=== PATIENT | male | born 1960 | race Caucasian/White ===

== ENCOUNTER 2021-03-05 00:16 | Inpatient (IN) ==
[2021-03-05] MEDS ORDERED: LABETALOL 5 MG/ML ML IV PRN ×2 (00:33→08:30)
[2021-03-05] MEDS: 0.9 % SODIUM CHLORIDE 10 ML SYRINGE IV SCH ×5 (01:45→21:40)
[2021-03-05] MEDS ORDERED: LABETALOL 5 MG/ML ML IV ONE (03:30)
[2021-03-05 07:52] LABS: Basophils # (Auto) 0.08 K/mcL (0.00-0.20); Basophils % (Auto) 0.8 % (0.0-2.0); Eosinophils # (Auto) 0.22 K/mcL (0.00-0.70); Eosinophils % (Auto) 2.3 % (0.0-7.0); Hematocrit 39.4 % (41.0-55.0); Lymphocytes # (Auto) 1.92 K/mcL (1.50-4.80); Lymphocytes % (Auto) 19.7 % (15.0-49.0); Mean Cell Volume 73.1 fL (80.0-100.0); Mean Corpuscular HGB Conc 27.9 g/dL (31.0-36.0); Mean Platelet Volume 8.7 fL (7.4-10.4); Monocytes # (Auto) 0.97 K/mcL (0.10-0.90); Neutrophils % (Auto) 67.2 % (38.0-78.0); Platelet Count 337 K/mcL (140-440); RBC 5.39 M/mcL (4.50-5.90); Red Cell Distribution Width 23.6 % (11.5-14.5); WBC 9.7 K/mcL (4.5-11.0)
[2021-03-05] MEDS ORDERED: FUROSEMIDE 40 MG/4 ML VIAL IV SCH (08:00)
--- NOTE | 2021-03-05 08:21 | Internal Med History&Physical ---
HPI History of Present Illness Patient information: Note initiated : 03/05/21 at 8:15 am Service Date, if different from initiated Date: [] Patient: Guillaume Broderick a 60 y/o M admitted on 03/05/21 for Anasarca. Chief Complaint: [] History of present illness: Mr. Broderick is a 60 year old M Patient transferred from [facility] because of staffing issues. Patient went in complaining of increased swelling and pain in his lower extremities had a hard time ambulating because of swelling and pain. He has mild shortness of breath but this is not changed. Denies fever chills. Has injuries lower extremities no chest pain or palpitations no cough or shortness or sputum production or fevers or chills. In the ER he was unable to ambulate and lives by himself. He has no pitting edema to the abdomen. Patient had a stress test in January which showed partially reversible perfusion defect in the anterior wall and he had ejection fraction 20% with left ventricle dilatation. He has chronic discoloration of his legs. He feels his legs are hot. Review of Systems: Pertinent positives as above plus chronic cough and chronic shortness of breath at baseline.. Denies headache/fever/chills/nausea/vomiting/chest or abdominal pain/diarrhea. Remaining 10 point review of system reviewed negative PFSH PFSH All Active Problems (Updated 02/17/21 @ 09:31 by Omero Holt MD) Scratch of right lower leg (Acute) Near syncope (Acute) Dyspnea (Acute) Hypertensive urgency (Acute) Blister (Acute) Visit for wound check (Acute) Rash (Acute) Congestive heart failure (Acute) Hypertension (Acute) Type 2 diabetes mellitus (Acute) Hypertensive urgency (Acute) History of syncope (Acute) Elevated troponin (Acute) Lower urinary tract symptoms (LUTS) (Chronic) Arthritis (Chronic) Pain in left knee (Chronic) Sleeps in sitting position due to orthopnea (Chronic) Pain in right knee (Chronic) Adult body mass index 40 and over (Chronic) History of tobacco use (Chronic) Edema of lower extremity (Chronic) Retinal venous tortuosity (Chronic) Allergic rhinitis (Chronic) Benign hypertension (Chronic) Chronic depression (Chronic) Morbid obesity (Chronic) Diabetes mellitus (Chronic) Urinary incontinence (Chronic) Pediculus capitis (head louse) (Chronic) Pediculus corporis (body louse) (Chronic) Rib pain on left side (Chronic) Medical History Adult body mass index 40 and over Allergic rhinitis Arthritis Bilateral Ankle Benign hypertension Chronic depression Diabetes mellitus Edema of lower extremity History of tobacco use Lower urinary tract symptoms (LUTS) Morbid obesity Pain in left knee Pain in right knee Pediculus capitis (head louse) Pediculus corporis (body louse) Rash Retinal venous tortuosity Sleeps in sitting position due to orthopnea Urinary incontinence Surgical History History of colonoscopy with polypectomy History of hernia repair "Double" Family History Mother Tumor of lung Father Malignant neoplasm of bone Malignant melanoma Social History household members: other sexually active: No alcohol intake frequency: does not drink substance use type: does not use seatbelt use: always working smoke detector in home: Yes firearms in home: No MEDS/ALLERGIES Home Medications and Allergies Home Medications Medication Instructions Recorded Confirmed Type amlodipine 5 mg tablet 5 mg PO QDAY 07/17/19 12/16/20 History exenatide microspheres 2 mg/0.85 2 mg SUB-Q QWEEK ml 07/17/19 12/16/20 History mL subcutaneous auto-injector fluoxetine 40 mg capsule 40 mg PO QDAY 07/17/19 12/16/20 History furosemide 40 mg tablet 40 mg PO BID tab 07/17/19 12/16/20 History lisinopril 40 mg tablet 40 mg PO QDAY 07/17/19 12/16/20 History metformin 500 mg tablet,extended 1,000 mg PO BID tab 07/17/19 12/16/20 History release 24 hr potassium chloride 10 mEq 20 meq PO BID 07/17/19 12/16/20 History capsule,extended release rosuvastatin 40 mg tablet 40 mg PO QDAY 07/17/19 12/16/20 History insulin glargine 100 unit/mL (3 29 unit SUB-Q QDAY ml 08/19/19 12/16/20 History mL) subcutaneous pen tamsulosin 0.4 mg capsule 0.8 mg PO QDAY #60 cap 10/09/19 12/16/20 Rx permethrin 5 % topical cream 1 applic TOPICAL Q14D #60 g 12/16/20 12/16/20 Rx meclizine 25 mg PO BID PRN #20 tab MDD 2 01/12/21 Rx finasteride 5 mg tablet See Rx Instructions .ROUTE 01/24/21 Rx .COMPLEX #30 tab permethrin 1 applic TOPICAL ONCE #60 g 02/17/21 Rx Allergies Allergy/AdvReac Type Severity Reaction Status Date / Time No Known Drug Allergies Allergy Verified 01/12/21 18:12 EXAM Constitutional Vitals: Temp Pulse Resp BP Pulse Ox 97.9 F 94 H 18 139/107 100 03/05/21 08:01 03/05/21 04:01 03/05/21 08:07 03/05/21 08:01 03/05/21 08:01 Exam: General: Alert, Awake, No acute Distress, obese Eyes/N/T: EOMI, PERRL, Head/Neck: neck supple, normocephalic atraumatic CV: RRR, 2/6 SM, normal s1/s2 Pulm: Clear b/l, no wheezing/rhonchi/rales Abd: soft, nontender, +BS x4 Ext: no clubbing/cyanosis, 3+ b/l LE edema to waist, bilateral lower extremity is erythematous and tender to the touch and warm. Neuro: Alert, no focal deficits, moves all extremities, CN 2-12 grossly intact, symmetrical strength b/l upper/lower, sensations intact b/l upper/lower Skin: warm/dry DATA Data Completed and Pending Labs: Labs from last 24 hours 03/05/21 03/05/21 05:19 05:18 WBC 9.7 RBC 5.39 Hgb 11.0 L Hct 39.4 L MCV 73.1 L MCH 20.4 L MCHC 27.9 L RDW 23.6 H Plt Count 337 MPV 8.7 Neut % (Auto) 67.2 Lymph % (Auto) 19.7 Nelson % (Auto) 10.0 Eos % (Auto) 2.3 Baso % (Auto) 0.8 Lymph # (Auto) 1.92 Nelson # (Auto) 0.97 H Eos # (Auto) 0.22 Baso # (Auto) 0.08 Absolute Neutrophils 6.54 Sodium Pending Potassium Pending Chloride Pending Carbon Dioxide Pending Anion Gap Pending BUN Pending Creatinine Pending GFR Calculation Pending Glucose Pending Uric Acid Pending Calcium Pending Phosphorus Pending Magnesium Pending Total Bilirubin Pending Direct Bilirubin Pending GGT Pending AST Pending ALT Pending Alkaline Phosphatase Pending Lactate Dehydrogenase Pending Total Protein Pending Albumin Pending Globulin Pending Albumin/Globulin Ratio Pending Triglycerides Pending A/P Narrative A/P Narrative: A: *Anasarca: *Medication noncompliance: *Generalized weakness/debility: *ADOLFO on CKD III(base Cr~?1.6-1.7): suspect cardiorenal -1.8>1.6 *h/o severe systolic CHF (EF 20%): follows with cardiology *UTI, complicated: *UR, h/o bph: has seen urology last year for uti's and incomplete bladder emptying -on finasteride/flomax *Venous stasis dermatitis vs less likely b/l LE cellulitis -afebrile, no leukocytosis *HTN/HLD: on norvasc/lasix/ACEI, statin *Anemia, chronic: *Depression/anxiety *DM: on insulin/metformin *Morbid obesity: * P: -lasix gtt, monitor i&o's -monitor renal fxn -horton placement, f/u with urology if still requiring horton at d/c -hold norvasc for edema, change to BB, hold ACEI for adolfo -basal and SSI, hold metformin -elevate legs and wrap, -Rocephin pending UC -Update home medications in system -pt/ot -cm for placement -ppx: lovenox bid for obesity full code Time Spent With Patient Time: Total time spent is greater than 50% in coordination of care (as documented) at patient's floor/unit and/or counseling patient: QUALITY Stroke Symptom Onset Unknown: No VTE Deep Vein Thrombosis/Pulmonary Embolism Present on Admission: No
[2021-03-05 08:23] LABS: ALT/SGPT 24 U/L (<40); AST/SGOT 28 U/L (<40); Albumin 3.5 gm/dL (3.2-5.2); Albumin/Globulin Ratio 1.1 (1.0-2.3); Alkaline Phosphatase 69 U/L (39-117); Bilirubin,Direct 0.3 mg/dL (<0.3); Bilirubin,Total 0.6 mg/dL (0.1-1.0); Blood Urea Nitrogen 46 mg/dL (8-23); Calcium 9.5 mg/dL (8.6-10.4); Carbon Dioxide 21 mmol/L (22-30); Chloride 100 mmol/L (96-108); Globulin 3.1 gm/dL (2.2-3.7); Glomerular Filtration Rate 46; Glucose 84 mg/dL (70-105); Lactate Dehydrogenase 323 U/L (135-225); Phosphorous 4.9 mg/dL (2.5-4.5); Triglycerides 82 mg/dL (<150); Uric Acid 9.4 mg/dL (2.5-8.0)
[2021-03-05] MEDS ORDERED: FUROSEMIDE 250 MG in 0.9 % SODIUM CHLORIDE 225 ML IV SCH (09:00)
[2021-03-05] MEDS ORDERED: POTASSIUM CHLORIDE 20 MEQ TABLET PO PRN ×2 (10:55)
[2021-03-05] MEDS ORDERED: MAGNESIUM SULFATE 2 GM/50 ML BAG IV PRN (10:55)
[2021-03-05] MEDS ORDERED: POTASSIUM CHLORIDE 40 MEQ in DEXTROSE 5% IN WATER 500 ML IV PRN (10:55)
[2021-03-05] MEDS ORDERED: IPRATROPIUM/ALBUTEROL 3 ML AMPUL.NEB NEB PRN (10:55)
[2021-03-05] MEDS ORDERED: ONDANSETRON 4 MG/2 ML VIAL IV PRN (10:55)
[2021-03-05] MEDS ORDERED: DEXTROSE 31 GM ORAL.SUSP PO PRN (10:55)
[2021-03-05] MEDS ORDERED: SENNOSIDES 1 TABLET PO PRN (10:55)
[2021-03-05] MEDS ORDERED: POLYETHYLENE GLYCOL 3350 17 GM PACKET PO PRN (10:55)
[2021-03-05] MEDS ORDERED: DEXTROSE 50% 50 ML VIAL IV PRN (10:55)
[2021-03-05] MEDS: cefTRIAXone 2 GM in DEXTROSE 5% IN WATER 50 ML IV SCH (12:03)
[2021-03-05] MEDS: METOPROLOL SUCCINATE 25 MG TAB.XL.24H PO SCH (12:03)
[2021-03-05] MEDS: ENOXAPARIN 40 MG/0.4 ML SYRINGE SQ SCH ×2 (12:03→21:39)
[2021-03-05] MEDS ORDERED: TAMSULOSIN 0.4 MG CAPSULE PO ONE (12:06)
[2021-03-05] MEDS ORDERED: FINASTERIDE 5 MG TABLET PO STA (12:06)
[2021-03-05] MEDS: INSULIN LISPRO 1 UNIT/0.01 ML UNIT SQ SCH ×3 (13:25→21:39)
[2021-03-05] MEDS ORDERED: MECLIZINE 25 MG TABLET PO PRN (14:00)
--- NOTE | 2021-03-05 15:14 | XRay Report ---
CLINICAL INFORMATION: anasarca, ?pulm edema COMPARISON: Baseline study 11/08/2013 and 01/12/2021 FINDINGS: The heart is moderately enlarged, but unchanged. Mediastinum is normal. The pulmonary vessels are mildly distended compared to a baseline chest x-ray 11/08/2013. No definite edema or infiltrates. No effusions IMPRESSION: Mild CHF Interpreted and Authenticated by: Bartolo Arias 03/05/21
--- NOTE | 2021-03-05 15:18 | Ultrasound Report ---
CLINICAL INFORMATION: will, r/o hydronephrosi COMPARISON: Abdomen and pelvic CT 10/06/2019 FINDINGS: Right kidney was not visualized. Left kidney is normal in size and echotexture left 11.7 x 6 cm. No left renal lesions. Urinary bladder volume 556 cc with patient unable to void. No focal bladder lesions. IMPRESSION: Left kidney and bladder are unremarkable. Right kidney was not visualized. Right kidney was present on a 10/06/[address] Consider repeat noncontrast abdomen and pelvic CT four right kidney evaluation Interpreted and Authenticated by: Bartolo Arias 03/05/21
[2021-03-05] MEDS: POTASSIUM CHLORIDE 20 MEQ TABLET PO SCH (17:18)
[2021-03-05] MEDS: TAMSULOSIN 0.4 MG CAPSULE PO SCH (21:16)
[2021-03-05] MEDS: ACETAMINOPHEN 325 MG TABLET PO PRN (21:17)
[2021-03-05] MEDS: DOCUSATE SODIUM 100 MG CAPSULE PO SCH (21:17)
[2021-03-06] MEDS: ACETAMINOPHEN 325 MG TABLET PO PRN ×2 (02:20→20:57)
[2021-03-06 04:36] LABS: Basophils # (Auto) 0.07 K/mcL (0.00-0.20); Eosinophils # (Auto) 0.22 K/mcL (0.00-0.70); Eosinophils % (Auto) 3.1 % (0.0-7.0); Hematocrit 34.8 % (41.0-55.0); Hemoglobin 10.2 g/dL (13.5-16.5); Lymphocytes # (Auto) 1.76 K/mcL (1.50-4.80); Lymphocytes % (Auto) 24.7 % (15.0-49.0); Mean Cell Volume 70.7 fL (80.0-100.0); Mean Corpuscular HGB Conc 29.3 g/dL (31.0-36.0); Mean Platelet Volume 8.6 fL (7.4-10.4); Monocytes # (Auto) 0.55 K/mcL (0.10-0.90); Monocytes % (Auto) 7.7 % (1.0-12.0); Neutrophils % (Auto) 63.5 % (38.0-78.0); Platelet Count 293 K/mcL (140-440); RBC 4.92 M/mcL (4.50-5.90); Red Cell Distribution Width 22.7 % (11.5-14.5); WBC 7.1 K/mcL (4.5-11.0)
[2021-03-06 04:45] LABS: ALT/SGPT 17 U/L (<40); AST/SGOT 19 U/L (<40); Albumin 3.1 gm/dL (3.2-5.2); Albumin/Globulin Ratio 1.1 (1.0-2.3); Alkaline Phosphatase 54 U/L (39-117); Bilirubin,Direct 0.2 mg/dL (<0.3); Bilirubin,Total 0.6 mg/dL (0.1-1.0); Blood Urea Nitrogen 38 mg/dL (8-23); Calcium 8.5 mg/dL (8.6-10.4); Carbon Dioxide 25 mmol/L (22-30); Chloride 101 mmol/L (96-108); Globulin 2.8 gm/dL (2.2-3.7); Glomerular Filtration Rate 46; Glucose 104 mg/dL (70-105); Lactate Dehydrogenase 221 U/L (135-225); Phosphorous 4.2 mg/dL (2.5-4.5); Triglycerides 68 mg/dL (<150); Uric Acid 9.3 mg/dL (2.5-8.0)
[2021-03-06] MEDS: 0.9 % SODIUM CHLORIDE 10 ML SYRINGE IV SCH ×3 (05:53→22:05)
[2021-03-06] MEDS: INSULIN LISPRO 1 UNIT/0.01 ML UNIT SQ SCH ×4 (07:11→21:01)
[2021-03-06] MEDS ORDERED: ALBUMIN HUMAN 12.5 GM/50 ML BAG IV ONE (09:34)
--- NOTE | 2021-03-06 09:34 | Internal Med Progress Note ---
SUBJECTIVE Subjective Patient information: Note initiated : 03/06/21 at 9:24 am Service Date, if different from initiated Date: [] Patient: Guillaume Broderick a 60 y/o M admitted on 03/05/21 for Anasarca. Chief Complaint: [] Interval history: History of present illness: Mr. Broderick is a 60 year old M Patient transferred from [facility] because of staffing issues. Patient went in complaining of increased swelling and pain in his lower extremities had a hard time ambulating because of swelling and pain. He has mild shortness of breath but this is not changed. Denies fever chills. Has injuries lower extremities no chest pain or palpitations no cough or shortness or sputum production or fevers or chills. In the ER he was unable to ambulate and lives by himself. He has no pitting edema to the abdomen. Patient had a stress test in January which showed partially reversible perfusion defect in the anterior wall and he had ejection fraction 20% with left ventricle dilatation. He has chronic discoloration of his legs. He feels his legs are hot. 03/06 Patient slept well. He feels sleepy but otherwise no new pains or complaints or overnight events. He has had good urine output on the Lasix drip. Suspect he has obstructive sleep apnea. ABG without any CO2 retention. Review of Systems: denies headache/fever/chills/nausea/vomiting/chest or abdominal pain/cough/dyspnea/diarrhea. Otherwise see above. Constitutional Vitals: Vital Signs Temp Pulse Resp BP Pulse Ox 97.6 F 79 19 122/78 96 03/06/21 08:01 03/06/21 08:01 03/06/21 08:01 03/06/21 08:01 03/06/21 08:01 Period Temp Pulse Resp BP Sys/Becerra Pulse Ox Last 24 Hr 97.6 F-98.5 F 60-99 14-25 93-170/48-98 91-99 Intake and Output 03/05/21 03/06/21 03/06/21 21:59 05:59 13:59 Intake Total 660 240 200 Output Total 1226 302 800 Balance -566 -62 -600 Weight 170.596 kg Intake & Output: Intake & Output 06/12/21 06/13/21 06/13/21 21:59 05:59 13:59 Intake Total 660 240 200 Output Total 1226 302 800 Balance -566 -62 -600 Weight 170.596 kg Intake: Oral 660 240 200 Output: Void Amount 1225 300 800 # of times incontinent of urine 1 2 Other: Meal Dinner Percent of Meal Consumed 100% Feeding Ability Independent Urine Appearance Clear Clear Clear Urine Color Bright Yellow Bright Yellow Dark Yellow Urine Odor Normal Normal Normal Stool Size Smear Stool Color Yellow Stool Consistency Soft # Bowel Movements 1 Exam: General: Alert, Awake, No acute Distress, obese Eyes/N/T: EOMI,L, Head/Neck: neck supple, normocephalic atraumatic CV: RRR, 2/6 SM, normal s1/s2 Pulm: Clear b/l, no wheezing/rhonchi/rales Abd: soft, nontender, +BS x4 Ext: no clubbing/cyanosis, 3+ b/l LE edema to waist, right heal wound Neuro: Alert, no focal deficits, moves all extremities, Skin: warm/dry OBJ DATA Labs CBC & Chem 7: 03/06/21 03:09 03/06/21 03:09 Labs: Abnormal Lab Results 03/06/21 03/06/21 03/05/21 03:09 03:09 05:19 Hgb 10.2 L 11.0 L Hct 34.8 L 39.4 L MCV 70.7 L 73.1 L MCH 20.7 L 20.4 L MCHC 29.3 L 27.9 L RDW 22.7 H 23.6 H Kent # (Auto) 0.97 H Carbon Dioxide BUN 38 H Creatinine 1.6 H Uric Acid 9.3 H Calcium 8.5 L Phosphorus Direct Bilirubin Lactate Dehydrogenase Albumin 3.1 L 03/05/21 05:18 Hgb Hct MCV MCH MCHC RDW Kent # (Auto) Carbon Dioxide 21 L BUN 46 H Creatinine 1.6 H Uric Acid 9.4 H Calcium Phosphorus 4.9 H Direct Bilirubin 0.3 H Lactate Dehydrogenase 323 H Albumin Meds: Medications Acetaminophen (Acetaminophen 325 Mg Tablet) 650 mg PO Q6HP PRN PRN Reason: PAIN/FEVER > 101 Last Admin: 03/06/21 02:20 Dose: 650 mg Documented by: Albuterol/Ipratropium (Ipratropium/Albuterol 3 Ml Ampul.Neb) 3 ml NEB Q4HP PRN PRN Reason: Shortness Of Breath Atorvastatin Calcium (Atorvastatin 40 Mg Tablet) 80 mg PO DAILY [facility] Dextrose (Dextrose 50% 50 Ml Vial) 0 ml IV UD PRN PRN Reason: Hypoglycemia Diagnostic Test (Pha) (Accu-Chek 1 Each Strip) 1 each FS [facility] Last Admin: 03/06/21 07:10 Dose: 1 each Documented by: Docusate Sodium (Docusate Sodium 100 Mg Capsule) 100 mg PO BID [facility] Last Admin: 03/05/21 21:17 Dose: 100 mg Documented by: Enoxaparin Sodium (Enoxaparin 40 Mg/0.4 Ml Syringe) 40 mg SQ BID [facility] Last Admin: 03/05/21 21:39 Dose: 40 mg Documented by: Finasteride (Finasteride 5 Mg Tablet) 5 mg PO DAILY [facility] Glucose (Dextrose 31 Gm Oral.Susp) 15 gm PO PRN PRN PRN Reason: Hypoglycemia Ceftriaxone Sodium 2 gm/ (Dextrose) 50 mls @ 100 mls/hr IV DAILY [facility]; Protocol Last Infusion: 03/05/21 12:55 Dose: Infused Documented by: Potassium Chloride 40 meq/ (Dextrose) 520 mls @ 130 mls/hr IV UD PRN PRN Reason: Potassium < 3 Magnesium Sulfate (Magnesium Sulfate) 2 gm in 50 mls @ 50 mls/hr IV UD PRN PRN Reason: Magnesium </= 1.6 Furosemide 250 mg/ Sodium (Chloride) 250 mls @ 5 mls/hr IV DAILY@1400 [facility]; Protocol Insulin Glargine (Insulin Glargine, Human 1 Unit/0.01 Ml) 29 unit SQ DAILY [facility] Insulin Human Lispro (Insulin Lispro 1 Unit/0.01 Ml Unit) 0 unit SQ [facility]; Protocol Last Admin: 03/06/21 07:11 Dose: Not Given Documented by: Labetalol HCl (Labetalol 5 Mg/Ml Ml) 10 - 20 mg IV Q2HP PRN PRN Reason: Hypertension Meclizine HCl (Meclizine 25 Mg Tablet) 25 mg PO BIDP PRN PRN Reason: dizziness Metoprolol Succinate (Metoprolol Succinate 25 Mg Tab.Xl.24h) 25 mg PO DAILY [facility] Last Admin: 03/05/21 12:03 Dose: 25 mg Documented by: Ondansetron HCl (Ondansetron 4 Mg/2 Ml Vial) 4 mg IV Q4HP PRN PRN Reason: Nausea And Vomiting Polyethylene Glycol (Polyethylene Glycol 3350 17 Gm Packet) 17 gm PO DAILYP PRN PRN Reason: Constipation Potassium Chloride (Potassium Chloride 20 Meq Tablet) 40 meq PO UD PRN PRN Reason: Potssium is 3-3.5 Last Admin: 03/06/21 05:19 Dose: 40 meq Documented by: Potassium Chloride (Potassium Chloride 20 Meq Tablet) 40 meq PO UD PRN PRN Reason: Potassium < 3 Potassium Chloride (Potassium Chloride 20 Meq Tablet) 20 meq PO BIDCC [facility] Last Admin: 03/05/21 17:18 Dose: 20 meq Documented by: Senna (Sennosides 1 Tablet) 2 tab PO DAILYP PRN PRN Reason: Constipation Sodium Chloride (0.9 % Sodium Chloride 10 Ml Syringe) 10 ml IV Q8 [facility] Last Admin: 03/06/21 05:53 Dose: Not Given Documented by: Tamsulosin HCl (Tamsulosin 0.4 Mg Capsule) 0.8 mg PO HS [facility] Last Admin: 03/05/21 21:16 Dose: 0.8 mg Documented by: A/P Narrative A/P Narrative: A: *Anasarca w/Pulm edema: *Medication noncompliance: *Generalized weakness/debility: *ADOLFO on CKD III(base Cr~?1.6-1.7): suspect cardiorenal -renal u/s no hydro -1.8>1.6 *h/o severe systolic CHF (EF 20%): follows with cardiology *UTI (E.coli), complicated: *UR, h/o bph: has seen urology last year for uti's and incomplete bladder emptying -on finasteride/flomax -now urinating on own *Venous stasis dermatitis vs less likely b/l LE cellulitis -afebrile, no leukocytosis *HTN/HLD: on norvasc/lasix/ACEI, statin *Anemia, chronic: *Depression/anxiety *DM: on insulin/metformin *Morbid obesity: * P: -lasix gtt, monitor i&o's -monitor renal fxn -d/c norvasc for edema, change to BB for chf, hold ACEI for adolfo -basal and SSI, hold metformin -elevate legs and wrap, -Rocephin to fluoroquinone upon d/c -iron studies -Update home medications in system -pt/ot -cm for placement -ppx: lovenox bid for obesity full code Time Spent With Patient Time: Total time spent is greater than 50% in coordination of care (as documented) at patient's floor/unit and/or counseling patient: QUALITY Stroke Symptom Onset Unknown: No VTE Deep Vein Thrombosis/Pulmonary Embolism Present on Admission: No
[2021-03-06] MEDS ORDERED: cefTRIAXone 2 GM VIAL ONE (09:49)
[2021-03-06] MEDS: DOCUSATE SODIUM 100 MG CAPSULE PO SCH ×2 (09:51→20:56)
[2021-03-06] MEDS: ATORVASTATIN 40 MG TABLET PO SCH (09:51)
[2021-03-06] MEDS: FINASTERIDE 5 MG TABLET PO SCH (09:52)
[2021-03-06] MEDS: INSULIN GLARGINE, HUMAN 1 UNIT/0.01 ML SQ SCH (09:52)
[2021-03-06] MEDS: POTASSIUM CHLORIDE 20 MEQ TABLET PO SCH ×2 (09:52→16:54)
[2021-03-06] MEDS: METOPROLOL SUCCINATE 25 MG TAB.XL.24H PO SCH (09:52)
[2021-03-06] MEDS: ENOXAPARIN 40 MG/0.4 ML SYRINGE SQ SCH ×2 (09:53→20:57)
[2021-03-06] MEDS: cefTRIAXone 2 GM in DEXTROSE 5% IN WATER 50 ML IV SCH (10:12)
[2021-03-06 10:35] LABS: Ferritin 52.8 ng/mL (30.0-400.0)
[2021-03-06] MEDS ORDERED: PERMETHRIN CRM 5% TUBE 60GM TOPICAL SCH (11:00)
[2021-03-06] MEDS: IRON POLYSACCHARIDE COMPLEX 150 MG CAPSULE PO SCH ×2 (11:44→20:56)
[2021-03-06] MEDS: FUROSEMIDE 250 MG in 0.9 % SODIUM CHLORIDE 225 ML IV SCH ×2 (12:48→20:07)
[2021-03-06] MEDS ORDERED: POTASSIUM CHLORIDE 20 MEQ TABLET PO ONE ×2 (13:34→13:45)
[2021-03-06 14:07] LABS: POC Blood Urea Nitrogen 32 mg/dL (6-20); POC CO2 27 mmol/L (22-30); POC Calcium, Ionized 1.07 mmEq/L (1.16-1.32); POC Chloride 103 mEq/L (96-108); POC Creatinine 1.5 mg/dL (0.6-1.2); POC Glucose, Random 158 mg/dL (70-105); POC Hematocrit 38 % (41-55); POC Potassium 3.8 mEql/L (3.3-5.1); POC Sodium 139 mEq/L (133-145)
--- NOTE | 2021-03-06 16:06 | General Surgery Consult Note ---
HPI Data of Consult Consult date: 03/06/21 Requesting physician: Cash Jerry Primary Care Provider: Jane Murphy Family Provider: Consultation requested for BLISTER Right medial heel region. I saw this patient in ICU 120/C along with nursing staff. Reviewed EHR notes and details pertaining his admission here at [facility]. Consult Narrative Patient Information: Note initiated : 03/06/21 at 3:51 pm Service Date, if different from initiated Date: [] Patient: Guillaume Broderick 60 y/o M admitted on 03/05/21 for Anasarca. Chief Complaint: [] cc:: CC: Cash Jerry PFSH PFSH All Active Problems Scratch of right lower leg (Acute) Near syncope (Acute) Dyspnea (Acute) Hypertensive urgency (Acute) Blister (Acute) Visit for wound check (Acute) Rash (Acute) Congestive heart failure (Acute) Hypertension (Acute) Type 2 diabetes mellitus (Acute) Hypertensive urgency (Acute) History of syncope (Acute) Elevated troponin (Acute) Lower urinary tract symptoms (LUTS) (Chronic) Arthritis (Chronic) Pain in left knee (Chronic) Sleeps in sitting position due to orthopnea (Chronic) Pain in right knee (Chronic) Adult body mass index 40 and over (Chronic) History of tobacco use (Chronic) Edema of lower extremity (Chronic) Retinal venous tortuosity (Chronic) Allergic rhinitis (Chronic) Benign hypertension (Chronic) Chronic depression (Chronic) Morbid obesity (Chronic) Diabetes mellitus (Chronic) Urinary incontinence (Chronic) Pediculus capitis (head louse) (Chronic) Pediculus corporis (body louse) (Chronic) Rib pain on left side (Chronic) Medical History Adult body mass index 40 and over Allergic rhinitis Arthritis Bilateral Ankle Benign hypertension Chronic depression Diabetes mellitus Edema of lower extremity History of tobacco use Lower urinary tract symptoms (LUTS) Morbid obesity Pain in left knee Pain in right knee Pediculus capitis (head louse) Pediculus corporis (body louse) Rash Retinal venous tortuosity Sleeps in sitting position due to orthopnea Urinary incontinence Surgical History History of colonoscopy with polypectomy History of hernia repair "Double" Family History Mother Tumor of lung Father Malignant neoplasm of bone Malignant melanoma Social History household members: other sexually active: No alcohol intake frequency: does not drink substance use type: does not use seatbelt use: always working smoke detector in home: Yes firearms in home: No MEDS/ALLERGIES Home Medications and Allergies Home Medications Medication Instructions Recorded Confirmed Type amlodipine 5 mg tablet 5 mg PO QDAY 07/17/19 03/05/21 History exenatide microspheres 2 mg/0.85 2 mg SUB-Q QWEEK ml 07/17/19 03/05/21 History mL subcutaneous auto-injector furosemide 40 mg tablet 40 mg PO BID tab 07/17/19 03/05/21 History lisinopril 40 mg tablet 40 mg PO QDAY 07/17/19 03/05/21 History metformin 500 mg tablet,extended 1,000 mg PO BID tab 07/17/19 03/05/21 History release 24 hr potassium chloride 10 mEq 20 meq PO BID 07/17/19 03/05/21 History capsule,extended release rosuvastatin 40 mg tablet 40 mg PO QDAY 07/17/19 03/05/21 History insulin glargine 100 unit/mL (3 29 unit SUB-Q QDAY ml 08/19/19 03/05/21 History mL) subcutaneous pen tamsulosin 0.4 mg capsule 0.8 mg PO QDAY #60 cap 10/09/19 03/05/21 Rx permethrin 5 % topical cream 1 applic TOPICAL Q14D #60 g 12/16/20 03/05/21 Rx meclizine 25 mg PO BID PRN #20 tab MDD 2 01/12/21 03/05/21 Rx finasteride 5 mg tablet See Rx Instructions .ROUTE 01/24/21 03/05/21 Rx .COMPLEX #30 tab Allergies Allergy/AdvReac Type Severity Reaction Status Date / Time No Known Drug Allergies Allergy Verified 01/12/21 18:12 Physical Examination Vital Signs Vital signs: Temp Pulse Resp BP Pulse Ox 98.1 F 92 H 23 H 125/82 96 03/06/21 12:01 03/06/21 12:01 03/06/21 12:01 03/06/21 12:01 03/06/21 12:01 General physical appearance General physical exam: well nourished, no distress, no pain and obese (Morbidly obese) Eyes Eye exam: PERRL and normal ocular movement ENT ENT exam: normal pinna, normal mucosa and no congestion Head Head exam IM: Present atraumatic and normocephalic Neck Neck exam: no masses and no venous distension Cardiovascular Cardiovascular exam IM: Present normal rate and rhythm and tachycardia Respiratory Respiratory exam: normal expansion and clear to auscultation Abdomen Abdomen: Present soft, non tender and bowel sounds Neurologic Neurologic: Present other (Sitting in bed. NO gross abnormalities and localizing signs. Both legs with wraps in place. ) Musculoskeletal Musculoskeletal: Present other (Moves all extremities. Both feet are PWD. Edema of dorsal feet. Diminised pulses. CLEAR fluid blisteralong RIGHT medial heel. NO sigans of acute infection or inflammation. ) Psychiatric Psychiatric: Present oriented to time, oriented to person, oriented to place and speech is normal Results Labs Result diagrams: 03/06/21 03:09 03/06/21 03:09 Labs: Abnormal lab results 03/06/21 03/06/21 03/06/21 Range/Units 03:09 03:09 03:09 Hgb 10.2 L (13.5-16.5) g/dL Hct 34.8 L (41.0-55.0) % POC Hct (41-55) % MCV 70.7 L (80.0-100.0) fL MCH 20.7 L (26.0-34.0) pg MCHC 29.3 L (31.0-36.0) g/dL RDW 22.7 H (11.5-14.5) % POC BUN (6-20) mg/dL BUN 38 H (8-23) mg/dL Creatinine 1.6 H (0.7-1.2) mg/dL POC Creatinine (0.6-1.2) mg/dL POC Glucose (70-105) mg/dL Uric Acid 9.3 H (2.5-8.0) mg/dL Calcium 8.5 L (8.6-10.4) mg/dL POC WB Ioniz Calcium (1.16-1.32) mmEq/L Iron 26 L (61-157) ug/dL Transferrin % Sat 8 L (20-50) % Albumin 3.1 L (3.2-5.2) gm/dL 03/06/21 Range/Units 13:58 Hgb (13.5-16.5) g/dL Hct (41.0-55.0) % POC Hct 38 L (41-55) % MCV (80.0-100.0) fL MCH (26.0-34.0) pg MCHC (31.0-36.0) g/dL RDW (11.5-14.5) % POC BUN 32 H (6-20) mg/dL BUN (8-23) mg/dL Creatinine (0.7-1.2) mg/dL POC Creatinine 1.5 H (0.6-1.2) mg/dL POC Glucose 158 H (70-105) mg/dL Uric Acid (2.5-8.0) mg/dL Calcium (8.6-10.4) mg/dL POC WB Ioniz Calcium 1.07 L (1.16-1.32) mmEq/L Iron (61-157) ug/dL Transferrin % Sat (20-50) % Albumin (3.2-5.2) gm/dL Diabetes panel 03/06/21 Range/Units 03:09 Sodium 136 (133-145) mmol/L Potassium 3.5 (3.3-5.1) mmol/L Chloride 101 (96-108) mmol/L Carbon Dioxide 25 (22-30) mmol/L BUN 38 H (8-23) mg/dL Creatinine 1.6 H (0.7-1.2) mg/dL Glucose 104 (70-105) mg/dL Calcium 8.5 L (8.6-10.4) mg/dL AST 19 (<40) U/L ALT 17 (<40) U/L Alkaline Phosphatase 54 (39-117) U/L Total Protein 5.9 (5.9-8.4) gm/dL Albumin 3.1 L (3.2-5.2) gm/dL Triglycerides 68 (<150) mg/dL Calcium panel 03/06/21 Range/Units 03:09 Calcium 8.5 L (8.6-10.4) mg/dL Phosphorus 4.2 (2.5-4.5) mg/dL Albumin 3.1 L (3.2-5.2) gm/dL Pituitary panel 03/06/21 Range/Units 03:09 Sodium 136 (133-145) mmol/L Potassium 3.5 (3.3-5.1) mmol/L Chloride 101 (96-108) mmol/L Carbon Dioxide 25 (22-30) mmol/L BUN 38 H (8-23) mg/dL Creatinine 1.6 H (0.7-1.2) mg/dL Glucose 104 (70-105) mg/dL Calcium 8.5 L (8.6-10.4) mg/dL Adrenal panel 03/06/21 Range/Units 03:09 Sodium 136 (133-145) mmol/L Potassium 3.5 (3.3-5.1) mmol/L Chloride 101 (96-108) mmol/L Carbon Dioxide 25 (22-30) mmol/L BUN 38 H (8-23) mg/dL Creatinine 1.6 H (0.7-1.2) mg/dL Glucose 104 (70-105) mg/dL Calcium 8.5 L (8.6-10.4) mg/dL Total Bilirubin 0.6 (0.1-1.0) mg/dL AST 19 (<40) U/L ALT 17 (<40) U/L Alkaline Phosphatase 54 (39-117) U/L Total Protein 5.9 (5.9-8.4) gm/dL Albumin 3.1 L (3.2-5.2) gm/dL All other labs normal. A/P Narrative A/P Narrative: Assessment: Morbid obesity. Chronic. DM, ?? PAD with peripheral neuropathy Compression wraps both legs. Lear fluid filled blister 3 x 2 CM. Right medial heel Comorbid medial problems: ADOLFO, CKD UTI CHF ROBERT ( Anxiety / Depression ) issues: Incomplete bladder emptying ?? BPH / LUTS Plan: Agree with current medial management. Clean and paint blister site with Betadine gauze and dress with gauze /Kerlix Will see patient in AM with Jody transitional care nurse nurse. Further recommendations to follow. Time Spent With Patient Time: Total time spent is greater than 50% in coordination of care (as documented) at patient's floor/unit and/or counseling patient: Total time spent with greater than 50% in coordination of care (as documented) at patient's floor/unit and/or counseling patient:: 25 - 35 minutes
[2021-03-06] MEDS: TAMSULOSIN 0.4 MG CAPSULE PO SCH (20:56)
[2021-03-07] MEDS: 0.9 % SODIUM CHLORIDE 250 ML IV SCH ×2 (00:20→20:14)
[2021-03-07] MEDS: 0.9 % SODIUM CHLORIDE 10 ML SYRINGE IV SCH ×3 (05:38→21:30)
[2021-03-07 06:29] LABS: ALT/SGPT 15 U/L (<40); AST/SGOT 18 U/L (<40); Albumin 3.2 gm/dL (3.2-5.2); Albumin/Globulin Ratio 1.1 (1.0-2.3); Alkaline Phosphatase 57 U/L (39-117); Bilirubin,Direct < 0.2 mg/dL (0-0.3); Bilirubin,Total 0.4 mg/dL (0.1-1.0); Blood Urea Nitrogen 28 mg/dL (8-23); Calcium 8.3 mg/dL (8.6-10.4); Carbon Dioxide 27 mmol/L (22-30); Chloride 103 mmol/L (96-108); Glomerular Filtration Rate 54; Glucose 90 mg/dL (70-105); Lactate Dehydrogenase 230 U/L (135-225); Phosphorous 3.8 mg/dL (2.5-4.5); Triglycerides 62 mg/dL (<150); Uric Acid 9.2 mg/dL (2.5-8.0)
[2021-03-07] MEDS: INSULIN LISPRO 1 UNIT/0.01 ML UNIT SQ SCH ×4 (07:30→21:30)
[2021-03-07] MEDS: POTASSIUM CHLORIDE 20 MEQ TABLET PO SCH ×2 (07:35→17:53)
[2021-03-07] MEDS ORDERED: HYDROCHLOROTHIAZIDE 25 MG TABLET PO ONE (07:59)
[2021-03-07] MEDS ORDERED: ALBUMIN HUMAN 12.5 GM/50 ML BAG IV ONE (07:59)
--- NOTE | 2021-03-07 08:00 | Internal Med Progress Note ---
SUBJECTIVE Subjective Patient information: Note initiated : 03/07/21 at 7:54 am Service Date, if different from initiated Date: [] Patient: Guillaume Broderick a 60 y/o M admitted on 03/05/21 for Anasarca. Chief Complaint: [] Interval history: History of present illness: Mr. Broderick is a 60 year old M Patient transferred from [facility] because of staffing issues. Patient went in complaining of increased swelling and pain in his lower extremities had a hard time ambulating because of swelling and pain. He has mild shortness of breath but this is not changed. Denies fever chills. Has injuries lower extremities no chest pain or palpitations no cough or shortness or sputum production or fevers or chills. In the ER he was unable to ambulate and lives by himself. He has no pitting edema to the abdomen. Patient had a stress test in January which showed partially reversible perfusion defect in the anterior wall and he had ejection fraction 20% with left ventricle dilatation. He has chronic discoloration of his legs. He feels his legs are hot. 03/06 Patient slept well. He feels sleepy but otherwise no new pains or complaints or overnight events. He has had good urine output on the Lasix drip. Suspect he has obstructive sleep apnea. ABG without any CO2 retention. 03/07 Patient complains of poor sleep last night. Complains of constipation. Otherwise feels better and less edematous. Review of Systems: denies headache/fever/chills/nausea/vomiting/chest or abdominal pain/cough/dyspnea/diarrhea. Otherwise see above. Constitutional Vitals: Vital Signs Temp Pulse Resp BP Pulse Ox 97.1 F 89 17 124/109 96 03/07/21 07:49 03/07/21 07:49 03/07/21 07:21 03/07/21 07:21 03/07/21 07:49 Period Temp Pulse Resp BP Sys/Becerra Pulse Ox Last 24 Hr 97.1 F-100.1 F 79-102 15-24 122-173/75-113 91-99 Intake and Output 03/06/21 03/07/21 03/07/21 21:59 05:59 13:59 Intake Total 1240 240 200 Output Total 1253 1002 0 Balance -762 200 Weight 168.6 kg Intake & Output: Intake & Output 03/06/21 03/07/21 03/07/21 21:59 05:59 13:59 Intake Total 1240 240 200 Output Total 1253 1002 0 Balance 200 Weight 168.6 kg Intake: IV 160 Lasix 250 mg In Sodium Chloride 160 0.9% 225 ml @ 5 MG/HR 5 mls/hr IV Q24H [facility] Rx#:[id number] Oral 1080 240 200 Output: Void Amount 1250 1000 0 # of times incontinent of urine 3 2 Other: Meal Dinner Percent of Meal Consumed 100% Urine Appearance Clear Urine Color Bright Yellow Pale Urine Odor Normal # Voids 1 Exam: General: Alert, Awake, No acute Distress, obese Eyes/N/T: EOMI, Head/Neck: neck supple, normocephalic atraumatic CV: RRR, 2/6 SM, normal s1/s2 Pulm: Clear b/l, no wheezing/rhonchi/rales Abd: soft, nontender, +BS x4 Ext: no clubbing/cyanosis, 3+ b/l LE edema to waist improving, right heal wound Neuro: Alert, no focal deficits, moves all extremities, Skin: warm/dry OBJ DATA Labs CBC & Chem 7: 03/06/21 03:09 03/07/21 05:10 Labs: Abnormal Lab Results 03/07/21 03/06/21 03/06/21 05:10 13:58 03:09 Hgb Hct POC Hct 38 L MCV MCH MCHC RDW [place] # (Auto) Carbon Dioxide POC BUN 32 H BUN 28 H Creatinine 1.4 H POC Creatinine 1.5 H POC Glucose 158 H Uric Acid 9.2 H Calcium 8.3 L POC WB Ioniz Calcium 1.07 L Phosphorus Iron 26 L Transferrin % Sat 8 L Direct Bilirubin Lactate Dehydrogenase 230 H Albumin 03/06/21 03/06/21 03/05/21 03:09 03:09 05:19 Hgb 10.2 L 11.0 L Hct 34.8 L 39.4 L POC Hct MCV 70.7 L 73.1 L MCH 20.7 L 20.4 L MCHC 29.3 L 27.9 L RDW 22.7 H 23.6 H [place] # (Auto) 0.97 H Carbon Dioxide POC BUN BUN 38 H Creatinine 1.6 H POC Creatinine POC Glucose Uric Acid 9.3 H Calcium 8.5 L POC WB Ioniz Calcium Phosphorus Iron Transferrin % Sat Direct Bilirubin Lactate Dehydrogenase Albumin 3.1 L 03/05/21 05:18 Hgb Hct POC Hct MCV MCH MCHC RDW [place] # (Auto) Carbon Dioxide 21 L POC BUN BUN 46 H Creatinine 1.6 H POC Creatinine POC Glucose Uric Acid 9.4 H Calcium POC WB Ioniz Calcium Phosphorus 4.9 H Iron Transferrin % Sat Direct Bilirubin 0.3 H Lactate Dehydrogenase 323 H Albumin Meds: Medications Acetaminophen (Acetaminophen 325 Mg Tablet) 650 mg PO Q6HP PRN PRN Reason: PAIN/FEVER > 101 Last Admin: 03/06/21 20:57 Dose: 650 mg Documented by: Albuterol/Ipratropium (Ipratropium/Albuterol 3 Ml Ampul.Neb) 3 ml NEB Q4HP PRN PRN Reason: Shortness Of Breath Atorvastatin Calcium (Atorvastatin 40 Mg Tablet) 80 mg PO DAILY [facility] Last Admin: 03/06/21 09:51 Dose: 80 mg Documented by: Dextrose (Dextrose 50% 50 Ml Vial) 0 ml IV UD PRN PRN Reason: Hypoglycemia Diagnostic Test (Pha) (Accu-Chek 1 Each Strip) 1 each FS ACHS [facility] Last Admin: 03/07/21 07:30 Dose: 1 each Documented by: Docusate Sodium (Docusate Sodium 100 Mg Capsule) 100 mg PO BID [facility] Last Admin: 03/06/21 20:56 Dose: 100 mg Documented by: Enoxaparin Sodium (Enoxaparin 40 Mg/0.4 Ml Syringe) 40 mg SQ BID [facility] Last Admin: 03/06/21 20:57 Dose: 40 mg Documented by: Finasteride (Finasteride 5 Mg Tablet) 5 mg PO DAILY [facility] Last Admin: 03/06/21 09:52 Dose: 5 mg Documented by: Glucose (Dextrose 31 Gm Oral.Susp) 15 gm PO PRN PRN PRN Reason: Hypoglycemia Ceftriaxone Sodium 2 gm/ (Dextrose) 50 mls @ 100 mls/hr IV DAILY [facility]; Protocol Last Infusion: 03/06/21 10:50 Dose: Infused Documented by: Potassium Chloride 40 meq/ (Dextrose) 520 mls @ 130 mls/hr IV UD PRN PRN Reason: Potassium < 3 Magnesium Sulfate (Magnesium Sulfate) 2 gm in 50 mls @ 50 mls/hr IV UD PRN PRN Reason: Magnesium </= 1.6 Furosemide 250 mg/ Sodium (Chloride) 250 mls @ 5 mls/hr IV DAILY@1400 [facility]; Protocol Last Admin: 03/06/21 20:07 Dose: 5 mg/hr, 5 mls/hr Documented by: Sodium Chloride (Sodium Chloride 0.9%) 250 mls @ 20 mls/hr IV .[id number] [facility] Last Admin: 03/07/21 00:20 Dose: 20 mls/hr Documented by: Insulin Glargine (Insulin Glargine, Human 1 Unit/0.01 Ml) 29 unit SQ DAILY [facility] Last Admin: 03/06/21 09:52 Dose: 29 unit Documented by: Insulin Human Lispro (Insulin Lispro 1 Unit/0.01 Ml Unit) 0 unit SQ ACHS [facility]; Protocol Last Admin: 03/07/21 07:30 Dose: Not Given Documented by: Labetalol HCl (Labetalol 5 Mg/Ml Ml) 10 - 20 mg IV Q2HP PRN PRN Reason: Hypertension Meclizine HCl (Meclizine 25 Mg Tablet) 25 mg PO BIDP PRN PRN Reason: dizziness Metoprolol Succinate (Metoprolol Succinate 25 Mg Tab.Xl.24h) 25 mg PO DAILY [facility] Last Admin: 03/06/21 09:52 Dose: 25 mg Documented by: Ondansetron HCl (Ondansetron 4 Mg/2 Ml Vial) 4 mg IV Q4HP PRN PRN Reason: Nausea And Vomiting Permethrin (Permethrin Crm 5% Tube 60gm) 1 dose TOPICAL Q14D [facility] Last Admin: 03/06/21 11:40 Dose: 1 dose Documented by: Polyethylene Glycol (Polyethylene Glycol 3350 17 Gm Packet) 17 gm PO DAILYP PRN PRN Reason: Constipation Polysaccharide Iron Complex (Iron Polysaccharide Complex 150 Mg Capsule) 150 mg PO BID [facility] Last Admin: 03/06/21 20:56 Dose: 150 mg Documented by: Potassium Chloride (Potassium Chloride 20 Meq Tablet) 40 meq PO UD PRN PRN Reason: Potssium is 3-3.5 Last Admin: 03/06/21 05:19 Dose: 40 meq Documented by: Potassium Chloride (Potassium Chloride 20 Meq Tablet) 40 meq PO UD PRN PRN Reason: Potassium < 3 Potassium Chloride (Potassium Chloride 20 Meq Tablet) 20 meq PO BIDCC [facility] Last Admin: 03/07/21 07:35 Dose: 20 meq Documented by: Senna (Sennosides 1 Tablet) 2 tab PO DAILYP PRN PRN Reason: Constipation Sodium Chloride (0.9 % Sodium Chloride 10 Ml Syringe) 10 ml IV Q8 [facility] Last Admin: 03/07/21 05:38 Dose: 10 ml Documented by: Tamsulosin HCl (Tamsulosin 0.4 Mg Capsule) 0.8 mg PO HS [facility] Last Admin: 03/06/21 20:56 Dose: 0.8 mg Documented by: A/P Narrative A/P Narrative: A: *Anasarca w/Pulm edema: improving *Medication noncompliance: *Generalized weakness/debility: *ADOLFO on CKD III(base Cr~?1.6-1.7): suspect cardiorenal -renal u/s no hydro -Improved with diuresis *h/o severe systolic CHF (EF 20%): follows with cardiology -short episodes of vtach asymptomatic *UTI (E.coli), complicated: *UR, h/o bph: has seen urology last year for uti's and incomplete bladder emptying -on finasteride/flomax -now urinating on own *Venous stasis dermatitis vs less likely b/l LE cellulitis -afebrile, no leukocytosis *RLE wound/blister *HTN/HLD: on norvasc/lasix/ACEI, statin *Anemia, chronic: *Depression/anxiety *DM: on insulin/metformin *Morbid obesity: *DECLAN: start iron supp P: -lasix gtt, monitor i&o's -monitor renal fxn -d/c'd norvasc for edema, change to BB for chf, hold ACEI for adolfo -basal and SSI, hold metformin -elevate legs and wrap, -Rocephin to fluoroquinone upon d/c -Dr. Tsai for RLE wound/blister -pt/ot -start iron supp, last colonoscopy over 10yrs ago, f/u with GI for colonoscopy -f/u with cardiology -cm for placement -ppx: lovenox full code Time Spent With Patient Time: Total time spent is greater than 50% in coordination of care (as documented) at patient's floor/unit and/or counseling patient: QUALITY Stroke Symptom Onset Unknown: No VTE Deep Vein Thrombosis/Pulmonary Embolism Present on Admission: No
[2021-03-07] MEDS ORDERED: SENNOSIDES 8.8 MG/5 ML ML PT PRN (09:12)
[2021-03-07] MEDS ORDERED: METOCLOPRAMIDE 10 MG TABLET PO ONE (09:12)
[2021-03-07] MEDS ORDERED: LACTULOSE 20 GM/30 ML ORAL.SOL PO ONE (09:12)
[2021-03-07] MEDS ORDERED: LACTULOSE 20 GM/30 ML ORAL.SOL PO PRN (09:12)
[2021-03-07] MEDS ORDERED: BISACODYL 10 MG SUPP.RECT PR PRN (09:12)
[2021-03-07] MEDS ORDERED: diphenhydrAMINE 25 MG CAPSULE PO PRN (09:14)
[2021-03-07] MEDS: ENOXAPARIN 40 MG/0.4 ML SYRINGE SQ SCH ×2 (09:49→21:52)
[2021-03-07] MEDS: cefTRIAXone 2 GM in DEXTROSE 5% IN WATER 50 ML IV SCH (09:49)
[2021-03-07] MEDS: IRON POLYSACCHARIDE COMPLEX 150 MG CAPSULE PO SCH ×2 (09:50→21:51)
[2021-03-07] MEDS: METOPROLOL SUCCINATE 50 MG TAB.XL.24H PO SCH (09:50)
[2021-03-07] MEDS: ATORVASTATIN 40 MG TABLET PO SCH (09:50)
[2021-03-07] MEDS: DOCUSATE SODIUM 100 MG CAPSULE PO SCH ×2 (09:51→21:53)
[2021-03-07] MEDS: INSULIN GLARGINE, HUMAN 1 UNIT/0.01 ML SQ SCH (09:52)
[2021-03-07] MEDS: FINASTERIDE 5 MG TABLET PO SCH (09:52)
[2021-03-07] MEDS: METOPROLOL SUCCINATE 25 MG TAB.XL.24H PO SCH (09:57)
--- NOTE | 2021-03-07 10:31 | Discharge Summary ---
Discharge Provider Provider Patient information: Note initiated : 03/07/21 at 10:29 am Service Date, if different from initiated Date: [] Patient: Guillaume Broderick 60 y/o M admitted on 03/05/21 for Anasarca. Chief Complaint: [] Date of admission: 03/05/21 01:30 Discharge date: 03/09/21 Primary care physician: Jane Murphy Consults: 03/06/21 09:26 Consult to Physician [CONS] Routine Comment: Consulting Provider: Yaniv Tsai Reason For Exam: Physician to Consult Discharge Meds Discharge Medications Home Medications exenatide microspheres 2 mg/0.85 mL subcutaneous auto-injector 2 mg SUB-Q QWEEK ml 07/17/19 [History Confirmed 03/05/21 Last Taken Unknown] furosemide 40 mg tablet 40 mg PO BID tab 07/17/19 [History Confirmed 03/05/21 Last Taken Unknown] metformin 500 mg tablet,extended release 24 hr 1,000 mg PO BID tab 07/17/19 [History Confirmed 03/05/21 Last Taken Unknown] potassium chloride 10 mEq capsule,extended release 20 meq PO BID 07/17/19 [History Confirmed 03/05/21 Last Taken Unknown] rosuvastatin 40 mg tablet 40 mg PO QDAY 07/17/19 [History Confirmed 03/05/21 Last Taken Unknown] insulin glargine 100 unit/mL (3 mL) subcutaneous pen 29 unit SUB-Q QDAY ml 08/19/19 [History Confirmed 03/05/21 Last Taken Unknown] tamsulosin 0.4 mg capsule 0.8 mg PO QDAY #60 cap 10/09/19 [Rx Confirmed 03/05/21 Last Taken Unknown] permethrin 5 % topical cream 1 applic TOPICAL Q14D #60 g 12/16/20 [Rx Confirmed 03/05/21 Last Taken Unknown] meclizine 25 mg PO BID PRN #20 tab MDD 2 01/12/21 [Rx Confirmed 03/05/21 Last Taken Unknown] finasteride 5 mg tablet See Rx Instructions .ROUTE .COMPLEX #30 tab 01/24/21 [Rx Confirmed 03/05/21 Last Taken Unknown] levofloxacin 750 mg PO Q48H #2 tab 03/07/21 [Rx Last Taken Unknown] metoprolol succinate 50 mg PO DAILY #60 tab 03/07/21 [Rx Last Taken Unknown] polysaccharide iron complex [Ferrex 150] 150 mg PO DAILY #30 cap 03/07/21 [Rx Last Taken Unknown] lisinopril 5 mg PO QDAY #30 tab 03/09/21 [Rx Last Taken Unknown] COURSE Hospital Course Hospital course: Interval history: History of present illness: Mr. Broderick is a 60 year old M Patient transferred from [facility] because of staffing issues. Patient went in complaining of increased swelling and pain in his lower extremities had a hard time ambulating because of swelling and pain. He has mild shortness of albert ath but this is not changed. Denies fever chills. Has injuries lower extremities no chest pain or palpitations no cough or shortness or sputum production or fevers or chills. In the ER he was unable to ambulate and lives by himself. He has no pitting edema to the abdomen. Patient had a stress test in January which showed partially reversible perfusion defect in the anterior wall and he had ejection fraction 20% with left ventricle dilatation. He has chronic discoloration of his legs. He feels his legs are hot. 03/06 Patient slept well. He feels sleepy but otherwise no new pains or complaints or overnight events. He has had good urine output on the Lasix drip. Suspect he has obstructive sleep apnea. ABG without any CO2 retention. 03/07 Patient complains of poor sleep last night. Complains of constipation. Otherwise feels better and less edematous. 03/08 Has oxygen desats when he has in deep sleep. Most likely has sleep apnea and told him we would refer him to the tangible personal property appraiser for official sleep study. Ectopy on telemetry. Does have a scheduled appoint with cardiology. No other pains or complaints. Good urine output. 03/09 Patient continues to feel much better. Does not need sleep evaluation study. No other pains or complaints. And feels a lot less edematous. A: *Anasarca w/Pulm edema: improving *Medication noncompliance: *Generalized weakness/debility: *ADOLFO on CKD III(base Cr~?1.6-1.7): suspect cardiorenal -renal u/s no hydro -Improved with diuresis *h/o severe systolic CHF (EF 20%): follows with cardiology -short episodes of vtach asymptomatic, pvc's *UTI (E.coli), complicated: *UR, h/o bph: has seen urology last year for uti's and incomplete bladder emptying -on finasteride/flomax -now urinating on own *Venous stasis dermatitis vs less likely b/l LE cellulitis -afebrile, no leukocytosis *RLE wound/blister *HTN/HLD: on norvasc/lasix/ACEI, statin *Anemia, chronic: *Depression/anxiety *DM: on insulin/metformin *Morbid obesity: *highly likely ADRIENNE: *DECLAN: start iron supp Discharge diagnosis: Anasarca pulmonary edema acute kidney injury UTI venous stasis dermatitis Secondary discharge diagnosis: Medication noncompliance generalized weakness and debility severe systolic heart failure hypertension chronic anemia depression anxiety diabetes morbid obesity likely obstructive sleep apnea iron deficiency anemia Time Spent with Patient Time attestation: Total time spent providing and/or coordinating discharge services: Time spent: Greater than 30 minutes EXAM Constitutional Vitals: Temp Pulse Resp BP Pulse Ox 97.1 F 89 17 124/109 96 03/07/21 07:49 03/07/21 07:49 03/07/21 07:21 03/07/21 07:21 03/07/21 07:49 Discharge Data Data Completed and Pending Labs on day of discharge: Labs from last 24 hours 03/07/21 03/07/21 03/06/21 05:10 05:10 13:58 POC Hct 38 L POC Sodium 139 Sodium 140 POC Potassium 3.8 Potassium 4.0 3.9 POC Chloride 103 Chloride 103 Carbon Dioxide 27 POC Total CO2 27 Anion Gap 10.0 POC BUN 32 H BUN 28 H Creatinine 1.4 H POC Creatinine 1.5 H GFR Calculation 54 Glucose 90 POC Glucose 158 H Uric Acid 9.2 H Calcium 8.3 L POC WB Ioniz Calcium 1.07 L Phosphorus 3.8 Magnesium 2.1 2.1 Ferritin Total Bilirubin 0.4 Direct Bilirubin < 0.2 GGT 28 AST 18 ALT 15 Alkaline Phosphatase 57 Lactate Dehydrogenase 230 H Total Protein 6.2 Albumin 3.2 Globulin 3.0 Albumin/Globulin Ratio 1.1 Triglycerides 62 03/06/21 03:09 POC Hct POC Sodium Sodium POC Potassium Potassium POC Chloride Chloride Carbon Dioxide POC Total CO2 Anion Gap POC BUN BUN Creatinine POC Creatinine GFR Calculation Glucose POC Glucose Uric Acid Calcium POC WB Ioniz Calcium Phosphorus Magnesium Ferritin 52.8 Total Bilirubin Direct Bilirubin GGT AST ALT Alkaline Phosphatase Lactate Dehydrogenase Total Protein Albumin Globulin Albumin/Globulin Ratio Triglycerides Discharge Plan Patient/Caregiver Discharge Instructions Activity: increase activity as tolerated Diet: Cardiac and Consistent Carbohydrate Activity Restrictions/Additional Instructions: Referral to see your housekeeping aide in 3-10 day Referral to see tangible personal property appraiser in 3 to 14 days for possible sleep study Referral to sound equipment mechanic in 3 to 4 days for surveillance colonoscopy Follow-up with PCP in 3 to 7 days Prescriptions: New metoprolol succinate 50 mg Tablet Extended Release 24 Hr 50 mg PO DAILY Qty: 60 RF: 0 polysaccharide iron complex [Ferrex 150] 150 mg iron Capsule 150 mg PO DAILY Qty: 30 RF: 0 levofloxacin 750 mg tablet 750 mg PO Q48H Qty: 2 RF: 0 lisinopril 5 mg tablet 5 mg PO QDAY Qty: 30 RF: 0 Continued finasteride 5 mg tablet See Rx Instructions .ROUTE .COMPLEX Qty: 30 RF: 11 exenatide microspheres 2 mg/0.85 mL subcutaneous auto-injector 2 mg/0.85 mL auto-injector 2 mg SUB-Q QWEEK RF: 0 furosemide 40 mg tablet 40 mg PO BID RF: 0 metformin 500 mg tablet extended release 24 hr 1,000 mg PO BID RF: 0 potassium chloride 10 mEq capsule, extended release 20 meq PO BID RF: 0 rosuvastatin 40 mg tablet 40 mg PO QDAY RF: 0 Lantus Solostar U-100 Insulin 100 unit/mL (3 mL) insulin pen 29 unit SUB-Q QDAY RF: 0 permethrin 5 % cream 1 applic topical Q14D Qty: 60 RF: 0 meclizine 25 mg tablet 25 mg PO BID MDD 2 PRN (Reason: dizziness) Qty: 20 RF: 0 tamsulosin 0.4 mg capsule 0.8 mg PO QDAY Qty: 60 RF: 11 Discontinued amlodipine 5 mg tablet 5 mg PO QDAY RF: 0 lisinopril 40 mg tablet 40 mg PO QDAY RF: 0 Follow Up Plan Follow up with: Yaniv Tsai MD [Physician] - Patient Disposition: Xfer SNF Prognosis: Undetermined Rehab Potential: Fair I certify that the patient requires SNF services: Yes Overall status at discharge: patient is progressing back to baseline Discharge Orders: Discharge Order (Routine); Ordered 03/09/21 Ordered By: Cash Husam Kanooth QUALITY VTE Deep Vein Thrombosis/Pulmonary Embolism Present on Admission: No
--- NOTE | 2021-03-07 12:41 | EKG ---
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 Measurements Intervals [place] Rate: 89 P: 34 MA: 172 QRS: -13 QRSD: 88 T: 121 QT: 400 QTc: 487 Interpretive Statements SINUS RHYTHM MULTIFORM VENTRICULAR PREMATURE COMPLEXES LOW VOLTAGE THROUGHOUT PROBABLE INFERIOR INFARCT, OLD BORDERLINE R WAVE PROGRESSION, ANTERIOR LEADS LATERAL LEADS ARE ALSO INVOLVED BORDERLINE PROLONGED QT INTERVAL NO PRIOR TRACING FOR COMPARISON Electronically Signed On 03-07-2021 12:41:18 PDT by Hemanth Jorge M.D. /store/[email or web address]/[id number]
[2021-03-07] MEDS: FUROSEMIDE 250 MG in 0.9 % SODIUM CHLORIDE 225 ML IV SCH ×2 (16:04→20:04)
[2021-03-07] MEDS: ACETAMINOPHEN 325 MG TABLET PO PRN (21:52)
[2021-03-07] MEDS: TAMSULOSIN 0.4 MG CAPSULE PO SCH (21:52)
[2021-03-07] MEDS: MELATONIN 3 MG TABLET PO SCH (21:52)
[2021-03-08] MEDS: 0.9 % SODIUM CHLORIDE 10 ML SYRINGE IV SCH ×3 (05:59→20:20)
[2021-03-08 07:11] LABS: Blood Urea Nitrogen 20 mg/dL (8-23); Calcium 8.4 mg/dL (8.6-10.4); Carbon Dioxide 30 mmol/L (22-30); Chloride 102 mmol/L (96-108); Glomerular Filtration Rate 72; Glucose 84 mg/dL (70-105)
--- NOTE | 2021-03-08 07:50 | Internal Med Progress Note ---
SUBJECTIVE Subjective Patient information: Note initiated : 03/08/21 at 7:47 am Service Date, if different from initiated Date: [] Patient: Guillaume Broderick 60 y/o M admitted on 03/05/21 for Anasarca. Chief Complaint: [] Interval history: History of present illness: Mr. Broderick is a 60 year old M Patient transferred from [facility] because of staffing issues. Patient went in complaining of increased swelling and pain in his lower extremities had a hard time ambulating because of swelling and pain. He has mild shortness of breath but this is not changed. Denies fever chills. Has injuries lower extremities no chest pain or palpitations no cough or shortness or sputum production or fevers or chills. In the ER he was unable to ambulate and lives by himself. He has no pitting edema to the abdomen. Patient had a stress test in January which showed partially reversible perfusion defect in the anterior wall and he had ejection fraction 20% with left ventricle dilatation. He has chronic discoloration of his legs. He feels his legs are hot. 03/06 Patient slept well. He feels sleepy but otherwise no new pains or complaints or overnight events. He has had good urine output on the Lasix drip. Suspect he has obstructive sleep apnea. ABG without any CO2 retention. 03/07 Patient complains of poor sleep last night. Complains of constipation. Otherwise feels better and less edematous. 03/08 Has oxygen desats when he has in deep sleep. Most likely has sleep apnea and told him we would refer him to the data entry coordinator for official sleep study. Ectopy on telemetry. Does have a scheduled appoint with cardiology. No other pains or complaints. Good urine output. Review of Systems: denies headache/fever/chills/nausea/vomiting/chest or abdominal pain/cough/dyspnea/diarrhea. Otherwise see above. Constitutional Vitals: Vital Signs Temp Pulse Resp BP Pulse Ox 98.3 F 93 H 16 119/97 99 03/08/21 04:01 03/08/21 04:01 03/08/21 04:01 03/08/21 04:01 03/08/21 06:44 Period Temp Pulse Resp BP Sys/Becerra Pulse Ox Last 24 Hr 97.1 F-99.0 F 76-102 12-39 96-152/55-97 70-100 Intake and Output 03/07/21 03/08/21 03/08/21 21:59 05:59 13:59 Intake Total 610 300 Output Total 2176 701 Balance -1566 -401 Weight 165.38 kg Intake & Output: Intake & Output 03/07/21 03/08/21 03/08/21 21:59 05:59 13:59 Intake Total 610 300 Output Total 2176 701 Balance -1566 -401 Weight 165.38 kg Intake: IV 370 Sodium Chloride 0.9% 250 ml @ 250 20 mls/hr IV .[id number] DENAE Rx#: [id number] Lasix 250 mg In Sodium Chloride 120 0.9% 225 ml @ 5 MG/HR 5 mls/hr IV DAILY@1400 DENAE Rx#: [id number] Oral 240 300 Output: Void Amount 2175 700 # of times incontinent of urine 1 1 Other: Meal Dinner Snack Percent of Meal Consumed 100% 100% Feeding Ability Independent Independent Urine Appearance Clear Clear Urine Color Bright Yellow Bright Yellow Urine Odor Normal Stool Size Small Stool Color Brown Stool Consistency Soft Formed # Bowel Movements 1 # of times incontinent of 1 Bowels Exam: General: Alert, Awake, No acute Distress, obese Eyes/N/T: EOMI, Head/Neck: neck supple, normocephalic atraumatic CV: RRR, 2/6 SM, normal s1/s2 Pulm: Clear b/l, no wheezing/rhonchi/rales Abd: soft, nontender, +BS x4 Ext: no clubbing/cyanosis, 2+ b/l LE edema to waist much improved, right heal wound Neuro: Alert, no focal deficits, moves all extremities, Skin: warm/dry OBJ DATA Labs CBC & Chem 7: 03/06/21 03:09 03/08/21 05:33 Labs: Abnormal Lab Results 03/08/21 03/07/21 03/06/21 05:33 05:10 13:58 Hgb Hct POC Hct 38 L MCV MCH MCHC RDW [place] # (Auto) Carbon Dioxide POC BUN 32 H BUN 28 H Creatinine 1.4 H POC Creatinine 1.5 H POC Glucose 158 H Uric Acid 9.2 H Calcium 8.4 L 8.3 L POC WB Ioniz Calcium 1.07 L Phosphorus Iron Transferrin % Sat Direct Bilirubin Lactate Dehydrogenase 230 H Albumin 03/06/21 03/06/21 03/06/21 03:09 03:09 03:09 Hgb 10.2 L Hct 34.8 L POC Hct MCV 70.7 L MCH 20.7 L MCHC 29.3 L RDW 22.7 H [place] # (Auto) Carbon Dioxide POC BUN BUN 38 H Creatinine 1.6 H POC Creatinine POC Glucose Uric Acid 9.3 H Calcium 8.5 L POC WB Ioniz Calcium Phosphorus Iron 26 L Transferrin % Sat 8 L Direct Bilirubin Lactate Dehydrogenase Albumin 3.1 L 03/05/21 03/05/21 05:19 05:18 Hgb 11.0 L Hct 39.4 L POC Hct MCV 73.1 L MCH 20.4 L MCHC 27.9 L RDW 23.6 H [place] # (Auto) 0.97 H Carbon Dioxide 21 L POC BUN BUN 46 H Creatinine 1.6 H POC Creatinine POC Glucose Uric Acid 9.4 H Calcium POC WB Ioniz Calcium Phosphorus 4.9 H Iron Transferrin % Sat Direct Bilirubin 0.3 H Lactate Dehydrogenase 323 H Albumin Meds: Medications Acetaminophen (Acetaminophen 325 Mg Tablet) 650 mg PO Q6HP PRN PRN Reason: PAIN/FEVER > 101 Last Admin: 03/07/21 21:52 Dose: 650 mg Documented by: Albuterol/Ipratropium (Ipratropium/Albuterol 3 Ml Ampul.Neb) 3 ml NEB Q4HP PRN PRN Reason: Shortness Of Breath Atorvastatin Calcium (Atorvastatin 40 Mg Tablet) 80 mg PO DAILY [facility] Last Admin: 03/07/21 09:50 Dose: 80 mg Documented by: Bisacodyl (Bisacodyl 10 Mg Supp.Rect) 10 mg [place] DAILYP PRN PRN Reason: Constipation Dextrose (Dextrose 50% 50 Ml Vial) 0 ml IV UD PRN PRN Reason: Hypoglycemia Diagnostic Test (Pha) (Accu-Chek 1 Each Strip) 1 each FS ACHS [facility] Last Admin: 03/08/21 00:23 Dose: 1 each Documented by: Diphenhydramine HCl (Diphenhydramine 25 Mg Capsule) 25 mg PO HSP PRN PRN Reason: Insomnia Docusate Sodium (Docusate Sodium 100 Mg Capsule) 100 mg PO BID [facility] Last Admin: 03/07/21 21:53 Dose: Not Given Documented by: Enoxaparin Sodium (Enoxaparin 40 Mg/0.4 Ml Syringe) 40 mg SQ BID [facility] Last Admin: 03/07/21 21:52 Dose: 40 mg Documented by: Finasteride (Finasteride 5 Mg Tablet) 5 mg PO DAILY [facility] Last Admin: 03/07/21 09:52 Dose: 5 mg Documented by: Glucose (Dextrose 31 Gm Oral.Susp) 15 gm PO PRN PRN PRN Reason: Hypoglycemia Ceftriaxone Sodium 2 gm/ (Dextrose) 50 mls @ 100 mls/hr IV DAILY [facility]; Protocol Last Infusion: 03/07/21 10:20 Dose: Infused Documented by: Potassium Chloride 40 meq/ (Dextrose) 520 mls @ 130 mls/hr IV UD PRN PRN Reason: Potassium < 3 Magnesium Sulfate (Magnesium Sulfate) 2 gm in 50 mls @ 50 mls/hr IV UD PRN PRN Reason: Magnesium </= 1.6 Furosemide 250 mg/ Sodium (Chloride) 250 mls @ 5 mls/hr IV DAILY@1400 [facility]; Protocol Last Admin: 03/07/21 20:04 Dose: 5 mg/hr, 5 mls/hr Documented by: Insulin Glargine (Insulin Glargine, Human 1 Unit/0.01 Ml) 29 unit SQ DAILY [facility] Last Admin: 03/07/21 09:52 Dose: 29 unit Documented by: Insulin Human Lispro (Insulin Lispro 1 Unit/0.01 Ml Unit) 0 unit SQ ACHS [facility]; Protocol Last Admin: 03/07/21 21:30 Dose: Not Given Documented by: Labetalol HCl (Labetalol 5 Mg/Ml Ml) 10 - 20 mg IV Q2HP PRN PRN Reason: Hypertension Lactulose (Lactulose 20 Gm/30 Ml Oral.Rosy) 20 gm PO DAILY PRN PRN Reason: constipation Meclizine HCl (Meclizine 25 Mg Tablet) 25 mg PO BIDP PRN PRN Reason: dizziness Melatonin (Melatonin 3 Mg Tablet) 3 mg PO QHS [facility] Last Admin: 03/07/21 21:52 Dose: 3 mg Documented by: Metoprolol Succinate (Metoprolol Succinate 50 Mg Tab.Xl.24h) 50 mg PO DAILY [facility] Last Admin: 03/07/21 09:50 Dose: 50 mg Documented by: Ondansetron HCl (Ondansetron 4 Mg/2 Ml Vial) 4 mg IV Q4HP PRN PRN Reason: Nausea And Vomiting Permethrin (Permethrin Crm 5% Tube 60gm) 1 dose TOPICAL Q14D [facility] Last Admin: 03/06/21 11:40 Dose: 1 dose Documented by: Polyethylene Glycol (Polyethylene Glycol 3350 17 Gm Packet) 17 gm PO DAILYP PRN PRN Reason: Constipation Last Admin: 03/07/21 09:49 Dose: 17 gm Documented by: Polysaccharide Iron Complex (Iron Polysaccharide Complex 150 Mg Capsule) 150 mg PO BID [facility] Last Admin: 03/07/21 21:51 Dose: 150 mg Documented by: Potassium Chloride (Potassium Chloride 20 Meq Tablet) 40 meq PO UD PRN PRN Reason: Potssium is 3-3.5 Last Admin: 03/06/21 05:19 Dose: 40 meq Documented by: Potassium Chloride (Potassium Chloride 20 Meq Tablet) 40 meq PO UD PRN PRN Reason: Potassium < 3 Potassium Chloride (Potassium Chloride 20 Meq Tablet) 20 meq PO BIDCC [facility] Last Admin: 03/07/21 17:53 Dose: 20 meq Documented by: Senna (Sennosides 1 Tablet) 2 tab PO DAILYP PRN PRN Reason: Constipation Senna (Sennosides 8.8 Mg/5 Ml Ml) 17.2 mg PT DAILY PRN PRN Reason: constipation Sodium Chloride (0.9 % Sodium Chloride 10 Ml Syringe) 10 ml IV Q8 [facility] Last Admin: 03/08/21 05:59 Dose: 10 ml Documented by: Tamsulosin HCl (Tamsulosin 0.4 Mg Capsule) 0.8 mg PO HS [facility] Last Admin: 03/07/21 21:52 Dose: 0.8 mg Documented by: A/P Narrative A/P Narrative: A: *Anasarca w/Pulm edema: improving *Medication noncompliance: *Generalized weakness/debility: *ADOLFO on CKD III(base Cr~?1.6-1.7): suspect cardiorenal -renal u/s no hydro -Improved with diuresis *h/o severe systolic CHF (EF 20%): follows with cardiology -short episodes of vtach asymptomatic, pvc's *UTI (E.coli), complicated: *UR, h/o bph: has seen urology last year for uti's and incomplete bladder emptying -on finasteride/flomax -now urinating on own *Venous stasis dermatitis vs less likely b/l LE cellulitis -afebrile, no leukocytosis *RLE wound/blister *HTN/HLD: on norvasc/lasix/ACEI, statin *Anemia, chronic: *Depression/anxiety *DM: on insulin/metformin *Morbid obesity: *highly likely ADRIENNE: *DECLAN: start iron supp P: -lasix gtt, monitor i&o's -monitor renal fxn -d/c'd norvasc for edema, change to BB for chf, hold ACEI for adolof -basal and SSI, hold metformin -elevate legs and wrap, -Rocephin to fluoroquinone upon d/c -Dr. Tsai for RLE wound/blister -pt/ot -start iron supp, last colonoscopy over 10yrs ago, f/u with GI for colonoscopy -f/u with cardiology -cm for placement -nocturnal cpap, f/u with Pulm for sleep study -ppx: lovenox full code Time Spent With Patient Time: Total time spent is greater than 50% in coordination of care (as documented) at patient's floor/unit and/or counseling patient: QUALITY Stroke Symptom Onset Unknown: No VTE Deep Vein Thrombosis/Pulmonary Embolism Present on Admission: No
[2021-03-08] MEDS: cefTRIAXone 2 GM in DEXTROSE 5% IN WATER 50 ML IV SCH (08:47)
[2021-03-08] MEDS: IRON POLYSACCHARIDE COMPLEX 150 MG CAPSULE PO SCH ×2 (08:47→21:32)
[2021-03-08] MEDS: ENOXAPARIN 40 MG/0.4 ML SYRINGE SQ SCH ×2 (08:47→21:33)
[2021-03-08] MEDS: FINASTERIDE 5 MG TABLET PO SCH (08:48)
[2021-03-08] MEDS: ATORVASTATIN 40 MG TABLET PO SCH (08:48)
[2021-03-08] MEDS: INSULIN GLARGINE, HUMAN 1 UNIT/0.01 ML SQ SCH (08:48)
[2021-03-08] MEDS: POTASSIUM CHLORIDE 20 MEQ TABLET PO SCH ×2 (08:48→17:14)
[2021-03-08] MEDS: DOCUSATE SODIUM 100 MG CAPSULE PO SCH ×2 (08:49→20:19)
[2021-03-08] MEDS: INSULIN LISPRO 1 UNIT/0.01 ML UNIT SQ SCH ×4 (08:50→20:15)
[2021-03-08] MEDS: METOPROLOL SUCCINATE 50 MG TAB.XL.24H PO SCH (08:51)
[2021-03-08] MEDS ORDERED: POTASSIUM CHLORIDE 20 MEQ TABLET PO ONE (10:03)
[2021-03-08] MEDS ORDERED: ASPIRIN 81 MG TAB.CHEW PO ONE (10:15)
--- NOTE | 2021-03-08 11:53 | General Surgery Progress Note ---
SUBJECTIVE Subjective Patient information: Note initiated : 03/08/21 at 11:42 am Service Date, if different from initiated Date: [] Patient: Guillaume Broderick 60 y/o M admitted on 03/05/21 for Anasarca. Chief Complaint: [] Additional PMFSH (Level 3 Only): Patient seen with Dell RN. Examined skin wounds both legs and blister site RIGHT medial heel. Reviewed status of ongoing medical care for cardiac / pulmonary and other medical conditions. Constitutional Vitals: Vital Signs Temp Pulse Resp BP Pulse Ox 97.8 F 72 9 L 136/106 100 03/08/21 06:01 03/08/21 08:18 03/08/21 08:18 03/08/21 06:01 03/08/21 08:18 Period Temp Pulse Resp BP Sys/Becerra Pulse Ox Last 24 Hr 97.8 F-99.0 F 64-102 9-39 96-152/55-106 70-100 Intake and Output 03/07/21 03/08/21 03/08/21 21:59 05:59 13:59 Intake Total 610 300 470 Output Total 2176 701 301 Balance -1566 -401 169 Weight 364 lb 9.6 oz Intake & Output: Intake & Output 03/07/21 03/08/21 03/08/21 21:59 05:59 13:59 Intake Total 610 300 470 Output Total 2176 701 301 Balance -1566 -401 169 Weight 364 lb 9.6 oz Intake: IV 370 50 Sodium Chloride 0.9% 250 ml @ 250 20 mls/hr IV .[id number] DENAE Rx#: [id number] Lasix 250 mg In Sodium Chloride 120 0.9% 225 ml @ 5 MG/HR 5 mls/hr IV DAILY@1400 [facility]NA[facility] Rx#: [id number] Rocephin 2 gm In Dextrose 5% in 50 Water 50 ml @ 100 mls/hr IV DAILY [facility] Rx#:[id number] Oral 240 300 420 Output: Void Amount 2175 700 300 # of times incontinent of urine 1 1 1 Other: Meal Dinner Snack Breakfast Percent of Meal Consumed 100% 100% 100% Feeding Ability Independent Independent Urine Appearance Clear Clear Clear Urine Color Bright Yellow Bright Yellow Bright Yellow Urine Odor Normal Stool Size Small Stool Color Brown Stool Consistency Soft Formed # Bowel Movements 1 # of times incontinent of 1 Bowels General appearance: cooperative and no acute distress Exam: L/E. Skin Both legs and feet. Chronic LYMPHEDEMA. Non pitting. RIGHT medial heel blister site has dried up with Betadine swab applications. RIGHT leg OPEN TWO Stage 3 wounds with exposed deep dermis and slough over ulcerated regions. NO purulence, NO odor and NO warmth. LEFT leg NO open wounds . Dry scaly dermatitis, lower half. A/P Narrative A/P Narrative: Assessment: Lymphedema of both LE especially legs and feet. Dermatitis of LEFT leg. Open Stage 3 ulcers RIGHT posterior leg. Plan: Wound care RIGHT leg MIST therapy with VASHE Posterior leg wounds. later apply SILVASORB, Adaptic, gauze and Kerlix bandage and BO wraps from knee to ankle. ELEVATION of leg. LEFT leg: Clean with Hibiclens . Air dry. Apply Skin Repair creme, Kerlix bandage and Compressin wrap from knees to ankle. Elevation of leg. RIGHT medial heel blister site: Continue Betadine swab treatment daily. Time Spent With Patient Time: Total time spent is greater than 50% in coordination of care (as documented) at patient's floor/unit and/or counseling patient: Total time spent with greater than 50% in coordination of care (as documented) at patient's floor/unit and/or counseling patient:: 25 - 35 minutes
--- NOTE | 2021-03-08 12:21 | Ultrasound Report ---
History: Bilateral calf tenderness FINDINGS: There is normal augmentation and compressibility of the deep veins from the groin through the popliteal fossa. Greater saphenous veins are normal. The calf vessels are more difficult to visualize due to the patient's large legs. Peroneal veins were poorly visualized. The visualized portions of the posterior tibial veins are normal bilaterally. No abnormal fluid collection is seen. IMPRESSION: No evidence of deep venous fibrosis. Incomplete visualization of the calf veins due to the patient's body habitus Interpreted and Authenticated by: Augustine Caballero 03/08/21
[2021-03-08] MEDS: FUROSEMIDE 250 MG in 0.9 % SODIUM CHLORIDE 225 ML IV SCH (15:58)
[2021-03-08] MEDS: MELATONIN 3 MG TABLET PO SCH (21:32)
[2021-03-08] MEDS: ACETAMINOPHEN 325 MG TABLET PO PRN (21:32)
[2021-03-08] MEDS: TAMSULOSIN 0.4 MG CAPSULE PO SCH (21:32)
[2021-03-09] MEDS: 0.9 % SODIUM CHLORIDE 10 ML SYRINGE IV SCH (04:00)
--- NOTE | 2021-03-09 06:46 | Internal Med Progress Note ---
SUBJECTIVE Subjective Patient information: Note initiated : 03/09/21 at 6:44 am Service Date, if different from initiated Date: [] Patient: Guillaume Broderick a 60 y/o M admitted on 03/05/21 for Anasarca. Chief Complaint: [] Interval history: History of present illness: Mr. Broderick is a 60 year old M Patient transferred from [facility] because of staffing issues. Patient went in complaining of increased swelling and pain in his lower extremities had a hard time ambulating because of swelling and pain. He has mild shortness of breath but this is not changed. Denies fever chills. Has injuries lower extremities no chest pain or palpitations no cough or shortness or sputum production or fevers or chills. In the ER he was unable to ambulate and lives by himself. He has no pitting edema to the abdomen. Patient had a stress test in January which showed partially reversible perfusion defect in the anterior wall and he had ejection fraction 20% with left ventricle dilatation. He has chronic discoloration of his legs. He feels his legs are hot. 03/06 Patient slept well. He feels sleepy but otherwise no new pains or complaints or overnight events. He has had good urine output on the Lasix drip. Suspect he has obstructive sleep apnea. ABG without any CO2 retention. 03/07 Patient complains of poor sleep last night. Complains of constipation. Otherwise feels better and less edematous. 03/08 Has oxygen desats when he has in deep sleep. Most likely has sleep apnea and told him we would refer him to the superintendent measurement for official sleep study. Ectopy on telemetry. Does have a scheduled appoint with cardiology. No other pains or complaints. Good urine output. 03/09 Patient continues to feel much better. Does not need sleep evaluation study. No other pains or complaints. And feels a lot less edematous. Review of Systems: denies headache/fever/chills/nausea/vomiting/chest or abdominal pain/cough/dyspnea/diarrhea. Otherwise see above. Constitutional Vitals: Vital Signs Temp Pulse Resp BP Pulse Ox 99.1 F H 95 H 17 127/87 92 03/09/21 04:01 03/09/21 06:05 03/09/21 06:05 03/09/21 06:05 03/09/21 06:05 Period Temp Pulse Resp BP Sys/Becerra Pulse Ox Last 24 Hr 97.8 F-99.1 F 72-109 9-28 99-129/62-106 90-100 Intake and Output 03/08/21 03/09/21 03/09/21 21:59 05:59 13:59 Intake Total 920 210 0 Output Total 1450 725 300 Balance -530 -515 -300 Weight 163.384 kg Intake & Output: Intake & Output 03/08/21 03/09/21 03/09/21 21:59 05:59 13:59 Intake Total 920 210 0 Output Total 1450 725 300 Balance -530 -515 -300 Weight 163.384 kg Intake: IV 350 Sodium Chloride 0.9% 250 ml @ 250 20 mls/hr IV .[id number] [facility] Rx#: [id number] Lasix 250 mg In Sodium Chloride 100 0.9% 225 ml @ 5 MG/HR 5 mls/hr IV DAILY@1400 DENAE Rx#: [id number] Oral 570 210 0 Output: Void Amount 1450 725 300 Other: Meal Snack Percent of Meal Consumed 100% Feeding Ability Independent Urine Appearance Clear Clear Urine Color Bright Yellow Bright Yellow Urine Odor Normal Normal # Voids 1 Exam: General: Alert, Awake, No acute Distress, obese Eyes/N/T: EOMI, Head/Neck: neck supple, normocephalic atraumatic CV: RRR, 2/6 SM, normal s1/s2 Pulm: Clear b/l, no wheezing/rhonchi/rales Abd: soft, nontender, +BS x4 Ext: no clubbing/cyanosis, 2+ b/l LE edema to waist much improved, right heal wound Neuro: Alert, no focal deficits, moves all extremities, Skin: warm/dry OBJ DATA Labs CBC & Chem 7: 03/06/21 03:09 03/09/21 05:42 Labs: Abnormal Lab Results 03/08/21 03/07/21 03/06/21 05:33 05:10 13:58 POC Hct 38 L POC BUN 32 H BUN 28 H Creatinine 1.4 H POC Creatinine 1.5 H POC Glucose 158 H Uric Acid 9.2 H Calcium 8.4 L 8.3 L POC WB Ioniz Calcium 1.07 L Iron Transferrin % Sat Lactate Dehydrogenase 230 H 03/06/21 03:09 POC Hct POC BUN BUN Creatinine POC Creatinine POC Glucose Uric Acid Calcium POC WB Ioniz Calcium Iron 26 L Transferrin % Sat 8 L Lactate Dehydrogenase Meds: Medications Acetaminophen (Acetaminophen 325 Mg Tablet) 650 mg PO Q6HP PRN PRN Reason: PAIN/FEVER > 101 Last Admin: 03/08/21 21:32 Dose: 650 mg Documented by: Albuterol/Ipratropium (Ipratropium/Albuterol 3 Ml Ampul.Neb) 3 ml NEB Q4HP PRN PRN Reason: Shortness Of Breath Aspirin (Aspirin 81 Mg Tab.Chew) 81 mg PO DAILY [facility] Atorvastatin Calcium (Atorvastatin 40 Mg Tablet) 80 mg PO DAILY [facility] Last Admin: 03/08/21 08:48 Dose: 80 mg Documented by: Bisacodyl (Bisacodyl 10 Mg Supp.Rect) 10 mg PA DAILYP PRN PRN Reason: Constipation Dextrose (Dextrose 50% 50 Ml Vial) 0 ml IV UD PRN PRN Reason: Hypoglycemia Diagnostic Test (Pha) (Accu-Chek 1 Each Strip) 1 each FS ACHS [facility] Last Admin: 03/08/21 20:15 Dose: 1 each Documented by: Diphenhydramine HCl (Diphenhydramine 25 Mg Capsule) 25 mg PO HSP PRN PRN Reason: Insomnia Docusate Sodium (Docusate Sodium 100 Mg Capsule) 100 mg PO BID [facility] Last Admin: 03/08/21 20:19 Dose: Not Given Documented by: Enoxaparin Sodium (Enoxaparin 40 Mg/0.4 Ml Syringe) 40 mg SQ BID [facility] Last Admin: 03/08/21 21:33 Dose: 40 mg Documented by: Finasteride (Finasteride 5 Mg Tablet) 5 mg PO DAILY [facility] Last Admin: 03/08/21 08:48 Dose: 5 mg Documented by: Glucose (Dextrose 31 Gm Oral.Susp) 15 gm PO PRN PRN PRN Reason: Hypoglycemia Ceftriaxone Sodium 2 gm/ (Dextrose) 50 mls @ 100 mls/hr IV DAILY [facility]; Protocol Last Infusion: 03/08/21 09:22 Dose: Infused Documented by: Potassium Chloride 40 meq/ (Dextrose) 520 mls @ 130 mls/hr IV UD PRN PRN Reason: Potassium < 3 Magnesium Sulfate (Magnesium Sulfate) 2 gm in 50 mls @ 50 mls/hr IV UD PRN PRN Reason: Magnesium </= 1.6 Furosemide 250 mg/ Sodium (Chloride) 250 mls @ 5 mls/hr IV DAILY@1400 [facility]; Protocol Last Admin: 03/08/21 15:58 Dose: 5 mg/hr, 5 mls/hr Documented by: Insulin Glargine (Insulin Glargine, Human 1 Unit/0.01 Ml) 29 unit SQ DAILY [facility] Last Admin: 03/08/21 08:48 Dose: 29 unit Documented by: Insulin Human Lispro (Insulin Lispro 1 Unit/0.01 Ml Unit) 0 unit SQ ACHS [facility]; Protocol Last Admin: 03/08/21 20:15 Dose: Not Given Documented by: Labetalol HCl (Labetalol 5 Mg/Ml Ml) 10 - 20 mg IV Q2HP PRN PRN Reason: Hypertension Lactulose (Lactulose 20 Gm/30 Ml Oral.Rosy) 20 gm PO DAILY PRN PRN Reason: constipation Meclizine HCl (Meclizine 25 Mg Tablet) 25 mg PO BIDP PRN PRN Reason: dizziness Melatonin (Melatonin 3 Mg Tablet) 3 mg PO QHS [facility] Last Admin: 03/08/21 21:32 Dose: 3 mg Documented by: Metoprolol Succinate (Metoprolol Succinate 50 Mg Tab.Xl.24h) 50 mg PO DAILY [facility] Last Admin: 03/08/21 08:51 Dose: 50 mg Documented by: Ondansetron HCl (Ondansetron 4 Mg/2 Ml Vial) 4 mg IV Q4HP PRN PRN Reason: Nausea And Vomiting Permethrin (Permethrin Crm 5% Tube 60gm) 1 dose TOPICAL Q14D [facility] Last Admin: 03/06/21 11:40 Dose: 1 dose Documented by: Polyethylene Glycol (Polyethylene Glycol 3350 17 Gm Packet) 17 gm PO DAILYP PRN PRN Reason: Constipation Last Admin: 03/07/21 09:49 Dose: 17 gm Documented by: Polysaccharide Iron Complex (Iron Polysaccharide Complex 150 Mg Capsule) 150 mg PO BID [facility] Last Admin: 03/08/21 21:32 Dose: 150 mg Documented by: Potassium Chloride (Potassium Chloride 20 Meq Tablet) 40 meq PO UD PRN PRN Reason: Potssium is 3-3.5 Last Admin: 03/06/21 05:19 Dose: 40 meq Documented by: Potassium Chloride (Potassium Chloride 20 Meq Tablet) 40 meq PO UD PRN PRN Reason: Potassium < 3 Potassium Chloride (Potassium Chloride 20 Meq Tablet) 20 meq PO BIDCC [facility] Last Admin: 03/08/21 17:14 Dose: 20 meq Documented by: Senna (Sennosides 1 Tablet) 2 tab PO DAILYP PRN PRN Reason: Constipation Senna (Sennosides 8.8 Mg/5 Ml Ml) 17.2 mg PT DAILY PRN PRN Reason: constipation Sodium Chloride (0.9 % Sodium Chloride 10 Ml Syringe) 10 ml IV Q8 [facility] Last Admin: 03/09/21 04:00 Dose: 10 ml Documented by: Tamsulosin HCl (Tamsulosin 0.4 Mg Capsule) 0.8 mg PO HS [facility] Last Admin: 03/08/21 21:32 Dose: 0.8 mg Documented by: A/P Narrative A/P Narrative: A: *Anasarca w/Pulm edema: improving *Medication noncompliance: *Generalized weakness/debility: *ADOLFO on CKD III(base Cr~?1.6-1.7): suspect cardiorenal -renal u/s no hydro -Improved with diuresis *h/o severe systolic CHF (EF 20%): follows with cardiology -short episodes of vtach asymptomatic, pvc's *UTI (E.coli), complicated: *UR, h/o bph: has seen urology last year for uti's and incomplete bladder emptying -on finasteride/flomax -now urinating on own *Venous stasis dermatitis vs less likely b/l LE cellulitis -afebrile, no leukocytosis *RLE wound/blister *HTN/HLD: on norvasc/lasix/ACEI, statin *Anemia, chronic: *Depression/anxiety *DM: on insulin/metformin *Morbid obesity: *highly likely ADRIENNE: *DECLAN: start iron supp P: -lasix gtt to PO -monitor renal fxn -d/c'd norvasc for edema, change to BB for chf, hold ACEI for adolfo -basal and SSI, hold metformin -elevate legs and wrap, -Rocephin to fluoroquinone upon d/c -Dr. Tsai for RLE wound/blister -pt/ot -iron supp, last colonoscopy over 10yrs ago, f/u with GI for colonoscopy -f/u with cardiology -cm for placement -nocturnal cpap, f/u with Pulm for sleep study -awaiting placement -ppx: lovenox full code Time Spent With Patient Time: Total time spent is greater than 50% in coordination of care (as documented) at patient's floor/unit and/or counseling patient: QUALITY Stroke Symptom Onset Unknown: No VTE Deep Vein Thrombosis/Pulmonary Embolism Present on Admission: No
[2021-03-09 07:13] LABS: Blood Urea Nitrogen 20 mg/dL (8-23); Calcium 8.7 mg/dL (8.6-10.4); Carbon Dioxide 30 mmol/L (22-30); Chloride 100 mmol/L (96-108); Glomerular Filtration Rate 65; Glucose 85 mg/dL (70-105)
[2021-03-09] MEDS: METOPROLOL SUCCINATE 50 MG TAB.XL.24H PO SCH (07:54)
[2021-03-09] MEDS: POTASSIUM CHLORIDE 20 MEQ TABLET PO SCH (07:54)
[2021-03-09] MEDS: cefTRIAXone 2 GM in DEXTROSE 5% IN WATER 50 ML IV SCH (07:54)
[2021-03-09] MEDS: ATORVASTATIN 40 MG TABLET PO SCH (07:54)
[2021-03-09] MEDS: ENOXAPARIN 40 MG/0.4 ML SYRINGE SQ SCH (07:55)
[2021-03-09] MEDS: DOCUSATE SODIUM 100 MG CAPSULE PO SCH (07:55)
[2021-03-09] MEDS: INSULIN LISPRO 1 UNIT/0.01 ML UNIT SQ SCH ×2 (08:22→11:44)
[2021-03-09] MEDS: FINASTERIDE 5 MG TABLET PO SCH (08:26)
[2021-03-09] MEDS: IRON POLYSACCHARIDE COMPLEX 150 MG CAPSULE PO SCH (08:26)
[2021-03-09] MEDS: INSULIN GLARGINE, HUMAN 1 UNIT/0.01 ML SQ SCH (08:29)
[2021-03-09] MEDS ORDERED: ASPIRIN 81 MG TAB.CHEW PO SCH (09:00)
[2021-03-09] MEDS: ACETAMINOPHEN 325 MG TABLET PO PRN (09:26)
[2021-03-09] MEDS ORDERED: FUROSEMIDE 40 MG TABLET PO SCH (09:50)
== END 2021-03-09 12:46 | DRG 948 ==
LOC: ICU 01:30
PROVIDERS: ADMIT Internal Medicine; ATTEND Internal Medicine

== ENCOUNTER 2021-05-24 10:39 | Inpatient (IN) ==
[2021-05-24] MEDS ORDERED: ADENOSINE 3 MG/ML VIAL IV ONE (10:56)
[2021-05-24] MEDS ORDERED: 0.9 % SODIUM CHLORIDE 1,000 ML IV ONE (11:03)
--- NOTE | 2021-05-24 11:09 | Emergency Department Note ---
Arrhythmia/Palpitations HPI General Chief Complaint: Arrhythmia/Palpitations Stated Complaint: tachycardia, low BP Time Seen by Provider: 05/24/21 10:41 Source: patient, EMS, RN notes reviewed and old records reviewed Mode of arrival: EMS Limitations: no limitations History of Present Illness HPI Narrative: Narrative: 60-year-old male complaining of rapid heart rate. Patient recently had a cardiac stent placed approximately [address] Gore at [facility]. Today noted rapid heart rate and heart rate at the 200s called EMS EMS found him to be in a rapid heart rate. Patient was also hypotensive. But he was talking and able to move about. Patient complains of shortness of breath patient complains of chest heaviness with 2 out of 10 chest pressure. He had some nausea but no vomiting. No fevers or chills. He states that he got up to walk around and felt terrible with his rapid heart rate and defecated on himself. MD Complaint: rapid heart beat Onset (ago): hour(s) (1) Duration: constant Severity: severe Context: occurred during rest Arrhythmia History: other (Recent cardiac stent placement) Associated symptoms: Reports chest pain, shortness of breath and nausea; Denies syncope, near-syncope, vomiting, anxiety, diaphoresis, cough, paresthesias, feeling of impending doom and muscle cramps Treatments prior to arrival: vagal maneuvers and beta-evelin (On metoprolol 50 mg p.o. daily) Related Data Home Medications Medication Instructions Recorded Confirmed exenatide microspheres 2 mg/0.85 2 mg SUB-Q QWEEK ml 07/17/19 03/05/21 mL subcutaneous auto-injector furosemide 40 mg tablet 40 mg PO BID tab 07/17/19 03/05/21 metformin 500 mg tablet,extended 1,000 mg PO BID tab 07/17/19 03/05/21 release 24 hr potassium chloride 10 mEq 20 meq PO BID 07/17/19 03/05/21 capsule,extended release rosuvastatin 40 mg tablet 40 mg PO QDAY 07/17/19 03/05/21 insulin glargine 100 unit/mL (3 29 unit SUB-Q QDAY ml 08/19/19 03/05/21 mL) subcutaneous pen Previous Rx's Medication Instructions Recorded tamsulosin 0.4 mg capsule 0.8 mg PO QDAY #60 cap 10/09/19 permethrin 5 % topical cream 1 applic TOPICAL Q14D #60 g 12/16/20 meclizine 25 mg PO BID PRN #20 tab MDD 2 01/12/21 finasteride 5 mg tablet See Rx Instructions .ROUTE 01/24/21 .COMPLEX #30 tab levofloxacin 750 mg PO Q48H #2 tab 03/07/21 metoprolol succinate 50 mg PO DAILY #60 tab 03/07/21 polysaccharide iron complex 150 mg PO DAILY #30 cap 03/07/21 [Ferrex 150] lisinopril 5 mg PO QDAY #30 tab 03/09/21 Allergies Allergy/AdvReac Type Severity Reaction Status Date / Time No Known Drug Allergies Allergy Verified 05/24/21 10:50 Review of Systems ROS ROS Narrative: Narrative: All systems ED: reviewed and negative except as stated. PFSH Narrative Patient History Narrative: Narrative: Medical/Surgical/Family History All Active Problems (Updated 05/24/21 @ 15:03 by Gadiel Nice MD) Scratch of right lower leg (Acute) Near syncope (Acute) Dyspnea (Acute) Hypertensive urgency (Acute) Blister (Acute) Visit for wound check (Acute) Paroxysmal supraventricular tachycardia (Acute) CHF (congestive heart failure) (Acute) Elevated troponin (Acute) Rash (Acute) Congestive heart failure (Acute) Hypertension (Acute) Type 2 diabetes mellitus (Acute) Hypertensive urgency (Acute) History of syncope (Acute) Elevated troponin (Acute) Lower urinary tract symptoms (LUTS) (Chronic) Arthritis (Chronic) Pain in left knee (Chronic) Sleeps in sitting position due to orthopnea (Chronic) Pain in right knee (Chronic) Adult body mass index 40 and over (Chronic) History of tobacco use (Chronic) Edema of lower extremity (Chronic) Retinal venous tortuosity (Chronic) Allergic rhinitis (Chronic) Benign hypertension (Chronic) Chronic depression (Chronic) Morbid obesity (Chronic) Diabetes mellitus (Chronic) Urinary incontinence (Chronic) Pediculus capitis (head louse) (Chronic) Pediculus corporis (body louse) (Chronic) Rib pain on left side (Chronic) Medical History Adult body mass index 40 and over Allergic rhinitis Arthritis Bilateral Ankle Benign hypertension Chronic depression Diabetes mellitus Edema of lower extremity History of tobacco use Lower urinary tract symptoms (LUTS) Morbid obesity Pain in left knee Pain in right knee Pediculus capitis (head louse) Pediculus corporis (body louse) Rash Retinal venous tortuosity Sleeps in sitting position due to orthopnea Urinary incontinence Surgical History History of colonoscopy with polypectomy History of hernia repair "Double" Family History Mother Tumor of lung Father Malignant neoplasm of bone Malignant melanoma Social History Smoking Status: Former smoker Alcohol Intake Frequency: does not drink Substance Use: does not use Exam Narrative Narrative: Narrative: General Limitations: no limitations General appearance: Present alert, in distress and obese Head Head: Present atraumatic, normocephalic and normal inspection Eye Eye: Present normal appearance, PERRL and EOMI; Absent scleral icterus and conjunctival injection ENT ENT: Present normal exam, normal oropharynx and mucous membranes moist Neck Neck: Present normal inspection, full ROM, trachea midline and meningismus; Absent tenderness, lymphadenopathy and thyromegaly Chest Chest: Present symmetric chest wall rise; Absent tenderness Respiratory Respiratory: Present rales/crackles and decreased breath sounds; Absent respiratory distress, wheezes, stridor, accessory muscle use and prolonged expiratory phase Cardiovascular Cardiovascular: Present normal rhythm, tachycardia and JVD; Absent systolic murmur, diastolic murmur, rubs and gallop Adbominal Abdominal: Present soft and other (Morbid obesity with pannus); Absent distention, tenderness, guarding, rebound, rigidity, organomegaly and mass Extremities Extremities: Present pedal edema, pretibial edema, cyanosis and other (Chronic stasis changes to bilateral lower extremities); Absent normal capillary refill and calf tenderness Back Back: Present full ROM; Absent CVA tenderness (R), CVA tenderness (L) and s pinous process tenderness Neurological Neurological: Present alert and oriented X3 Psychiatric Psychiatric: Present normal affect and normal mood Course Vital Signs Vital signs: Vital Signs Pulse Rate 197 H 05/24/21 10:40 Respiratory Rate 22 05/24/21 10:40 Blood Pressure 102/79 05/24/21 10:40 Pulse Oximetry (%) 94 05/24/21 10:40 Pulse Rate 78 05/24/21 15:17 Respiratory Rate 0 L 05/24/21 15:02 Blood Pressure 169/110 05/24/21 15:17 Pulse Oximetry (%) 100 05/24/21 15:17 MDM MDM Narrative Medical decision making narrative: Narrative: 60-year-old male arrived hypotensive tachycardic and short of breath. EKG showed a heart rate in the 190 well to adenosine and heart rate normalized. 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 Dr. Gore states that he had done a cardiac cath on the patient a year ago patient had clean coronary arteries. Had dilated cardiomyopathy with a n ejection fraction of 35%. He recommends aggressive diuresis and follow troponins. He does not feel the patient requires current cardiology evaluation. Discussed patient Dr. Busch who graciously agreed to accept patient in hospital. Differential Diagnosis Differential Diagnosis: PSVT, A. fib, a flutter, V. tach, sinus tachycardia. Medical Records Medical records reviewed: Yes I reviewed the patient's medical records. Lab Data Lab results reviewed: Yes I reviewed the patient's lab results. Result diagrams: 05/24/21 10:57 05/24/21 10:57 Labs: Lab Results 05/24/21 05/24/21 05/24/21 Range/Units 10:57 10:57 10:57 WBC 9.4 (4.5-11.0) K/mcL RBC 6.06 (4.63-6.08) M/mcL Hgb 12.5 L (13.7-17.5) g/dL Hct 43.8 (40.1-51.0) % MCV 72.3 L (80.0-100.0) fL MCH 20.6 L (26.0-34.0) pg MCHC 28.5 L (31.0-36.0) g/dL RDW 23.3 H (11.5-14.5) % Plt Count 262 (140-440) K/mcL MPV 8.1 (7.4-10.4) fL Neut % (Auto) 71.3 (38.0-78.0) % Lymph % (Auto) 20.9 (15.5-49.0) % [place] % (Auto) 5.6 (1.0-12.0) % Eos % (Auto) 1.6 (0.0-7.0) % Baso % (Auto) 0.6 (0.0-2.0) % Lymph # (Auto) 1.96 (1.50-4.80) K/mcL [place] # (Auto) 0.53 (0.10-0.90) K/mcL Eos # (Auto) 0.15 (0.00-0.70) K/mcL Baso # (Auto) 0.06 (0.00-0.30) K/mcL Absolute Neutrophils 6.69 (1.80-8.00) K/mcL Sodium 143 (133-145) mmol/L Potassium 4.7 (3.3-5.1) mmol/L Chloride 106 (96-108) mmol/L Carbon Dioxide 22 (22-30) mmol/L Anion Gap 15.0 (8.0-16.0) BUN 36 H (8-23) mg/dL Creatinine 1.6 H (0.7-1.2) mg/dL GFR Calculation 46 Glucose 125 H (70-105) mg/dL Calcium 8.9 (8.6-10.4) mg/dL Total Bilirubin 0.9 (0.1-1.0) mg/dL AST 23 (<40) U/L ALT 10 (<40) U/L Alkaline Phosphatase 87 (39-117) U/L Total Creatine Kinase 40 (24-195) U/L CK-MB (CK-2) 2.9 (<6.7) ng/mL Myoglobin 85 H (28-72) ng/mL Troponin T 0.04 H* (<0.03) ng/mL NT-Pro-B Natriuret Pep 61488.0 H (<125.0) pg/mL Total Protein 6.8 (5.9-8.4) gm/dL Albumin 3.6 (3.2-5.2) gm/dL Globulin 3.2 (2.2-3.7) gm/dL Albumin/Globulin Ratio 1.1 (1.0-2.3) Urine Color Urine Appearance (Clear) Urine pH (5.0-9.0) Ur Specific [place] (1.000-1.035) Urine Protein (Negative) mg/dL Urine Glucose (UA) (Negative) mg/dL Urine Ketones (Negative) mg/dL Urine Occult Blood (Negative) mg/dL Urine Nitrate (Negative) Urine Bilirubin (Negative) mg/dL Urine Urobilinogen mg/dL Ur Leukocyte Esterase (Negative) /ug Urine RBC (0-3) /hpf Urine WBC (0-4) /hpf Ur Squamous Epith Cells (0-4) /hpf Urine Bacteria (0) /hpf Urine Mucus (None) /hpf Ur Culture Indicated? 05/24/21 Range/Units 12:48 WBC (4.5-11.0) K/mcL RBC (4.63-6.08) M/mcL Hgb (13.7-17.5) g/dL Hct (40.1-51.0) % MCV (80.0-100.0) fL MCH (26.0-34.0) pg MCHC (31.0-36.0) g/dL RDW (11.5-14.5) % Plt Count (140-440) K/mcL MPV (7.4-10.4) fL Neut % (Auto) (38.0-78.0) % Lymph % (Auto) (15.5-49.0) % [place] % (Auto) (1.0-12.0) % Eos % (Auto) (0.0-7.0) % Baso % (Auto) (0.0-2.0) % Lymph # (Auto) (1.50-4.80) K/mcL [place] # (Auto) (0.10-0.90) K/mcL Eos # (Auto) (0.00-0.70) K/mcL Baso # (Auto) (0.00-0.30) K/mcL Absolute Neutrophils (1.80-8.00) K/mcL Sodium (133-145) mmol/L Potassium (3.3-5.1) mmol/L Chloride (96-108) mmol/L Carbon Dioxide (22-30) mmol/L Anion Gap (8.0-16.0) BUN (8-23) mg/dL Creatinine (0.7-1.2) mg/dL GFR Calculation Glucose (70-105) mg/dL Calcium (8.6-10.4) mg/dL Total Bilirubin (0.1-1.0) mg/dL AST (<40) U/L ALT (<40) U/L Alkaline Phosphatase (39-117) U/L Total Creatine Kinase (24-195) U/L CK-MB (CK-2) (<6.7) ng/mL Myoglobin (28-72) ng/mL Troponin T (<0.03) ng/mL NT-Pro-B Natriuret Pep (<125.0) pg/mL Total Protein (5.9-8.4) gm/dL Albumin (3.2-5.2) gm/dL Globulin (2.2-3.7) gm/dL Albumin/Globulin Ratio (1.0-2.3) Urine Color Yellow Urine Appearance Clear (Clear) Urine pH 6.0 (5.0-9.0) Ur Specific [place] 1.009 (1.000-1.035) Urine Protein 100 A (Negative) mg/dL Urine Glucose (UA) Negative (Negative) mg/dL Urine Ketones Negative (Negative) mg/dL Urine Occult Blood Negative (Negative) mg/dL Urine Nitrate Negative (Negative) Urine Bilirubin Negative (Negative) mg/dL Urine Urobilinogen 2.0 A mg/dL Ur Leukocyte Esterase Negative (Negative) /ug Urine RBC 1 (0-3) /hpf Urine WBC 1 (0-4) /hpf Ur Squamous Epith Cells < 1 (0-4) /hpf Urine Bacteria None (0) /hpf Urine Mucus Few A (None) /hpf Ur Culture Indicated? No ED POC Tests ED POC Tests: NICO - SARS Antigen Negative Radiology Data Radiology results reviewed: Yes I reviewed the patient's radiology results. Radiology results narrative: IMPRESSION: Atelectasis or pneumonia in the right m iddle and lower lobes. Cardiomegaly with pulmonary vascular congestion Interpreted and Authenticated by: Augustine Caballero 05/24/21 EKG Data EKG #1: EKG attestation: Yes I reviewed and interpreted this EKG. EKG results narrative: 10:50 Rate: tachycardia (195) Rhythm: SVT [place]/QRS: left axis deviation Voltage: decreased voltage throughout QRS morphology: Present poor R-wave progression Interpretation: nonspecific ST-T wave changes and other (Supraventricular tachycardia at a rate of 195) EKG #2: EKG attestation: Yes I reviewed and interpreted this EKG. EKG results narrative: Repeat EKG at 11:05 after 6 mg of Adenocard EKG shows normal: sinus rhythm Rate: normal (90) Rhythm: NSR [place]/QRS: normal Interpretation: nonspecific ST-T wave changes and other (Resolution of SVT with return to normal sinus rhythm after Identicard treatment.) Pulse Oximetry Data Pulse Ox %: 94 Interpretation: 94% on 6 L is at baseline for this morbidly obese patient. Discharge Plan Patient/Caregiver Discharge Instructions Pt seen by CHIEF INSPECTOR/PA only: No Clinical Impression: Paroxysmal supraventricular tachycardia, Elevated troponin CHF (congestive heart failure) Qualifiers: Heart failure type: other Qualified Code(s): I50.9 - Heart failure, unspecified Patient Disposition: Xfer As Inpt ([facility]) Condition: Fair Follow up with: Jane Murphy ARNP [Primary Care Provider] - Prescriptions: No Action finasteride 5 mg tablet See Rx Instructions .ROUTE .COMPLEX Qty: 30 RF: 11 exenatide microspheres 2 mg/0.85 mL subcutaneous auto-injector 2 mg/0.85 mL auto-injector 2 mg SUB-Q QWEEK RF: 0 furosemide 40 mg tablet 40 mg PO BID RF: 0 metformin 500 mg tablet extended release 24 hr 1,000 mg PO BID RF: 0 potassium chloride 10 mEq capsule, extended release 20 meq PO BID RF: 0 rosuvastatin 40 mg tablet 40 mg PO QDAY RF: 0 Lantus Solostar U-100 Insulin 100 unit/mL (3 mL) insulin pen 29 unit SUB-Q QDAY RF: 0 permethrin 5 % cream 1 applic topical Q14D Qty: 60 RF: 0 meclizine 25 mg tablet 25 mg PO BID MDD 2 PRN (Reason: dizziness) Qty: 20 RF: 0 metoprolol succinate 50 mg Tablet Extended Release 24 Hr 50 mg PO DAILY Qty: 60 RF: 0 polysaccharide iron complex [Ferrex 150] 150 mg iron Capsule 150 mg PO DAILY Qty: 30 RF: 0 levofloxacin 750 mg tablet 750 mg PO Q48H Qty: 2 RF: 0 lisinopril 5 mg tablet 5 mg PO QDAY Qty: 30 RF: 0 tamsulosin 0.4 mg capsule 0.8 mg PO QDAY Qty: 60 RF: 11
[2021-05-24 11:39] LABS: Basophils # (Auto) 0.06 K/mcL (0.00-0.30); Basophils % (Auto) 0.6 % (0.0-2.0); Eosinophils # (Auto) 0.15 K/mcL (0.00-0.70); Eosinophils % (Auto) 1.6 % (0.0-7.0); Hematocrit 43.8 % (40.1-51.0); Hemoglobin 12.5 g/dL (13.7-17.5); Lymphocytes # (Auto) 1.96 K/mcL (1.50-4.80); Lymphocytes % (Auto) 20.9 % (15.5-49.0); Mean Cell Volume 72.3 fL (80.0-100.0); Mean Corpuscular HGB Conc 28.5 g/dL (31.0-36.0); Mean Platelet Volume 8.1 fL (7.4-10.4); Monocytes # (Auto) 0.53 K/mcL (0.10-0.90); Monocytes % (Auto) 5.6 % (1.0-12.0); Neutrophils % (Auto) 71.3 % (38.0-78.0); Platelet Count 262 K/mcL (140-440); RBC 6.06 M/mcL (4.63-6.08); Red Cell Distribution Width 23.3 % (11.5-14.5); WBC 9.4 K/mcL (4.5-11.0)
--- NOTE | 2021-05-24 11:40 | XRay Report ---
HISTORY: Tachycardia, hypotension, shortness of breath with chest pain and stent placement last week FINDINGS: Heart is moderately enlarged. There is pulmonary vascular congestion. Dense consolidation is present in the right middle and lower lobes. There may be a superimposed small right-sided pleural effusion. No left-side effusion is present. Comparison with the prior exam from 03/05/21 shows the consolidation in the right lung and pulmonary vascular congestion are new. The cardiomegaly is stable. IMPRESSION: Atelectasis or pneumonia in the right middle and lower lobes. Cardiomegaly with pulmonary vascular congestion Interpreted and Authenticated by: Augustine Caballero 05/24/21
[2021-05-24 13:41] LABS: Appearance,Urine CLEAR (Clear); Bilirubin,Urine Negative (Negative); Color,Urine YELLOW; Culture Indicated,Urine No; Glucose,Urine (UA) Negative (Negative); Ketones,Urine Negative (Negative); Leukocyte Esterase,Urine Negative /ug (Negative); Mucus,Urine FEW /hpf; Nitrate,Urine Negative (Negative); Protein,Urine 100 mg/dL (Negative); Specific Gravity,Urine 1.009 (1.000-1.035); Urine Blood Negative (Negative); Urine RBC 1 /hpf (0-3); Urine Squamous Epithelial Cell < 1 /hpf (0-4); Urine WBC 1 /hpf (0-4)
[2021-05-24 14:04] LABS: Myoglobin 85 ng/mL (28-72)
[2021-05-24 14:05] LABS: ALT/SGPT 10 U/L (<40); AST/SGOT 23 U/L (<40); Albumin 3.6 gm/dL (3.2-5.2); Albumin/Globulin Ratio 1.1 (1.0-2.3); Alkaline Phosphatase 87 U/L (39-117); Bilirubin,Total 0.9 mg/dL (0.1-1.0); Blood Urea Nitrogen 36 mg/dL (8-23); Calcium 8.9 mg/dL (8.6-10.4); Carbon Dioxide 22 mmol/L (22-30); Chloride 106 mmol/L (96-108); Creatine Kinase 40 U/L (24-195); Creatine Kinase MB 2.9 ng/mL (<6.7); Globulin 3.2 gm/dL (2.2-3.7); Glomerular Filtration Rate 46; Glucose 125 mg/dL (70-105)
[2021-05-24] MEDS ORDERED: FUROSEMIDE 100 MG/10 ML VIAL IV ONE (15:01)
--- NOTE | 2021-05-24 16:11 | Internal Med History&Physical ---
HPI History of Present Illness Patient information: Note initiated : 05/24/21 at 4:08 pm Service Date, if different from initiated Date: [] Patient: Guillaume Broderick a 60 y/o M admitted on for tachycardia, low BP. Chief Complaint: [] History of present illness: Mr. Broderick is a 60 year o Patient was recently discharged on the from [facility] and he was there for anasarca acute on chronic congestive heart failure hypoxia renal insufficiency cellulitis. Patient states that he did not lose any weight while there. He was placed on oxygen and has been on 5 L since then. He try to get from his chair today and was very weak and became lightheaded while standing up. And then called EMS. He is also had nosebleeds from the oxygen. Patient did feel some chest tightness during the tachycardia that resolved after the adenosine and resolution of tachycardia. In the ED is found to be in SVT of 200 and was given adenosine which resolved it. He has pulmonary edema although is on his home oxygen requirement. Patient has been trying to get into a rehab facility as he is unable to care for himself at home. Case was discussed with Dr. Gore who did not feel patient need to be transferred over for cardiac care or procedure and recommended diuresis and follow-up. Patient had a cardiac stent placed [address] Gore. Creatinine is 1.6. It is 2.0 on the at [place]. Review of Systems: Pertinent positives as above. Denies hea dache/fever/chills/nausea/vomiting/chest or abdominal pain/cough/dyspnea/diarrhea. Remaining 10 point review of system reviewed negative PFSH PFSH All Active Problems (Updated 05/24/21 @ 15:03 by Gadiel Nice MD) Scratch of right lower leg (Acute) Near syncope (Acute) Dyspnea (Acute) Hypertensive urgency (Acute) Blister (Acute) Visit for wound check (Acute) Paroxysmal supraventricular tachycardia (Acute) CHF (congestive heart failure) (Acute) Elevated troponin (Acute) Rash (Acute) Congestive heart failure (Acute) Hypertension (Acute) Type 2 diabetes mellitus (Acute) Hypertensive urgency (Acute) History of syncope (Acute) Elevated troponin (Acute) Lower urinary tract symptoms (LUTS) (Chronic) Arthritis (Chronic) Pain in left knee (Chronic) Sleeps in sitting position due to orthopnea (Chronic) Pain in right knee (Chronic) Adult body mass index 40 and over (Chronic) History of tobacco use (Chronic) Edema of lower extremity (Chronic) Retinal venous tortuosity (Chronic) Allergic rhinitis (Chronic) Benign hypertension (Chronic) Chronic depression (Chronic) Morbid obesity (Chronic) Diabetes mellitus (Chronic) Urinary incontinence (Chronic) Pediculus capitis (head louse) (Chronic) Pediculus corporis (body louse) (Chronic) Rib pain on left side (Chronic) Medical History Adult body mass index 40 and over Allergic rhinitis Arthritis Bilateral Ankle Benign hypertension Chronic depression Diabetes mellitus Edema of lower extremity History of tobacco use Lower urinary tract symptoms (LUTS) Morbid obesity Pain in left knee Pain in right knee Pediculus capitis (head louse) Pediculus corporis (body louse) Rash Retinal venous tortuosity Sleeps in sitting position due to orthopnea Urinary incontinence Surgical History History of colonoscopy with polypectomy History of hernia repair "Double" Family History Mother Tumor of lung Father Malignant neoplasm of bone Malignant melanoma Social History household members: other sexually active: No alcohol intake frequency: does not drink substance use type: does not use seatbelt use: always working smoke detector in home: Yes firearms in home: No MEDS/ALLERGIES Home Medications and Allergies Home Medications Medication Instructions Recorded Confirmed Type exenatide microspheres 2 mg/0.85 2 mg SUB-Q QWEEK ml 07/17/19 03/05/21 History mL subcutaneous auto-injector furosemide 40 mg tablet 40 mg PO BID tab 07/17/19 03/05/21 History metformin 500 mg tablet,extended 1,000 mg PO BID tab 07/17/19 03/05/21 History release 24 hr potassium chloride 10 mEq 20 meq PO BID 07/17/19 03/05/21 History capsule,extended release rosuvastatin 40 mg tablet 40 mg PO QDAY 07/17/19 03/05/21 History insulin glargine 100 unit/mL (3 29 unit SUB-Q QDAY ml 08/19/19 03/05/21 History mL) subcutaneous pen tamsulosin 0.4 mg capsule 0.8 mg PO QDAY #60 cap 10/09/19 03/05/21 Rx permethrin 5 % topical cream 1 applic TOPICAL Q14D #60 g 12/16/20 03/05/21 Rx meclizine 25 mg PO BID PRN #20 tab MDD 2 01/12/21 03/05/21 Rx finasteride 5 mg tablet See Rx Instructions .ROUTE 01/24/21 03/05/21 Rx .COMPLEX #30 tab levofloxacin 750 mg PO Q48H #2 tab 03/07/21 Rx metoprolol succinate 50 mg PO DAILY #60 tab 03/07/21 Rx polysaccharide iron complex 150 mg PO DAILY #30 cap 03/07/21 Rx [Ferrex 150] lisinopril 5 mg PO QDAY #30 tab 03/09/21 Rx Allergies Allergy/AdvReac Type Severity Reaction Status Date / Time No Known Drug Allergies Allergy Verified 05/24/21 10:50 EXAM Constitutional Vitals: Pulse Resp BP Pulse Ox 82 0 L 158/100 99 05/24/21 15:41 05/24/21 15:02 05/24/21 15:32 05/24/21 15:41 Exam: General: Alert, Awake, No acute Distress, obese Eyes/N/T: EOMI, PERRL, Head/Neck: neck supple, normocephalic atraumatic CV: RRR, 2/6 SM, normal s1/s2 Pulm: Severely diminished b/l, occasional wheeze Abd: soft, nontender, +BS x4 Ext: no clubbing/cyanosis, 2-3+ b/l LE edema Neuro: Alert, no focal deficits, moves all extremities, CN 2-12 grossly intact, symmetrical strength b/l upper/lower, sensations intact b/l upper/lower Skin: warm/dry DATA Data Completed and Pending Labs: Labs from last 24 hours 05/24/21 05/24/21 05/24/21 12:48 10:57 10:57 WBC RBC Hgb Hct MCV MCH MCHC RDW Plt Count MPV Neut % (Auto) Lymph % (Auto) [place] % (Auto) Eos % (Auto) Baso % (Auto) Lymph # (Auto) [place] # (Auto) Eos # (Auto) Baso # (Auto) Absolute Neutrophils Sodium 143 Potassium 4.7 Chloride 106 Carbon Dioxide 22 Anion Gap 15.0 BUN 36 H Creatinine 1.6 H GFR Calculation 46 Glucose 125 H Calcium 8.9 Total Bilirubin 0.9 AST 23 ALT 10 Alkaline Phosphatase 87 Total Creatine Kinase 40 CK-MB (CK-2) 2.9 Myoglobin 85 H Troponin T 0.04 H* NT-Pro-B Natriuret Pep 03474.0 H Total Protein 6.8 Albumin 3.6 Globulin 3.2 Albumin/Globulin Ratio 1.1 Urine Color Yellow Urine Appearance Clear Urine pH 6.0 Ur Specific [place] 1.009 Urine Protein 100 A Urine Glucose (UA) Negative Urine Ketones Negative Urine Occult Blood Negative Urine Nitrate Negative Urine Bilirubin Negative Urine Urobilinogen 2.0 A Ur Leukocyte Esterase Negative Urine RBC 1 Urine WBC 1 Ur Squamous Epith Cells < 1 Urine Bacteria None Urine Mucus Few A Ur Culture Indicated? No 05/24/21 10:57 WBC 9.4 RBC 6.06 Hgb 12.5 L Hct 43.8 MCV 72.3 L MCH 20.6 L MCHC 28.5 L RDW 23.3 H Plt Count 262 MPV 8.1 Neut % (Auto) 71.3 Lymph % (Auto) 20.9 [place] % (Auto) 5.6 Eos % (Auto) 1.6 Baso % (Auto) 0.6 Lymph # (Auto) 1.96 [place] # (Auto) 0.53 Eos # (Auto) 0.15 Baso # (Auto) 0.06 Absolute Neutrophils 6.69 Sodium Potassium Chloride Carbon Dioxide Anion Gap BUN Creatinine GFR Calculation Glucose Calcium Total Bilirubin AST ALT Alkaline Phosphatase Total Creatine Kinase CK-MB (CK-2) Myoglobin Troponin T NT-Pro-B Natriuret Pep Total Protein Albumin Globulin Albumin/Globulin Ratio Urine Color Urine Appearance Urine pH Ur Specific [place] Urine Protein Urine Glucose (UA) Urine Ketones Urine Occult Blood Urine Nitrate Urine Bilirubin Urine Urobilinogen Ur Leukocyte Esterase Urine RBC Urine WBC Ur Squamous Epith Cells Urine Bacteria Urine Mucus Ur Culture Indicated? A/P Narrative A/P Narrative: A: *Anasarca w/Pulm edema: -recent hospitalization at [facility] for same and d/c'ed on 05/21. *acute on chronic systolic (35%)/diastolic(III) CHF & mild-mod reduced RV systolic fxn: -home lasix supposed to be 80 bid *Oxygen Dependent (?2-5L NC): *Severe Pulm HTN: *SVT: converted in ED -case discussed with in ED *h/o Medication noncompliance: *Generalized weakness/debility: *?ADOLFO on CKD III(base Cr~?1.6-1.7): suspect cardiorenal *CAD: recent cath (Dr. Gore) with dz in RCA but no stents: *Venous stasis changes *HTN/HLD: on norvasc/lasix/ACEI, statin *Anemia, chronic: *Depression/anxiety *DM: on insulin/metformin *Morbid obesity: *highly likely ADRIENNE: *DECLAN: P: -lasix gtt -monitor renal fxn -cont BB/ACEI -cont asa/statin -basal and SSI, hold metformin for now -elevate legs and wrap -wound care -clarify home meds -pt/ot -SNF placement -f/u with cardiology -nocturnal cpap, f/u with Pulm for sleep study -iron supp, last colonoscopy over 10yrs ago, f/u with GI for colonoscopy -ppx: lovenox code status: Time Spent With Patient Time: Total time spent is greater than 50% in coordination of care (as documented) at patient's floor/unit and/or counseling patient:
[2021-05-24] MEDS ORDERED: POTASSIUM CHLORIDE 40 MEQ in DEXTROSE 5% IN WATER 500 ML IV PRN (17:07)
[2021-05-24] MEDS ORDERED: ASPIRIN 325 MG ENTERIC COATED TABLET PO SCH (17:07)
[2021-05-24] MEDS ORDERED: METOCLOPRAMIDE 10 MG/2 ML VIAL IV PRN (17:07)
[2021-05-24] MEDS ORDERED: POLYETHYLENE GLYCOL 3350 17 GM PACKET PO PRN (17:07)
[2021-05-24] MEDS ORDERED: MAGNESIUM SULFATE 2 GM/50 ML BAG IV PRN (17:07)
[2021-05-24] MEDS ORDERED: DEXTROSE 31 GM ORAL.SUSP PO PRN (17:07)
[2021-05-24] MEDS ORDERED: DEXTROSE 50% 50 ML VIAL IV PRN (17:07)
[2021-05-24] MEDS ORDERED: IPRATROPIUM/ALBUTEROL 3 ML AMPUL.NEB NEB PRN (17:07)
[2021-05-24] MEDS ORDERED: ONDANSETRON 4 MG/2 ML VIAL IV PRN (17:07)
[2021-05-24] MEDS ORDERED: FUROSEMIDE 250 MG in 0.9 % SODIUM CHLORIDE 225 ML IV SCH (17:07)
[2021-05-24] MEDS ORDERED: POTASSIUM CHLORIDE 20 MEQ TABLET PO PRN ×2 (17:07)
[2021-05-24] MEDS ORDERED: SENNOSIDES 1 TABLET PO PRN (17:07)
[2021-05-24] MEDS: INSULIN LISPRO 1 UNIT/0.01 ML UNIT SQ SCH ×2 (18:17→20:38)
[2021-05-24] MEDS: HYDROCHLOROTHIAZIDE 25 MG TABLET PO SCH (18:53)
[2021-05-24] MEDS ORDERED: MECLIZINE 25 MG TABLET PO PRN (19:51)
[2021-05-24] MEDS: metFORMIN 500 MG TAB.XL.24H PO SCH (20:37)
[2021-05-24] MEDS: ATORVASTATIN 40 MG TABLET PO SCH (20:37)
[2021-05-24] MEDS: DOCUSATE SODIUM 100 MG CAPSULE PO SCH (20:38)
[2021-05-24] MEDS: 0.9 % SODIUM CHLORIDE 10 ML SYRINGE IV SCH (20:38)
[2021-05-24] MEDS: ENOXAPARIN 40 MG/0.4 ML SYRINGE SQ SCH (20:38)
[2021-05-24] MEDS: FUROSEMIDE 250 MG in 0.9 % SODIUM CHLORIDE 225 ML IV SCH (20:45)
[2021-05-24] MEDS: 0.9 % SODIUM CHLORIDE 250 ML IV SCH (22:18)
[2021-05-25] MEDS: 0.9 % SODIUM CHLORIDE 10 ML SYRINGE IV SCH ×3 (05:00→20:03)
--- NOTE | 2021-05-25 07:17 | Internal Med Progress Note ---
SUBJECTIVE Subjective Patient information: Note initiated : 05/25/21 at 7:14 am Service Date, if different from initiated Date: [] Patient: Guillaume Broderick a 60 y/o M admitted on 05/24/21 for tachycardia, low BP. Chief Complaint: [] Interval history: History of present illness: Mr. Broderick is a 60 year o Patient was recently discharged on the from [facility] and he was there for anasarca acute on chronic congestive heart failure hypoxia renal insufficiency cellulitis. Patient states that he did not lose any weight while there. He was placed on oxygen and has been on 5 L since then. He try to get from his chair today and was very weak and became lightheaded while standing up. And then called EMS. He is also had nosebleeds from the oxygen. Patient did feel some chest tightness during the tachycardia that resolved after the adenosine and resolution of tachycardia. In the ED is found to be in SVT of 200 and was given adenosine which resolved it. He has pulmonary edema although is on his home oxygen requirement. Patient has been trying to get into a rehab facility as he is unable to care for himself at home. Case was discussed with Dr. Gore who did not feel patient need to be transferred over for cardiac care or procedure and recommended diuresis and follow-up. Patient had a cardiac stent placed [address] oGre. Creatinine is 1.6. It is 2.0 on the at [place]. 05/25 Good urine output last night. No overnight event or new complaints. Refused Desai catheter for accurate I's and O's last night. But is agreeable to today. Patient typically on 2 L of oxygen at home. Patient currently on 1 L with humidified oxygen to prevent nosebleeds like he was getting at home. Review of Systems: denies headache/fever/chills/nausea/vomiting/chest or abdominal pain/cough/dyspnea/diarrhea. Otherwise see above. Constitutional Vitals: Vital Signs Temp Pulse Resp BP Pulse Ox 97.7 F 90 14 159/92 96 05/25/21 04:19 05/25/21 06:17 05/25/21 06:17 05/25/21 06:17 05/25/21 06:17 Period Temp Pulse Resp BP Sys/Becerra Pulse Ox Last 24 Hr 97.4 F-98.1 F 68-197 0-29 85-177/64-121 86-100 Intake and Output 05/24/21 05/25/21 05/25/21 21:59 05:59 13:59 Intake Total 1200 240 Output Total 1425 1200 Balance -225 -960 Weight 180.122 kg Intake & Output: Intake & Output 05/24/21 05/25/21 05/25/21 21:59 05:59 13:59 Intake Total 1200 240 Output Total 1425 1200 Balance -225 -960 Weight 180.122 kg Intake: IV 0 Sodium Chloride 0.9% 1,000 ml @ 0 Wide Open IV BOLUS ONE Rx#: [id number] Oral 1200 240 Output: Void Amount 1425 1200 Other: Meal Dinner Percent of Meal Consumed 100% Feeding Ability Independent Urine Appearance Clear Clear Urine Color Bright Yellow Pale Stool Size Small Smear Stool Color Brown Green Stool Consistency Liquid Loose Loose # Voids 2 Exam: General: Alert, Awake, No acute Distress, obese Eyes/N/T: EOMI, Head/Neck: neck supple, CV: RRR, 2/6 SM, Pulm: diminished b/l but better aeration today, no wheezing Abd: soft, nontender, +BS x4 Ext: no clubbing/cyanosis, 2-3+ b/l LE edema Neuro: Alert, no focal deficits, moves all extremities, Skin: warm/dry OBJ DATA Labs CBC & Chem 7: 05/25/21 05:26 05/25/21 05:26 Labs: Abnormal Lab Results 05/24/21 05/24/21 05/24/21 12:48 10:57 10:57 Hgb MCV MCH MCHC RDW BUN 36 H Creatinine 1.6 H Glucose 125 H Myoglobin 85 H Troponin T 0.04 H* NT-Pro-B Natriuret Pep 54545.0 H Urine Protein 100 A Urine Urobilinogen 2.0 A Urine Mucus Few A 05/24/21 10:57 Hgb 12.5 L MCV 72.3 L MCH 20.6 L MCHC 28.5 L RDW 23.3 H BUN Creatinine Glucose Myoglobin Troponin T NT-Pro-B Natriuret Pep Urine Protein Urine Urobilinogen Urine Mucus Meds: Medications Acetaminophen (Acetaminophen 325 Mg Tablet) 650 mg PO Q6HP PRN PRN Reason: PAIN/FEVER > 101 Albuterol/Ipratropium (Ipratropium/Albuterol 3 Ml Ampul.Neb) 3 ml NEB Q4HP PRN PRN Reason: Shortness Of Breath Aspirin (Aspirin 81 Mg Tab.Chew) 81 mg PO DAILY [facility] Atorvastatin Calcium (Atorvastatin 40 Mg Tablet) 40 mg PO QPM [facility] Last Admin: 05/24/21 20:37 Dose: 40 mg Documented by: Dextrose (Dextrose 50% 50 Ml Vial) 0 ml IV UD PRN PRN Reason: Hypoglycemia Diagnostic Test (Pha) (Accu-Chek 1 Each Strip) 1 each FS ACHS [facility] Last Admin: 05/24/21 20:35 Dose: 1 each Documented by: Docusate Sodium (Docusate Sodium 100 Mg Capsule) 100 mg PO BID [facility] Last Admin: 05/24/21 20:38 Dose: Not Given Documented by: Enoxaparin Sodium (Enoxaparin 40 Mg/0.4 Ml Syringe) 40 mg SQ BID [facility] Last Admin: 05/24/21 20:38 Dose: 40 mg Documented by: Finasteride (Finasteride 5 Mg Tablet) 5 mg PO DAILY [facility] Glucose (Dextrose 31 Gm Oral.Susp) 15 gm PO PRN PRN PRN Reason: Hypoglycemia Hydralazine HCl (Hydralazine 20 Mg/Ml Vial) 0 mg IV Q2HP PRN PRN Reason: Hypertension Hydrochlorothiazide (Hydrochlorothiazide 25 Mg Tablet) 25 mg PO DAILY [facility] Last Admin: 05/24/21 18:53 Dose: 25 mg Documented by: Hydroxyzine HCl (Hydroxyzine 25 Mg Tablet) 25 mg PO TIDP PRN PRN Reason: Anxiety Potassium Chloride 40 meq/ (Dextrose) 520 mls @ 130 mls/hr IV UD PRN PRN Reason: Potassium < 3 Magnesium Sulfate (Magnesium Sulfate) 2 gm in 50 mls @ 50 mls/hr IV UD PRN PRN Reason: Magnesium </= 1.6 Furosemide 250 mg/ Sodium (Chloride) 250 mls @ 5 mls/hr IV Q24H [facility]; Protocol Last Admin: 05/24/21 20:45 Dose: 5 mg/hr, 5 mls/hr Documented by: Sodium Chloride (Sodium Chloride 0.9%) 250 mls @ 20 mls/hr IV .[id number] [facility] Last Admin: 05/24/21 22:18 Dose: 20 mls/hr Documented by: Insulin Glargine (Insulin Glargine, Human 1 Unit/0.01 Ml) 10 unit SQ QAM [facility] Insulin Human Lispro (Insulin Lispro 1 Unit/0.01 Ml Unit) 0 unit SQ ACHS [facility]; Protocol Last Admin: 05/24/21 20:38 Dose: Not Given Documented by: Lisinopril (Lisinopril 5 Mg Tablet) 10 mg PO QDAY [facility] Meclizine HCl (Meclizine 25 Mg Tablet) 25 mg PO BIDP PRN PRN Reason: dizziness Metformin HCl (Metformin 500 Mg Tab.Xl.24h) 1,000 mg PO BIDCC [facility] Last Admin: 05/24/21 20:37 Dose: 1,000 mg Documented by: Metoclopramide HCl (Metoclopramide 10 Mg/2 Ml Vial) 10 mg IV Q6HP PRN PRN Reason: Nausea And Vomiting Metoprolol Succinate (Metoprolol Succinate 50 Mg Tab.Xl.24h) 50 mg PO DAILY [facility] Ondansetron HCl (Ondansetron 4 Mg/2 Ml Vial) 4 mg IV Q4HP PRN PRN Reason: Nausea And Vomiting Empagliflozin [ Jardiance] 10 Mg Tablet) 1 dose PO QDAY [facility] Liraglutide [Victoza 2-Perfecto] 0.6 Mg/0.1 Ml 1.2 dose SUB-Q DAILY [facility] Polyethylene Glycol (Polyethylene Glycol 3350 17 Gm Packet) 17 gm PO DAILYP PRN PRN Reason: Constipation Polysaccharide Iron Complex (Iron Polysaccharide Complex 150 Mg Capsule) 150 mg PO DAILY [facility] Potassium Chloride (Potassium Chloride 20 Meq Tablet) 40 meq PO UD PRN PRN Reason: Potssium is 3-3.5 Potassium Chloride (Potassium Chloride 20 Meq Tablet) 40 meq PO UD PRN PRN Reason: Potassium < 3 Potassium Chloride (Potassium Chloride 20 Meq Tablet) [facility] Senna (Sennosides 1 Tablet) 2 tab PO DAILYP PRN PRN Reason: Constipation Sodium Chloride (0.9 % Sodium Chloride 10 Ml Syringe) 10 ml IV Q8 [facility] Last Admin: 05/25/21 05:00 Dose: 10 ml Documented by: Tamsulosin HCl (Tamsulosin 0.4 Mg Capsule) 0.4 mg PO QDAY [facility] Venlafaxine HCl (Venlafaxine 75 Mg Cap.Xl.24h) 75 mg PO DAILY [facility] A/P Narrative A/P Narrative: A: *Anasarca w/Pulm edema: -recent hospitalization at [facility] for same and d/c'ed on 05/21 -good UOP *acute on chronic systolic (35%)/diastolic(III) CHF & mild-mod reduced RV systolic fxn: -home lasix supposed to be 80 bid, also on ACEI/BB *Oxygen Dependent (2L NC): *Severe Pulm HTN: *SVT: converted in ED -case discussed with Dr. Gore in ED *h/o Medication noncompliance: *Generalized weakness/debility: *?ADOLFO on CKD III(base Cr~?1.6-1.7): suspect cardiorenal -1.3 today, 1.6 on admit *CAD: recent cath (Dr. Gore) with dz in RCA but no stents: *Venous stasis changes *HTN/HLD: on BB/lasix/ACEI, statin *Anemia, chronic: *Depression/anxiety *DM: on insulin/metformin *Morbid obesity: *highly likely ADRIENNE: *DECLAN: P: -lasix gtt / HCTZ -monitor renal fxn -cont BB/ACEI -cont asa/statin -basal and SSI, hold metformin for now -elevate legs and wrap -wound care -pt/ot -SNF placement -f/u with cardiology -nocturnal cpap, f/u with Pulm for sleep study -iron supp, last colonoscopy over 10yrs ago, f/u with GI for colonoscopy -ppx: lovenox code status: Time Spent With Patient Time: Total time spent is greater than 50% in coordination of care (as documented) at patient's floor/unit and/or counseling patient: QUALITY VTE Deep Vein Thrombosis/Pulmonary Embolism Present on Admission: No
[2021-05-25 08:31] LABS: ALT/SGPT 8 U/L (<40); AST/SGOT 19 U/L (<40); Albumin 3.5 gm/dL (3.2-5.2); Albumin/Globulin Ratio 1.3 (1.0-2.3); Alkaline Phosphatase 75 U/L (39-117); Bilirubin,Direct 0.3 mg/dL (<0.3); Bilirubin,Total 0.9 mg/dL (0.1-1.0); Blood Urea Nitrogen 31 mg/dL (8-23); Calcium 8.6 mg/dL (8.6-10.4); Carbon Dioxide 26 mmol/L (22-30); Chloride 102 mmol/L (96-108); Globulin 2.8 gm/dL (2.2-3.7); Glomerular Filtration Rate 59; Glucose 82 mg/dL (70-105); Lactate Dehydrogenase 217 U/L (135-225); Phosphorous 3.7 mg/dL (2.5-4.5); Triglycerides 81 mg/dL (<150); Uric Acid 9.6 mg/dL (2.5-8.0)
[2021-05-25 08:44] LABS: Basophils # (Auto) 0.08 K/mcL (0.00-0.30); Eosinophils # (Auto) 0.19 K/mcL (0.00-0.70); Eosinophils % (Auto) 2.5 % (0.0-7.0); Hematocrit 39.1 % (40.1-51.0); Hemoglobin 11.3 g/dL (13.7-17.5); Lymphocytes # (Auto) 1.72 K/mcL (1.50-4.80); Lymphocytes % (Auto) 22.2 % (15.5-49.0); Mean Cell Volume 71.7 fL (80.0-100.0); Mean Corpuscular HGB Conc 28.9 g/dL (31.0-36.0); Mean Platelet Volume 8.5 fL (7.4-10.4); Monocytes # (Auto) 0.48 K/mcL (0.10-0.90); Monocytes % (Auto) 6.2 % (1.0-12.0); Neutrophils % (Auto) 68.1 % (38.0-78.0); Platelet Count 182 K/mcL (140-440); RBC 5.45 M/mcL (4.63-6.08); Red Cell Distribution Width 22.9 % (11.5-14.5); WBC 7.7 K/mcL (4.5-11.0)
[2021-05-25] MEDS: ASPIRIN 81 MG TAB.CHEW PO SCH (09:10)
[2021-05-25] MEDS: DOCUSATE SODIUM 100 MG CAPSULE PO SCH ×2 (09:10→21:28)
[2021-05-25] MEDS: INSULIN LISPRO 1 UNIT/0.01 ML UNIT SQ SCH ×4 (09:10→21:28)
[2021-05-25] MEDS: VENLAFAXINE 75 MG CAP.XL.24H PO SCH (09:10)
[2021-05-25] MEDS: POTASSIUM CHLORIDE 20 MEQ TABLET PO SCH (09:11)
[2021-05-25] MEDS: INSULIN GLARGINE, HUMAN 1 UNIT/0.01 ML SQ SCH (09:11)
[2021-05-25] MEDS: TAMSULOSIN 0.4 MG CAPSULE PO SCH (09:11)
[2021-05-25] MEDS: IRON POLYSACCHARIDE COMPLEX 150 MG CAPSULE PO SCH (09:11)
[2021-05-25] MEDS: ENOXAPARIN 40 MG/0.4 ML SYRINGE SQ SCH ×2 (09:12→21:28)
[2021-05-25] MEDS: FINASTERIDE 5 MG TABLET PO SCH (09:12)
[2021-05-25] MEDS: HYDROCHLOROTHIAZIDE 25 MG TABLET PO SCH (09:12)
[2021-05-25] MEDS: METOPROLOL SUCCINATE 50 MG TAB.XL.24H PO SCH (09:13)
[2021-05-25] MEDS: LISINOPRIL 5 MG TABLET PO SCH (09:13)
[2021-05-25] MEDS: ACETAMINOPHEN 325 MG TABLET PO PRN ×2 (10:59→19:44)
[2021-05-25] MEDS: 0.9 % SODIUM CHLORIDE 250 ML IV SCH ×2 (10:59→22:31)
[2021-05-25] MEDS: metFORMIN 500 MG TAB.XL.24H PO SCH (11:23)
[2021-05-25] MEDS: FUROSEMIDE 250 MG in 0.9 % SODIUM CHLORIDE 225 ML IV SCH (17:15)
[2021-05-25] MEDS: ATORVASTATIN 40 MG TABLET PO SCH (21:28)
[2021-05-26] MEDS: ACETAMINOPHEN 325 MG TABLET PO PRN (02:40)
[2021-05-26] MEDS: 0.9 % SODIUM CHLORIDE 10 ML SYRINGE IV SCH ×3 (05:52→20:07)
[2021-05-26 07:10] LABS: ALT/SGPT 8 U/L (<40); AST/SGOT 15 U/L (<40); Albumin 3.3 gm/dL (3.2-5.2); Albumin/Globulin Ratio 1.1 (1.0-2.3); Alkaline Phosphatase 70 U/L (39-117); Bilirubin,Direct 0.2 mg/dL (<0.3); Bilirubin,Total 0.6 mg/dL (0.1-1.0); Blood Urea Nitrogen 32 mg/dL (8-23); Calcium 8.6 mg/dL (8.6-10.4); Carbon Dioxide 30 mmol/L (22-30); Chloride 100 mmol/L (96-108); Globulin 3.1 gm/dL (2.2-3.7); Glomerular Filtration Rate 65; Glucose 97 mg/dL (70-105); Lactate Dehydrogenase 211 U/L (135-225); Triglycerides 52 mg/dL (<150); Uric Acid 9.9 mg/dL (2.5-8.0)
--- NOTE | 2021-05-26 07:18 | Internal Med Progress Note ---
SUBJECTIVE Subjective Patient information: Note initiated : 05/26/21 at 7:15 am Service Date, if different from initiated Date: [] Patient: Guillaume Broderick a 60 y/o M admitted on 05/24/21 for tachycardia, low BP. Chief Complaint: [] Interval history: History of present illness: Mr. Broderick is a 60 year o Patient was recently discharged on the from [facility] and he was there for anasarca acute on chronic congestive heart failure hypoxia renal insufficiency cellulitis. Patient states that he did not lose any weight while there. He was placed on oxygen and has been on 5 L since then. He try to get from his chair today and was very weak and became lightheaded while standing up. And then called EMS. He is also had nosebleeds from the oxygen. Patient did feel some chest tightness during the tachycardia that resolved after the adenosine and resolution of tachycardia. In the ED is found to be in SVT of 200 and was given adenosine which resolved it. He has pulmonary edema although is on his home oxygen requirement. Patient has been trying to get into a rehab facility as he is unable to care for himself at home. Case was discussed with Dr. Gore who did not feel patient need to be transferred over for cardiac care or procedure and recommended diuresis and follow-up. Patient had a cardiac stent placed [address] Gore. Creatinine is 1.6. It is 2.0 on the at [place]. 05/25 Good urine output last night. No overnight event or new complaints. Refused Desai catheter for accurate I's and O's last night. But is agreeable to today. Patient typically on 2 L of oxygen at home. Patient currently on 1 L with humidified oxygen to prevent nosebleeds like he was getting at home. 05/26 Patient feeling much better. Patient was on room air because he removed his mask and while he was sleeping he was 88-89. When he woke up it quickly jumped up into the 90s. Urine output since admission has been almost 10 L Review of Systems: denies fever/chills/nausea/vomiting/chest or abdominal pain/cough/dyspnea/diarrhea. Otherwise see above. Constitutional Vitals: Vital Signs Temp Pulse Resp BP Pulse Ox 97.6 F 80 15 145/94 98 05/26/21 05:34 05/26/21 05:34 05/26/21 05:34 05/26/21 05:34 05/26/21 05:34 Period Temp Pulse Resp BP Sys/Becerra Pulse Ox Last 24 Hr 97.6 F-98.5 F 79-94 12- 127-180/81-108 88-100 Intake and Output 05/25/21 05/26/21 05/26/21 21:59 05:59 13:59 Intake Total 943 711 Output Total 1895 2709 450 Balance - Weight 179.35 kg Intake & Output: Intake & Output 05/25/21 05/26/21 05/26/21 21:59 05:59 13:59 Intake Total 943 711 Output Total 1895 2709 450 Balance - Weight 179.35 kg Intake: IV 103 231 Sodium Chloride 0.9% 250 ml @ 231 20 mls/hr IV .[id number] [facility] Rx#: [id number] Lasix 250 mg In Sodium Chloride 103 0.9% 225 ml @ 5 MG/HR 5 mls/hr IV Q24H [facility] Rx#:[id number] Oral 840 480 Output: Urine Catheter Amount 5781 [id number] Other: Meal Cheese stick/yogurt Jello Percent of Meal Consumed 100% 100% Feeding Ability Independent Independent Urine Appearance Clear Clear Clear Sediment Uretheral (Desai) Clear Urine Color Pale Straw Pale Uretheral (Desai) Straw Exam: General: Alert, Awake, No acute Distress, obese Eyes/N/T: EOMI, Head/Neck: neck supple, CV: RRR, 2/6 SM, Pulm: diminished b/l but much better aeration now, no wheezing Abd: soft, nontender, +BS x4 Ext: no clubbing/cyanosis, 2-3+ b/l LE edema Neuro: Alert, no focal deficits, moves all extremities, Skin: warm/dry OBJ DATA Labs CBC & Chem 7: 05/25/21 05:26 05/26/21 04:54 Labs: Abnormal Lab Results 05/26/21 05/25/21 05/25/21 04:54 05:26 05:26 Hgb 11.3 L Hct 39.1 L MCV 71.7 L MCH 20.7 L MCHC 28.9 L RDW 22.9 H BUN 32 H 31 H Creatinine 1.3 H Glucose Uric Acid 9.9 H 9.6 H Direct Bilirubin 0.3 H Myoglobin Troponin T NT-Pro-B Natriuret Pep Urine Protein Urine Urobilinogen Urine Mucus 05/24/21 05/24/21 05/24/21 12:48 10:57 10:57 Hgb Hct MCV MCH MCHC RDW BUN 36 H Creatinine 1.6 H Glucose 125 H Uric Acid Direct Bilirubin Myoglobin 85 H Troponin T 0.04 H* NT-Pro-B Natriuret Pep 21209.0 H Urine Protein 100 A Urine Urobilinogen 2.0 A Urine Mucus Few A 05/24/21 10:57 Hgb 12.5 L Hct MCV 72.3 L MCH 20.6 L MCHC 28.5 L RDW 23.3 H BUN Creatinine Glucose Uric Acid Direct Bilirubin Myoglobin Troponin T NT-Pro-B Natriuret Pep Urine Protein Urine Urobilinogen Urine Mucus Meds: Medications Acetaminophen (Acetaminophen 325 Mg Tablet) 650 mg PO Q6HP PRN PRN Reason: PAIN/FEVER > 101 Last Admin: 05/26/21 02:40 Dose: 650 mg Documented by: Albuterol/Ipratropium (Ipratropium/Albuterol 3 Ml Ampul.Neb) 3 ml NEB Q4HP PRN PRN Reason: Shortness Of Breath Aspirin (Aspirin 81 Mg Tab.Chew) 81 mg PO DAILY [facility] Last Admin: 05/25/21 09:10 Dose: 81 mg Documented by: Atorvastatin Calcium (Atorvastatin 40 Mg Tablet) 40 mg PO QPM [facility] Last Admin: 05/25/21 21:28 Dose: 40 mg Documented by: Dextrose (Dextrose 50% 50 Ml Vial) 0 ml IV UD PRN PRN Reason: Hypoglycemia Diagnostic Test (Pha) (Accu-Chek 1 Each Strip) 1 each FS ACHS [facility] Last Admin: 05/25/21 21:28 Dose: 1 each Documented by: Docusate Sodium (Docusate Sodium 100 Mg Capsule) 100 mg PO BID [facility] Last Admin: 05/25/21 21:28 Dose: Not Given Documented by: Enoxaparin Sodium (Enoxaparin 40 Mg/0.4 Ml Syringe) 40 mg SQ BID [facility] Last Admin: 05/25/21 21:28 Dose: 40 mg Documented by: Finasteride (Finasteride 5 Mg Tablet) 5 mg PO DAILY [facility] Last Admin: 05/25/21 09:12 Dose: 5 mg Documented by: Glucose (Dextrose 31 Gm Oral.Susp) 15 gm PO PRN PRN PRN Reason: Hypoglycemia Hydralazine HCl (Hydralazine 20 Mg/Ml Vial) 0 mg IV Q2HP PRN PRN Reason: Hypertension Hydrochlorothiazide (Hydrochlorothiazide 25 Mg Tablet) 25 mg PO DAILY [facility] Last Admin: 05/25/21 09:12 Dose: 25 mg Documented by: Hydroxyzine HCl (Hydroxyzine 25 Mg Tablet) 25 mg PO TIDP PRN PRN Reason: Anxiety Potassium Chloride 40 meq/ (Dextrose) 520 mls @ 130 mls/hr IV UD PRN PRN Reason: Potassium < 3 Magnesium Sulfate (Magnesium Sulfate) 2 gm in 50 mls @ 50 mls/hr IV UD PRN PRN Reason: Magnesium </= 1.6 Furosemide 250 mg/ Sodium (Chloride) 250 mls @ 5 mls/hr IV Q24H [facility]; Protocol Last Admin: 05/25/21 17:15 Dose: 5 mg/hr, 5 mls/hr Documented by: Sodium Chloride (Sodium Chloride 0.9%) 250 mls @ 20 mls/hr IV .[id number] [facility] Last Admin: 05/25/21 22:31 Dose: 20 mls/hr Documented by: Insulin Glargine (Insulin Glargine, Human 1 Unit/0.01 Ml) 10 unit SQ QAM [facility] Last Admin: 05/25/21 09:11 Dose: 10 unit Documented by: Insulin Human Lispro (Insulin Lispro 1 Unit/0.01 Ml Unit) 0 unit SQ ACHS [facility]; Protocol Last Admin: 05/25/21 21:28 Dose: Not Given Documented by: Lisinopril (Lisinopril 5 Mg Tablet) 10 mg PO QDAY [facility] Last Admin: 05/25/21 09:13 Dose: 10 mg Documented by: Meclizine HCl (Meclizine 25 Mg Tablet) 25 mg PO BIDP PRN PRN Reason: dizziness Metoclopramide HCl (Metoclopramide 10 Mg/2 Ml Vial) 10 mg IV Q6HP PRN PRN Reason: Nausea And Vomiting Metoprolol Succinate (Metoprolol Succinate 50 Mg Tab.Xl.24h) 50 mg PO DAILY [facility] Last Admin: 05/25/21 09:13 Dose: 50 mg Documented by: Ondansetron HCl (Ondansetron 4 Mg/2 Ml Vial) 4 mg IV Q4HP PRN PRN Reason: Nausea And Vomiting Empagliflozin [ Jardiance] 10 Mg Tablet) 1 dose PO QDAY [facility] Last Admin: 05/25/21 09:12 Dose: Not Given Documented by: Liraglutide [Victoza 2-Perfecto] 0.6 Mg/0.1 Ml 1.2 dose SUB-Q DAILY [facility] Last Admin: 05/25/21 09:12 Dose: Not Given Documented by: Pneumococcal Polyvalent Vaccine (Pneumococcal 23-Britta P-Sac Vac 0.5 Ml Syringe) 0.5 ml IM .ONCE ONE Stop: 05/26/21 10:01 Polyethylene Glycol (Polyethylene Glycol 3350 17 Gm Packet) 17 gm PO DAILYP PRN PRN Reason: Constipation Polysaccharide Iron Complex (Iron Polysaccharide Complex 150 Mg Capsule) 150 mg PO DAILY [facility] Last Admin: 05/25/21 09:11 Dose: 150 mg Documented by: Potassium Chloride (Potassium Chloride 20 Meq Tablet) 40 meq PO UD PRN PRN Reason: Potssium is 3-3.5 Potassium Chloride (Potassium Chloride 20 Meq Tablet) 40 meq PO UD PRN PRN Reason: Potassium < 3 Potassium Chloride (Potassium Chloride 20 Meq Tablet) 40 meq PO [facility] Last Admin: 05/25/21 09:11 Dose: 40 meq Documented by: Senna (Sennosides 1 Tablet) 2 tab PO DAILYP PRN PRN Reason: Constipation Sodium Chloride (0.9 % Sodium Chloride 10 Ml Syringe) 10 ml IV Q8 [facility] Last Admin: 05/26/21 05:52 Dose: 10 ml Documented by: Tamsulosin HCl (Tamsulosin 0.4 Mg Capsule) 0.4 mg PO QDAY [facility] Last Admin: 05/25/21 09:11 Dose: 0.4 mg Documented by: Venlafaxine HCl (Venlafaxine 75 Mg Cap.Xl.24h) 75 mg PO DAILY [facility] Last Admin: 05/25/21 09:10 Dose: 75 mg Documented by: A/P Narrative A/P Narrative: A: *Anasarca w/Pulm edema: -[facility] and d/c'ed on 8/28 -good UOP *acute on chronic systolic (35%)/diastolic(III) CHF & mild-mod reduced RV systolic fxn: -home lasix supposed to be 80 bid, also on ACEI/BB *Oxygen Dependent (2L NC): *Severe Pulm HTN: *SVT: converted in ED -case discussed with Dr. Gore in ED *h/o Medication noncompliance: *Generalized weakness/debility: *?ADOLFO on CKD III(base Cr~?1.6-1.7): suspect cardiorenal -1.2 today, 1.6 on admit *CAD: recent cath (Dr. Gore) with dz in RCA but no stents: *Venous stasis changes *HTN/HLD: on BB/lasix/ACEI, statin *Anemia, chronic: *Depression/anxiety *DM: on insulin/metformin *Morbid obesity: *highly likely ADRIENNE: *DECLAN: P: -lasix gtt / HCTZ -monitor renal fxn -cont BB/ACEI -cont asa/statin -basal and SSI, hold metformin for now -elevate legs and wrap -wound care -pt/ot -SNF placement -f/u with cardiology -nocturnal cpap, f/u with Pulm for sleep study -iron supp, last colonoscopy over 10yrs ago, f/u with GI for colonoscopy -ppx: lovenox code status: Time Spent With Patient Time: Total time spent is greater than 50% in coordination of care (as documented) at patient's floor/unit and/or counseling patient: QUALITY VTE Deep Vein Thrombosis/Pulmonary Embolism Present on Admission: No
[2021-05-26] MEDS: INSULIN LISPRO 1 UNIT/0.01 ML UNIT SQ SCH ×4 (08:42→20:07)
[2021-05-26] MEDS ORDERED: PNEUMOCOCCAL 23-VAL P-SAC VAC 0.5 ML SYRINGE IM ONE (10:00)
[2021-05-26] MEDS: ASPIRIN 81 MG TAB.CHEW PO SCH (10:15)
[2021-05-26] MEDS: IRON POLYSACCHARIDE COMPLEX 150 MG CAPSULE PO SCH (10:15)
[2021-05-26] MEDS: LISINOPRIL 5 MG TABLET PO SCH (10:15)
[2021-05-26] MEDS: VENLAFAXINE 75 MG CAP.XL.24H PO SCH (10:15)
[2021-05-26] MEDS: FINASTERIDE 5 MG TABLET PO SCH (10:15)
[2021-05-26] MEDS: METOPROLOL SUCCINATE 50 MG TAB.XL.24H PO SCH (10:16)
[2021-05-26] MEDS: POTASSIUM CHLORIDE 20 MEQ TABLET PO SCH (10:16)
[2021-05-26] MEDS: TAMSULOSIN 0.4 MG CAPSULE PO SCH (10:16)
[2021-05-26] MEDS: HYDROCHLOROTHIAZIDE 25 MG TABLET PO SCH (10:16)
[2021-05-26] MEDS: ENOXAPARIN 40 MG/0.4 ML SYRINGE SQ SCH ×2 (10:17→20:06)
[2021-05-26] MEDS: INSULIN GLARGINE, HUMAN 1 UNIT/0.01 ML SQ SCH (10:17)
[2021-05-26] MEDS: DOCUSATE SODIUM 100 MG CAPSULE PO SCH ×2 (10:18→20:03)
[2021-05-26] MEDS ORDERED: POTASSIUM CHLORIDE 20 MEQ TABLET PO ONE (10:25)
[2021-05-26] MEDS ORDERED: MAGNESIUM SULFATE 8.12 MEQ in DEXTROSE 5% IN WATER 50 ML IV ONE (10:25)
[2021-05-26] MEDS: 0.9 % SODIUM CHLORIDE 250 ML IV SCH (11:51)
[2021-05-26] MEDS: FUROSEMIDE 250 MG in 0.9 % SODIUM CHLORIDE 225 ML IV SCH (16:58)
[2021-05-26] MEDS: hydrALAZINE 20 MG/ML VIAL IV PRN (18:12)
[2021-05-26] MEDS: ATORVASTATIN 40 MG TABLET PO SCH (20:06)
[2021-05-27] MEDS: hydrALAZINE 20 MG/ML VIAL IV PRN (00:05)
[2021-05-27] MEDS: 0.9 % SODIUM CHLORIDE 250 ML IV SCH ×2 (00:35→12:51)
[2021-05-27] MEDS: ACETAMINOPHEN 325 MG TABLET PO PRN ×2 (01:15→07:20)
[2021-05-27] MEDS: 0.9 % SODIUM CHLORIDE 10 ML SYRINGE IV SCH ×3 (05:03→20:08)
[2021-05-27] MEDS: VENLAFAXINE 75 MG CAP.XL.24H PO SCH (07:20)
[2021-05-27] MEDS: TAMSULOSIN 0.4 MG CAPSULE PO SCH (07:20)
[2021-05-27] MEDS: LISINOPRIL 5 MG TABLET PO SCH (07:20)
[2021-05-27] MEDS: POTASSIUM CHLORIDE 20 MEQ TABLET PO SCH (07:20)
[2021-05-27] MEDS: hydrOXYzine 25 MG TABLET PO PRN (07:20)
[2021-05-27] MEDS: METOPROLOL SUCCINATE 50 MG TAB.XL.24H PO SCH (07:20)
[2021-05-27] MEDS: ENOXAPARIN 40 MG/0.4 ML SYRINGE SQ SCH ×2 (07:21→20:10)
[2021-05-27] MEDS: DOCUSATE SODIUM 100 MG CAPSULE PO SCH ×2 (07:21→20:08)
[2021-05-27] MEDS: FINASTERIDE 5 MG TABLET PO SCH (07:21)
[2021-05-27] MEDS: ASPIRIN 81 MG TAB.CHEW PO SCH (07:21)
[2021-05-27] MEDS: HYDROCHLOROTHIAZIDE 25 MG TABLET PO SCH (07:21)
--- NOTE | 2021-05-27 07:49 | Internal Med Progress Note ---
SUBJECTIVE Subjective Patient information: Note initiated : 05/27/21 at 7:45 am Service Date, if different from initiated Date: [] Patient: Guillaume Broderick a 60 y/o M admitted on 05/24/21 for tachycardia, low BP. Chief Complaint: [] Interval history: History of present illness: Mr. Broderick is a 60 year o Patient was recently discharged on the from [facility] and he was there for anasarca acute on chronic congestive heart failure hypoxia renal insufficiency cellulitis. Patient states that he did not lose any weight while there. He was placed on oxygen and has been on 5 L since then. He try to get from his chair today and was very weak and became lightheaded while standing up. And then called EMS. He is also had nosebleeds from the oxygen. Patient did feel some chest tightness during the tachycardia that resolved after the adenosine and resolution of tachycardia. In the ED is found to be in SVT of 200 and was given adenosine which resolved it. He has pulmonary edema although is on his home oxygen requirement. Patient has been trying to get into a rehab facility as he is unable to care for himself at home. Case was discussed with Dr. Gore who did not feel patient need to be transferred over for cardiac care or procedure and recommended diuresis and follow-up. Patient had a cardiac stent placed [address] Gore. Creatinine is 1.6. It is 2.0 on the at [place]. 05/25 Good urine output last night. No overnight event or new complaints. Refused Desai catheter for accurate I's and O's last night. But is agreeable to today. Patient typically on 2 L of oxygen at home. Patient currently on 1 L with humidified oxygen to prevent nosebleeds like he was getting at home. 05/26 Patient feeling much better. Patient was on room air because he removed his mask and while he was sleeping he was 88-89. When he woke up it quickly jumped up into the 90s. Urine output since admission has been almost 10 L 05/27 Patient noncooperative at times with nursing yesterday. Refused to put on oxygen when his oxygen levels were low while eating. Continue to put out good amount of urine. 05/28 Patient continues to have good urine output. He feels less swollen and feels like his breathing is easier. Has occasional headache, has constipation. Has insomnia and takes sleep medications at home. Patient feels stronger. Review of Systems: denies fever/chills/nausea/vomiting/chest or abdominal pain/cough/dyspnea/diarrhea. Otherwise see above. Constitutional Vitals: Vital Signs Temp Pulse Resp BP Pulse Ox 97.9 F 70 13 137/101 98 05/27/21 04:02 05/27/21 06:01 05/27/21 06:01 05/27/21 06:01 05/27/21 06:01 Period Temp Pulse Resp BP Sys/Becerra Pulse Ox Last 24 Hr 97.5 F-98.2 F 70-87 12-34 126-168/73-108 87-98 Intake and Output 05/26/21 05/27/21 05/27/21 21:59 05:59 13:59 Intake Total 655 950 Output Total 2730 1370 170 Balance -2075 -420 -170 Weight 175.631 kg Intake & Output: Intake & Output 05/26/21 05/27/21 05/27/21 21:59 05:59 13:59 Intake Total 655 950 Output Total 2730 1370 170 Balance -2075 -420 -170 Weight 175.631 kg Intake: IV 115 250 Sodium Chloride 0.9% 250 ml @ 250 20 mls/hr IV .[id number] [facility] Rx#: [id number] Lasix 250 mg In Sodium Chloride 115 0.9% 225 ml @ 5 MG/HR 5 mls/hr IV Q24H [facility] Rx#:[id number] Oral 540 700 Output: Urine Catheter Amount 2730 1250 170 Void Amount 120 Other: Meal Nourishment/Supplement Percent of Meal Consumed 100% Urine Appearance Clear Clear Clear Uretheral (Desai) Clear Urine Color Bright Yellow Bright Yellow Pale Uretheral (Desai) Pale Exam: General: Alert, Awake, No acute Distress, obese Eyes/N/T: EOMI, Head/Neck: neck supple, CV: RRR, 2/6 SM, Pulm: diminished b/l but improved, no wheezing Abd: soft, nontender, +BS x4 Ext: no clubbing/cyanosis, 2-3+ b/l LE edema and UE edema Neuro: Alert, no focal deficits, moves all extremities, Skin: warm/dry OBJ DATA Labs CBC & Chem 7: 05/25/21 05:26 05/27/21 05:21 Labs: Abnormal Lab Results 05/26/21 05/25/21 05/25/21 04:54 05:26 05:26 Hgb 11.3 L Hct 39.1 L MCV 71.7 L MCH 20.7 L MCHC 28.9 L RDW 22.9 H BUN 32 H 31 H Creatinine 1.3 H Glucose Uric Acid 9.9 H 9.6 H Direct Bilirubin 0.3 H Myoglobin Troponin T NT-Pro-B Natriuret Pep Urine Protein Urine Urobilinogen Urine Mucus 05/24/21 05/24/21 05/24/21 12:48 10:57 10:57 Hgb Hct MCV MCH MCHC RDW BUN 36 H Creatinine 1.6 H Glucose 125 H Uric Acid Direct Bilirubin Myoglobin 85 H Troponin T 0.04 H* NT-Pro-B Natriuret Pep 37728.0 H Urine Protein 100 A Urine Urobilinogen 2.0 A Urine Mucus Few A 05/24/21 10:57 Hgb 12.5 L Hct MCV 72.3 L MCH 20.6 L MCHC 28.5 L RDW 23.3 H BUN Creatinine Glucose Uric Acid Direct Bilirubin Myoglobin Troponin T NT-Pro-B Natriuret Pep Urine Protein Urine Urobilinogen Urine Mucus Meds: Medications Acetaminophen (Acetaminophen 325 Mg Tablet) 650 mg PO Q6HP PRN PRN Reason: PAIN/FEVER > 101 Last Admin: 05/27/21 07:20 Dose: 650 mg Documented by: Albuterol/Ipratropium (Ipratropium/Albuterol 3 Ml Ampul.Neb) 3 ml NEB Q4HP PRN PRN Reason: Shortness Of Breath Aspirin (Aspirin 81 Mg Tab.Chew) 81 mg PO DAILY [facility] Last Admin: 05/27/21 07:21 Dose: 81 mg Documented by: Atorvastatin Calcium (Atorvastatin 40 Mg Tablet) 40 mg PO QPM [facility] Last Admin: 05/26/21 20:06 Dose: 40 mg Documented by: Dextrose (Dextrose 50% 50 Ml Vial) 0 ml IV UD PRN PRN Reason: Hypoglycemia Diagnostic Test (Pha) (Accu-Chek 1 Each Strip) 1 each FS ACHS [facility] Last Admin: 05/26/21 20:08 Dose: 1 each Documented by: Docusate Sodium (Docusate Sodium 100 Mg Capsule) 100 mg PO BID [facility] Last Admin: 05/27/21 07:21 Dose: Not Given Documented by: Enoxaparin Sodium (Enoxaparin 40 Mg/0.4 Ml Syringe) 40 mg SQ BID [facility] Last Admin: 05/27/21 07:21 Dose: 40 mg Documented by: Finasteride (Finasteride 5 Mg Tablet) 5 mg PO DAILY [facility] Last Admin: 05/27/21 07:21 Dose: 5 mg Documented by: Glucose (Dextrose 31 Gm Oral.Susp) 15 gm PO PRN PRN PRN Reason: Hypoglycemia Hydralazine HCl (Hydralazine 20 Mg/Ml Vial) 0 mg IV Q2HP PRN PRN Reason: Hypertension Last Admin: 05/27/21 00:05 Dose: 10 mg Documented by: Hydrochlorothiazide (Hydrochlorothiazide 25 Mg Tablet) 25 mg PO DAILY [facility] Last Admin: 05/27/21 07:21 Dose: 25 mg Documented by: Hydroxyzine HCl (Hydroxyzine 25 Mg Tablet) 25 mg PO TIDP PRN PRN Reason: Anxiety Last Admin: 05/27/21 07:20 Dose: 25 mg Documented by: Potassium Chloride 40 meq/ (Dextrose) 520 mls @ 130 mls/hr IV UD PRN PRN Reason: Potassium < 3 Magnesium Sulfate (Magnesium Sulfate) 2 gm in 50 mls @ 50 mls/hr IV UD PRN PRN Reason: Magnesium </= 1.6 Furosemide 250 mg/ Sodium (Chloride) 250 mls @ 5 mls/hr IV Q24H [facility]; Protocol Last Admin: 05/26/21 16:58 Dose: 2.5 mg/hr, 2.5 mls/hr Documented by: Sodium Chloride (Sodium Chloride 0.9%) 250 mls @ 20 mls/hr IV .[id number] [facility] Last Admin: 05/27/21 00:35 Dose: 20 mls/hr Documented by: Insulin Glargine (Insulin Glargine, Human 1 Unit/0.01 Ml) 10 unit SQ QAM [facility] Last Admin: 05/26/21 10:17 Dose: 10 unit Documented by: Insulin Human Lispro (Insulin Lispro 1 Unit/0.01 Ml Unit) 0 unit SQ ACHS [facility]; Protocol Last Admin: 09/02/21 20:07 Dose: Not Given Documented by: Lisinopril (Lisinopril 5 Mg Tablet) 10 mg PO QDAY [facility] Last Admin: 05/27/21 07:20 Dose: 10 mg Documented by: Meclizine HCl (Meclizine 25 Mg Tablet) 25 mg PO BIDP PRN PRN Reason: dizziness Metoclopramide HCl (Metoclopramide 10 Mg/2 Ml Vial) 10 mg IV Q6HP PRN PRN Reason: Nausea And Vomiting Metoprolol Succinate (Metoprolol Succinate 50 Mg Tab.Xl.24h) 50 mg PO DAILY [facility] Last Admin: 05/27/21 07:20 Dose: 50 mg Documented by: Ondansetron HCl (Ondansetron 4 Mg/2 Ml Vial) 4 mg IV Q4HP PRN PRN Reason: Nausea And Vomiting Empagliflozin [ Jardiance] 10 Mg Tablet) 1 dose PO QDAY [facility] Last Admin: 05/27/21 07:21 Dose: Not Given Documented by: Liraglutide [Victoza 2-Perfecto] 0.6 Mg/0.1 Ml 1.2 dose SUB-Q DAILY [facility] Last Admin: 05/27/21 07:22 Dose: Not Given Documented by: Polyethylene Glycol (Polyethylene Glycol 3350 17 Gm Packet) 17 gm PO DAILYP PRN PRN Reason: Constipation Polysaccharide Iron Complex (Iron Polysaccharide Complex 150 Mg Capsule) 150 mg PO DAILY [facility] Last Admin: 05/26/21 10:15 Dose: 150 mg Documented by: Potassium Chloride (Potassium Chloride 20 Meq Tablet) 40 meq PO UD PRN PRN Reason: Potssium is 3-3.5 Potassium Chloride (Potassium Chloride 20 Meq Tablet) 40 meq PO UD PRN PRN Reason: Potassium < 3 Potassium Chloride (Potassium Chloride 20 Meq Tablet) [facility] Last Admin: 05/27/21 07:20 Dose: 40 meq Documented by: Senna (Sennosides 1 Tablet) 2 tab PO DAILYP PRN PRN Reason: Constipation Sodium Chloride (0.9 % Sodium Chloride 10 Ml Syringe) 10 ml IV Q8 [facility] Last Admin: 05/27/21 05:03 Dose: 10 ml Documented by: Tamsulosin HCl (Tamsulosin 0.4 Mg Capsule) 0.4 mg PO QDAY [facility] Last Admin: 05/27/21 07:20 Dose: 0.4 mg Documented by: Venlafaxine HCl (Venlafaxine 75 Mg Cap.Xl.24h) 75 mg PO DAILY [facility] Last Admin: 05/27/21 07:20 Dose: 75 mg Documented by: A/P Narrative A/P Narrative: A: *Anasarca w/Pulm edema: -recent hospitalization at [facility] for same and d/c'ed on 05/21 -good UOP *acute on chronic systolic (35%)/diastolic(III) CHF & mild-mod reduced RV systolic fxn: -home lasix supposed to be 80 bid, also on ACEI/BB *Oxygen Dependent (2L NC): needs humidified O2 d/t epistaxis *Severe Pulm HTN: *SVT: converted in ED -case discussed with Dr. Gore in ED -has also had brief asymptomatic episodes of VT *h/o Medication noncompliance: *Generalized weakness/debility: *?ADOLFO on CKD III(base Cr~?1.6-1.7): suspect cardiorenal -1.2 today, 1.6 on admit *CAD: recent cath (Dr. Gore) with dz in RCA but no stents: *Venous stasis changes *HTN/HLD: on BB/lasix/ACEI, statin *Anemia, chronic: *Depression/anxiety *DM: on insulin/metformin *Morbid obesity: *highly likely ADRIENNE: *DECLAN: P: -lasix gtt / HCTZ -monitor renal fxn -cont BB/ACEI -cont asa/statin -basal and SSI, hold metformin for now -elevate legs and wrap -wound care -pt/ot -SNF placement -f/u with cardiology -nocturnal cpap, f/u with Pulm for sleep study -iron supp, last colonoscopy over 10yrs ago, f/u with GI for colonoscopy -ppx: lovenox code status: Time Spent With Patient Time: Total time spent is greater than 50% in coordination of care (as documented) at patient's floor/unit and/or counseling patient: QUALITY VTE Deep Vein Thrombosis/Pulmonary Embolism Present on Admission: No
[2021-05-27 07:51] LABS: Blood Urea Nitrogen 24 mg/dL (8-23); Calcium 8.6 mg/dL (8.6-10.4); Carbon Dioxide 31 mmol/L (22-30); Chloride 97 mmol/L (96-108); Glomerular Filtration Rate 72; Glucose 84 mg/dL (70-105)
[2021-05-27] MEDS: INSULIN LISPRO 1 UNIT/0.01 ML UNIT SQ SCH ×4 (07:54→20:08)
[2021-05-27] MEDS: IRON POLYSACCHARIDE COMPLEX 150 MG CAPSULE PO SCH (07:55)
[2021-05-27] MEDS: INSULIN GLARGINE, HUMAN 1 UNIT/0.01 ML SQ SCH (10:43)
[2021-05-27] MEDS: FUROSEMIDE 250 MG in 0.9 % SODIUM CHLORIDE 225 ML IV SCH (15:43)
[2021-05-27] MEDS: diphenhydrAMINE 25 MG CAPSULE PO SCH (20:10)
[2021-05-27] MEDS: ATORVASTATIN 40 MG TABLET PO SCH (20:10)
[2021-05-27] MEDS: MELATONIN 3 MG TABLET PO SCH (20:10)
[2021-05-28] MEDS: 0.9 % SODIUM CHLORIDE 250 ML IV SCH ×3 (02:44→15:51)
[2021-05-28] MEDS: 0.9 % SODIUM CHLORIDE 10 ML SYRINGE IV SCH ×3 (04:59→20:22)
[2021-05-28] MEDS: hydrALAZINE 20 MG/ML VIAL IV PRN ×2 (05:09→16:56)
[2021-05-28] MEDS: ENOXAPARIN 40 MG/0.4 ML SYRINGE SQ SCH ×2 (07:51→20:20)
[2021-05-28] MEDS: LISINOPRIL 5 MG TABLET PO SCH (07:52)
[2021-05-28] MEDS: VENLAFAXINE 75 MG CAP.XL.24H PO SCH (07:52)
[2021-05-28] MEDS: METOPROLOL SUCCINATE 50 MG TAB.XL.24H PO SCH (07:52)
[2021-05-28] MEDS: IRON POLYSACCHARIDE COMPLEX 150 MG CAPSULE PO SCH (07:53)
[2021-05-28] MEDS: HYDROCHLOROTHIAZIDE 25 MG TABLET PO SCH (07:53)
[2021-05-28] MEDS: FINASTERIDE 5 MG TABLET PO SCH (07:53)
[2021-05-28] MEDS: ASPIRIN 81 MG TAB.CHEW PO SCH (07:53)
[2021-05-28] MEDS: hydrOXYzine 25 MG TABLET PO PRN (07:53)
[2021-05-28] MEDS: TAMSULOSIN 0.4 MG CAPSULE PO SCH (07:53)
[2021-05-28] MEDS: POTASSIUM CHLORIDE 20 MEQ TABLET PO SCH (07:53)
--- NOTE | 2021-05-28 07:53 | Internal Med Progress Note ---
SUBJECTIVE Subjective Patient information: Note initiated : 05/28/21 at 7:49 am Service Date, if different from initiated Date: [] Patient: Guillaume Broderick a 60 y/o M admitted on 05/24/21 for tachycardia, low BP. Chief Complaint: [] Interval history: History of present illness: Mr. Broderick is a 60 year o Patient was recently discharged on the from [facility] and he was there for anasarca acute on chronic congestive heart failure hypoxia renal insufficiency cellulitis. Patient states that he did not lose any weight while there. He was placed on oxygen and has been on 5 L since then. He try to get from his chair today and was very weak and became lightheaded while standing up. And then called EMS. He is also had nosebleeds from the oxygen. Patient did feel some chest tightness during the tachycardia that resolved after the adenosine and resolution of tachycardia. In the ED is found to be in SVT of 200 and was given adenosine which resolved it. He has pulmonary edema although is on his home oxygen requirement. Patient has been trying to get into a rehab facility as he is unable to care for himself at home. Case was discussed with Dr. Gore who did not feel patient need to be transferred over for cardiac care or procedure and recommended diuresis and follow-up. Patient had a cardiac stent placed [address] Gore. Creatinine is 1.6. It is 2.0 on the at [place]. 05/25 Good urine output last night. No overnight event or new complaints. Refused Desai catheter for accurate I's and O's last night. But is agreeable to today. Patient typically on 2 L of oxygen at home. Patient currently on 1 L with humidified oxygen to prevent nosebleeds like he was getting at home. 05/26 Patient feeling much better. Patient was on room air because he removed his mask and while he was sleeping he was 88-89. When he woke up it quickly jumped up into the 90s. Urine output since admission has been almost 10 L 05/27 Patient noncooperative at times with nursing yesterday. Refused to put on oxygen when his oxygen levels were low while eating. Continue to put out good amount of urine. 05/28 Patient continues to have good urine output. He feels less swollen and feels like his breathing is easier. Has occasional headache, has constipation. Has insomnia and takes sleep medications at home. Patient feels stronger. 05/29 Patient was able to walk to and from the bathroom yesterday. Feels his breathing better. He slept well last night. Does have a stiff neck from how he slept. But otherwise no new complaints and doing better. He does have short episodes of V. tach that are asymptomatic. Review of Systems: denies fever/chills/nausea/vomiting/chest or abdominal pain/cough/dyspnea/diarrhea. Otherwise see above. Constitutional Vitals: Vital Signs Temp Pulse Resp BP Pulse Ox 98.2 F 87 20 138/93 97 05/28/21 04:01 05/28/21 06:01 05/28/21 06:01 05/28/21 06:01 05/28/21 06:01 Period Temp Pulse Resp BP Sys/Becerra Pulse Ox Last 24 Hr 97.7 F-98.7 F 68-87 13-25 132-177/84-108 90-100 Intake and Output 05/27/21 05/28/21 05/28/21 21:59 05:59 13:59 Intake Total 461 250 Output Total 1105 1190 Balance -644 -940 Weight 175.404 kg Intake & Output: Intake & Output 05/27/21 05/28/21 05/28/21 21:59 05:59 13:59 Intake Total 461 250 Output Total 1105 1190 Balance -644 -940 Weight 175.404 kg Intake: IV 21 250 Sodium Chloride 0.9% 250 ml @ 250 20 mls/hr IV .[id number] [facility] Rx#: [id number] Lasix 250 mg In Sodium Chloride 21 0.9% 225 ml @ 5 MG/HR 5 mls/hr IV Q24H [facility] Rx#:[id number] Oral 440 Output: Urine Catheter Amount 1105 1190 Other: Meal Lunch Percent of Meal Consumed 100% Feeding Ability Independent Urine Appearance Clear Clear Uretheral (Desai) Clear Urine Color Bright Yellow Bright Yellow Uretheral (Desai) Bright Yellow Urine Odor Normal Normal Exam: General: Alert, Awake, No acute Distress, obese Eyes/N/T: EOMI, Head/Neck: neck supple, CV: RRR, 2/6 SM, Pulm: diminished b/l but improved, no wheezing Abd: soft, nontender, +BS x4 Ext: no clubbing/cyanosis, 2+ b/l LE edema and UE edema Neuro: Alert, no focal deficits, moves all extremities, Skin: warm/dry OBJ DATA Labs CBC & Chem 7: 05/25/21 05:26 05/28/21 05:56 Labs: Abnormal Lab Results 05/27/21 05/26/21 05/25/21 05:21 04:54 05:26 Hgb Hct MCV MCH MCHC RDW Carbon Dioxide 31 H BUN 24 H 32 H 31 H Creatinine 1.3 H Uric Acid 9.9 H 9.6 H Direct Bilirubin 0.3 H 05/25/21 05:26 Hgb 11.3 L Hct 39.1 L MCV 71.7 L MCH 20.7 L MCHC 28.9 L RDW 22.9 H Carbon Dioxide BUN Creatinine Uric Acid Direct Bilirubin Meds: Medications Acetaminophen (Acetaminophen 325 Mg Tablet) 650 mg PO Q6HP PRN PRN Reason: PAIN/FEVER > 101 Last Admin: 05/27/21 07:20 Dose: 650 mg Documented by: Albuterol/Ipratropium (Ipratropium/Albuterol 3 Ml Ampul.Neb) 3 ml NEB Q4HP PRN PRN Reason: Shortness Of Breath Aspirin (Aspirin 81 Mg Tab.Chew) 81 mg PO DAILY [facility] Last Admin: 05/27/21 07:21 Dose: 81 mg Documented by: Atorvastatin Calcium (Atorvastatin 40 Mg Tablet) 40 mg PO QPM [facility] Last Admin: 05/27/21 20:10 Dose: 40 mg Documented by: Dextrose (Dextrose 50% 50 Ml Vial) 0 ml IV UD PRN PRN Reason: Hypoglycemia Diagnostic Test (Pha) (Accu-Chek 1 Each Strip) 1 each FS ACHS [facility] Last Admin: 05/27/21 20:10 Dose: 1 each Documented by: Diphenhydramine HCl (Diphenhydramine 25 Mg Capsule) 25 mg PO HS [facility] Last Admin: 05/27/21 20:10 Dose: 25 mg Documented by: Docusate Sodium (Docusate Sodium 100 Mg Capsule) 100 mg PO BID [facility] Last Admin: 05/27/21 20:08 Dose: Not Given Documented by: Enoxaparin Sodium (Enoxaparin 40 Mg/0.4 Ml Syringe) 40 mg SQ BID [facility] Last Admin: 05/27/21 20:10 Dose: 40 mg Documented by: Finasteride (Finasteride 5 Mg Tablet) 5 mg PO DAILY [facility] Last Admin: 05/27/21 07:21 Dose: 5 mg Documented by: Glucose (Dextrose 31 Gm Oral.Susp) 15 gm PO PRN PRN PRN Reason: Hypoglycemia Hydralazine HCl (Hydralazine 20 Mg/Ml Vial) 0 mg IV Q2HP PRN PRN Reason: Hypertension Last Admin: 05/28/21 05:09 Dose: 20 mg Documented by: Hydrochlorothiazide (Hydrochlorothiazide 25 Mg Tablet) 25 mg PO DAILY [facility] Last Admin: 05/27/21 07:21 Dose: 25 mg Documented by: Hydroxyzine HCl (Hydroxyzine 25 Mg Tablet) 25 mg PO TIDP PRN PRN Reason: Anxiety Last Admin: 05/27/21 07:20 Dose: 25 mg Documented by: Potassium Chloride 40 meq/ (Dextrose) 520 mls @ 130 mls/hr IV UD PRN PRN Reason: Potassium < 3 Magnesium Sulfate (Magnesium Sulfate) 2 gm in 50 mls @ 50 mls/hr IV UD PRN PRN Reason: Magnesium </= 1.6 Furosemide 250 mg/ Sodium (Chloride) 250 mls @ 5 mls/hr IV Q24H [facility]; Protocol Last Admin: 05/27/21 15:43 Dose: 3 mg/hr, 3 mls/hr Documented by: Sodium Chloride (Sodium Chloride 0.9%) 250 mls @ 20 mls/hr IV .[id number] [facility] Last Admin: 05/28/21 02:44 Dose: 20 mls/hr Documented by: Insulin Glargine (Insulin Glargine, Human 1 Unit/0.01 Ml) 10 unit SQ QAM [facility] Last Admin: 05/27/21 10:43 Dose: 10 unit Documented by: Insulin Human Lispro (Insulin Lispro 1 Unit/0.01 Ml Unit) 0 unit SQ ACHS [facility]; Protocol Last Admin: 05/27/21 20:08 Dose: Not Given Documented by: Lisinopril (Lisinopril 5 Mg Tablet) 10 mg PO QDAY [facility] Last Admin: 05/27/21 07:20 Dose: 10 mg Documented by: Meclizine HCl (Meclizine 25 Mg Tablet) 25 mg PO BIDP PRN PRN Reason: dizziness Melatonin (Melatonin 3 Mg Tablet) 3 mg PO QHS [facility] Last Admin: 05/27/21 20:10 Dose: 3 mg Documented by: Metoclopramide HCl (Metoclopramide 10 Mg/2 Ml Vial) 10 mg IV Q6HP PRN PRN Reason: Nausea And Vomiting Metoprolol Succinate (Metoprolol Succinate 50 Mg Tab.Xl.24h) 50 mg PO DAILY [facility] Last Admin: 05/27/21 07:20 Dose: 50 mg Documented by: Ondansetron HCl (Ondansetron 4 Mg/2 Ml Vial) 4 mg IV Q4HP PRN PRN Reason: Nausea And Vomiting Empagliflozin [ Jardiance] 10 Mg Tablet) 1 dose PO QDAY [facility] Last Admin: 05/27/21 07:21 Dose: Not Given Documented by: Liraglutide [Victoza 2-Perfecto] 0.6 Mg/0.1 Ml 1.2 dose SUB-Q DAILY [facility] Last Admin: 05/27/21 07:22 Dose: Not Given Documented by: Polyethylene Glycol (Polyethylene Glycol 3350 17 Gm Packet) 17 gm PO DAILYP PRN PRN Reason: Constipation Polysaccharide Iron Complex (Iron Polysaccharide Complex 150 Mg Capsule) 150 mg PO DAILY [facility] Last Admin: 05/27/21 07:55 Dose: 150 mg Documented by: Potassium Chloride (Potassium Chloride 20 Meq Tablet) 40 meq PO UD PRN PRN Reason: Potssium is 3-3.5 Potassium Chloride (Potassium Chloride 20 Meq Tablet) 40 meq PO UD PRN PRN Reason: Potassium < 3 Potassium Chloride (Potassium Chloride 20 Meq Tablet) [facility] Last Admin: 05/27/21 07:20 Dose: 40 meq Documented by: Senna (Sennosides 1 Tablet) 2 tab PO DAILYP PRN PRN Reason: Constipation Sodium Chloride (0.9 % Sodium Chloride 10 Ml Syringe) 10 ml IV Q8 [facility] Last Admin: 05/28/21 04:59 Dose: Not Given Documented by: Tamsulosin HCl (Tamsulosin 0.4 Mg Capsule) 0.4 mg PO QDAY [facility] Last Admin: 05/27/21 07:20 Dose: 0.4 mg Documented by: Venlafaxine HCl (Venlafaxine 75 Mg Cap.Xl.24h) 75 mg PO DAILY [facility] Last Admin: 05/27/21 07:20 Dose: 75 mg Documented by: A/P Narrative A/P Narrative: A: *Anasarca w/Pulm edema: improving -recent hospitalization at [facility] for same and d/c'ed on 05/21 -good UOP *acute on chronic systolic (35%)/diastolic(III) CHF & mild-mod reduced RV systolic fxn: -home lasix supposed to be 80 bid, also on ACEI/BB -improving *acute on chronic hypoxic resp failure (2L O2 NC @home): needs humidified O2 d/t epistaxis -on 3L oxymask *Severe Pulm HTN: *SVT (converted in ED) and has brief episodes of VT asymptomatic -case discussed with Dr. Gore in ED *h/o Medication noncompliance: *Generalized weakness/debility: *ADOLFO on CKD III(base Cr~?1.6-1.7): likely cardiorenal -improved with diuresis *CAD: recent cath (Dr. Gore) with dz in RCA but no stents: *Venous stasis changes b/l LE: *HTN/HLD: on BB/lasix/ACEI, statin *Anemia, chronic: *Depression/anxiety *DM: on insulin/metformin *Morbid obesity: *highly likely ADRIENNE: *DECLAN: P: -lasix gtt / HCTZ -monitor renal fxn -cont BB(increase)/ACEI -cont asa/statin -basal and SSI, hold metformin for now -elevate legs and wrap -wound care -pt/ot -SNF placement -f/u with cardiology -nocturnal cpap, f/u with Pulm for sleep study -iron supp, last colonoscopy over 10yrs ago, f/u with GI for colonoscopy -ppx: lovenox code status: Time Spent With Patient Time: Total time spent is greater than 50% in coordination of care (as documented) at patient's floor/unit and/or counseling patient: QUALITY VTE Deep Vein Thrombosis/Pulmonary Embolism Present on Admission: No
[2021-05-28] MEDS: DOCUSATE SODIUM 100 MG CAPSULE PO SCH ×2 (08:13→20:21)
[2021-05-28 08:29] LABS: ALT/SGPT 6 U/L (<40); AST/SGOT 18 U/L (<40); Albumin 3.5 gm/dL (3.2-5.2); Albumin/Globulin Ratio 1.1 (1.0-2.3); Alkaline Phosphatase 69 U/L (39-117); Bilirubin,Direct 0.2 mg/dL (<0.3); Bilirubin,Total 0.6 mg/dL (0.1-1.0); Blood Urea Nitrogen 19 mg/dL (8-23); Calcium 8.8 mg/dL (8.6-10.4); Carbon Dioxide 32 mmol/L (22-30); Chloride 95 mmol/L (96-108); Globulin 3.2 gm/dL (2.2-3.7); Glomerular Filtration Rate 72; Glucose 79 mg/dL (70-105); Lactate Dehydrogenase 275 U/L (135-225); Phosphorous 3.2 mg/dL (2.5-4.5); Triglycerides 71 mg/dL (<150); Uric Acid 9.1 mg/dL (2.5-8.0)
[2021-05-28] MEDS ORDERED: METOPROLOL SUCCINATE 50 MG TAB.XL.24H PO SCH (09:00)
[2021-05-28] MEDS: INSULIN LISPRO 1 UNIT/0.01 ML UNIT SQ SCH ×4 (10:21→20:21)
[2021-05-28] MEDS: INSULIN GLARGINE, HUMAN 1 UNIT/0.01 ML SQ SCH (12:31)
[2021-05-28] MEDS: FUROSEMIDE 250 MG in 0.9 % SODIUM CHLORIDE 225 ML IV SCH (15:51)
[2021-05-28] MEDS ORDERED: ADENOSINE 3 MG/ML VIAL IV PRN (18:23)
[2021-05-28] MEDS: MELATONIN 3 MG TABLET PO SCH (20:21)
[2021-05-28] MEDS: ATORVASTATIN 40 MG TABLET PO SCH (20:21)
[2021-05-28] MEDS: diphenhydrAMINE 25 MG CAPSULE PO SCH (23:10)
[2021-05-29] MEDS: 0.9 % SODIUM CHLORIDE 250 ML IV SCH ×2 (04:33→17:09)
[2021-05-29] MEDS: 0.9 % SODIUM CHLORIDE 10 ML SYRINGE IV SCH ×3 (04:56→20:41)
--- NOTE | 2021-05-29 08:19 | Internal Med Progress Note ---
SUBJECTIVE Subjective Patient information: Note initiated : 05/29/21 at 8:16 am Service Date, if different from initiated Date: [] Patient: Guillaume Broderick a 60 y/o M admitted on 05/24/21 for tachycardia, low BP. Chief Complaint: [] Interval history: History of present illness: Mr. Broderick is a 60 year o Patient was recently discharged on the from [facility] and he was there for anasarca acute on chronic congestive heart failure hypoxia renal insufficiency cellulitis. Patient states that he did not lose any weight while there. He was placed on oxygen and has been on 5 L since then. He try to get from his chair today and was very weak and became lightheaded while standing up. And then called EMS. He is also had nosebleeds from the oxygen. Patient did feel some chest tightness during the tachycardia that resolved after the adenosine and resolution of tachycardia. In the ED is found to be in SVT of 200 and was given adenosine which resolved it. He has pulmonary edema although is on his home oxygen requirement. Patient has been trying to get into a rehab facility as he is unable to care for himself at home. Case was discussed with Dr. Gore who did not feel patient need to be transferred over for cardiac care or procedure and recommended diuresis and follow-up. Patient had a cardiac stent placed [address] Gore. Creatinine is 1.6. It is 2.0 on the at [place]. 05/25 Good urine output last night. No overnight event or new complaints. Refused Desai catheter for accurate I's and O's last night. But is agreeable to today. Patient typically on 2 L of oxygen at home. Patient currently on 1 L with humidified oxygen to prevent nosebleeds like he was getting at home. 05/26 Patient feeling much better. Patient was on room air because he removed his mask and while he was sleeping he was 88-89. When he woke up it quickly jumped up into the 90s. Urine output since admission has been almost 10 L 05/27 Patient noncooperative at times with nursing yesterday. Refused to put on oxygen when his oxygen levels were low while eating. Continue to put out good amount of urine. 05/28 Patient continues to have good urine output. He feels less swollen and feels like his breathing is easier. Has occasional headache, has constipation. Has insomnia and takes sleep medications at home. Patient feels stronger. 05/29 Patient was able to walk to and from the bathroom yesterday. Feels his breathing better. He slept well last night. Does have a stiff neck from how he slept. But otherwise no new complaints and doing better. He does have short episodes of V. tach that are asymptomatic. 05/30 Continues to feel better. He had a run of SVT yesterday evening and spontaneously converted. Says he slept much better last night. More ambulatory. Developing some contraction alkalosis from diuresis, will give d iamox today. Review of Systems: denies fever/chills/nausea/vomiting/chest or abdominal pain/cough/d yspnea/diarrhea. Otherwise see above. Constitutional Vitals: Vital Signs Temp Pulse Resp BP Pulse Ox 97.1 F 90 15 138/88 96 05/29/21 08:02 05/29/21 08:02 05/29/21 08:02 05/29/21 08:02 05/29/21 08:02 Period Temp Pulse Resp BP Sys/Becerra Pulse Ox Last 24 Hr 97.1 F-98.3 F 79-97 15-32 138-158/71-97 92-97 Intake and Output 05/28/21 05/29/21 05/29/21 21:59 05:59 13:59 Intake Total 942 913 Output Total 1200 970 300 Balance -258 -57 -300 Weight 174.134 kg Intake & Output: Intake & Output 05/28/21 05/29/21 05/29/21 21:59 05:59 13:59 Intake Total 942 913 Output Total 1200 970 300 Balance -258 -57 -300 Weight 174.134 kg Intake: IV 322 273 Sodium Chloride 0.9% 250 ml @ 250 250 20 mls/hr IV .[id number] DENAE Rx#: [id number] Lasix 250 mg In Sodium Chloride 72 23 0.9% 225 ml @ 5 MG/HR 5 mls/hr IV Q24H DENAE Rx#:[id number] Oral 620 640 Output: Urine Catheter Amount 1200 970 300 Other: Meal Dinner Percent of Meal Consumed 100% Feeding Ability Independent Urine Appearance Mucous Threads Sediment Clear Uretheral (Desai) Clear Urine Color Bright Yellow Bright Yellow Bright Yellow Uretheral (Desai) Bright Yellow Urine Odor Normal Normal Stool Size Small Stool Color Brown Stool Consistency Formed # Bowel Movements 1 # of times incontinent of 1 Bowels Exam: General: Alert, Awake, No acute Distress, obese Eyes/N/T: EOMI, Head/Neck: neck supple, CV: RRR, 2/6 SM, Pulm: better aeration b/l, no wheezing Abd: soft, nontender, +BS x4 Ext: no clubbing/cyanosis, 2+ b/l LE edema and UE edema - slowly improving Neuro: Alert, no focal deficits, moves all extremities, Skin: warm/dry OBJ DATA Labs CBC & Chem 7: 05/25/21 05:26 05/29/21 05:55 Labs: Abnormal Lab Results 05/28/21 05/27/21 05:56 05:21 Chloride 95 L Carbon Dioxide 32 H 31 H BUN 24 H Uric Acid 9.1 H Lactate Dehydrogenase 275 H Meds: Medications Acetaminophen (Acetaminophen 325 Mg Tablet) 650 mg PO Q6HP PRN PRN Reason: PAIN/FEVER > 101 Last Admin: 05/27/21 07:20 Dose: 650 mg Documented by: Albuterol/Ipratropium (Ipratropium/Albuterol 3 Ml Ampul.Neb) 3 ml NEB Q4HP PRN PRN Reason: Shortness Of Breath Aspirin (Aspirin 81 Mg Tab.Chew) 81 mg PO DAILY [facility] Last Admin: 05/28/21 07:53 Dose: 81 mg Documented by: Atorvastatin Calcium (Atorvastatin 40 Mg Tablet) 40 mg PO QPM [facility] Last Admin: 05/28/21 20:21 Dose: 40 mg Documented by: Dextrose (Dextrose 50% 50 Ml Vial) 0 ml IV UD PRN PRN Reason: Hypoglycemia Diagnostic Test (Pha) (Accu-Chek 1 Each Strip) 1 each FS ACHS [facility] Last Admin: 05/28/21 20:21 Dose: 1 each Documented by: Diphenhydramine HCl (Diphenhydramine 25 Mg Capsule) 25 mg PO HS [facility] Last Admin: 05/28/21 23:10 Dose: 25 mg Documented by: Docusate Sodium (Docusate Sodium 100 Mg Capsule) 100 mg PO BID [facility] Last Admin: 05/28/21 20:21 Dose: Not Given Documented by: Enoxaparin Sodium (Enoxaparin 40 Mg/0.4 Ml Syringe) 40 mg SQ BID [facility] Last Admin: 05/28/21 20:20 Dose: 40 mg Documented by: Finasteride (Finasteride 5 Mg Tablet) 5 mg PO DAILY [facility] Last Admin: 05/28/21 07:53 Dose: 5 mg Documented by: Glucose (Dextrose 31 Gm Oral.Susp) 15 gm PO PRN PRN PRN Reason: Hypoglycemia Hydralazine HCl (Hydralazine 20 Mg/Ml Vial) 0 mg IV Q2HP PRN PRN Reason: Hypertension Last Admin: 05/28/21 16:56 Dose: 10 mg Documented by: Hydrochlorothiazide (Hydrochlorothiazide 25 Mg Tablet) 25 mg PO DAILY [facility] Last Admin: 05/28/21 07:53 Dose: 25 mg Documented by: Hydroxyzine HCl (Hydroxyzine 25 Mg Tablet) 25 mg PO TIDP PRN PRN Reason: Anxiety Last Admin: 05/28/21 07:53 Dose: 25 mg Documented by: Potassium Chloride 40 meq/ (Dextrose) 520 mls @ 130 mls/hr IV UD PRN PRN Reason: Potassium < 3 Magnesium Sulfate (Magnesium Sulfate) 2 gm in 50 mls @ 50 mls/hr IV UD PRN PRN Reason: Magnesium </= 1.6 Furosemide 250 mg/ Sodium (Chloride) 250 mls @ 5 mls/hr IV Q24H [facility]; Protocol Last Titration: 05/28/21 23:15 Dose: 5 mg/hr, 5 mls/hr Documented by: Sodium Chloride (Sodium Chloride 0.9%) 250 mls @ 20 mls/hr IV .[id number] [facility] Last Admin: 05/29/21 04:33 Dose: 20 mls/hr Documented by: Insulin Glargine (Insulin Glargine, Human 1 Unit/0.01 Ml) 10 unit SQ QAM [facility] Last Admin: 05/28/21 12:31 Dose: 10 unit Documented by: Insulin Human Lispro (Insulin Lispro 1 Unit/0.01 Ml Unit) 0 unit SQ ACHS [facility]; Protocol Last Admin: 05/28/21 20:21 Dose: Not Given Documented by: Lisinopril (Lisinopril 5 Mg Tablet) 10 mg PO QDAY [facility] Last Admin: 05/28/21 07:52 Dose: 10 mg Documented by: Meclizine HCl (Meclizine 25 Mg Tablet) 25 mg PO BIDP PRN PRN Reason: dizziness Melatonin (Melatonin 3 Mg Tablet) 3 mg PO QHS [facility] Last Admin: 05/28/21 20:21 Dose: 3 mg Documented by: Metoclopramide HCl (Metoclopramide 10 Mg/2 Ml Vial) 10 mg IV Q6HP PRN PRN Reason: Nausea And Vomiting Metoprolol Succinate (Metoprolol Succinate 50 Mg Tab.Xl.24h) 75 mg PO DAILY [facility] Last Admin: 05/28/21 07:57 Dose: 75 mg Documented by: Ondansetron HCl (Ondansetron 4 Mg/2 Ml Vial) 4 mg IV Q4HP PRN PRN Reason: Nausea And Vomiting Empagliflozin [ Jardiance] 10 Mg Tablet) 1 dose PO QDAY [facility] Last Admin: 05/28/21 10:40 Dose: Not Given Documented by: Liraglutide [Victoza 2-Perfecto] 0.6 Mg/0.1 Ml 1.2 dose SUB-Q DAILY [facility] Last Admin: 05/28/21 10:40 Dose: Not Given Documented by: Polyethylene Glycol (Polyethylene Glycol 3350 17 Gm Packet) 17 gm PO DAILYP PRN PRN Reason: Constipation Polysaccharide Iron Complex (Iron Polysaccharide Complex 150 Mg Capsule) 150 mg PO DAILY [facility] Last Admin: 05/28/21 07:53 Dose: 150 mg Documented by: Potassium Chloride (Potassium Chloride 20 Meq Tablet) 40 meq PO UD PRN PRN Reason: Potssium is 3-3.5 Potassium Chloride (Potassium Chloride 20 Meq Tablet) 40 meq PO UD PRN PRN Reason: Potassium < 3 Potassium Chloride (Potassium Chloride 20 Meq Tablet) 40 meq PO [facility] Last Admin: 05/28/21 07:53 Dose: 40 meq Documented by: Senna (Sennosides 1 Tablet) 2 tab PO DAILYP PRN PRN Reason: Constipation Sodium Chloride (0.9 % Sodium Chloride 10 Ml Syringe) 10 ml IV Q8 [facility] Last Admin: 05/29/21 04:56 Dose: Not Given Documented by: Tamsulosin HCl (Tamsulosin 0.4 Mg Capsule) 0.4 mg PO QDAY [facility] Last Admin: 05/28/21 07:53 Dose: 0.4 mg Documented by: Venlafaxine HCl (Venlafaxine 75 Mg Cap.Xl.24h) 75 mg PO DAILY [facility] Last Admin: 05/28/21 07:52 Dose: 75 mg Documented by: A/P Narrative A/P Narrative: A: *Anasarca w/Pulm edema: slowly improving -recent hospitalization at [facility] for same and d/c'ed on 05/21 -continues with good UOP *acute on chronic systolic (35%)/diastolic(III) CHF & mild-mod reduced RV systolic fxn: -home lasix supposed to be 80 bid, also on ACEI/BB -improving *acute on chronic hypoxic resp failure (2L O2 NC @home): needs humidified O2 d/t epistaxis -on 2L oxymask *Severe Pulm HTN: *SVT (converted in ED) and has brief episodes of VT asymptomatic -case discussed with Dr. Gore in ED *h/o Medication noncompliance: *Generalized weakness/debility: *ADOLFO on CKD III(base Cr~?1.6-1.7): likely cardiorenal -improved with diuresis *CAD: recent cath (Dr. Gore) with dz in RCA but no stents: *Venous stasis changes b/l LE: *HTN/HLD: on BB/lasix/ACEI, statin *Anemia, chronic: *Depression/anxiety *DM: on insulin/metformin *Morbid obesity: *highly likely ADRIENNE: *DECLAN: P: -cont lasix gtt / HCTZ. diamox today -monitor renal fxn -cont BB(increase)/ACEI -cont asa/statin -basal and SSI, hold metformin for now -elevate legs and wrap -wound care -pt/ot -SNF placement -f/u with cardiology -nocturnal cpap, f/u with Pulm for sleep study -iron supp, last colonoscopy over 10yrs ago, f/u with GI for colonoscopy -ppx: lovenox code status: Time Spent With Patient Time: Total time spent is greater than 50% in coordination of care (as documented) at patient's floor/unit and/or counseling patient: QUALITY VTE Deep Vein Thrombosis/Pulmonary Embolism Present on Admission: No
[2021-05-29 09:08] LABS: ALT/SGPT 6 U/L (<40); AST/SGOT 14 U/L (<40); Albumin 3.4 gm/dL (3.2-5.2); Albumin/Globulin Ratio 1.1 (1.0-2.3); Alkaline Phosphatase 65 U/L (39-117); Bilirubin,Direct 0.3 mg/dL (<0.3); Bilirubin,Total 0.8 mg/dL (0.1-1.0); Blood Urea Nitrogen 20 mg/dL (8-23); Calcium 8.9 mg/dL (8.6-10.4); Carbon Dioxide 38 mmol/L (22-30); Chloride 94 mmol/L (96-108); Glomerular Filtration Rate 72; Glucose 88 mg/dL (70-105); Lactate Dehydrogenase 214 U/L (135-225); Phosphorous 2.9 mg/dL (2.5-4.5); Triglycerides 67 mg/dL (<150); Uric Acid 8.6 mg/dL (2.5-8.0)
[2021-05-29] MEDS: METOPROLOL SUCCINATE 50 MG TAB.XL.24H PO SCH (09:46)
[2021-05-29] MEDS: VENLAFAXINE 75 MG CAP.XL.24H PO SCH (09:46)
[2021-05-29] MEDS: DOCUSATE SODIUM 100 MG CAPSULE PO SCH ×3 (09:47→22:17)
[2021-05-29] MEDS: TAMSULOSIN 0.4 MG CAPSULE PO SCH (09:47)
[2021-05-29] MEDS: FINASTERIDE 5 MG TABLET PO SCH (09:47)
[2021-05-29] MEDS: ASPIRIN 81 MG TAB.CHEW PO SCH (09:47)
[2021-05-29] MEDS: LISINOPRIL 5 MG TABLET PO SCH (09:47)
[2021-05-29] MEDS: IRON POLYSACCHARIDE COMPLEX 150 MG CAPSULE PO SCH (09:47)
[2021-05-29] MEDS: HYDROCHLOROTHIAZIDE 25 MG TABLET PO SCH (09:47)
[2021-05-29] MEDS: INSULIN GLARGINE, HUMAN 1 UNIT/0.01 ML SQ SCH (09:48)
[2021-05-29] MEDS: INSULIN LISPRO 1 UNIT/0.01 ML UNIT SQ SCH ×4 (09:48→20:47)
[2021-05-29] MEDS: ENOXAPARIN 40 MG/0.4 ML SYRINGE SQ SCH ×2 (09:49→20:40)
[2021-05-29] MEDS: POTASSIUM CHLORIDE 20 MEQ TABLET PO SCH (09:49)
[2021-05-29] MEDS ORDERED: acetaZOLAMIDE SOD 500 MG VIAL IV ONE (10:09)
[2021-05-29] MEDS ORDERED: MAGNESIUM SULFATE 8.12 MEQ in DEXTROSE 5% IN WATER 50 ML IV ONE (10:10)
[2021-05-29] MEDS ORDERED: ALBUMIN HUMAN 12.5 GM/50 ML BAG IV ONE (10:10)
[2021-05-29] MEDS ORDERED: BISACODYL 10 MG SUPP.RECT PR PRN (14:45)
[2021-05-29] MEDS: ATORVASTATIN 40 MG TABLET PO SCH (20:40)
[2021-05-29] MEDS: MELATONIN 3 MG TABLET PO SCH (20:40)
[2021-05-29] MEDS: diphenhydrAMINE 25 MG CAPSULE PO SCH (20:46)
[2021-05-30] MEDS: FUROSEMIDE 250 MG in 0.9 % SODIUM CHLORIDE 225 ML IV SCH ×2 (02:01→14:54)
[2021-05-30] MEDS: 0.9 % SODIUM CHLORIDE 250 ML IV SCH ×2 (02:02→14:54)
[2021-05-30] MEDS: 0.9 % SODIUM CHLORIDE 10 ML SYRINGE IV SCH ×3 (05:22→20:48)
[2021-05-30 06:55] LABS: ALT/SGPT 7 U/L (<40); AST/SGOT 16 U/L (<40); Albumin 3.1 gm/dL (3.2-5.2); Albumin/Globulin Ratio 0.9 (1.0-2.3); Alkaline Phosphatase 66 U/L (39-117); Bilirubin,Direct 0.2 mg/dL (<0.3); Bilirubin,Total 0.6 mg/dL (0.1-1.0); Blood Urea Nitrogen 22 mg/dL (8-23); Calcium 8.9 mg/dL (8.6-10.4); Carbon Dioxide 34 mmol/L (22-30); Chloride 93 mmol/L (96-108); Globulin 3.3 gm/dL (2.2-3.7); Glomerular Filtration Rate 72; Glucose 83 mg/dL (70-105); Lactate Dehydrogenase 194 U/L (135-225); Phosphorous 3.5 mg/dL (2.5-4.5); Triglycerides 55 mg/dL (<150); Uric Acid 8.1 mg/dL (2.5-8.0)
[2021-05-30] MEDS ORDERED: acetaZOLAMIDE SOD 500 MG VIAL IV ONE (07:34)
--- NOTE | 2021-05-30 07:34 | Internal Med Progress Note ---
SUBJECTIVE Subjective Patient information: Note initiated : 05/30/21 at 7:32 am Service Date, if different from initiated Date: [] Patient: Guillaume Broderick a 60 y/o M admitted on 05/24/21 for tachycardia, low BP. Chief Complaint: [] Interval history: History of present illness: Mr. Broderick is a 60 year o Patient was recently discharged on the from [facility] and he was there for anasarca acute on chronic congestive heart failure hypoxia renal insufficiency cellulitis. Patient states that he did not lose any weight while there. He was placed on oxygen and has been on 5 L since then. He try to get from his chair today and was very weak and became lightheaded while standing up. And then called EMS. He is also had nosebleeds from the oxygen. Patient did feel some chest tightness during the tachycardia that resolved after the adenosine and resolution of tachycardia. In the ED is found to be in SVT of 200 and was given adenosine which resolved it. He has pulmonary edema although is on his home oxygen requirement. Patient has been trying to get into a rehab facility as he is unable to care for himself at home. Case was discussed with Dr. Gore who did not feel patient need to be transferred over for cardiac care or procedure and recommended diuresis and follow-up. Patient had a cardiac stent placed [address] Gore. Creatinine is 1.6. It is 2.0 on the at [place]. 05/25 Good urine output last night. No overnight event or new complaints. Refused Desai catheter for accurate I's and O's last night. But is agreeable to today. Patient typically on 2 L of oxygen at home. Patient currently on 1 L with humidified oxygen to prevent nosebleeds like he was getting at home. 05/26 Patient feeling much better. Patient was on room air because he removed his mask and while he was sleeping he was 88-89. When he woke up it quickly jumped up into the 90s. Urine output since admission has been almost 10 L 05/27 Patient noncooperative at times with nursing yesterday. Refused to put on oxygen when his oxygen levels were low while eating. Continue to put out good amount of urine. 05/28 Patient continues to have good urine output. He feels less swollen and feels like his breathing is easier. Has occasional headache, has constipation. Has insomnia and takes sleep medications at home. Patient feels stronger. 05/29 Patient was able to walk to and from the bathroom yesterday. Feels his breathing better. He slept well last night. Does have a stiff neck from how he slept. But otherwise no new complaints and doing better. He does have short episodes of V. tach that are asymptomatic. 05/30 Continues to feel better. He had a run of SVT yesterday evening and spontaneously converted. Says he slept much better last night. More ambulatory. Developing some contraction alkalosis from diuresis, will give d iamox today. 05/31 Patient continues to feel better. Sleeping better. He needs to have good urine output but still has plenty of third spacing fluid. Monitoring electrolytes and replacing when needed. His urine output is total 27 L with a net negative of almost 16. Weight is down by 10 kg. Review of Systems: denies fever/chills/nausea/vomiting/chest or abdominal pain/cough/dyspnea/diarrhea. Otherwise see above. Constitutional Vitals: Vital Signs Temp Pulse Resp BP Pulse Ox 97.3 F 76 14 140/89 96 05/30/21 04:02 05/30/21 06:01 05/30/21 06:01 05/30/21 06:01 05/30/21 06:01 Period Temp Pulse Resp BP Sys/Becerra Pulse Ox Last 24 Hr 97.1 F-98.2 F 73-90 13-26 129-153/78-100 94-100 Intake and Output 05/29/21 05/30/21 05/30/21 21:59 05:59 13:59 Intake Total 758 34 Output Total 2019 953 Balance -1262 -919 Weight 172.773 kg Intake & Output: Intake & Output 05/29/21 05/30/21 05/30/21 21:59 05:59 13:59 Intake Total 758 34 Output Total 2019 953 Balance -1262 -919 Weight 172.773 kg Intake: IV 218 34 Sodium Chloride 0.9% 250 ml @ 212 20 mls/hr IV .[id number] [facility] Rx#: [id number] Lasix 250 mg In Sodium Chloride 6 34 0.9% 225 ml @ 5 MG/HR 5 mls/hr IV Q24H [facility] Rx#:[id number] Oral 540 Output: Urine Catheter Amount 2019 95 Other: Meal Dinner Percent of Meal Consumed 100% Urine Appearance Sediment Sediment Uretheral (Desai) Clear Urine Color Bright Yellow Pale Uretheral (Desai) Bright Yellow Urine Odor Strong Stool Size Small Stool Color Brown Stool Consistency Soft Loose # Bowel Movements 1 # of times incontinent of 1 Bowels Exam: General: Alert, Awake, No acute Distress, obese Eyes/N/T: EOMI, Head/Neck: neck supple, CV: RRR, 2/6 SM, Pulm: much better aeration b/l overall, no wheezing Abd: soft, nontender, +BS x4 Ext: no clubbing/cyanosis, 2+ b/l LE edema and UE edema - slowly improving Neuro: Alert, no focal deficits, moves all extremities, Skin: warm/dry OBJ DATA Labs CBC & Chem 7: 05/25/21 05:26 05/30/21 05:12 Labs: Abnormal Lab Results 05/30/21 05/29/21 05/28/21 05:12 05:55 05:56 Chloride 93 L 94 L 95 L Carbon Dioxide 34 H 38 H 32 H Anion Gap 7.0 L BUN Uric Acid 8.1 H 8.6 H 9.1 H Direct Bilirubin 0.3 H Lactate Dehydrogenase 275 H Albumin 3.1 L Albumin/Globulin Ratio 0.9 L 05/27/21 05:21 Chloride Carbon Dioxide 31 H Anion Gap BUN 24 H Uric Acid Direct Bilirubin Lactate Dehydrogenase Albumin Albumin/Globulin Ratio Meds: Medications Acetaminophen (Acetaminophen 325 Mg Tablet) 650 mg PO Q6HP PRN PRN Reason: PAIN/FEVER > 101 Last Admin: 05/27/21 07:20 Dose: 650 mg Documented by: Albuterol/Ipratropium (Ipratropium/Albuterol 3 Ml Ampul.Neb) 3 ml NEB Q4HP PRN PRN Reason: Shortness Of Breath Aspirin (Aspirin 81 Mg Tab.Chew) 81 mg PO DAILY [facility] Last Admin: 05/29/21 09:47 Dose: 81 mg Documented by: Atorvastatin Calcium (Atorvastatin 40 Mg Tablet) 40 mg PO QPM [facility] Last Admin: 05/29/21 20:40 Dose: 40 mg Documented by: Bisacodyl (Bisacodyl 10 Mg Supp.Rect) 10 mg AR DAILYP PRN PRN Reason: Constipation Last Admin: 05/29/21 14:53 Dose: 10 mg Documented by: Dextrose (Dextrose 50% 50 Ml Vial) 0 ml IV UD PRN PRN Reason: Hypoglycemia Diagnostic Test (Pha) (Accu-Chek 1 Each Strip) 1 each FS ACHS [facility] Last Admin: 05/29/21 20:46 Dose: 1 each Documented by: Diphenhydramine HCl (Diphenhydramine 25 Mg Capsule) 25 mg PO HS [facility] Last Admin: 05/29/21 20:46 Dose: 25 mg Documented by: Docusate Sodium (Docusate Sodium 100 Mg Capsule) 100 mg PO BID [facility] Last Admin: 05/29/21 22:17 Dose: Not Given Documented by: Enoxaparin Sodium (Enoxaparin 40 Mg/0.4 Ml Syringe) 40 mg SQ BID [facility] Last Admin: 05/29/21 20:40 Dose: 40 mg Documented by: Finasteride (Finasteride 5 Mg Tablet) 5 mg PO DAILY [facility] Last Admin: 05/29/21 09:47 Dose: 5 mg Documented by: Glucose (Dextrose 31 Gm Oral.Susp) 15 gm PO PRN PRN PRN Reason: Hypoglycemia Hydralazine HCl (Hydralazine 20 Mg/Ml Vial) 0 mg IV Q2HP PRN PRN Reason: Hypertension Last Admin: 05/28/21 16:56 Dose: 10 mg Documented by: Hydrochlorothiazide (Hydrochlorothiazide 25 Mg Tablet) 25 mg PO DAILY [facility] Last Admin: 05/29/21 09:47 Dose: 25 mg Documented by: Hydroxyzine HCl (Hydroxyzine 25 Mg Tablet) 25 mg PO TIDP PRN PRN Reason: Anxiety Last Admin: 05/28/21 07:53 Dose: 25 mg Documented by: Potassium Chloride 40 meq/ (Dextrose) 520 mls @ 130 mls/hr IV UD PRN PRN Reason: Potassium < 3 Magnesium Sulfate (Magnesium Sulfate) 2 gm in 50 mls @ 50 mls/hr IV UD PRN PRN Reason: Magnesium </= 1.6 Furosemide 250 mg/ Sodium (Chloride) 250 mls @ 5 mls/hr IV Q24H [facility]; Protocol Last Titration: 05/30/21 05:51 Dose: 8 mg/hr, 8 mls/hr Documented by: Sodium Chloride (Sodium Chloride 0.9%) 250 mls @ 20 mls/hr IV .[id number] [facility] Last Admin: 05/30/21 02:02 Dose: 20 mls/hr Documented by: Insulin Glargine (Insulin Glargine, Human 1 Unit/0.01 Ml) 10 unit SQ QAM [facility] Last Admin: 05/29/21 09:48 Dose: 10 unit Documented by: Insulin Human Lispro (Insulin Lispro 1 Unit/0.01 Ml Unit) 0 unit SQ ACHS [facility]; Protocol Last Admin: 05/29/21 20:47 Dose: 4 unit Documented by: Lisinopril (Lisinopril 5 Mg Tablet) 10 mg PO QDAY [facility] Last Admin: 05/29/21 09:47 Dose: 10 mg Documented by: Meclizine HCl (Meclizine 25 Mg Tablet) 25 mg PO BIDP PRN PRN Reason: dizziness Melatonin (Melatonin 3 Mg Tablet) 3 mg PO QHS [facility] Last Admin: 05/29/21 20:40 Dose: 3 mg Documented by: Metoclopramide HCl (Metoclopramide 10 Mg/2 Ml Vial) 10 mg IV Q6HP PRN PRN Reason: Nausea And Vomiting Metoprolol Succinate (Metoprolol Succinate 50 Mg Tab.Xl.24h) 100 mg PO DAILY [facility] Last Admin: 05/29/21 09:46 Dose: 100 mg Documented by: Ondansetron HCl (Ondansetron 4 Mg/2 Ml Vial) 4 mg IV Q4HP PRN PRN Reason: Nausea And Vomiting Empagliflozin [ Jardiance] 10 Mg Tablet) 1 dose PO QDAY [facility] Last Admin: 05/29/21 09:49 Dose: Not Given Documented by: Liraglutide [Victoza 2-Perfecto] 0.6 Mg/0.1 Ml 1.2 dose SUB-Q DAILY [facility] Last Admin: 05/29/21 09:49 Dose: Not Given Documented by: Polyethylene Glycol (Polyethylene Glycol 3350 17 Gm Packet) 17 gm PO DAILYP PRN PRN Reason: Constipation Polysaccharide Iron Complex (Iron Polysaccharide Complex 150 Mg Capsule) 150 mg PO DAILY [facility] Last Admin: 05/29/21 09:47 Dose: 150 mg Documented by: Potassium Chloride (Potassium Chloride 20 Meq Tablet) 40 meq PO UD PRN PRN Reason: Potssium is 3-3.5 Potassium Chloride (Potassium Chloride 20 Meq Tablet) 40 meq PO UD PRN PRN Reason: Potassium < 3 Potassium Chloride (Potassium Ch[facility] 20 [facility]eq Tablet) [facility] Last Admin: 05/29/21 09:49 Dose: 40 meq Documented by: Senna (Sennosides 1 Tablet) 2 tab PO DAILYP PRN PRN Reason: Constipation Sodium Chloride (0.9 % Sodium Chloride 10 Ml Syringe) 10 ml IV Q8 [facility] Last Admin: 05/30/21 05:22 Dose: 10 ml Documented by: Tamsulosin HCl (Tamsulosin 0.4 Mg Capsule) 0.4 mg PO QDAY [facility] Last Admin: 05/29/21 09:47 Dose: 0.4 mg Documented by: Venlafaxine HCl (Venlafaxine 75 Mg Cap.Xl.24h) 75 mg PO DAILY [facility] Last Admin: 05/29/21 09:46 Dose: 75 mg Documented by: A/P Nikita A/P Narrative: A: *Anasarca w/Pulm edema: slowly improving -recent hospitalization at [facility] for same and d/c'ed on 05/21 -continues with good UOP *acute on chronic systolic (35%)/diastolic(III) CHF & mild-mod reduced RV systolic fxn: -home lasix supposed to be 80 bid, also on ACEI/BB -improving *acute on chronic hypoxic resp failure (2L O2 NC @home): needs humidified O2 d/t epistaxis -on 2-3L oxymask *Severe Pulm HTN: *SVT (converted in ED) and has brief episodes of VT asymptomatic -case discussed with Dr. Gore in ED *h/o Medication noncompliance: *Generalized weakness/debility: *ADOLFO on CKD III(base Cr~?1.6-1.7): likely cardiorenal -improved with diuresis *CAD: recent cath (Dr. Gore) with dz in RCA but no stents: *Venous stasis changes b/l LE: *HTN/HLD: on BB/lasix/ACEI, statin *Anemia, chronic: *Depression/anxiety *DM: on insulin/metformin *Morbid obesity: *highly likely ADRIENNE: *DECLAN: P: -cont lasix gtt / HCTZ. diamox today for contraction alkalosis -monitor renal fxn -cont BB(increased)/ACEI -cont asa/statin -basal and SSI, hold metformin for now -elevate legs and wrap -wound care -pt/ot -SNF placement -f/u with cardiology -nocturnal cpap, f/u with Pulm for sleep study -iron supp, last colonoscopy over 10yrs ago, f/u with GI for colonoscopy -ppx: lovenox code status: Time Spent With Patient Time: Total time spent is greater than 50% in coordination of care (as documented) at patient's floor/unit and/or counseling patient: QUALITY VTE Deep Vein Thrombosis/Pulmonary Embolism Present on Admission: No
[2021-05-30] MEDS ORDERED: ALBUMIN HUMAN 12.5 GM/50 ML BAG IV ONE (07:36)
[2021-05-30] MEDS: IRON POLYSACCHARIDE COMPLEX 150 MG CAPSULE PO SCH (08:42)
[2021-05-30] MEDS: TAMSULOSIN 0.4 MG CAPSULE PO SCH (08:42)
[2021-05-30] MEDS: ASPIRIN 81 MG TAB.CHEW PO SCH (08:42)
[2021-05-30] MEDS: FINASTERIDE 5 MG TABLET PO SCH (08:42)
[2021-05-30] MEDS: INSULIN LISPRO 1 UNIT/0.01 ML UNIT SQ SCH ×4 (08:42→20:56)
[2021-05-30] MEDS: HYDROCHLOROTHIAZIDE 25 MG TABLET PO SCH (08:43)
[2021-05-30] MEDS: DOCUSATE SODIUM 100 MG CAPSULE PO SCH ×2 (08:43→20:06)
[2021-05-30] MEDS: ENOXAPARIN 40 MG/0.4 ML SYRINGE SQ SCH (08:43)
[2021-05-30] MEDS: LISINOPRIL 5 MG TABLET PO SCH (08:43)
[2021-05-30] MEDS: METOPROLOL SUCCINATE 50 MG TAB.XL.24H PO SCH (08:43)
[2021-05-30] MEDS: VENLAFAXINE 75 MG CAP.XL.24H PO SCH (08:43)
[2021-05-30] MEDS: POTASSIUM CHLORIDE 20 MEQ TABLET PO SCH (08:43)
[2021-05-30] MEDS: INSULIN GLARGINE, HUMAN 1 UNIT/0.01 ML SQ SCH (10:28)
[2021-05-30] MEDS: diphenhydrAMINE 25 MG CAPSULE PO SCH (20:48)
[2021-05-30] MEDS: MELATONIN 3 MG TABLET PO SCH (20:48)
[2021-05-30] MEDS: ATORVASTATIN 40 MG TABLET PO SCH (20:48)
[2021-05-31] MEDS: 0.9 % SODIUM CHLORIDE 250 ML IV SCH (03:07)
[2021-05-31] MEDS: 0.9 % SODIUM CHLORIDE 10 ML SYRINGE IV SCH ×3 (05:37→20:36)
[2021-05-31 07:07] LABS: Appearance,Urine HAZY (Clear); Bacteria,Urine FEW /hpf (0); Bilirubin,Urine Negative (Negative); Color,Urine YELLOW; Culture Indicated,Urine yes; Glucose,Urine (UA) Negative (Negative); Ketones,Urine Negative (Negative); Leukocyte Esterase,Urine 75 /ug (Negative); Nitrate,Urine Negative (Negative); Protein,Urine Negative (Negative); Specific Gravity,Urine 1.005 (1.000-1.035); Urine Blood 0.03 mg/dL (Negative); Urine RBC 4 /hpf (0-3); Urine Squamous Epithelial Cell 0 /hpf (0-4); Urine WBC 15 /hpf (0-4); Urobilinogen,Urine Negative
[2021-05-31 07:39] LABS: Basophils # (Auto) 0.06 K/mcL (0.00-0.30); Basophils % (Auto) 0.9 % (0.0-2.0); Eosinophils # (Auto) 0.24 K/mcL (0.00-0.70); Eosinophils % (Auto) 3.7 % (0.0-7.0); Hematocrit 38.5 % (40.1-51.0); Hemoglobin 10.3 g/dL (13.7-17.5); Lymphocytes # (Auto) 1.53 K/mcL (1.50-4.80); Lymphocytes % (Auto) 23.6 % (15.5-49.0); Mean Cell Volume 76.2 fL (80.0-100.0); Mean Corpuscular HGB Conc 26.8 g/dL (31.0-36.0); Mean Platelet Volume 9.3 fL (7.4-10.4); Monocytes # (Auto) 0.45 K/mcL (0.10-0.90); Monocytes % (Auto) 6.9 % (1.0-12.0); Neutrophils % (Auto) 64.9 % (38.0-78.0); Platelet Count 178 K/mcL (140-440); RBC 5.05 M/mcL (4.63-6.08); Red Cell Distribution Width 22.8 % (11.5-14.5); WBC 6.5 K/mcL (4.5-11.0)
[2021-05-31 08:11] LABS: ALT/SGPT 8 U/L (<40); AST/SGOT 15 U/L (<40); Albumin 3.4 gm/dL (3.2-5.2); Albumin/Globulin Ratio 1.2 (1.0-2.3); Alkaline Phosphatase 68 U/L (39-117); Bilirubin,Direct 0.2 mg/dL (<0.3); Bilirubin,Total 0.6 mg/dL (0.1-1.0); Blood Urea Nitrogen 22 mg/dL (8-23); Calcium 8.9 mg/dL (8.6-10.4); Carbon Dioxide 35 mmol/L (22-30); Chloride 97 mmol/L (96-108); Globulin 2.9 gm/dL (2.2-3.7); Glomerular Filtration Rate 72; Glucose 73 mg/dL (70-105); Lactate Dehydrogenase 192 U/L (135-225); Phosphorous 3.8 mg/dL (2.5-4.5); Triglycerides 66 mg/dL (<150); Uric Acid 7.8 mg/dL (2.5-8.0)
[2021-05-31] MEDS: INSULIN LISPRO 1 UNIT/0.01 ML UNIT SQ SCH ×4 (08:13→21:58)
--- NOTE | 2021-05-31 10:21 | Internal Med Progress Note ---
SUBJECTIVE Subjective Patient information: Note initiated : 05/31/21 at 10:16 am Service Date, if different from initiated Date: [] Patient: Guillaume Broderick a 60 y/o M admitted on 05/24/21 for tachycardia, low BP. Chief Complaint: [CHF exacerbation] Interval history: History of present illness: Mr. Broderick is a 60 year o Patient was recently discharged on the from [facility] and he was there for anasarca acute on chronic congestive heart failure hypoxia renal insufficiency cellulitis. Patient states that he did not lose any weight while there. He was placed on oxygen and has been on 5 L since then. He try to get from his chair today and was very weak and became lightheaded while standing up. And then called EMS. He is also had nosebleeds from the oxygen. Patient did feel some chest tightness during the tachycardia that resolved after the adenosine and resolution of tachycardia. In the ED is found to be in SVT of 200 and was given adenosine which resolved it. He has pulmonary edema although is on his home oxygen requirement. Patient has been trying to get into a rehab facility as he is unable to care for himself at home. Case was discussed with Dr. Gore who did not feel patient need to be transferred over for cardiac care or procedure and recommended diuresis and follow-up. Patient had a cardiac stent placed [address] Gore. Creatinine is 1.6. It is 2.0 on the at [facility]. 05/31: On 5L/min supplemental oxygen. Still able to make adequate urine output via Desai catheter. Improving SOB. Denies cough or sputum production. Denies wheezing. Denies fever or chills or sweating. Denies chest pain. Constitutional Vitals: Vital Signs Temp Pulse Resp BP Pulse Ox 36.6 C 77 14 142/89 99 05/31/21 08:00 05/31/21 10:01 05/31/21 08:00 05/31/21 10:01 05/31/21 10:01 Period Temp Pulse Resp BP Sys/Becerra Pulse Ox Last 24 Hr 36.3 C-36.8 C 70-86 12-19 135-156/79-100 93-100 Intake and Output 05/30/21 05/31/21 05/31/21 21:59 05:59 13:59 Intake Total 759 698 14 Output Total 1640 2490 710 Balance -884 -1792 -696 Weight 125.237 kg Intake & Output: Intake & Output 05/30/21 05/31/21 05/31/21 21:59 05:59 13:59 Intake Total 759 698 14 Output Total 1640 2490 710 Balance -881 -1792 -696 Weight 125.237 kg Intake: IV 279 338 14 Sodium Chloride 0.9% 250 ml @ 250 244 20 mls/hr IV .[id number] DENAE Rx#: [id number] Lasix 250 mg In Sodium Chloride 29 94 14 0.9% 225 ml @ 5 MG/HR 5 mls/hr IV Q24H DENAE Rx#:[id number] Oral 480 360 Output: Urine Catheter Amount 9017 0375 710 Other: Meal Lunch Percent of Meal Consumed 100% Urine Appearance Cloudy Cloudy Clear Sediment Sediment Uretheral (Desai) Sediment Urine Color Pale Pale Bright Yellow Uretheral (Desai) Bright Yellow Urine Odor Foul Strong Foul Stool Size Small Smear Stool Color Brown Brown Stool Consistency Formed Soft # Bowel Movements 1 General appearance: cooperative and no acute distress Head Head exam: Present atraumatic and normocephalic Eye Eye exam: Present EOMI and PERRL ENT ENT exam: Present mucous membranes moist, normal exam and normal external ear exam Additional comments: Oxygen mask in place Neck Neck exam: Present normal inspection; Absent lymphadenopathy, tenderness and thyromegaly Respiratory Respiratory exam: Present rhonchi; Absent accessory muscle use, respiratory distress and wheezes Cardiovascular Cardiovascular exam: Present normal rate and rhythm; Absent JVD GI/Abdominal GI/Abdominal exam: Present normal bowel sounds and soft; Absent organomegaly and tenderness Rectal Rectal exam: Present deferred Additional comments: Desai catheter in place Extremities Exam Extremities exam: Present full ROM, normal capillary refill, normal inspection and pedal edema; Absent tenderness Neurological Exam Neurological exam: Present alert, CN II-XII intact and oriented X3; Absent motor sensory deficit Psychiatric Psychiatric exam: Present normal affect and normal mood; Absent anxious and depressed Skin Skin exam: Present dry; Absent intact Additional comments: Stage II decubitus ulcer OBJ DATA Labs CBC & Chem 7: 05/31/21 05:11 05/31/21 05:11 Labs: Abnormal Lab Results 05/31/21 05/31/21 05/31/21 05:11 05:11 05:05 Hgb 10.3 L Hct 38.5 L MCV 76.2 L MCH 20.4 L MCHC 26.8 L RDW 22.8 H Chloride Carbon Dioxide 35 H Anion Gap Uric Acid Direct Bilirubin Albumin Albumin/Globulin Ratio Urine Appearance Hazy A Ur Leukocyte Esterase 75 A Urine RBC 4 H Urine WBC 15 H Urine Bacteria Few A 05/30/21 05/29/21 05:12 05:55 Hgb Hct MCV MCH MCHC RDW Chloride 93 L 94 L Carbon Dioxide 34 H 38 H Anion Gap 7.0 L Uric Acid 8.1 H 8.6 H Direct Bilirubin 0.3 H Albumin 3.1 L Albumin/Globulin Ratio 0.9 L Urine Appearance Ur Leukocyte Esterase Urine RBC Urine WBC Urine Bacteria Meds: Medications Acetaminophen (Acetaminophen 325 Mg Tablet) 650 mg PO Q6HP PRN PRN Reason: PAIN/FEVER > 101 Last Admin: 05/27/21 07:20 Dose: 650 mg Documented by: Albuterol/Ipratropium (Ipratropium/Albuterol 3 Ml Ampul.Neb) 3 ml NEB Q4HP PRN PRN Reason: Shortness Of Breath Aspirin (Aspirin 81 Mg Tab.Chew) 81 mg PO DAILY [facility] Last Admin: 05/30/21 08:42 Dose: 81 mg Documented by: Atorvastatin Calcium (Atorvastatin 40 Mg Tablet) 40 mg PO QPM [facility] Last Admin: 05/30/21 20:48 Dose: 40 mg Documented by: Bisacodyl (Bisacodyl 10 Mg Supp.Rect) 10 mg MO DAILYP PRN PRN Reason: Constipation Last Admin: 05/29/21 14:53 Dose: 10 mg Documented by: Dextrose (Dextrose 50% 50 Ml Vial) 0 ml IV UD PRN PRN Reason: Hypoglycemia Diagnostic Test (Pha) (Accu-Chek 1 Each Strip) 1 each FS ACHS [facility] Last Admin: 05/31/21 08:12 Dose: 1 each Documented by: Diphenhydramine HCl (Diphenhydramine 25 Mg Capsule) 25 mg PO HS [facility] Last Admin: 05/30/21 20:48 Dose: 25 mg Documented by: Docusate Sodium (Docusate Sodium 100 Mg Capsule) 100 mg PO BID [facility] Last Admin: 05/30/21 20:06 Dose: Not Given Documented by: Enoxaparin Sodium (Enoxaparin 40 Mg/0.4 Ml Syringe) 40 mg SQ DAILY [facility] Finasteride (Finasteride 5 Mg Tablet) 5 mg PO DAILY [facility] Last Admin: 05/30/21 08:42 Dose: 5 mg Documented by: Furosemide (Furosemide 40 Mg/4 Ml Vial) 40 mg IV BIDD [facility] Glucose (Dextrose 31 Gm Oral.Susp) 15 gm PO PRN PRN PRN Reason: Hypoglycemia Hydralazine HCl (Hydralazine 20 Mg/Ml Vial) 0 mg IV Q2HP PRN PRN Reason: Hypertension Last Admin: 05/28/21 16:56 Dose: 10 mg Documented by: Hydrochlorothiazide (Hydrochlorothiazide 25 Mg Tablet) 25 mg PO DAILY [facility] Last Admin: 05/30/21 08:43 Dose: 25 mg Documented by: Hydroxyzine HCl (Hydroxyzine 25 Mg Tablet) 25 mg PO TIDP PRN PRN Reason: Anxiety Last Admin: 05/28/21 07:53 Dose: 25 mg Documented by: Potassium Chloride 40 meq/ (Dextrose) 520 mls @ 130 mls/hr IV UD PRN PRN Reason: Potassium < 3 Magnesium Sulfate (Magnesium Sulfate) 2 gm in 50 mls @ 50 mls/hr IV UD PRN PRN Reason: Magnesium </= 1.6 Sodium Chloride (Sodium Chloride 0.9%) 250 mls @ 20 mls/hr IV .[id number] [facility] Last Admin: 05/31/21 03:07 Dose: 20 mls/hr Documented by: Insulin Glargine (Insulin Glargine, Human 1 Unit/0.01 Ml) 10 unit SQ QAM [facility] Last Admin: 05/30/21 10:28 Dose: 10 unit Documented by: Insulin Human Lispro (Insulin Lispro 1 Unit/0.01 Ml Unit) 0 unit SQ ACHS [facility]; Protocol Last Admin: 05/31/21 08:13 Dose: Not Given Documented by: Lisinopril (Lisinopril 5 Mg Tablet) 10 mg PO QDAY [facility] Last Admin: 05/30/21 08:43 Dose: 10 mg Documented by: Meclizine HCl (Meclizine 25 Mg Tablet) 25 mg PO BIDP PRN PRN Reason: dizziness Melatonin (Melatonin 3 Mg Tablet) 3 mg PO QHS [facility] Last Admin: 05/30/21 20:48 Dose: 3 mg Documented by: Metoclopramide HCl (Metoclopramide 10 Mg/2 Ml Vial) 10 mg IV Q6HP PRN PRN Reason: Nausea And Vomiting Metoprolol Succinate (Metoprolol Succinate 50 Mg Tab.Xl.24h) 100 mg PO DAILY [facility] Last Admin: 05/30/21 08:43 Dose: 100 mg Documented by: Ondansetron HCl (Ondansetron 4 Mg/2 Ml Vial) 4 mg IV Q4HP PRN PRN Reason: Nausea And Vomiting Empagliflozin [ Jardiance] 10 Mg Tablet) 1 dose PO QDAY [facility] Last Admin: 05/30/21 08:44 Dose: Not Given Documented by: Liraglutide [Victoza 2-Perfecto] 0.6 Mg/0.1 Ml 1.2 dose SUB-Q DAILY [facility] Last Admin: 05/30/21 08:44 Dose: Not Given Documented by: Polyethylene Glycol (Polyethylene Glycol 3350 17 Gm Packet) 17 gm PO DAILYP PRN PRN Reason: Constipation Polysaccharide Iron Complex (Iron Polysaccharide Complex 150 Mg Capsule) 150 mg PO DAILY [facility] Last Admin: 05/30/21 08:42 Dose: 150 mg Documented by: Potassium Chloride (Potassium Chloride 20 Meq Tablet) 40 meq PO UD PRN PRN Reason: Potssium is 3-3.5 Potassium Chloride (Potassium Chloride 20 Meq Tablet) 40 meq PO UD PRN PRN Reason: Potassium < 3 Potassium Chloride (Potassium Chloride 20 Meq Tablet) 40 meq PO QAMCC [facility] Last Admin: 05/30/21 08:43 Dose: 40 meq Documented by: Senna (Sennosides 1 Tablet) 2 tab PO DAILYP PRN PRN Reason: Constipation Sodium Chloride (0.9 % Sodium Chloride 10 Ml Syringe) 10 ml IV Q8 [facility] Last Admin: 05/31/21 05:37 Dose: 10 ml Documented by: Spironolactone (Spironolactone 25 Mg Tablet) 50 mg PO DAILY [facility] Tamsulosin HCl (Tamsulosin 0.4 Mg Capsule) 0.4 mg PO QDAY [facility] Last Admin: 05/30/21 08:42 Dose: 0.4 mg Documented by: Venlafaxine HCl (Venlafaxine 75 Mg Cap.Xl.24h) 75 mg PO DAILY [facility] Last Admin: 05/30/21 08:43 Dose: 75 mg Documented by: A/P Assessment and plan (1) CHF (congestive heart failure): Status: Acute Qualifiers: Heart failure type: other Qualified Code(s): I50.9 - Heart failure, unspecified (2) Type 2 diabetes mellitus: Status: Acute Qualifiers: Diabetes mellitus complication status: without complication 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 CHF exacerbation with acute on chronic respiratory failure with hypoxia: Stays in inpatient PCU 2D echo with LVEF 35% Daily weigh Intake and output 2L/day fluid restriction Oxygen therapy titrate to achieve spo2 >=88% d/c Lasix drip, switch to Lasix 40mg IV BID HCTZ PO Metoprolol ER Lisinopril Aldactone 2. Suspecting ADRIENNE: Need outpatient sleep study for potential CPAP at night while sleeping 3. 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 T2DM: HgA1c Jardiance Victoza SSI AC HS Lantus Accu Chek AC HS Hypoglycemia protocol Diabetic diet 5. Essential HTN: d/c Lasix drip, switch to Lasix 40mg IV BID HCTZ PO Metoprolol ER Lisinopril Aldactone 6. Bilateral lower extremities venous stasis: Treat underlying cause of CHF with exacerbation, see #1 7. Sacral decubitus ulcer, stage 2: Wound care consult, recs. appreciated GI ppx: not currently indicated DVT ppx: Lovenox Code status: Full Prognosis: guarded Disposition: inpatient PCU Time Spent With Patient Time: Total time spent is greater than 50% in coordination of care (as documented) at patient's floor/unit and/or counseling patient: Total time spent with greater than 50% in coordination of care (as documented) at patient's floor/unit and/or counseling patient:: Greater than 35 minutes QUALITY VTE Deep Vein Thrombosis/Pulmonary Embolism Present on Admission: No
[2021-05-31] MEDS: ASPIRIN 81 MG TAB.CHEW PO SCH (10:24)
[2021-05-31] MEDS: VENLAFAXINE 75 MG CAP.XL.24H PO SCH (10:24)
[2021-05-31] MEDS: ENOXAPARIN 40 MG/0.4 ML SYRINGE SQ SCH (10:24)
[2021-05-31] MEDS: SPIRONOLACTONE 25 MG TABLET PO SCH (10:24)
[2021-05-31] MEDS: IRON POLYSACCHARIDE COMPLEX 150 MG CAPSULE PO SCH (10:24)
[2021-05-31] MEDS: HYDROCHLOROTHIAZIDE 25 MG TABLET PO SCH (10:24)
[2021-05-31] MEDS: TAMSULOSIN 0.4 MG CAPSULE PO SCH (10:24)
[2021-05-31] MEDS: LISINOPRIL 5 MG TABLET PO SCH (10:24)
[2021-05-31] MEDS: FINASTERIDE 5 MG TABLET PO SCH (10:25)
[2021-05-31] MEDS: DOCUSATE SODIUM 100 MG CAPSULE PO SCH ×2 (10:25→20:36)
[2021-05-31] MEDS: METOPROLOL SUCCINATE 50 MG TAB.XL.24H PO SCH (10:25)
[2021-05-31] MEDS: POTASSIUM CHLORIDE 20 MEQ TABLET PO SCH (10:25)
[2021-05-31] MEDS: INSULIN GLARGINE, HUMAN 1 UNIT/0.01 ML SQ SCH (10:26)
--- NOTE | 2021-05-31 12:31 | EKG ---
[facility] Test Date: 2021-05-24 Pat Name: Guillaume Broderick Department: ED Room: Gender: Male Patient Flow Coordinator: SB : 1960 Requested By: Gadiel Nice Order Number: [id number] Reading MD: Kameron Allison Measurements Intervals [place] Rate: 195 P: 0 MT: QRS: -16 QRSD: 82 T: 174 QT: 264 QTc: 476 Interpretive Statements SUPRAVENTRICULAR TACHYCARDIA BORDERLINE LEFT AXIS DEVIATION LOW VOLTAGE IN FRONTAL LEADS REPOLARIZATION ABNORMALITY, PROB RATE RELATED SUPRAVENTRICULAR TACHYCARDIA is new compared to prior Electronically Signed On 05-31-2021 12:31:00 PDT by Kameron Allison /store/M0/[id number]
--- NOTE | 2021-05-31 13:37 | EKG ---
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 Electronically Signed On 05-31-2021 13:37:26 PDT by Kaemron Allison /store/M0/[id number]/[id number]
--- NOTE | 2021-05-31 13:57 | EKG ---
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 Measurements Intervals [place] Rate: 80 P: 32 HI: 156 QRS: 16 QRSD: 94 T: 139 QT: 408 QTc: 471 Interpretive Statements SINUS RHYTHM VENTRICULAR PREMATURE COMPLEX ABNRM R PROG, CONSIDER old ASMI OR LEAD PLACEMENT NONSPECIFIC T ABNORMALITIES, LATERAL LEADS No significant change compared to prior ECG. Electronically Signed On 05-31-2021 13:57:11 PDT by Bartolo Caballero M.D. /store/M0/[id number]
[2021-05-31] MEDS: hydrALAZINE 20 MG/ML VIAL IV PRN ×2 (14:37→16:47)
[2021-05-31] MEDS: FUROSEMIDE 40 MG/4 ML VIAL IV SCH (16:47)
[2021-05-31] MEDS: ATORVASTATIN 40 MG TABLET PO SCH (20:36)
[2021-05-31] MEDS: diphenhydrAMINE 25 MG CAPSULE PO SCH (20:36)
[2021-05-31] MEDS: MELATONIN 3 MG TABLET PO SCH (20:36)
[2021-06-01] MEDS: 0.9 % SODIUM CHLORIDE 10 ML SYRINGE IV SCH ×3 (05:08→21:14)
[2021-06-01 07:06] LABS: Basophils # (Auto) 0.07 K/mcL (0.00-0.30); Eosinophils # (Auto) 0.19 K/mcL (0.00-0.70); Eosinophils % (Auto) 2.8 % (0.0-7.0); Hemoglobin 10.7 g/dL (13.7-17.5); Lymphocytes # (Auto) 1.62 K/mcL (1.50-4.80); Mean Cell Volume 74.4 fL (80.0-100.0); Mean Corpuscular HGB Conc 28.2 g/dL (31.0-36.0); Monocytes # (Auto) 0.51 K/mcL (0.10-0.90); Monocytes % (Auto) 7.6 % (1.0-12.0); Neutrophils % (Auto) 64.6 % (38.0-78.0); Platelet Count 178 K/mcL (140-440); RBC 5.11 M/mcL (4.63-6.08); Red Cell Distribution Width 23.2 % (11.5-14.5); WBC 6.7 K/mcL (4.5-11.0)
[2021-06-01 07:40] LABS: ALT/SGPT 8 U/L (<40); AST/SGOT 17 U/L (<40); Albumin 3.3 gm/dL (3.2-5.2); Alkaline Phosphatase 79 U/L (39-117); Bilirubin,Total 0.6 mg/dL (0.1-1.0); Blood Urea Nitrogen 25 mg/dL (8-23); Carbon Dioxide 31 mmol/L (22-30); Chloride 95 mmol/L (96-108); Globulin 3.4 gm/dL (2.2-3.7); Glomerular Filtration Rate 81; Glucose 92 mg/dL (70-105)
[2021-06-01] MEDS: SPIRONOLACTONE 25 MG TABLET PO SCH (08:37)
[2021-06-01] MEDS: METOPROLOL SUCCINATE 50 MG TAB.XL.24H PO SCH (08:37)
[2021-06-01] MEDS: LISINOPRIL 5 MG TABLET PO SCH (08:37)
[2021-06-01] MEDS: VENLAFAXINE 75 MG CAP.XL.24H PO SCH (08:37)
[2021-06-01] MEDS: INSULIN LISPRO 1 UNIT/0.01 ML UNIT SQ SCH ×4 (08:37→21:20)
[2021-06-01] MEDS: POTASSIUM CHLORIDE 20 MEQ TABLET PO SCH (08:38)
[2021-06-01] MEDS: TAMSULOSIN 0.4 MG CAPSULE PO SCH (08:38)
[2021-06-01] MEDS: INSULIN GLARGINE, HUMAN 1 UNIT/0.01 ML SQ SCH (08:38)
[2021-06-01] MEDS: HYDROCHLOROTHIAZIDE 25 MG TABLET PO SCH (08:38)
[2021-06-01] MEDS: ASPIRIN 81 MG TAB.CHEW PO SCH (08:38)
[2021-06-01] MEDS: FUROSEMIDE 40 MG/4 ML VIAL IV SCH (08:38)
[2021-06-01] MEDS: IRON POLYSACCHARIDE COMPLEX 150 MG CAPSULE PO SCH (08:38)
[2021-06-01] MEDS: FINASTERIDE 5 MG TABLET PO SCH (08:38)
[2021-06-01] MEDS: DOCUSATE SODIUM 100 MG CAPSULE PO SCH ×2 (08:39→21:14)
[2021-06-01] MEDS: ENOXAPARIN 40 MG/0.4 ML SYRINGE SQ SCH (08:39)
--- NOTE | 2021-06-01 11:53 | Internal Med Progress Note ---
SUBJECTIVE Subjective Patient information: Note initiated : 06/01/21 at 11:50 am Service Date, if different from initiated Date: [] Patient: Guillaume Broderick a 60 y/o M admitted on 05/24/21 for tachycardia, low BP. Chief Complaint: [CHF exacerbation] Interval history: History of present illness: Mr. Broderick is a 60 year o Patient was recently discharged on the from [facility] and he was there for anasarca acute on chronic congestive heart failure hypoxia renal insufficiency cellulitis. Patient states that he did not lose any weight while there. He was placed on oxygen and has been on 5 L since then. He try to get from his chair today and was very weak and became lightheaded while standing up. And then called EMS. He is also had nosebleeds from the oxygen. Patient did feel some chest tightness during the tachycardia that resolved after the adenosine and resolution of tachycardia. In the ED is found to be in SVT of 200 and was given adenosine which resolved it. He has pulmonary edema although is on his home oxygen requirement. Patient has been trying to get into a rehab facility as he is unable to care for himself at home. Case was discussed with Dr. Gore who did not feel patient need to be transferred over for cardiac care or procedure and recommended diuresis and follow-up. Patient had a cardiac stent placed [address] Gore. Creatinine is 1.6. It is 2.0 on the at [place]. 05/31: On 5L/min supplemental oxygen. Still able to make adequate urine output via Desai catheter. Improving SOB. Denies cough or sputum production. Denies wheezing. Denies fever or chills or sweating. Denies chest pain. 06/01: On 5L/min supplemental oxygen. Still able to make adequate urine output. Improving SOB. Denies cough or sputum production. Denies wheezing. Denies fever or chills or sweating. Denies chest pain. Constitutional Vitals: Vital Signs Temp Pulse Resp BP Pulse Ox 36.7 C 74 16 157/91 98 06/01/21 08:02 06/01/21 10:02 06/01/21 02:00 06/01/21 10:02 06/01/21 10:02 Period Temp Pulse Resp BP Sys/Becerra Pulse Ox Last 24 Hr 36.7 C-37.1 C 74-98 16-18 131-159/73-101 85-98 Intake and Output 05/31/21 06/01/21 06/01/21 21:59 05:59 13:59 Intake Total 720 420 240 Output Total 6445 950 400 Balance -1205 -530 -160 Weight 167.784 kg Intake & Output: Intake & Output 05/31/21 06/01/21 06/01/21 21:59 05:59 13:59 Intake Total 720 420 240 Output Total 3115 950 400 Balance -1205 -530 -160 Weight 167.784 kg Intake: Oral 720 420 240 Output: Urine Catheter Amount 9511 972 400 Other: Meal Breakfast Percent of Meal Consumed 100% Feeding Ability Independent Urine Appearance Cloudy Cloudy Clear Sediment Sediment Uretheral (Desai) Cloudy Sediment Urine Color Bright Yellow Bright Yellow Dark Yellow Uretheral (Desai) Bright Yellow Urine Odor Strong Strong Foul Stool Size Large Stool Color Brown Green Stool Consistency Soft Formed # Bowel Movements 1 General appearance: cooperative, morbidly obese and no acute distress Head Head exam: Present atraumatic and normocephalic Eye Eye exam: Present EOMI and PERRL ENT ENT exam: Present mucous membranes moist, normal exam and normal external ear exam Additional comments: Oxygen mask in place Neck Neck exam: Present normal inspection; Absent lymphadenopathy, tenderness and thyromegaly Respiratory Respiratory exam: Present rhonchi; Absent accessory muscle use, respiratory distress and wheezes Cardiovascular Cardiovascular exam: Present normal rate and rhythm; Absent JVD GI/Abdominal GI/Abdominal exam: Present normal bowel sounds and soft; Absent organomegaly and tenderness Rectal Rectal exam: Present deferred Extremities Exam Extremities exam: Present full ROM, normal capillary refill, normal inspection and pedal edema; Absent tenderness Neurological Exam Neurological exam: Present alert, CN II-XII intact and oriented X3; Absent motor sensory deficit Psychiatric Psychiatric exam: Present normal affect and normal mood; Absent anxious and depressed Skin Skin exam: Present dry and intact OBJ DATA Labs CBC & Chem 7: 06/01/21 06:08 06/01/21 06:07 Labs: Abnormal Lab Results 06/01/21 06/01/21 05/31/21 06:08 06:07 05:11 Hgb 10.7 L 10.3 L Hct 38.0 L 38.5 L MCV 74.4 L 76.2 L MCH 20.9 L 20.4 L MCHC 28.2 L 26.8 L RDW 23.2 H 22.8 H Chloride 95 L Carbon Dioxide 31 H BUN 25 H Uric Acid Albumin Albumin/Globulin Ratio Urine Appearance Ur Leukocyte Esterase Urine RBC Urine WBC Urine Bacteria 05/31/21 05/31/21 05/30/21 05:11 05:05 05:12 Hgb Hct MCV MCH MCHC RDW Chloride 93 L Carbon Dioxide 35 H 34 H BUN Uric Acid 8.1 H Albumin 3.1 L Albumin/Globulin Ratio 0.9 L Urine Appearance Hazy A Ur Leukocyte Esterase 75 A Urine RBC 4 H Urine WBC 15 H Urine Bacteria Few A Meds: Medications Acetaminophen (Acetaminophen 325 Mg Tablet) 650 mg PO Q6HP PRN PRN Reason: PAIN/FEVER > 101 Last Admin: 05/27/21 07:20 Dose: 650 mg Documented by: Albuterol/Ipratropium (Ipratropium/Albuterol 3 Ml Ampul.Neb) 3 ml NEB Q4HP PRN PRN Reason: Shortness Of Breath Aspirin (Aspirin 81 Mg Tab.Chew) 81 mg PO DAILY [facility] Last Admin: 06/01/21 08:38 Dose: 81 mg Documented by: Atorvastatin Calcium (Atorvastatin 40 Mg Tablet) 40 mg PO QPM [facility] Last Admin: 05/31/21 20:36 Dose: 40 mg Documented by: Bisacodyl (Bisacodyl 10 Mg Supp.Rect) 10 mg MD DAILYP PRN PRN Reason: Constipation Last Admin: 05/29/21 14:53 Dose: 10 mg Documented by: Dextrose (Dextrose 50% 50 Ml Vial) 0 ml IV UD PRN PRN Reason: Hypoglycemia Diagnostic Test (Pha) (Accu-Chek 1 Each Strip) 1 each FS ACHS [facility] Last Admin: 06/01/21 11:29 Dose: 1 each Documented by: Diphenhydramine HCl (Diphenhydramine 25 Mg Capsule) 25 mg PO HS [facility] Last Admin: 05/31/21 20:36 Dose: 25 mg Documented by: Docusate Sodium (Docusate Sodium 100 Mg Capsule) 100 mg PO BID [facility] Last Admin: 06/01/21 08:39 Dose: Not Given Documented by: Enoxaparin Sodium (Enoxaparin 40 Mg/0.4 Ml Syringe) 40 mg SQ DAILY [facility] Last Admin: 06/01/21 08:39 Dose: 40 mg Documented by: Finasteride (Finasteride 5 Mg Tablet) 5 mg PO DAILY [facility] Last Admin: 06/01/21 08:38 Dose: 5 mg Documented by: Furosemide (Furosemide 40 Mg Tablet) 80 mg PO BIDD [facility] Glucose (Dextrose 31 Gm Oral.Susp) 15 gm PO PRN PRN PRN Reason: Hypoglycemia Hydralazine HCl (Hydralazine 20 Mg/Ml Vial) 0 mg IV Q2HP PRN PRN Reason: Hypertension Last Admin: 05/31/21 16:47 Dose: 20 mg Documented by: Hydrochlorothiazide (Hydrochlorothiazide 25 Mg Tablet) 25 mg PO DAILY [facility] Last Admin: 06/01/21 08:38 Dose: 25 mg Documented by: Hydroxyzine HCl (Hydroxyzine 25 Mg Tablet) 25 mg PO TIDP PRN PRN Reason: Anxiety Last Admin: 05/28/21 07:53 Dose: 25 mg Documented by: Potassium Chloride 40 meq/ (Dextrose) 520 mls @ 130 mls/hr IV UD PRN PRN Reason: Potassium < 3 Magnesium Sulfate (Magnesium Sulfate) 2 gm in 50 mls @ 50 mls/hr IV UD PRN PRN Reason: Magnesium </= 1.6 Insulin Glargine (Insulin Glargine, Human 1 Unit/0.01 Ml) 10 unit SQ QAM [facility] Last Admin: 06/01/21 08:38 Dose: 10 unit Documented by: Insulin Human Lispro (Insulin Lispro 1 Unit/0.01 Ml Unit) 0 unit SQ ACHS [facility]; Protocol Last Admin: 06/01/21 11:30 Dose: Not Given Documented by: Lisinopril (Lisinopril 5 Mg Tablet) 10 mg PO QDAY [facility] Last Admin: 06/01/21 08:37 Dose: 10 mg Documented by: Meclizine HCl (Meclizine 25 Mg Tablet) 25 mg PO BIDP PRN PRN Reason: dizziness Melatonin (Melatonin 3 Mg Tablet) 3 mg PO QHS [facility] Last Admin: 05/31/21 20:36 Dose: 3 mg Documented by: Metoclopramide HCl (Metoclopramide 10 Mg/2 Ml Vial) 10 mg IV Q6HP PRN PRN Reason: Nausea And Vomiting Metoprolol Succinate (Metoprolol Succinate 50 Mg Tab.Xl.24h) 100 mg PO DAILY [facility] Last Admin: 06/01/21 08:37 Dose: 100 mg Documented by: Ondansetron HCl (Ondansetron 4 Mg/2 Ml Vial) 4 mg IV Q4HP PRN PRN Reason: Nausea And Vomiting Empagliflozin [ Jardiance] 10 Mg Tablet) 1 dose PO QDAY [facility] Last Admin: 06/01/21 08:40 Dose: Not Given Documented by: Liraglutide [Victoza 2-Perfecto] 0.6 Mg/0.1 Ml 1.2 dose SUB-Q DAILY [facility] Last Admin: 06/01/21 08:40 Dose: Not Given Documented by: Polyethylene Glycol (Polyethylene Glycol 3350 17 Gm Packet) 17 gm PO DAILYP PRN PRN Reason: Constipation Polysaccharide Iron Complex (Iron Polysaccharide Complex 150 Mg Capsule) 150 mg PO DAILY [facility] Last Admin: 06/01/21 08:38 Dose: 150 mg Documented by: Potassium Chloride (Potassium Chloride 20 Meq Tablet) 40 meq PO UD PRN PRN Reason: Potssium is 3-3.5 Potassium Chloride (Potassium Chloride 20 Meq Tablet) 40 meq PO UD PRN PRN Reason: Potassium < 3 Potassium Chloride (Potassium Chloride 20 Meq Tablet) [facility] Last Admin: 06/01/21 08:38 Dose: 40 meq Documented by: Senna (Sennosides 1 Tablet) 2 tab PO DAILYP PRN PRN Reason: Constipation Sodium Chloride (0.9 % Sodium Chloride 10 Ml Syringe) 10 ml IV Q8 [facility] Last Admin: 06/01/21 05:08 Dose: 10 ml Documented by: Spironolactone (Spironolactone 25 Mg Tablet) 50 mg PO DAILY [facility] Last Admin: 06/01/21 08:37 Dose: 50 mg Documented by: Tamsulosin HCl (Tamsulosin 0.4 Mg Capsule) 0.4 mg PO QDAY [facility] Last Admin: 06/01/21 08:38 Dose: 0.4 mg Documented by: Venlafaxine HCl (Venlafaxine 75 Mg Cap.Xl.24h) 75 mg PO DAILY [facility] Last Admin: 06/01/21 08:37 Dose: 75 mg Documented by: A/P Assessment and plan (1) CHF (congestive heart failure): Status: Acute Qualifiers: Heart failure type: other Qualified Code(s): I50.9 - Heart failure, unspecified (2) Type 2 diabetes mellitus: Status: Acute Qualifiers: Diabetes mellitus complication status: without complication Diabetes mellitus penitentiary insulin use: without collector of aquarium specimens use Qualified Code(s): E11.9 - Type 2 diabetes mellitus without complications (3) Hypertension: Status: Acute Qualifiers: Hypertension type: essential hypertension Qualified Code(s): I10 - Essential (primary) hypertension (4) Morbid obesity: Status: Chronic (5) Mixed dyslipidemia: Status: Acute (6) ADRIENNE (obstructive sleep apnea): Status: Acute (7) Venous stasis: Status: Acute (8) Sacral decubitus ulcer, stage II: Status: Acute Narrative A/P Narrative: Assessment and Plans: 1. CHF exacerbation with acute on chronic respiratory failure with hypoxia: Transfer to med surg 2D echo with LVEF 35% Daily weigh Intake and output 2L/day fluid restriction Oxygen therapy titrate to achieve spo2 >=88% Lasix 40mg IV BID-->Lasix 80mg PO BID HCTZ PO Metoprolol ER Lisinopril Aldactone 2. Suspecting ADRIENNE: Need outpatient sleep study for potential CPAP at night while sleeping 3. 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 T2DM: HgA1c Jardiance Victoza SSI AC HS Lantus Accu Chek AC HS Hypoglycemia protocol Diabetic diet 5. Essential HTN: d/c Lasix drip, switch to Lasix 40mg IV BID HCTZ PO Metoprolol ER Lisinopril Aldactone 6. Bilateral lower extremities venous stasis: Treat underlying cause of CHF with exacerbation, see #1 7. Sacral decubitus ulcer, stage 2: Wound care consult, recs. appreciated GI ppx: not currently indicated DVT ppx: Lovenox Code status: Full Prognosis: stable Disposition: [facility] Time Spent With Patient Time: Total time spent is greater than 50% in coordination of care (as documented) at patient's floor/unit and/or counseling patient: QUALITY VTE Deep Vein Thrombosis/Pulmonary Embolism Present on Admission: No
[2021-06-01] MEDS ORDERED: DEXTROSE 31 GM ORAL.SUSP PO PRN (13:46)
[2021-06-01] MEDS ORDERED: POLYETHYLENE GLYCOL 3350 17 GM PACKET PO PRN (13:46)
[2021-06-01] MEDS ORDERED: MECLIZINE 25 MG TABLET PO PRN (13:46)
[2021-06-01] MEDS ORDERED: DEXTROSE 50% 50 ML VIAL IV PRN (13:46)
[2021-06-01] MEDS ORDERED: BISACODYL 10 MG SUPP.RECT PR PRN (13:46)
[2021-06-01] MEDS ORDERED: hydrOXYzine 25 MG TABLET PO PRN (13:46)
[2021-06-01] MEDS ORDERED: SENNOSIDES 1 TABLET PO PRN (13:46)
[2021-06-01] MEDS ORDERED: ONDANSETRON 4 MG/2 ML VIAL IV PRN (13:46)
[2021-06-01] MEDS ORDERED: hydrALAZINE 20 MG/ML VIAL IV PRN (13:46)
[2021-06-01] MEDS ORDERED: IPRATROPIUM/ALBUTEROL 3 ML AMPUL.NEB NEB PRN (13:46)
[2021-06-01] MEDS ORDERED: METOCLOPRAMIDE 10 MG/2 ML VIAL IV PRN (13:46)
[2021-06-01] MEDS ORDERED: MAGNESIUM SULFATE 2 GM/50 ML BAG IV PRN (13:46)
[2021-06-01] MEDS ORDERED: ACETAMINOPHEN 325 MG TABLET PO PRN (13:46)
[2021-06-01] MEDS ORDERED: POTASSIUM CHLORIDE 40 MEQ in DEXTROSE 5% IN WATER 500 ML IV PRN (13:46)
[2021-06-01] MEDS ORDERED: POTASSIUM CHLORIDE 20 MEQ TABLET PO PRN ×2 (13:46)
[2021-06-01] MEDS ORDERED: FUROSEMIDE 40 MG TABLET PO SCH ×2 (16:00)
[2021-06-01] MEDS: FUROSEMIDE 40 MG TABLET PO SCH (17:36)
[2021-06-01] MEDS ORDERED: ATORVASTATIN 40 MG TABLET PO SCH (21:00)
[2021-06-01] MEDS ORDERED: diphenhydrAMINE 25 MG CAPSULE PO SCH (21:00)
[2021-06-01] MEDS ORDERED: MELATONIN 3 MG TABLET PO SCH (21:00)
[2021-06-02] MEDS: 0.9 % SODIUM CHLORIDE 10 ML SYRINGE IV SCH (05:23)
[2021-06-02 06:33] LABS: Basophils # (Auto) 0.06 K/mcL (0.00-0.30); Basophils % (Auto) 0.9 % (0.0-2.0); Eosinophils # (Auto) 0.18 K/mcL (0.00-0.70); Eosinophils % (Auto) 2.6 % (0.0-7.0); Hematocrit 37.6 % (40.1-51.0); Hemoglobin 10.7 g/dL (13.7-17.5); Lymphocytes # (Auto) 1.62 K/mcL (1.50-4.80); Lymphocytes % (Auto) 23.7 % (15.5-49.0); Mean Cell Volume 75.4 fL (80.0-100.0); Mean Corpuscular HGB Conc 28.5 g/dL (31.0-36.0); Mean Platelet Volume 9.2 fL (7.4-10.4); Monocytes # (Auto) 0.56 K/mcL (0.10-0.90); Monocytes % (Auto) 8.2 % (1.0-12.0); Neutrophils % (Auto) 64.6 % (38.0-78.0); Platelet Count 189 K/mcL (140-440); RBC 4.99 M/mcL (4.63-6.08); Red Cell Distribution Width 23.1 % (11.5-14.5); WBC 6.8 K/mcL (4.5-11.0)
[2021-06-02 07:09] LABS: ALT/SGPT 10 U/L (<40); AST/SGOT 15 U/L (<40); Albumin 3.4 gm/dL (3.2-5.2); Alkaline Phosphatase 87 U/L (39-117); Bilirubin,Total 0.6 mg/dL (0.1-1.0); Blood Urea Nitrogen 25 mg/dL (8-23); Calcium 9.1 mg/dL (8.6-10.4); Carbon Dioxide 33 mmol/L (22-30); Chloride 98 mmol/L (96-108); Globulin 3.3 gm/dL (2.2-3.7); Glomerular Filtration Rate 72; Glucose 93 mg/dL (70-105)
[2021-06-02] MEDS ORDERED: POTASSIUM CHLORIDE 20 MEQ TABLET PO SCH (08:00)
[2021-06-02] MEDS: INSULIN LISPRO 1 UNIT/0.01 ML UNIT SQ SCH ×2 (08:09→11:45)
[2021-06-02] MEDS: FUROSEMIDE 40 MG TABLET PO SCH (08:11)
[2021-06-02] MEDS: DOCUSATE SODIUM 100 MG CAPSULE PO SCH (08:13)
--- NOTE | 2021-06-02 08:36 | Discharge Summary ---
Discharge Provider Provider Patient information: Note initiated : 06/02/21 at 8:31 am Service Date, if different from initiated Date: [] Patient: Guillaume Broderick 60 y/o M admitted on 05/24/21 for tachycardia, low BP. Chief Complaint: [CHF exacerbation] Date of admission: 05/24/21 17:05 Discharge date: 06/02/21 Primary care physician: Jane Murphy Consults: 05/24/21 Consult to Physician [CONS] Stat Comment: Consulting Provider: Cash Jerry Reason For Exam: Physician to Consult Discharge Meds Discharge Medications Home Medications furosemide 40 mg tablet 80 mg PO BID tab 07/17/19 [History Confirmed 05/24/21 Last Taken Unknown] metformin 500 mg tablet,extended release 24 hr 1,000 mg PO BID tab 07/17/19 [History Confirmed 05/24/21 Last Taken Unknown] rosuvastatin 40 mg tablet 40 mg PO QPM 07/17/19 [History Confirmed 05/24/21 Last Taken Unknown] permethrin 5 % topical cream 1 applic TOPICAL Q14D #60 g 12/16/20 [Rx Confirmed 05/24/21 Last Taken 04/01/21 08:00] meclizine 25 mg PO BID PRN #20 tab MDD 2 01/12/21 [Rx Confirmed 05/24/21 Last Taken Unknown] Jardiance 10 mg PO QDAY 05/24/21 [History Confirmed 05/24/21 Last Taken Unknown] Lantus Solostar U-100 Insulin 10 unit SUBCUT QAM 05/24/21 [History Confirmed 05/24/21 Last Taken Unknown] Victoza 2-Perfecto 1.2 mg SUBCUT DAILY 05/24/21 [History Confirmed 05/24/21 Last Taken Unknown] finasteride 5 mg PO DAILY 05/24/21 [History Confirmed 05/24/21 Last Taken Unknown] hydroxyzine HCl 25 mg PO TID PRN 05/24/21 [History Confirmed 05/24/21 Last Taken Unknown] lisinopril 10 mg PO QDAY 05/24/21 [History Confirmed 05/24/21 Last Taken Unknown] potassium chloride 40 meq PO DAILY 05/24/21 [History Confirmed 05/24/21 Last Taken Unknown] tamsulosin 0.4 mg PO QDAY 05/24/21 [History Confirmed 05/24/21 Last Taken Unknown] venlafaxine 75 mg PO DAILY 05/24/21 [History Confirmed 05/24/21 Last Taken Unknown] aspirin 81 mg PO DAILY #30 tab 06/02/21 [Rx Last Taken Unknown] metoprolol succinate 100 mg PO DAILY 30 Days tab 06/02/21 [Rx Last Taken Unknown] spironolactone 50 mg PO DAILY 30 Days tab 06/02/21 [Rx Last Taken Unknown] COURSE Hospital Course Hospital course: Patient was admitted on 05/24/2021 for CHF with exacerbations with associated acute on chronic respiratory failure. Aggressive diuresis first in terms of Lasix drip, which was subsequently being switched to IV Lasix, and eventually being switched to oral Lasix, in addition to hydrochlorothiazide and Aldactone were all given. Echocardiogram showed reduced left ventricular function with estimated LVEF of 35%. Additional medications including metoprolol extended release as well as lisinopril were given as part of the treatment for CHF exacerbations. Supplemental oxygen's was also being provided and his oxygen requirement went back down to 5 L/min by 06/02/21 and it was his baseline requirement. Bilateral lower extremities venous stasis was being managed by routine skin care together with diuresis. Stage II sacral ulcer was being managed by wound care team. By 06/02/2021, patient has reached clinical stability and thus the decision was made to discharge the patient to SNF facility. Patient likely to have obstructive sleep apnea and sleep study was indicated for CPAP candidacy. Patient would also benefit from following up with washhouse worker for CHF follow-up as well as GI for screening colonoscopy. All questions were answered prior to patient being physically released. Discharge diagnosis: CHF exacerbation Time Spent with Patient Time attestation: Total time spent providing and/or coordinating discharge services: Patient was admitted on 05/24/2021 for CHF with exacerbations with associated acute on chronic respiratory failure. Aggressive diuresis first in terms of Lasix drip, which was subsequently being switched to IV Lasix, and eventually being switched to oral Lasix, in addition to hydrochlorothiazide and Aldactone were all given. Echocardiogram showed reduced left ventricular function with estimated LVEF of 35%. Additional medications including metoprolol extended release as well as lisinopril were given as part of the treatment for CHF exacerbations. Supplemental oxygen's was also being provided and his oxygen requirement went back down to 5 L/min by 06/02/21 and it was his baseline requirement. Bilateral lower extremities venous stasis was being managed by routine skin care together with diuresis. Stage II sacral ulcer was being managed by wound care team. By 06/02/2021, patient has reached clinical stability and thus the decision was made to discharge the patient to SNF facility. Patient likely to have obstructive sleep apnea and sleep study was indicated for CPAP candidacy. Patient would also benefit from following up with washhouse worker for CHF follow-up as well as GI for screening colonoscopy. All questions were answered prior to patient being physically released. EXAM Constitutional Vitals: Temp Pulse Resp BP Pulse Ox 36.3 C 83 16 138/89 95 06/01/21 23:15 06/01/21 23:15 06/01/21 23:15 06/01/21 23:15 06/02/21 08:20 General appearance: cooperative and no acute distress Head Head exam: Present atraumatic and normocephalic Eye Eye exam: Present EOMI and PERRL ENT ENT exam: Present mucous membranes moist, normal exam and normal external ear exam Additional comments: Oxygen mask in place Neck Neck exam: Present normal inspection; Absent lymphadenopathy, tenderness and thyromegaly Respiratory Respiratory exam: Present rhonchi; Absent accessory muscle use, respiratory distress and wheezes Cardiovascular Cardiovascular exam: Present normal rate and rhythm; Absent JVD GI/Abdominal GI/Abdominal exam: Present normal bowel sounds and soft; Absent organomegaly and tenderness Rectal Rectal exam: Present deferred Extremities Exam Extremities exam: Present full ROM, normal capillary refill, normal inspection and pedal edema; Absent tenderness Neurological Exam Neurological exam: Present alert, CN II-XII intact and oriented X3; Absent motor sensory deficit Psychiatric Psychiatric exam: Present normal affect and normal mood; Absent anxious and depressed Skin Skin exam: Present dry and intact Discharge Data Data Completed and Pending Labs on day of discharge: Labs from last 24 hours 06/02/21 06/02/21 05:10 05:10 WBC 6.8 RBC 4.99 Hgb 10.7 L Hct 37.6 L MCV 75.4 L MCH 21.4 L MCHC 28.5 L RDW 23.1 H Plt Count 189 MPV 9.2 Neut % (Auto) 64.6 Lymph % (Auto) 23.7 Rogers % (Auto) 8.2 Eos % (Auto) 2.6 Baso % (Auto) 0.9 Lymph # (Auto) 1.62 Rogers # (Auto) 0.56 Eos # (Auto) 0.18 Baso # (Auto) 0.06 Absolute Neutrophils 4.41 Sodium 139 Potassium 4.1 Chloride 98 Carbon Dioxide 33 H Anion Gap 8.0 BUN 25 H Creatinine 1.1 GFR Calculation 72 Glucose 93 Calcium 9.1 Total Bilirubin 0.6 AST 15 ALT 10 Alkaline Phosphatase 87 Total Protein 6.7 Albumin 3.4 Globulin 3.3 Albumin/Globulin Ratio 1.0 Discharge Plan Patient/Caregiver Discharge Instructions Activity: increase activity as tolerated Diet: Consistent Carbohydrate Prescriptions: New metoprolol succinate 50 mg Tablet Extended Release 24 Hr 100 mg PO DAILY 30 Days RF: 0 aspirin 81 mg Tablet,Chewable 81 mg PO DAILY Qty: 30 RF: 0 spironolactone 25 mg Tablet 50 mg PO DAILY 30 Days RF: 0 Continued furosemide 40 mg tablet 80 mg PO BID RF: 0 metformin 500 mg tablet extended release 24 hr 1,000 mg PO BID RF: 0 rosuvastatin 40 mg tablet 40 mg PO QPM RF: 0 permethrin 5 % cream 1 applic topical Q14D Qty: 60 RF: 0 meclizine 25 mg tablet 25 mg PO BID MDD 2 PRN (Reason: dizziness) Qty: 20 RF: 0 hydroxyzine HCl 25 mg Tablet 25 mg PO TID PRN (Reason: Anxiety) RF: 0 Lantus Solostar U-100 Insulin 100 unit/mL (3 mL) Insulin Pen 10 unit SUBCUT QAM RF: 0 Jardiance 10 mg Tablet 10 mg PO QDAY RF: 0 tamsulosin 0.4 mg capsule 0.4 mg PO QDAY RF: 0 lisinopril 5 mg tablet 10 mg PO QDAY RF: 0 finasteride 5 mg tablet 5 mg PO DAILY RF: 0 potassium chloride 20 mEq tablet,ER particles/crystals 40 meq PO DAILY RF: 0 venlafaxine 75 mg capsule,extended release 24hr 75 mg PO DAILY RF: 0 Victoza 2-Perfecto 0.6 mg/0.1 mL (18 mg/3 mL) pen injector 1.2 mg SUBCUT DAILY RF: 0 Discontinued metoprolol succinate 50 mg Tablet Extended Release 24 Hr 50 mg PO DAILY Qty: 60 RF: 0 Follow Up Plan Follow up with: Jane Murphy ARNP [Primary Care Provider] - Patient Disposition: Xfer SNF Prognosis: Fair Rehab Potential: Good I certify that the patient requires SNF services: Yes Overall status at discharge: patient is back to baseline Discharge Orders: Discharge Order (Routine); Ordered 06/02/21 Ordered By: Michael MIGUEL VTE Deep Vein Thrombosis/Pulmonary Embolism Present on Admission: No
[2021-06-02] MEDS ORDERED: METOPROLOL SUCCINATE 50 MG TAB.XL.24H PO SCH (09:00)
[2021-06-02] MEDS ORDERED: ENOXAPARIN 40 MG/0.4 ML SYRINGE SQ SCH (09:00)
[2021-06-02] MEDS ORDERED: EMPAGLIFLOZIN 10 MG PO SCH (09:00)
[2021-06-02] MEDS ORDERED: INSULIN GLARGINE, HUMAN 1 UNIT/0.01 ML SQ SCH (09:00)
[2021-06-02] MEDS ORDERED: TAMSULOSIN 0.4 MG CAPSULE PO SCH (09:00)
[2021-06-02] MEDS ORDERED: IRON POLYSACCHARIDE COMPLEX 150 MG CAPSULE PO SCH (09:00)
[2021-06-02] MEDS ORDERED: ASPIRIN 81 MG TAB.CHEW PO SCH (09:00)
[2021-06-02] MEDS ORDERED: LISINOPRIL 5 MG TABLET PO SCH (09:00)
[2021-06-02] MEDS ORDERED: SPIRONOLACTONE 25 MG TABLET PO SCH (09:00)
[2021-06-02] MEDS ORDERED: HYDROCHLOROTHIAZIDE 25 MG TABLET PO SCH (09:00)
[2021-06-02] MEDS ORDERED: VENLAFAXINE 75 MG CAP.XL.24H PO SCH (09:00)
[2021-06-02] MEDS ORDERED: FINASTERIDE 5 MG TABLET PO SCH (09:00)
== END 2021-06-02 12:56 | DRG 291 ==
LOC: ED 10:39 → ICU 17:05
PROVIDERS: ADMIT Internal Medicine; ATTEND Internal Medicine

== ENCOUNTER 2022-07-30 10:41 | Inpatient (IN) ==
--- NOTE | 2022-07-30 10:49 | Emergency Department Note ---
Extremity Problem HPI General Chief complaint: Extremity Problem,Nontraumatic Stated complaint: bilat LE edema Time Seen by Provider: 07/30/22 10:43 Mode of arrival: wheelchair Limitations: physical limitation History of Present Illness HPI Narrative: Narrative: Patient is a 61-year-old male that comes into the emergency department today by EMS with a chief concern of feeling short of breath and having increased edema to his lower extremities. Patient has past medical history of CHF and reports 6 months ago he had stopped his Lasix. He reports that this was due to not having consistent medical follow-up with a primary care that could order them. He was started back on his Lasix 2 days ago and was given a one-time dose of 80 mg that he took. Patient indicates that he took the 80 mg dose but his electric wheelchair and ran out of battery that he could not go to the bathroom so he remained incontinent. He was not able to get up this morning and he called EMS. He denies having any chest pain. He feels that his weight has gained as well as his increased work of breathing that he feels short of breath. He has not had any fevers, chills, abdominal pain, nausea, or vomiting. He denies any confusion, headaches, fatigue, dysuria, urinary frequency, or hesitancy. Related Data Home Medications Medication Instructions Recorded Confirmed metformin 500 mg tablet,extended 1,000 mg PO BID 07/17/19 07/30/22 release 24 hr rosuvastatin 40 mg tablet 40 mg PO QPM 07/17/19 07/30/22 empagliflozin 10 mg tablet 25 mg PO QDAY 05/24/21 07/30/22 (Jardiance) finasteride 5 mg tablet 5 mg PO DAILY 05/24/21 07/30/22 lisinopril 5 mg tablet 10 mg PO QDAY 05/24/21 07/30/22 tamsulosin 0.4 mg capsule 0.4 mg PO QDAY 05/24/21 07/30/22 mometasone-formoterol HFA 200 2 puff inhalation BID 03/01/22 07/30/22 mcg-5 mcg/actuation aerosol inhaler (Dulera) torsemide 20 mg tablet 20 mg PO QAM 03/01/22 07/30/22 venlafaxine 75 mg capsule,extended 150 mg PO QDAY 03/01/22 07/30/22 release 24 hr furosemide 20 mg tablet 2 tab PO BID 07/30/22 07/30/22 potassium chloride 20 mEq 1 tab PO BID 07/30/22 07/30/22 tablet,extended release(part/cryst) spironolactone 50 mg tablet 1 tab PO QAM 07/30/22 07/30/22 Allergies Allergy/AdvReac Type Severity Reaction Status Date / Time No Known Drug Allergies Allergy Verified 11/09/21 11:37 Review of Systems ROS ROS Narrative: Narrative: All systems ED: reviewed and negative except as stated. [facility] Narrative Patient History Narrative: Narrative: Medical/Surgical/Family History All Active Problems (Updated 07/30/22 @ 13:45 by TALHA Givens) CHF (congestive heart failure) (Acute) Elevated troponin I level (Acute) Constipation (Acute) Hemoptysis (Acute) Rash (Acute) Acute UTI (Acute) Scabies (Acute) Witnessed apneic spells (Chronic) Snoring (Chronic) Hypersomnia (Chronic) Acute exacerbation of congestive heart failure (Acute) Sacral decubitus ulcer, stage II (Acute) Venous stasis (Acute) ADRIENNE (obstructive sleep apnea) (Chronic) Mixed dyslipidemia (Acute) Scratch of right lower leg (Acute) Near syncope (Acute) Dyspnea (Acute) Hypertensive urgency (Acute) Blister (Acute) Visit for wound check (Acute) Paroxysmal supraventricular tachycardia (Acute) CHF (congestive heart failure) (Acute) Elevated troponin (Acute) Rash (Acute) Congestive heart failure (Acute) Hypertension (Acute) Type 2 diabetes mellitus (Acute) Hypertensive urgency (Acute) History of syncope (Acute) Elevated troponin (Acute) Lower urinary tract symptoms (LUTS) (Chronic) Arthritis (Chronic) Pain in left knee (Chronic) Sleeps in sitting position due to orthopnea (Chronic) Pain in right knee (Chronic) Adult body mass index 40 and over (Chronic) History of tobacco use (Chronic) Edema of lower extremity (Chronic) Retinal venous tortuosity (Chronic) Allergic rhinitis (Chronic) Benign hypertension (Chronic) Chronic depression (Chronic) Morbid obesity (Chronic) Diabetes mellitus (Chronic) Urinary incontinence (Chronic) Pediculus capitis (head louse) (Chronic) Pediculus corporis (body louse) (Chronic) Rib pain on left side (Chronic) Medical History Adult body mass index 40 and over Allergic rhinitis Arthritis Bilateral Ankle Benign hypertension Chronic depression Diabetes mellitus Edema of lower extremity History of tobacco use Hypersomnia Lower urinary tract symptoms (LUTS) Morbid obesity Pain in left knee Pain in right knee Pediculus capitis (head louse) Pediculus corporis (body louse) Rash Retinal venous tortuosity Sleeps in sitting position due to orthopnea Snoring Urinary incontinence Witnessed apneic spells Surgical History History of colonoscopy with polypectomy History of hernia repair "Double" Family History Mother Tumor of lung Father Malignant neoplasm of bone Malignant melanoma Social History Alcohol Intake Frequency: does not drink Substance Use: does not use Exam Narrative Narrative: Narrative: General Limitations: physical limitation General appearance: Present alert, in no apparent distress and obese Eye Eye: Present normal appearance; Absent scleral icterus ENT ENT: Present normal oropharynx and mucous membranes moist Neck Neck: Present normal inspection Chest Chest: Present symmetric chest wall rise Respiratory Respiratory: Present other (Lung sounds clear to auscultate with mild fine crackles in left and right lower lobe with expiratory wheezes heard in the right lower lobe.); Absent respiratory distress or accessory muscle use Cardiovascular Cardiovascular: Present regular rate, normal rhythm and normal heart sounds Extremities Extremities: Present normal inspection, normal capillary refill and other (3+ edema bilateral lower extremities.); Absent cyanosis Neurological Neurological: Present alert and oriented X3 Psychiatric Psychiatric: Present normal affect and normal mood Skin Skin: Present warm (WNL), dry and normal color Course Vital Signs Vital signs: Vital Signs Temperature 98.3 F 07/30/22 10:47 Pulse Rate 109 H 07/30/22 10:47 Respiratory Rate 20 07/30/22 10:47 Blood Pressure 153/105 07/30/22 10:47 Pulse Oximetry (%) 92 07/30/22 10:47 Oxygen Delivery Method 07/30/22 10:47 Oxygen Flow Rate (L/min) 4 07/30/22 10:47 Temperature 98.3 F 07/30/22 10:47 Pulse Rate 99 H 07/30/22 14:53 Respiratory Rate 19 07/30/22 14:53 Blood Pressure 158/86 07/30/22 14:53 Pulse Oximetry (%) 94 07/30/22 14:53 Oxygen Delivery Method 07/30/22 12:00 Oxygen Flow Rate (L/min) 4 07/30/22 10:47 MDM MDM Narrative Medical decision making narrative: Narrative: Patient is a 61-year-old male with history of CHF comes in today with concern of increased edema, weight gain, and shortness of breath. Patient has been off of his Lasix for approximately 6 months and recently was given a 80 mg dose 2 days ago that he took. He is requiring O2 today and was hypoxic upon arrival where EMS had to place oxygen on him. Room air challenge today in the emergency department does not reveal hypoxia except for when patient is rolled side to side with doing skin check and cleaning patient that in his oxygen saturations did drop down to 87. Patient today has an EKG that is normal sinus rhythm with no acute coronary syndrome findings. [id number] troponin is normal. The chest x-ray shows moderate CHF. Patient's BNP today is 3744. [id number] creatinine is 1.5 which is at patient's baseline. CBC does not show any leukocytosis. Hemoglobin 11.6 and hematocrit 39.6. Patient was given 40 mg of IV furosemide today in the emergency department for diuresis. Patient has signs of CHF exacerbation and he has difficulty taking his oral medication at home and ambulating to void that he may benefit from hospitalization today for diuresis. I was able to talk with Dr. Lambert today who is on for hospitalist at [facility]. He agrees to accept patient for hospital admission today and will plan on diuresis. Lab Data Lab results reviewed: Yes I reviewed the patient's lab results. Result diagrams: 07/30/22 12:02 07/30/22 12:02 Labs: Lab Results 07/30/22 07/30/22 07/30/22 Range/Units 12:02 12:02 12:04 WBC 9.1 (4.5-11.0) K/mcL RBC 4.74 (4.63-6.08) M/mcL Hgb 11.6 L (13.7-17.5) g/dL Hct 39.6 L (40.1-51.0) % MCV 83.5 (80.0-100.0) fL MCH 24.5 L (26.0-34.0) pg MCHC 29.3 L (31.0-36.0) g/dL RDW 21.0 H (11.5-14.5) % Plt Count 214 (140-440) K/mcL MPV 9.1 (8.8-12.5) fL Immature Gran % (Auto) 0.8 H (0.0-0.5) % Neut % (Auto) 78.5 H (38.0-78.0) % Lymph % (Auto) 13.6 L (15.5-49.0) % [place] % (Auto) 5.2 (1.0-12.0) % Eos % (Auto) 1.4 (0.0-7.0) % Baso % (Auto) 0.5 (0.0-2.0) % Lymph # (Auto) 1.24 L (1.50-4.80) K/mcL [place] # (Auto) 0.47 (0.10-0.90) K/mcL Eos # (Auto) 0.13 (0.00-0.70) K/mcL Baso # (Auto) 0.05 (0.00-0.30) K/mcL Immature Gran # 0.07 H (0.00-0.05) K/mcl Absolute Neutrophils 7.14 (1.80-8.00) K/mcL Sodium 138 (133-145) mmol/L Potassium 4.9 (3.3-5.1) mmol/L Chloride 102 (96-108) mmol/L Carbon Dioxide 25 (22-30) mmol/L Anion Gap 11.0 (8.0-16.0) BUN 24 H (8-23) mg/dL Creatinine 1.5 H (0.7-1.2) mg/dL POC Creatinine 1.5 H (0.6-1.2) GFR Calculation 49 Glucose 159 H (70-105) mg/dL Calcium 9.7 (8.6-10.4) mg/dL Total Bilirubin 0.5 (0.1-1.0) mg/dL AST 30 (<40) U/L ALT 27 (<40) U/L Alkaline Phosphatase 82 (39-117) U/L NT-Pro-B Natriuret Pep 3744.0 H (<125.0) pg/mL Total Protein 6.9 (5.9-8.4) gm/dL Albumin 3.8 (3.2-5.2) gm/dL Globulin 3.1 (2.2-3.7) gm/dL Albumin/Globulin Ratio 1.2 (1.0-2.3) POC Troponin I (0.00-0.08) 07/30/22 Range/Units 12:05 WBC (4.5-11.0) K/mcL RBC (4.63-6.08) M/mcL Hgb (13.7-17.5) g/dL Hct (40.1-51.0) % MCV (80.0-100.0) fL MCH (26.0-34.0) pg MCHC (31.0-36.0) g/dL RDW (11.5-14.5) % Plt Count (140-440) K/mcL MPV (8.8-12.5) fL Immature Gran % (Auto) (0.0-0.5) % Neut % (Auto) (38.0-78.0) % Lymph % (Auto) (15.5-49.0) % [place] % (Auto) (1.0-12.0) % Eos % (Auto) (0.0-7.0) % Baso % (Auto) (0.0-2.0) % Lymph # (Auto) (1.50-4.80) K/mcL [place] # (Auto) (0.10-0.90) K/mcL Eos # (Auto) (0.00-0.70) K/mcL Baso # (Auto) (0.00-0.30) K/mcL Immature Gran # (0.00-0.05) K/mcl Absolute Neutrophils (1.80-8.00) K/mcL Sodium (133-145) mmol/L Potassium (3.3-5.1) mmol/L Chloride (96-108) mmol/L Carbon Dioxide (22-30) mmol/L Anion Gap (8.0-16.0) BUN (8-23) mg/dL Creatinine (0.7-1.2) mg/dL POC Creatinine (0.6-1.2) GFR Calculation Glucose (70-105) mg/dL Calcium (8.6-10.4) mg/dL Total Bilirubin (0.1-1.0) mg/dL AST (<40) U/L ALT (<40) U/L Alkaline Phosphatase (39-117) U/L NT-Pro-B Natriuret Pep (<125.0) pg/mL Total Protein (5.9-8.4) gm/dL Albumin (3.2-5.2) gm/dL Globulin (2.2-3.7) gm/dL Albumin/Globulin Ratio (1.0-2.3) POC Troponin I 0.05 (0.00-0.08) Radiology Data Radiology results reviewed: Yes I reviewed the patient's radiology results. Radiology results narrative: Ordering Physician:Michele Good Date of Service:07/30/22 Procedure(s):XR chest 1V CLINICAL INFORMATION: Dyspnea COMPARISON: 11/18/2021 TECHNIQUE: Portable FINDINGS: Moderate cardiomegaly is unchanged. Implantable cardioverter defibrillator remains in stable satisfactory position without complication. Mediastinum is normal. Pulmonary vessels are moderately distended and there is mild peribronchial vascular edema compatible with CHF. No infiltrates or definite effusions. IMPRESSION: Moderate CHF or volume overload Interpreted and Authenticated by: Bartolo Arias 07/30/22 EKG Data EKG #1: EKG attestation: Yes I reviewed and interpreted this EKG. and Yes There are no EKG findings of acute coronary syndrome EKG shows normal: sinus rhythm Rate: normal Discharge Plan Patient/Caregiver Discharge Instructions Pt seen by FITTINGS FINISHER/PA only: No Clinical Impression: Congestive heart failure Patient Disposition: Xfer As Inpt ([facility]) Follow up with: Jane Murphy ARNP [Primary Care Provider] - Prescriptions: No Action metformin 500 mg tablet extended release 24 hr 1,000 mg PO BID rosuvastatin 40 mg tablet 40 mg PO QPM torsemide 20 mg tablet 20 mg PO QAM Rx Instructions: when 2 or more pounds additional weight overnight Dulera 200-5 mcg/actuation HFA aerosol inhaler 2 puff inhalation BID Jardiance 10 mg Tablet 25 mg PO QDAY tamsulosin 0.4 mg capsule 0.4 mg PO QDAY Rx Instructions: Take on tab BID lisinopril 5 mg tablet 10 mg PO QDAY finasteride 5 mg tablet 5 mg PO DAILY venlafaxine 75 mg capsule,extended release 24hr 150 mg PO QDAY Label Comments: TAKE 1 CAPSULE BY MOUTH EVERY DAY FOR DEPRESSION AND anxiety due FOR FOLLOW UP in JANUARY 2021 potassium chloride 20 mEq tablet,ER particles/crystals 1 tab PO BID furosemide 20 mg tablet 2 tab PO BID spironolactone 50 mg tablet 1 tab PO [facility]
[2022-07-30] MEDS ORDERED: FUROSEMIDE 40 MG/4 ML VIAL IV ONE (12:10)
[2022-07-30 12:28] LABS: Basophils # (Auto) 0.05 K/mcL (0.00-0.30); Basophils % (Auto) 0.5 % (0.0-2.0); Eosinophils # (Auto) 0.13 K/mcL (0.00-0.70); Eosinophils % (Auto) 1.4 % (0.0-7.0); Hematocrit 39.6 % (40.1-51.0); Hemoglobin 11.6 g/dL (13.7-17.5); Lymphocytes # (Auto) 1.24 K/mcL (1.50-4.80); Lymphocytes % (Auto) 13.6 % (15.5-49.0); Mean Cell Volume 83.5 fL (80.0-100.0); Mean Corpuscular HGB Conc 29.3 g/dL (31.0-36.0); Mean Platelet Volume 9.1 fL (8.8-12.5); Monocytes # (Auto) 0.47 K/mcL (0.10-0.90); Monocytes % (Auto) 5.2 % (1.0-12.0); Neutrophils % (Auto) 78.5 % (38.0-78.0); Platelet Count 214 K/mcL (140-440); RBC 4.74 M/mcL (4.63-6.08); WBC 9.1 K/mcL (4.5-11.0)
--- NOTE | 2022-07-30 12:57 | XRay Report ---
CLINICAL INFORMATION: Dyspnea COMPARISON: 11/18/2021 TECHNIQUE: Portable FINDINGS: Moderate cardiomegaly is unchanged. Implantable cardioverter defibrillator remains in stable satisfactory position without complication. Mediastinum is normal. Pulmonary vessels are moderately distended and there is mild peribronchial vascular edema compatible with CHF. No infiltrates or definite effusions. IMPRESSION: Moderate CHF or volume overload Interpreted and Authenticated by: Bartolo Arias 07/30/22
[2022-07-30 13:10] LABS: ALT/SGPT 27 U/L (<40); AST/SGOT 30 U/L (<40); Albumin 3.8 gm/dL (3.2-5.2); Albumin/Globulin Ratio 1.2 (1.0-2.3); Alkaline Phosphatase 82 U/L (39-117); Bilirubin,Total 0.5 mg/dL (0.1-1.0); Blood Urea Nitrogen 24 mg/dL (8-23); Calcium 9.7 mg/dL (8.6-10.4); Carbon Dioxide 25 mmol/L (22-30); Chloride 102 mmol/L (96-108); Globulin 3.1 gm/dL (2.2-3.7); Glomerular Filtration Rate 49; Glucose 159 mg/dL (70-105)
--- NOTE | 2022-07-30 14:41 | Internal Med History&Physical ---
HPI History of Present Illness Patient information: Note initiated : 07/30/22 at 2:28 pm Service Date, if different from initiated Date: [] Patient: Guillaume Broderick 61 y/o M admitted on for bilat LE edema. Chief Complaint: [] History of present illness: Mr. Broderick is a 61 year old male with a history of hypertension, type 2 diabetes mellitus, chronic kidney disease stage III, heart failure with reduced ejection fraction, diastolic heart failure, reduced right ventricular systolic function, obstructive of sleep apnea on AutoPap, severe obesity with an admission BMI of 63 who presented to the emergency department for shortness of breath which he says has progressively worsened for about 3 weeks. The patient was last hospitalized at [facility] in October 2021 for a heart failure exacerbation. During that admission, the patient was found to have a left ventricular ejection fraction estimated to be 36%. The patient was discharged to a senior care facility. He says that he has been several healthcare facilities since that time. The patient says that his Lasix was discontinued months ago due to concern for his renal function. The patient says that he was instead started on spironolactone however says that it did not work as well as Lasix. 2 days ago, the patient was seen in clinic and started on oral Lasix. Patient was unable to get to the bathroom to urinate and was incontinent therefore called EMS and he was brought to the emergency department. In the emergency department, the patient was initially hypoxic however oxygenation improved after he received Lasix. The patient did respond well to a dose of Lasix IV 40 mg once. Chest x-ray is consistent with pulmonary vascular congestion. EKG did not show any acute ischemic changes, troponin level was normal. NT proBNP was elevated at 3744. The patient's clinical presentation is consistent with acute on chronic heart failure likely because he has not been taking loop diuretics for some time. Review of systems Constitutional: no fever, fatigue, or weight loss Eyes: no vision changes or pain Cardiovascular: no chest pain, no palpitations Respiratory: Positive for dyspnea Gastrointestinal: Positive for increased flatulence, bno abdominal pain, no nausea, vomiting, or diarrhea Genitourinary: no dysuria or difficulty voiding Musculoskeletal: Positive for bilateral lower extremity edema, no arthralgia or myalgia Integumentary: Positive for skin blisters developing on left lower extremity. Psychiatric: no anxiety or depression Physical exam Head: Atraumatic, normal inspection. Eyes: normal appearance, no scleral icterus. Neck: full ROM Respiratory: On room air, bilateral crackles, no accessory muscle use or other signs of respiratory distress. Cardiovascular: normal rate and rhythm, S1, S2. GI/Abdominal: Obesely distended, soft, nontender, no guarding. Extremities: Bilateral lower extremity pitting edema up to thighs, full range of motion. Neurological: CN II-XII intact, intact motor, intact sensation. Psychiatric: normal mood. Skin: Bilateral venous stasis dermatitis, early blister on left lower extremity in the lee area. PFSH PFSH All Active Problems (Updated 07/30/22 @ 13:45 by TALHA Givens) CHF (congestive heart failure) (Acute) Elevated troponin I level (Acute) Constipation (Acute) Hemoptysis (Acute) Rash (Acute) Acute UTI (Acute) Scabies (Acute) Witnessed apneic spells (Chronic) Snoring (Chronic) Hypersomnia (Chronic) Acute exacerbation of congestive heart failure (Acute) Sacral decubitus ulcer, stage II (Acute) Venous stasis (Acute) ADRIENNE (obstructive sleep apnea) (Chronic) Mixed dyslipidemia (Acute) Scratch of right lower leg (Acute) Near syncope (Acute) Dyspnea (Acute) Hypertensive urgency (Acute) Blister (Acute) Visit for wound check (Acute) Paroxysmal supraventricular tachycardia (Acute) CHF (congestive heart failure) (Acute) Elevated troponin (Acute) Rash (Acute) Congestive heart failure (Acute) Hypertension (Acute) Type 2 diabetes mellitus (Acute) Hypertensive urgency (Acute) History of syncope (Acute) Elevated troponin (Acute) Lower urinary tract symptoms (LUTS) (Chronic) Arthritis (Chronic) Pain in left knee (Chronic) Sleeps in sitting position due to orthopnea (Chronic) Pain in right knee (Chronic) Adult body mass index 40 and over (Chronic) History of tobacco use (Chronic) Edema of lower extremity (Chronic) Retinal venous tortuosity (Chronic) Allergic rhinitis (Chronic) Benign hypertension (Chronic) Chronic depression (Chronic) Morbid obesity (Chronic) Diabetes mellitus (Chronic) Urinary incontinence (Chronic) Pediculus capitis (head louse) (Chronic) Pediculus corporis (body louse) (Chronic) Rib pain on left side (Chronic) Medical History Adult body mass index 40 and over Allergic rhinitis Arthritis Bilateral Ankle Benign hypertension Chronic depression Diabetes mellitus Edema of lower extremity History of tobacco use Hypersomnia Lower urinary tract symptoms (LUTS) Morbid obesity Pain in left knee Pain in right knee Pediculus capitis (head louse) Pediculus corporis (body louse) Rash Retinal venous tortuosity Sleeps in sitting position due to orthopnea Snoring Urinary incontinence Witnessed apneic spells Surgical History History of colonoscopy with polypectomy History of hernia repair "Double" Family History Mother Tumor of lung Father Malignant neoplasm of bone Malignant melanoma Social History household members: other sexually active: No alcohol intake frequency: does not drink substance use type: does not use seatbelt use: always working smoke detector in home: Yes firearms in home: No MEDS/ALLERGIES Home Medications and Allergies Home Medications Medication Instructions Recorded Confirmed Type metformin 500 mg tablet,extended 1,000 mg PO BID 07/17/19 07/30/22 History release 24 hr rosuvastatin 40 mg tablet 40 mg PO QPM 07/17/19 07/30/22 History empagliflozin 10 mg tablet 25 mg PO QDAY 05/24/21 07/30/22 History (Jardiance) finasteride 5 mg tablet 5 mg PO DAILY 05/24/21 07/30/22 History lisinopril 5 mg tablet 10 mg PO QDAY 05/24/21 07/30/22 History tamsulosin 0.4 mg capsule 0.4 mg PO QDAY 05/24/21 07/30/22 History mometasone-formoterol HFA 200 2 puff inhalation BID 03/01/22 07/30/22 History mcg-5 mcg/actuation aerosol inhaler (Dulera) torsemide 20 mg tablet 20 mg PO QAM 03/01/22 07/30/22 History venlafaxine 75 mg capsule,extended 150 mg PO QDAY 03/01/22 07/30/22 History release 24 hr furosemide 20 mg tablet 2 tab PO BID 07/30/22 07/30/22 History potassium chloride 20 mEq 1 tab PO BID 07/30/22 07/30/22 History tablet,extended release(part/cryst) spironolactone 50 mg tablet 1 tab PO QAM 07/30/22 07/30/22 History Allergies Allergy/AdvReac Type Severity Reaction Status Date / Time No Known Drug Allergies Allergy Verified 11/09/21 11:37 EXAM Constitutional Vitals: Temp Pulse Resp BP Pulse Ox O2 Del Method O2 Flow Rate 98.3 F 107 H 33 H 157/132 93 4 07/30/22 10:47 07/30/22 14:19 07/30/22 14:19 07/30/22 14:01 07/30/22 14:19 07/30/22 12:00 07/30/22 10:47 DATA Data Completed and Pending Labs: Labs from last 24 hours 07/30/22 07/30/22 07/30/22 12:05 12:04 12:02 WBC RBC Hgb Hct MCV MCH MCHC RDW Plt Count MPV Immature Gran % (Auto) Neut % (Auto) Lymph % (Auto) [place] % (Auto) Eos % (Auto) Baso % (Auto) Lymph # (Auto) [place] # (Auto) Eos # (Auto) Baso # (Auto) Immature Gran # Absolute Neutrophils Sodium 138 Potassium 4.9 Chloride 102 Carbon Dioxide 25 Anion Gap 11.0 BUN 24 H Creatinine 1.5 H POC Creatinine 1.5 H GFR Calculation 49 Glucose 159 H Calcium 9.7 Total Bilirubin 0.5 AST 30 ALT 27 Alkaline Phosphatase 82 NT-Pro-B Natriuret Pep 3744.0 H Total Protein 6.9 Albumin 3.8 Globulin 3.1 Albumin/Globulin Ratio 1.2 POC Troponin I 0.05 07/30/22 12:02 WBC 9.1 RBC 4.74 Hgb 11.6 L Hct 39.6 L MCV 83.5 MCH 24.5 L MCHC 29.3 L RDW 21.0 H Plt Count 214 MPV 9.1 Immature Gran % (Auto) 0.8 H Neut % (Auto) 78.5 H Lymph % (Auto) 13.6 L [place] % (Auto) 5.2 Eos % (Auto) 1.4 Baso % (Auto) 0.5 Lymph # (Auto) 1.24 L [place] # (Auto) 0.47 Eos # (Auto) 0.13 Baso # (Auto) 0.05 Immature Gran # 0.07 H Absolute Neutrophils 7.14 Sodium Potassium Chloride Carbon Dioxide Anion Gap BUN Creatinine POC Creatinine GFR Calculation Glucose Calcium Total Bilirubin AST ALT Alkaline Phosphatase NT-Pro-B Natriuret Pep Total Protein Albumin Globulin Albumin/Globulin Ratio POC Troponin I A/P Narrative A/P Narrative: Assessment:61 year old male with a history of hypertension, type 2 diabetes mellitus, chronic kidney disease stage III, heart failure with reduced ejection fraction, diastolic heart failure, reduced right ventricular systolic function, obstructive of sleep apnea on AutoPap, morbid obesity admitted for acute on chronic systolic and diastolic heart failure. #Acute on chronic combined systolic and diastolic heart failure #Reduced right ventricular systolic function #Chronic kidney disease stage III, stable #Essential hypertension #Type 2 diabetes mellitus #Chronic normocytic anemia, stable #Status post cardiac pacemaker/defibrillator #Obstructive sleep apnea #Obesity BMI 63 #Possible coronary artery disease/reported prior coronary stents Plan -Lasix 40 mg IV twice daily for now, consider Lasix infusion. -Monitor renal function, electrolytes, daily weights, urine output. -Transthoracic echocardiogram. -Start aspirin 81 mg daily for reported coronary stents about one year ago. -Correction Humalog SSIlow. -Home medication reconciliation, continue home meds. -Obtain outside records regarding reported recent coronary angiogram. -Consistent carbohydrate and low-sodium diet. -PT consult. -DVT prophylaxis: Heparin SQ -CODE STATUS: Full -Disposition: Home with home health versus SNF for rehab. Time Spent With Patient Time: Total time spent is greater than 50% in coordination of care (as documented) at patient's floor/unit and/or counseling patient:
[2022-07-30] MEDS ORDERED: ALBUTEROL SULFATE 2.5 MG/3 ML NEBULIZER NEB PRN (15:57)
[2022-07-30] MEDS ORDERED: SENNOSIDES 1 TABLET PO PRN (15:57)
[2022-07-30] MEDS ORDERED: DEXTROSE 31 GM ORAL.SUSP PO PRN (15:57)
[2022-07-30] MEDS ORDERED: DEXTROSE 50% 50 ML VIAL IV PRN (15:57)
[2022-07-30] MEDS ORDERED: LACTULOSE 20 GM/30 ML ORAL.SOL PO PRN (15:57)
[2022-07-30] MEDS ORDERED: ONDANSETRON 4 MG/2 ML VIAL IV PRN (15:57)
[2022-07-30] MEDS: ASPIRIN 81 MG TAB.CHEW CHEWED SCH (16:17)
[2022-07-30] MEDS: FUROSEMIDE 40 MG/4 ML VIAL IV SCH (16:17)
[2022-07-30] MEDS: INSULIN LISPRO 1 UNIT/0.01 ML UNIT SQ SCH ×2 (16:25→20:44)
[2022-07-30] MEDS: 0.9 % SODIUM CHLORIDE 10 ML SYRINGE IV SCH ×2 (18:47→22:00)
[2022-07-30] MEDS: ACETAMINOPHEN 325 MG TABLET PO PRN (18:47)
[2022-07-30] MEDS: DOCUSATE SODIUM 100 MG CAPSULE PO SCH (20:13)
[2022-07-30] MEDS: HEPARIN 5,000 UNIT/ML VIAL SQ SCH (20:29)
[2022-07-30] MEDS: ATORVASTATIN 40 MG TABLET PO SCH (20:29)
[2022-07-30] MEDS: LISINOPRIL 5 MG TABLET PO SCH (20:32)
[2022-07-30] MEDS: MOMETASONE FORMOTEROL INH SCH (20:45)
[2022-07-30] MEDS: METOPROLOL SUCCINATE 50 MG TAB.XL.24H PO SCH (20:45)
[2022-07-31] MEDS: 0.9 % SODIUM CHLORIDE 10 ML SYRINGE IV SCH ×3 (05:34→21:44)
[2022-07-31] MEDS: ACETAMINOPHEN 325 MG TABLET PO PRN (05:54)
[2022-07-31 08:13] LABS: ALT/SGPT 24 U/L (<40); AST/SGOT 17 U/L (<40); Albumin 3.5 gm/dL (3.2-5.2); Albumin/Globulin Ratio 1.2 (1.0-2.3); Alkaline Phosphatase 73 U/L (39-117); Bilirubin,Direct 0.2 mg/dL (<0.3); Bilirubin,Total 0.7 mg/dL (0.1-1.0); Blood Urea Nitrogen 26 mg/dL (8-23); Calcium 8.5 mg/dL (8.6-10.4); Carbon Dioxide 26 mmol/L (22-30); Chloride 99 mmol/L (96-108); Globulin 2.9 gm/dL (2.2-3.7); Glomerular Filtration Rate 39; Glucose 138 mg/dL (70-105); Lactate Dehydrogenase 269 U/L (135-225); Phosphorous 5.4 mg/dL (2.5-4.5); Triglycerides 94 mg/dL (<150); Uric Acid 9.4 mg/dL (2.5-8.0)
[2022-07-31] MEDS: INSULIN LISPRO 1 UNIT/0.01 ML UNIT SQ SCH ×4 (08:13→21:33)
[2022-07-31] MEDS: LISINOPRIL 5 MG TABLET PO SCH (08:41)
[2022-07-31] MEDS: VENLAFAXINE 150 MG CAP.XL.24H PO SCH (08:41)
[2022-07-31] MEDS: FINASTERIDE 5 MG TABLET PO SCH (08:41)
[2022-07-31] MEDS: FUROSEMIDE 40 MG/4 ML VIAL IV SCH (08:42)
[2022-07-31] MEDS: HEPARIN 5,000 UNIT/ML VIAL SQ SCH ×2 (08:42→21:43)
[2022-07-31] MEDS: MOMETASONE FORMOTEROL INH SCH ×2 (08:43→21:33)
[2022-07-31] MEDS: DOCUSATE SODIUM 100 MG CAPSULE PO SCH ×2 (08:43→21:43)
[2022-07-31] MEDS: TAMSULOSIN 0.4 MG CAPSULE PO SCH (08:43)
[2022-07-31] MEDS: METOPROLOL SUCCINATE 50 MG TAB.XL.24H PO SCH ×2 (08:43→21:42)
[2022-07-31] MEDS: ASPIRIN 81 MG TAB.CHEW CHEWED SCH (08:43)
--- NOTE | 2022-07-31 08:46 | EKG ---
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 Measurements Intervals [place] Rate: 85 P: 42 MS: 146 QRS: -4 QRSD: 102 T: 77 QT: 389 QTc: 463 Interpretive Statements Sinus rhythm Low voltage, extremity leads Possible old inferior MA Electronically Signed On 07-31-2022 8:45:43 PST by Bartolo Caballero M.D. /store/[id number]
[2022-07-31] MEDS: TIOTROPIUM BROMIDE 18 MCG INHALANT INH SCH (08:55)
[2022-07-31] MEDS ORDERED: FUROSEMIDE 250 MG in 0.9 % SODIUM CHLORIDE 225 ML IV SCH (10:00)
[2022-07-31] MEDS: 0.9 % SODIUM CHLORIDE 250 ML IV SCH (10:46)
[2022-07-31] MEDS ORDERED: SIMETHICONE 80 MG TAB.CHEW CHEWED PRN (11:02)
--- NOTE | 2022-07-31 11:02 | Internal Med Progress Note ---
SUBJECTIVE Subjective Patient information: Note initiated : 07/31/22 at 11:02 am Service Date, if different from initiated Date: [] Patient: Guillaume Broderick 61 y/o M admitted on 07/30/22 for bilat LE edema; acute onchronic systolic . Chief Complaint: [] Interval history: Mr. Broderick is a 61 year old male with a history of hypertension, type 2 d iabetes mellitus, chronic kidney disease stage III, heart failure with reduced ejection fraction, diastolic heart failure, reduced right ventricular systolic function, obstructive of sleep apnea on AutoPap, severe obesity with an admission BMI of 63 who presented to the emergency department for shortness of breath which he says has progressively worsened for about 3 weeks. The patient was last hospitalized at [facility] in October 2021 for a heart failure exacerbation. During that admission, the patient was found to have a left ventricular ejection fraction estimated to be 36%. The patient was discharged to a residential facility. He says that he has been several [facility] facilities since that time. The patient says that his Lasix was discontinued months ago due to concern for his renal function. The patient says that he was instead started on spironolactone however says that it did not work as well as Lasix. 2 days ago, the patient was seen in clinic and started on oral Lasix. Patient was unable to get to the bathroom to urinate and was incontinent therefore called EMS and he was brought to the emergency department. In the emergency department, the patient was initially hypoxic however oxygenation improved after he received Lasix. The patient did respond well to a dose of Lasix IV 40 mg once. Chest x-ray is consistent with pulmonary vascular congestion. EKG did not show any acute ischemic changes, troponin level was normal. NT proBNP was elevated at 3744. The patient's clinical presentation is consistent with acute on chronic heart failure likely because he has not been taking loop diuretics for some time. 07/31 Vitals stable overnight, responded well to IV Lasix, transition to a Lasix infusion. Check renal function and electrolytes twice a day while the patient is on a Lasix infusion. Physical exam Head: Atraumatic, normal inspection. Eyes: normal appearance, no scleral icterus. Neck: full ROM Respiratory: On room air, no accessory muscle use or other signs of respiratory distress. Cardiovascular: normal rate and rhythm, S1, S2. GI/Abdominal: Obesely distended, soft, nontender, no guarding. Extremities: Bilateral lower extremity pitting edema up to thighs, full range of motion. Neurological: CN II-XII intact, intact motor, intact sensation. Psychiatric: normal mood. Skin: Bilateral venous stasis dermatitis, early blister on left lower extremity in the [place] area. Constitutional Vitals: Vital Signs Temp Pulse Resp BP Pulse Ox O2 Del Method O2 Flow Rate 97.8 F 97 H 22 145/70 89 L 0 07/31/22 08:00 07/31/22 10:00 07/31/22 10:00 07/31/22 10:00 07/31/22 10:00 07/31/22 10:00 07/31/22 10:00 Period Temp Pulse Resp BP Sys/Becerra Pulse Ox O2 Del Method O2 Flow Rate Last 24 Hr 97.1 F-98.7 F 61-109 13-33 113-188/70-132 86-100 Oxymask-Room Air 0-5 Intake and Output 07/30/22 07/31/22 07/31/22 21:59 05:59 13:59 Intake Total 930 360 960 Output Total 2826 700 600 Balance -1896 -340 360 Weight 191.8 kg Intake & Output: Intake & Output 07/30/22 07/31/22 07/31/22 21:59 05:59 13:59 Intake Total 930 360 960 Output Total 2826 700 600 Balance -1896 -340 360 Weight 191.8 kg Intake: Oral 930 360 960 Output: Void Amount 2825 700 600 # of times incontinent of urine 1 Other: Meal Nourishment/Supplement Percent of Meal Consumed 100% 100% Feeding Ability Independent Urine Appearance Clear Clear Clear Urine Color Yellow Yellow Brown Yellow Urine Odor Normal # Voids 1 OBJ DATA Labs CBC & Chem 7: 07/30/22 12:02 07/31/22 05:50 Labs: Abnormal Lab Results 07/31/22 07/30/22 07/30/22 05:50 12:04 12:02 Hgb Hct MCH MCHC RDW Immature Gran % (Auto) Neut % (Auto) Lymph % (Auto) Lymph # (Auto) Immature Gran # BUN 26 H 24 H Creatinine 1.8 H 1.5 H POC Creatinine 1.5 H Glucose 138 H 159 H Uric Acid 9.4 H Calcium 8.5 L Phosphorus 5.4 H GGT 71 H Lactate Dehydrogenase 269 H NT-Pro-B Natriuret Pep 3744.0 H 07/30/22 12:02 Hgb 11.6 L Hct 39.6 L MCH 24.5 L MCHC 29.3 L RDW 21.0 H Immature Gran % (Auto) 0.8 H Neut % (Auto) 78.5 H Lymph % (Auto) 13.6 L Lymph # (Auto) 1.24 L Immature Gran # 0.07 H BUN Creatinine POC Creatinine Glucose Uric Acid Calcium Phosphorus GGT Lactate Dehydrogenase NT-Pro-B Natriuret Pep Meds: Medications Acetaminophen (Acetaminophen 325 Mg Tablet) 650 mg PO Q6HP PRN; Protocol PRN Reason: Per Pain Protocol/Fever > 101 Last Admin: 07/31/22 05:54 Dose: 650 mg Albuterol Sulfate (Albuterol Sulfate 2.5 Mg/3 Ml Nebulizer) 2.5 mg NEB Q2HP PRN PRN Reason: Shortness Of Breath Aspirin (Aspirin 81 Mg Tab.Chew) 81 mg CHEWED DAILY [facility] Last Admin: 07/31/22 08:43 Dose: 81 mg Atorvastatin Calcium (Atorvastatin 40 Mg Tablet) 40 mg PO HS [facility] Last Admin: 07/30/22 20:29 Dose: 40 mg Dextrose (Dextrose 50% 50 Ml Vial) 0 ml IV UD PRN PRN Reason: Per Sliding Scale Diagnostic Test (Pha) (Accu-Chek 1 Each Strip) 1 each FS ACHS [facility] Last Admin: 07/31/22 08:12 Dose: 1 each Docusate Sodium (Docusate Sodium 100 Mg Capsule) 100 mg PO BID [facility] Last Admin: 07/31/22 08:43 Dose: Not Given Finasteride (Finasteride 5 Mg Tablet) 5 mg PO DAILY [facility] Last Admin: 07/31/22 08:41 Dose: 5 mg Glucose (Dextrose 31 Gm Oral.Susp) 15 gm PO PRN PRN PRN Reason: Hypoglycemia Heparin Sodium (Porcine) (Heparin 5,000 Unit/Ml Vial) 5,000 unit SQ Q12 [facility] Last Admin: 07/31/22 08:42 Dose: 5,000 unit Furosemide 250 mg/ Sodium (Chloride) 250 mls @ 5 mls/hr IV Q24H [facility]; Protocol Last Admin: 07/31/22 10:17 Dose: 5 mg/hr, 5 mls/hr Sodium Chloride (Sodium Chloride 0.9%) 250 mls @ 20 mls/hr IV .[id number] [facility] Last Admin: 07/31/22 10:46 Dose: 20 mls/hr Insulin Human Lispro (Insulin Lispro 1 Unit/0.01 Ml Unit) 0 unit SQ ACHS [facility]; Protocol Last Admin: 07/31/22 08:13 Dose: Not Given Lactulose (Lactulose 20 Gm/30 Ml Oral.Rosy) 10 gm PO DAILYP PRN PRN Reason: Constipation Lisinopril (Lisinopril 5 Mg Tablet) 10 mg PO QDAY [facility] Last Admin: 07/31/22 08:41 Dose: 10 mg Metoprolol Succinate (Metoprolol Succinate 50 Mg Tab.Xl.24h) 50 mg PO BID [facility] Last Admin: 07/31/22 08:43 Dose: 50 mg Ondansetron HCl (Ondansetron 4 Mg/2 Ml Vial) 4 mg IV Q4HP PRN; Protocol PRN Reason: Nausea And Vomiting Mometasone- Formoterol [Dulera] 200-5 Mcg Inhaler 2 dose INH BID [facility] Last Admin: 07/31/22 08:43 Dose: Not Given Senna (Sennosides 1 Tablet) 2 tab PO HSP PRN PRN Reason: Constipation Sodium Chloride (0.9 % Sodium Chloride 10 Ml Syringe) 10 ml IV Q8 [facility] Last Admin: 07/31/22 05:34 Dose: 10 ml Tamsulosin HCl (Tamsulosin 0.4 Mg Capsule) 0.4 mg PO QDAY [facility] Last Admin: 07/31/22 08:43 Dose: 0.4 mg Tiotropium [place] (Tiotropium [place] 18 Mcg Inhalant) 18 mcg INH QDAY [facility] Last Admin: 07/31/22 08:55 Dose: Not Given Venlafaxine HCl (Venlafaxine 150 Mg Cap.Xl.24h) 150 mg PO QDAY [facility] Last Admin: 07/31/22 08:41 Dose: 150 mg A/P Narrative A/P Narrative: Assessment:61 year old male with a history of hypertension, type 2 diabetes mellitus, chronic kidney disease stage III, heart failure with reduced ejection fraction, diastolic heart failure, reduced right ventricular systolic function, obstructive of sleep apnea on AutoPap, morbid obesity admitted for acute on chronic systolic and diastolic heart failure. #Acute on chronic combined systolic and diastolic heart failure #Reduced right ventricular systolic function #Chronic kidney disease stage III, stable #Essential hypertension #Type 2 diabetes mellitus #Chronic normocytic anemia, stable #Status post cardiac pacemaker/defibrillator #Obstructive sleep apnea #Obesity BMI 63 #Possible coronary artery disease/reported prior coronary stents Plan -Lasix infusion, titrate to effect. -Monitor renal function, electrolytes, daily weights, urine output. -Transthoracic echocardiogram report pending. -Aspirin 81 mg daily for reported coronary stents about one year ago. -Correction Humalog SSIlow. -Continue home Lisinopril, Toprol, finasteride, Flomax, Dulera, rosuvastatin, Spiriva, venlafaxine. -Hold home metformin, Jardiance, spironolactone for now. -Review outside records regarding reported recent coronary angiogram. -Consistent carbohydrate and low-sodium diet. -PT consult. -DVT prophylaxis: Heparin SQ -CODE STATUS: Full -Disposition: Home with home health versus SNF for rehab. Time Spent With Patient Time: Total time spent is greater than 50% in coordination of care (as documented) at patient's floor/unit and/or counseling patient:
[2022-07-31 17:33] LABS: Albumin 3.9 gm/dL (3.2-5.2); Blood Urea Nitrogen 29 mg/dL (8-23); Calcium 8.9 mg/dL (8.6-10.4); Carbon Dioxide 29 mmol/L (22-30); Chloride 98 mmol/L (96-108); Glomerular Filtration Rate 42; Glucose 143 mg/dL (70-105); Phosphorous 4.6 mg/dL (2.5-4.5)
[2022-07-31] MEDS: FUROSEMIDE 250 MG in 0.9 % SODIUM CHLORIDE 225 ML IV SCH (20:04)
[2022-07-31] MEDS: ATORVASTATIN 40 MG TABLET PO SCH (21:43)
[2022-08-01] MEDS: ACETAMINOPHEN 325 MG TABLET PO PRN ×2 (01:46→20:15)
[2022-08-01] MEDS: 0.9 % SODIUM CHLORIDE 250 ML IV SCH ×3 (03:28→22:05)
[2022-08-01] MEDS: 0.9 % SODIUM CHLORIDE 10 ML SYRINGE IV SCH ×3 (05:59→20:16)
[2022-08-01 07:33] LABS: ALT/SGPT 23 U/L (<40); AST/SGOT 20 U/L (<40); Albumin 3.9 gm/dL (3.2-5.2); Albumin/Globulin Ratio 1.3 (1.0-2.3); Alkaline Phosphatase 80 U/L (39-117); Bilirubin,Direct < 0.2 mg/dL (0-0.3); Bilirubin,Total 0.7 mg/dL (0.1-1.0); Blood Urea Nitrogen 23 mg/dL (8-23); Calcium 8.5 mg/dL (8.6-10.4); Carbon Dioxide 28 mmol/L (22-30); Chloride 95 mmol/L (96-108); Glomerular Filtration Rate 45; Glucose 136 mg/dL (70-105); Lactate Dehydrogenase 336 U/L (135-225); Phosphorous 4.2 mg/dL (2.5-4.5); Triglycerides 100 mg/dL (<150)
[2022-08-01] MEDS: INSULIN LISPRO 1 UNIT/0.01 ML UNIT SQ SCH ×4 (08:02→20:33)
[2022-08-01] MEDS: VENLAFAXINE 150 MG CAP.XL.24H PO SCH (08:25)
[2022-08-01] MEDS: HEPARIN 5,000 UNIT/ML VIAL SQ SCH ×2 (08:25→20:16)
[2022-08-01] MEDS: METOPROLOL SUCCINATE 50 MG TAB.XL.24H PO SCH ×2 (08:26→20:15)
[2022-08-01] MEDS: FINASTERIDE 5 MG TABLET PO SCH (08:26)
[2022-08-01] MEDS: DOCUSATE SODIUM 100 MG CAPSULE PO SCH ×2 (08:26→20:16)
[2022-08-01] MEDS: ASPIRIN 81 MG TAB.CHEW CHEWED SCH (08:26)
[2022-08-01] MEDS: LISINOPRIL 5 MG TABLET PO SCH (08:26)
[2022-08-01] MEDS: TAMSULOSIN 0.4 MG CAPSULE PO SCH (08:26)
[2022-08-01] MEDS: TIOTROPIUM BROMIDE 18 MCG INHALANT INH SCH (08:26)
[2022-08-01] MEDS: MOMETASONE FORMOTEROL INH SCH ×2 (08:26→20:16)
[2022-08-01] MEDS ORDERED: FLU VACC QS2022-23(6MOS UP)/PF 60 MCG/0.5 ML SYRINGE IM ONE (10:00)
--- NOTE | 2022-08-01 14:50 | Internal Med Progress Note ---
SUBJECTIVE Subjective Patient information: Note initiated : 08/01/22 at 2:49 pm Service Date, if different from initiated Date: [] Patient: Guillaume Broderick 61 y/o M admitted on 07/30/22 for bilat LE edema; acute on chronic systolic. Chief Complaint: [] Interval history: Mr. Broderick is a 61 year old male with a history of hypertension, type 2 di abetes mellitus, chronic kidney disease stage III, heart failure with reduced ejection fraction, diastolic heart failure, reduced right ventricular systolic function, obstructive of sleep apnea on AutoPap, severe obesity with an admission BMI of 63 who presented to the emergency department for shortness of breath which he says has progressively worsened for about 3 weeks. The patient was last hospitalized at [facility] in October 2021 for a heart failure exacerbation. During that admission, the patient was found to have a left ventricular ejection fraction estimated to be 36%. The patient was discharged to a shelter facility. He says that he has been several [facility] facilities since that time. The patient says that his Lasix was discontinued months ago due to concern for his renal function. The patient says that he was instead started on spironolactone however says that it did not work as well as Lasix. 2 days ago, the patient was seen in clinic and started on oral Lasix. Patient was unable to get to the bathroom to urinate and was incontinent therefore called EMS and he was brought to the emergency department. In the emergency department, the patient was initially hypoxic however oxygenation improved after he received Lasix. The patient did respond well to a dose of Lasix IV 40 mg once. Chest x-ray is consistent with pulmonary vascular congestion. EKG did not show any acute ischemic changes, troponin level was normal. NT proBNP was elevated at 3744. The patient's clinical presentation is consistent with acute on chronic heart failure likely because he has not been taking loop diuretics for some time. 07/31 Vitals stable overnight, responded well to IV Lasix, transition to a Lasix infusion. Check renal function and electrolytes twice a day while the patient is on a Lasix infusion. 07/31 Vital stable overnight, renal function stable on morning labs, potassium normal. Patient is diuresing well on Lasix infusion which was increased to 10 mg/h yesterday evening. Transthoracic echocardiogram showed an LVEF of 20 to 25%, right ventricular systolic function appeared mildly reduced, Doppler findings consistent with mild pulmonary hypertension. Prior echogram in 2020 showed an LVEF of 36%. Physical exam Head: Atraumatic, normal inspection. Eyes: normal appearance, no scleral icterus. Neck: full ROM Respiratory: On room air, no accessory muscle use or other signs of respiratory distress. Cardiovascular: normal rate and rhythm, S1, S2. GI/Abdominal: Obesely distended, soft, nontender, no guarding. Extremities: Bilateral lower extremity pitting edema up to thighs, improving with diuresis Neurological: CN II-XII intact, intact motor, intact sensation. Psychiatric: normal mood. Skin: Bilateral venous stasis dermatitis. Constitutional Vitals: Vital Signs Temp Pulse Resp BP Pulse Ox O2 Del Method O2 Flow Rate 98.4 F 83 29 H 124/96 91 4 08/01/22 14:16 08/01/22 14:16 08/01/22 14:16 08/01/22 14:16 08/01/22 14:16 08/01/22 04:00 08/01/22 04:00 Period Temp Pulse Resp BP Sys/Becerra Pulse Ox O2 Del Method O2 Flow Rate Last 24 Hr 97.6 F-98.4 F 76-106 14-29 124-176/76-150 86-99 CPAP-Room Air 2-4 Intake and Output 08/01/22 08/01/22 08/01/22 05:59 13:59 21:59 Intake Total 250 960 Output Total 1900 1850 Balance -1650 -890 Intake & Output: Intake & Output 08/01/22 08/01/22 08/01/22 05:59 13:59 21:59 Intake Total 250 960 Output Total 1900 1850 Balance -1650 -890 Intake: IV 250 Sodium Chloride 0.9% 250 ml @ 250 20 mls/hr IV .[id number] [facility] Rx#: [id number] Oral 960 Output: Urine Catheter Amount 1000 Void Amount 900 1850 Other: Meal Lunch Percent of Meal Consumed 100% Feeding Ability Independent Urine Appearance Clear Clear Urine Color Pale Yellow OBJ DATA Labs CBC & Chem 7: 07/30/22 12:02 08/01/22 05:50 Labs: Abnormal Lab Results 08/01/22 07/31/22 07/31/22 05:50 16:00 05:50 Hgb Hct MCH MCHC RDW Immature Gran % (Auto) Neut % (Auto) Lymph % (Auto) Lymph # (Auto) Immature Gran # Chloride 95 L BUN 29 H 26 H Creatinine 1.6 H 1.7 H 1.8 H POC Creatinine Glucose 136 H 143 H 138 H Uric Acid 10.0 H 9.4 H Calcium 8.5 L 8.5 L Phosphorus 4.6 H 5.4 H GGT 70 H 71 H Lactate Dehydrogenase 336 H 269 H NT-Pro-B Natriuret Pep 07/30/22 07/30/22 07/30/22 12:04 12:02 12:02 Hgb 11.6 L Hct 39.6 L MCH 24.5 L MCHC 29.3 L RDW 21.0 H Immature Gran % (Auto) 0.8 H Neut % (Auto) 78.5 H Lymph % (Auto) 13.6 L Lymph # (Auto) 1.24 L Immature Gran # 0.07 H Chloride BUN 24 H Creatinine 1.5 H POC Creatinine 1.5 H Glucose 159 H Uric Acid Calcium Phosphorus GGT Lactate Dehydrogenase NT-Pro-B Natriuret Pep 3744.0 H Meds: Medications Acetaminophen (Acetaminophen 325 Mg Tablet) 650 mg PO Q6HP PRN; Protocol PRN Reason: Per Pain Protocol/Fever > 101 Last Admin: 08/01/22 01:46 Dose: 650 mg Albuterol Sulfate (Albuterol Sulfate 2.5 Mg/3 Ml Nebulizer) 2.5 mg NEB Q2HP PRN PRN Reason: Shortness Of Breath Aspirin (Aspirin 81 Mg Tab.Chew) 81 mg CHEWED DAILY [facility] Last Admin: 08/01/22 08:26 Dose: 81 mg Atorvastatin Calcium (Atorvastatin 40 Mg Tablet) 40 mg PO HS [facility] Last Admin: 07/31/22 21:43 Dose: 40 mg Dextrose (Dextrose 50% 50 Ml Vial) 0 ml IV UD PRN PRN Reason: Per Sliding Scale Diagnostic Test (Pha) (Accu-Chek 1 Each Strip) 1 each FS ACHS [facility] Last Admin: 08/01/22 12:47 Dose: 1 each Docusate Sodium (Docusate Sodium 100 Mg Capsule) 100 mg PO BID [facility] Last Admin: 08/01/22 08:26 Dose: 100 mg Finasteride (Finasteride 5 Mg Tablet) 5 mg PO DAILY [facility] Last Admin: 08/01/22 08:26 Dose: 5 mg Glucose (Dextrose 31 Gm Oral.Susp) 15 gm PO PRN PRN PRN Reason: Hypoglycemia Heparin Sodium (Porcine) (Heparin 5,000 Unit/Ml Vial) 5,000 unit SQ Q12 [facility] Last Admin: 08/01/22 08:25 Dose: 5,000 unit Sodium Chloride (Sodium Chloride 0.9%) 250 mls @ 20 mls/hr IV .[id number] [facility] Last Admin: 08/01/22 03:28 Dose: 20 mls/hr Furosemide 250 mg/ Sodium (Chloride) 250 mls @ 10 mls/hr IV Q24H [facility]; Protocol Last Admin: 07/31/22 20:04 Dose: Not Given Insulin Human Lispro (Insulin Lispro 1 Unit/0.01 Ml Unit) 0 unit SQ ACHS [facility]; Protocol Last Admin: 08/01/22 12:47 Dose: 1 units Lactulose (Lactulose 20 Gm/30 Ml Oral.Rosy) 10 gm PO DAILYP PRN PRN Reason: Constipation Lisinopril (Lisinopril 5 Mg Tablet) 10 mg PO QDAY [facility] Last Admin: 08/01/22 08:26 Dose: 10 mg Metoprolol Succinate (Metoprolol Succinate 50 Mg Tab.Xl.24h) 50 mg PO BID [facility] Last Admin: 08/01/22 08:26 Dose: 50 mg Ondansetron HCl (Ondansetron 4 Mg/2 Ml Vial) 4 mg IV Q4HP PRN; Protocol PRN Reason: Nausea And Vomiting Mometasone- Formoterol [Dulera] 200-5 Mcg Inhaler 2 dose INH BID [facility] Last Admin: 08/01/22 08:26 Dose: Not Given Senna (Sennosides 1 Tablet) 2 tab PO HSP PRN PRN Reason: Constipation Simethicone (Simethicone 80 Mg Tab.Chew) 80 mg CHEWED QIDP PRN PRN Reason: Dyspepsia Sodium Chloride (0.9 % Sodium Chloride 10 Ml Syringe) 10 ml IV Q8 [facility] Last Admin: 08/01/22 05:59 Dose: Not Given Tamsulosin HCl (Tamsulosin 0.4 Mg Capsule) 0.4 mg PO QDAY [facility] Last Admin: 08/01/22 08:26 Dose: 0.4 mg Tiotropium [place] (Tiotropium [place] 18 Mcg Inhalant) 18 mcg INH QDAY [facility] Last Admin: 08/01/22 08:26 Dose: Not Given Venlafaxine HCl (Venlafaxine 150 Mg Cap.Xl.24h) 150 mg PO QDAY [facility] Last Admin: 08/01/22 08:25 Dose: 150 mg A/P Narrative A/P Narrative: Assessment:61 year old male with a history of hypertension, type 2 diabetes mellitus, chronic kidney disease stage III, heart failure with reduced ejection fraction, diastolic heart failure, reduced right ventricular systolic function, obstructive of sleep apnea on AutoPap, morbid obesity admitted for acute on chronic systolic and diastolic heart failure. #Acute on chronic combined systolic and diastolic heart failure #Anasarca secondary to heart failure #Coronary artery disease, stable #Chronic kidney disease stage III, stable #Essential hypertension #Type 2 diabetes mellitus #Chronic normocytic anemia, stable #Status post cardiac pacemaker/defibrillator #Obstructive sleep apnea #Obesity BMI 63 Plan -Lasix infusion, titrate to effect. -Monitor renal function, electrolytes, daily weights, urine output. -Aspirin 81 mg daily for CAD, the patient was not taking this prior to admission. -Correction Humalog SSIlow. -Continue home Lisinopril, Toprol, finasteride, Flomax, Dulera, rosuvastatin, Spiriva, venlafaxine. -Hold home metformin, Jardiance, spironolactone for now. -Consistent carbohydrate and low-sodium diet. -PT consult. -DVT prophylaxis: Heparin SQ -CODE STATUS: Full -Disposition: Home with home health versus SNF for rehab. Time Spent With Patient Time: Total time spent is greater than 50% in coordination of care (as documented) at patient's floor/unit and/or counseling patient:
[2022-08-01] MEDS: FUROSEMIDE 250 MG in 0.9 % SODIUM CHLORIDE 225 ML IV SCH ×2 (15:54→18:31)
[2022-08-01 17:59] LABS: Albumin 3.8 gm/dL (3.2-5.2); Blood Urea Nitrogen 25 mg/dL (8-23); Calcium 8.7 mg/dL (8.6-10.4); Carbon Dioxide 32 mmol/L (22-30); Chloride 92 mmol/L (96-108); Glomerular Filtration Rate 49; Glucose 94 mg/dL (70-105); Phosphorous 3.9 mg/dL (2.5-4.5)
[2022-08-01] MEDS ORDERED: POTASSIUM CHLORIDE 20 MEQ TABLET PO SCH (19:30)
[2022-08-01] MEDS: ATORVASTATIN 40 MG TABLET PO SCH (20:16)
[2022-08-02] MEDS: 0.9 % SODIUM CHLORIDE 250 ML IV SCH ×3 (00:09→12:21)
[2022-08-02] MEDS: 0.9 % SODIUM CHLORIDE 10 ML SYRINGE IV SCH ×3 (05:19→21:09)
[2022-08-02 07:01] LABS: ALT/SGPT 20 U/L (<40); AST/SGOT 18 U/L (<40); Albumin 3.4 gm/dL (3.2-5.2); Albumin/Globulin Ratio 1.2 (1.0-2.3); Alkaline Phosphatase 67 U/L (39-117); Bilirubin,Direct < 0.2 mg/dL (0-0.3); Bilirubin,Total 0.6 mg/dL (0.1-1.0); Blood Urea Nitrogen 21 mg/dL (8-23); Calcium 8.3 mg/dL (8.6-10.4); Carbon Dioxide 28 mmol/L (22-30); Chloride 95 mmol/L (96-108); Globulin 2.9 gm/dL (2.2-3.7); Glomerular Filtration Rate 49; Glucose 119 mg/dL (70-105); Lactate Dehydrogenase 295 U/L (135-225); Phosphorous 3.5 mg/dL (2.5-4.5); Triglycerides 100 mg/dL (<150); Uric Acid 10.3 mg/dL (2.5-8.0)
[2022-08-02] MEDS: INSULIN LISPRO 1 UNIT/0.01 ML UNIT SQ SCH ×4 (08:14→21:07)
[2022-08-02] MEDS: TIOTROPIUM BROMIDE 18 MCG INHALANT INH SCH (08:49)
[2022-08-02] MEDS: MOMETASONE FORMOTEROL INH SCH ×2 (08:49→21:03)
[2022-08-02] MEDS ORDERED: FLU VACC QS2022-23(6MOS UP)/PF 60 MCG/0.5 ML SYRINGE IM ONE (09:00)
[2022-08-02] MEDS: HEPARIN 5,000 UNIT/ML VIAL SQ SCH ×2 (09:06→21:08)
[2022-08-02] MEDS: DOCUSATE SODIUM 100 MG CAPSULE PO SCH ×2 (09:06→21:08)
[2022-08-02] MEDS: ASPIRIN 81 MG TAB.CHEW CHEWED SCH (09:06)
[2022-08-02] MEDS: LISINOPRIL 5 MG TABLET PO SCH (09:07)
[2022-08-02] MEDS: ACETAMINOPHEN 325 MG TABLET PO PRN (09:07)
[2022-08-02] MEDS: FINASTERIDE 5 MG TABLET PO SCH (09:07)
[2022-08-02] MEDS: TAMSULOSIN 0.4 MG CAPSULE PO SCH (09:07)
[2022-08-02] MEDS: METOPROLOL SUCCINATE 50 MG TAB.XL.24H PO SCH ×2 (09:07→21:08)
[2022-08-02] MEDS: VENLAFAXINE 150 MG CAP.XL.24H PO SCH (09:07)
[2022-08-02] MEDS: FUROSEMIDE 250 MG in 0.9 % SODIUM CHLORIDE 225 ML IV SCH (16:48)
[2022-08-02 17:32] LABS: Albumin 3.6 gm/dL (3.2-5.2); Blood Urea Nitrogen 23 mg/dL (8-23); Calcium 8.9 mg/dL (8.6-10.4); Carbon Dioxide 31 mmol/L (22-30); Chloride 95 mmol/L (96-108); Glomerular Filtration Rate 49; Glucose 163 mg/dL (70-105); Phosphorous 3.4 mg/dL (2.5-4.5)
--- NOTE | 2022-08-02 19:10 | Internal Med Progress Note ---
SUBJECTIVE Subjective Patient information: Note initiated : 08/02/22 at 7:08 pm Service Date, if different from initiated Date: [] Patient: Guillaume Broderick 61 y/o M admitted on 07/30/22 for bilat LE edema; acute on chronic systolic. Chief Complaint: [] Interval history: Mr. Broderick is a 61 year old male with a history of hypertension, type 2 di abetes mellitus, chronic kidney disease stage III, heart failure with reduced ejection fraction, diastolic heart failure, reduced right ventricular systolic function, obstructive of sleep apnea on AutoPap, severe obesity with an admission BMI of 63 who presented to the emergency department for shortness of breath which he says has progressively worsened for about 3 weeks. The patient was last hospitalized at [facility] in October 2021 for a heart failure exacerbation. During that admission, the patient was found to have a left ventricular ejection fraction estimated to be 36%. The patient was [facility] to a [facility] facility. He says that he has been several [facility] facilities since that time. The patient says that his Lasix was discontinued months ago due to concern for his renal function. The patient says that he was instead started on spironolactone however says that it did not work as well as Lasix. 2 days ago, the patient was seen in clinic and started on oral Lasix. Patient was unable to get to the bathroom to urinate and was incontinent therefore called EMS and he was brought to the emergency department. In the emergency department, the patient was initially hypoxic however oxygenation improved after he received Lasix. The patient did respond well to a dose of Lasix IV 40 mg once. Chest x-ray is consistent with pulmonary vascular congestion. EKG did not show any acute ischemic changes, troponin level was normal. NT proBNP was elevated at 3744. The patient's clinical presentation is consistent with acute on chronic heart failure likely because he has not been taking loop diuretics for some time. 07/31 Vitals stable overnight, responded well to IV Lasix, transition to a Lasix infusion. Check renal function and electrolytes twice a day while the patient is on a Lasix infusion. 08/01 Vital stable overnight, renal function stable on morning labs, potassium normal. Patient is diuresing well on Lasix infusion which was increased to 10 mg/h yesterday evening. Transthoracic echocardiogram showed an LVEF of 20 to 25%, right ventricular systolic function appeared mildly reduced, Doppler findings consistent with mild pulmonary hypertension. Prior echogram in 2020 showed an LVEF of 36%. 08/02 Vital stable, renal function stable, potassium normal. Continue Lasix 10 mg/h and monitor renal function and electrolytes closely. The patient feels like he is approaching his baseline volume status, may be able to transition to oral Lasix tomorrow. Physical exam Head: Atraumatic, normal inspection. Eyes: normal appearance, no scleral icterus. Neck: full ROM Respiratory: On room air, no accessory muscle use or other signs of respiratory distress. Cardiovascular: normal rate and rhythm, S1, S2. GI/Abdominal: Obesely distended, soft, nontender, no guarding. Extremities: Bilateral lower extremity pitting edema up to thighs, improving with diuresis Neurological: CN II-XII intact, intact motor, intact sensation. Psychiatric: normal mood. Skin: Bilateral venous stasis dermatitis. Constitutional Vitals: Vital Signs Temp Pulse Resp BP Pulse Ox O2 Del Method O2 Flow Rate 97.7 F 81 18 138/80 92 0 08/02/22 16:00 08/02/22 16:00 08/02/22 18:03 08/02/22 18:03 08/02/22 16:00 08/02/22 16:00 08/02/22 00:14 Period Temp Pulse Resp BP Sys/Becerra Pulse Ox O2 Del Method O2 Flow Rate Last 24 Hr 97.3 F-98.0 F 65-86 12-26 112-170/77-101 90-97 CPAP-Room Air 0 Intake and Output 08/02/22 08/02/22 08/02/22 05:59 13:59 21:59 Intake Total 905 658 849 Output Total 950 1851 1002 Balance -45 -1193 -153 Weight 186.29 kg Patient Weight 08/03/22 05:59 Weight 186.29 kg Intake & Output: Intake & Output 08/02/22 08/02/22 08/02/22 05:59 13:59 21:59 Intake Total 905 658 849 Output Total 950 1851 1002 Balance -45 -1193 -153 Weight 186.29 kg Intake: IV 387 58 249 Sodium Chloride 0.9% 250 ml @ 387 58 20 mls/hr IV .[id number] [facility] Rx#: [id number] Lasix 250 mg In Sodium Chloride 249 0.9% 225 ml @ 10 MG/HR 10 mls/ hr IV Q24H [facility] Rx#:[id number] Oral 518 600 600 Output: Urine Catheter Amount 1850 1000 Void Amount 950 # of times incontinent of urine 1 2 Other: Meal Lunch Percent of Meal Consumed 100% Feeding Ability Independent Urine Appearance Clear Clear Clear External Urinary Catheter Clear Urine Color Yellow Yellow Yellow Pale External Urinary Catheter Yellow Urine Odor External Urinary Catheter Normal Stool Size Large Small Stool Color Brown Brown Stool Consistency Formed Loose Cylindrical # Bowel Movements 1 0 0 # of times incontinent of 1 Bowels OBJ DATA Labs CBC & Chem 7: 07/30/22 12:02 08/02/22 16:00 Labs: Abnormal Lab Results 08/02/22 08/02/22 08/01/22 16:00 05:40 16:12 Chloride 95 L 95 L 92 L Carbon Dioxide 31 H 32 H BUN 25 H Creatinine 1.5 H 1.5 H 1.5 H Glucose 163 H 119 H Uric Acid 10.3 H Calcium 8.3 L Phosphorus GGT 63 H Lactate Dehydrogenase 295 H 08/01/22 07/31/22 07/31/22 05:50 16:00 05:50 Chloride 95 L Carbon Dioxide BUN 29 H 26 H Creatinine 1.6 H 1.7 H 1.8 H Glucose 136 H 143 H 138 H Uric Acid 10.0 H 9.4 H Calcium 8.5 L 8.5 L Phosphorus 4.6 H 5.4 H GGT 70 H 71 H Lactate Dehydrogenase 336 H 269 H Meds: Medications Acetaminophen (Acetaminophen 325 Mg Tablet) 650 mg PO Q6HP PRN; Protocol PRN Reason: Per Pain Protocol/Fever > 101 Last Admin: 08/02/22 09:07 Dose: 650 mg Albuterol Sulfate (Albuterol Sulfate 2.5 Mg/3 Ml Nebulizer) 2.5 mg NEB Q2HP PRN PRN Reason: Shortness Of Breath Aspirin (Aspirin 81 Mg Tab.Chew) 81 mg CHEWED DAILY [facility] Last Admin: 08/02/22 09:06 Dose: 81 mg Atorvastatin Calcium (Atorvastatin 40 Mg Tablet) 40 mg PO HS [facility] Last Admin: 08/01/22 20:16 Dose: 40 mg Dextrose (Dextrose 50% 50 Ml Vial) 0 ml IV UD PRN PRN Reason: Per Sliding Scale Diagnostic Test (Pha) (Accu-Chek 1 Each Strip) 1 each FS ACHS [facility] Last Admin: 08/02/22 17:00 Dose: 1 each Docusate Sodium (Docusate Sodium 100 Mg Capsule) 100 mg PO BID [facility] Last Admin: 08/02/22 09:06 Dose: 100 mg Finasteride (Finasteride 5 Mg Tablet) 5 mg PO DAILY [facility] Last Admin: 08/02/22 09:07 Dose: 5 mg Glucose (Dextrose 31 Gm Oral.Susp) 15 gm PO PRN PRN PRN Reason: Hypoglycemia Heparin Sodium (Porcine) (Heparin 5,000 Unit/Ml Vial) 5,000 unit SQ Q12 [facility] Last Admin: 08/02/22 09:06 Dose: 5,000 unit Sodium Chloride (Sodium Chloride 0.9%) 250 mls @ 20 mls/hr IV .[id number] [facility] Last Admin: 08/02/22 12:21 Dose: Not Given Furosemide 250 mg/ Sodium (Chloride) 250 mls @ 10 mls/hr IV Q24H [facility]; Protocol Last Admin: 08/02/22 16:48 Dose: 10 mg/hr, 10 mls/hr Insulin Human Lispro (Insulin Lispro 1 Unit/0.01 Ml Unit) 0 unit SQ [facility]; Protocol Last Admin: 08/02/22 17:14 Dose: Not Given Lactulose (Lactulose 20 Gm/30 Ml Oral.Rosy) 10 gm PO DAILYP PRN PRN Reason: Constipation Last Admin: 08/01/22 20:17 Dose: 10 gm Lisinopril (Lisinopril 5 Mg Tablet) 10 mg PO QDAY [facility] Last Admin: 08/02/22 09:07 Dose: 10 mg Metoprolol Succinate (Metoprolol Succinate 50 Mg Tab.Xl.24h) 50 mg PO BID [facility] Last Admin: 08/02/22 09:07 Dose: 50 mg Ondansetron HCl (Ondansetron 4 Mg/2 Ml Vial) 4 mg IV Q4HP PRN; Protocol PRN Reason: Nausea And Vomiting Mometasone- Formoterol [Dulera] 200-5 Mcg Inhaler 2 dose INH BID [facility] Last Admin: 08/02/22 08:49 Dose: Not Given Senna (Sennosides 1 Tablet) 2 tab PO HSP PRN PRN Reason: Constipation Simethicone (Simethicone 80 Mg Tab.Chew) 80 mg CHEWED QIDP PRN PRN Reason: Dyspepsia Sodium Chloride (0.9 % Sodium Chloride 10 Ml Syringe) 10 ml IV Q8 [facility] Last Admin: 08/02/22 12:22 Dose: Not Given Tamsulosin HCl (Tamsulosin 0.4 Mg Capsule) 0.4 mg PO QDAY [facility] Last Admin: 08/02/22 09:07 Dose: 0.4 mg Tiotropium [place] (Tiotropium [place] 18 Mcg Inhalant) 18 mcg INH QDAY [facility] Last Admin: 08/02/22 08:49 Dose: Not Given Venlafaxine HCl (Venlafaxine 150 Mg Cap.Xl.24h) 150 mg PO QDAY [facility] Last Admin: 08/02/22 09:07 Dose: 150 mg A/P Narrative A/P Narrative: Assessment:61 year old male with a history of hypertension, type 2 diabetes mellitus, chronic kidney disease stage III, heart failure with reduced ejection fraction, diastolic heart failure, reduced right ventricular systolic function, obstructive of sleep apnea on AutoPap, morbid obesity admitted for acute on chronic systolic and diastolic heart failure. #Acute on chronic combined systolic and diastolic heart failure #Anasarca secondary to heart failure #Coronary artery disease, stable #Chronic kidney disease stage III, stable #Essential hypertension #Type 2 diabetes mellitus #Chronic normocytic anemia, stable #Status post cardiac pacemaker/defibrillator #Obstructive sleep apnea #Obesity BMI 63 Plan -Lasix infusion, titrate to effect. -Monitor renal function, electrolytes, daily weights, urine output. -Aspirin 81 mg daily for CAD, the patient was not taking this prior to admission. -Correction Humalog SSIlow. -Continue home Lisinopril, Toprol, finasteride, Flomax, Dulera, rosuvastatin, Spiriva, venlafaxine. -Hold home metformin, Jardiance, spironolactone for now. -Consistent carbohydrate and low-sodium diet. -PT consult. -DVT prophylaxis: Heparin SQ -CODE STATUS: Full -Disposition: Home with home health versus SNF for rehab. Time Spent With Patient Time: Total time spent is greater than 50% in coordination of care (as documented) at patient's floor/unit and/or counseling patient:
[2022-08-02] MEDS: ATORVASTATIN 40 MG TABLET PO SCH (21:07)
[2022-08-03] MEDS: 0.9 % SODIUM CHLORIDE 250 ML IV SCH ×2 (00:42→15:43)
[2022-08-03] MEDS: 0.9 % SODIUM CHLORIDE 10 ML SYRINGE IV SCH ×3 (05:26→21:46)
[2022-08-03] MEDS: INSULIN LISPRO 1 UNIT/0.01 ML UNIT SQ SCH ×4 (08:10→21:37)
[2022-08-03] MEDS: TIOTROPIUM BROMIDE 18 MCG INHALANT INH SCH (08:11)
[2022-08-03] MEDS: MOMETASONE FORMOTEROL INH SCH ×2 (08:11→21:38)
[2022-08-03] MEDS: ASPIRIN 81 MG TAB.CHEW CHEWED SCH (08:26)
[2022-08-03] MEDS: DOCUSATE SODIUM 100 MG CAPSULE PO SCH ×2 (08:26→21:38)
[2022-08-03] MEDS: TAMSULOSIN 0.4 MG CAPSULE PO SCH (08:26)
[2022-08-03] MEDS: VENLAFAXINE 150 MG CAP.XL.24H PO SCH (08:26)
[2022-08-03] MEDS: LISINOPRIL 5 MG TABLET PO SCH (08:27)
[2022-08-03] MEDS: FINASTERIDE 5 MG TABLET PO SCH (08:27)
[2022-08-03] MEDS: METOPROLOL SUCCINATE 50 MG TAB.XL.24H PO SCH ×2 (08:27→21:37)
[2022-08-03] MEDS: HEPARIN 5,000 UNIT/ML VIAL SQ SCH ×2 (08:27→21:37)
[2022-08-03 13:32] LABS: ALT/SGPT 19 U/L (<40); AST/SGOT 20 U/L (<40); Albumin 3.7 gm/dL (3.2-5.2); Albumin/Globulin Ratio 1.2 (1.0-2.3); Alkaline Phosphatase 68 U/L (39-117); Bilirubin,Direct < 0.2 mg/dL (0-0.3); Bilirubin,Total 0.5 mg/dL (0.1-1.0); Blood Urea Nitrogen 22 mg/dL (8-23); Calcium 8.6 mg/dL (8.6-10.4); Carbon Dioxide 27 mmol/L (22-30); Chloride 95 mmol/L (96-108); Glomerular Filtration Rate 45; Glucose 130 mg/dL (70-105); Lactate Dehydrogenase 337 U/L (135-225); Phosphorous 3.4 mg/dL (2.5-4.5); Triglycerides 100 mg/dL (<150); Uric Acid 10.2 mg/dL (2.5-8.0)
[2022-08-03 13:48] LABS: Blood Urea Nitrogen 22 mg/dL (8-23); Calcium 8.4 mg/dL (8.6-10.4); Carbon Dioxide 29 mmol/L (22-30); Chloride 97 mmol/L (96-108); Glomerular Filtration Rate 49; Glucose 111 mg/dL (70-105); Phosphorous 3.3 mg/dL (2.5-4.5)
[2022-08-03] MEDS ORDERED: POTASSIUM CHLORIDE 20 MEQ TABLET PO ONE (14:04)
[2022-08-03] MEDS: FUROSEMIDE 250 MG in 0.9 % SODIUM CHLORIDE 225 ML IV SCH (15:43)
--- NOTE | 2022-08-03 15:50 | Internal Med Progress Note ---
SUBJECTIVE Subjective Patient information: Note initiated : 08/03/22 at 3:49 pm Service Date, if different from initiated Date: [] Patient: Guillaume Broderick 61 y/o M admitted on 07/30/22 for bilat LE edema; acute on chronic systolic. Chief Complaint: [] Interval history: Mr. Broderick is a 61 year old male with a history of hypertension, type 2 di abetes mellitus, chronic kidney disease stage III, heart failure with reduced ejection fraction, diastolic heart failure, reduced right ventricular systolic function, obstructive of sleep apnea on AutoPap, severe obesity with an admission BMI of 63 who presented to the emergency department for shortness of breath which he says has progressively worsened for about 3 weeks. The patient was last hospitalized at [facility] in October 2021 for a heart failure exacerbation. During that admission, the patient was found to have a left ventricular ejection fraction estimated to be 36%. The patient was discharged to a [facility] facility. He says that he has been several [facility] facilities since that time. The patient says that his Lasix was discontinued months ago due to concern for his renal function. The patient says that he was instead started on spironolactone however says that it did not work as well as Lasix. 2 days ago, the patient was seen in clinic and started on oral Lasix. Patient was unable to get to the bathroom to urinate and was incontinent therefore called EMS and he was brought to the emergency department. In the emergency department, the patient was initially hypoxic however oxygenation improved after he received Lasix. The patient did respond well to a dose of Lasix IV 40 mg once. Chest x-ray is consistent with pulmonary vascular congestion. EKG did not show any acute ischemic changes, troponin level was normal. NT proBNP was elevated at 3744. The patient's clinical presentation is consistent with acute on chronic heart failure likely because he has not been taking loop diuretics for some time. 07/31 Vitals stable overnight, responded well to IV Lasix, transition to a Lasix infusion. Check renal function and electrolytes twice a day while the patient is on a Lasix infusion. 08/01 Vital stable overnight, renal function stable on morning labs, potassium normal. Patient is diuresing well on Lasix infusion which was increased to 10 mg/h yesterday evening. Transthoracic echocardiogram showed an LVEF of 20 to 25%, right ventricular systolic function appeared mildly reduced, Doppler findings consistent with mild pulmonary hypertension. Prior echogram in 2020 showed an LVEF of 36%. 08/02 Vital stable, renal function stable, potassium normal. Continue Lasix 10 mg/h and monitor renal function and electrolytes closely. The patient feels like he is approaching his baseline volume status, may be able to transition to oral Lasix tomorrow depending on laboratory work. 08/03 Renal function and electrolytes stable, continuing Lasix infusion and monitoring renal function and electrolytes closely. Volume status has improved significantly since admission however the patient is still significantly volume overloaded. Physical exam Head: Atraumatic, normal inspection. Eyes: normal appearance, no scleral icterus. Neck: Large neck girth, full ROM Respiratory: On room air, no accessory muscle use or other signs of respiratory distress. Cardiovascular: normal rate and rhythm, S1, S2. GI/Abdominal: Obesely distended, soft, nontender, no guarding. Extremities: Bilateral lower extremity pitting edema and sacral edema, significantly improving since admission Neurological: CN II-XII intact, intact motor, intact sensation. Psychiatric: normal mood. Skin: Bilateral venous stasis dermatitis. Constitutional Vitals: Vital Signs Temp Pulse Resp BP Pulse Ox O2 Del Method O2 Flow Rate 98.0 F 78 16 142/112 95 0 08/03/22 12:01 08/03/22 14:00 08/03/22 14:01 08/03/22 14:01 08/03/22 14:00 08/03/22 14:01 08/02/22 00:14 Period Temp Pulse Resp BP Sys/Becerra Pulse Ox O2 Del Method O2 Flow Rate Last 24 Hr 97.2 F-98.6 F 47-96 08-19 128-158/80-129 88-98 Room Air-Room Air Intake and Output 08/03/22 08/03/22 08/03/22 05:59 13:59 21:59 Intake Total 389 240 379 Output Total 426 1000 Balance -37 -760 379 Intake & Output: Intake & Output 08/03/22 08/03/22 08/03/22 05:59 13:59 21:59 Intake Total 389 240 379 Output Total 426 1000 Balance -37 -760 379 Intake: IV 169 379 Sodium Chloride 0.9% 250 ml @ 169 150 20 mls/hr IV .[id number] [facility] Rx#: [id number] Lasix 250 mg In Sodium Chloride 229 0.9% 225 ml @ 10 MG/HR 10 mls/ hr IV Q24H [facility] Rx#:[id number] Oral 220 240 Output: Urine Catheter Amount 425 Void Amount 1000 # of times incontinent of urine 1 Other: Meal Lunch Percent of Meal Consumed 100% Feeding Ability Independent Urine Appearance Clear Urine Color Yellow # Voids 1 OBJ DATA Labs CBC & Chem 7: 07/30/22 12:02 08/03/22 12:33 Labs: Abnormal Lab Results 08/03/22 08/03/22 08/02/22 12:33 06:00 16:00 Chloride 95 L 95 L Carbon Dioxide 31 H BUN Creatinine 1.5 H 1.6 H 1.5 H Glucose 111 H 130 H 163 H Uric Acid 10.2 H Calcium 8.4 L Phosphorus GGT 62 H Lactate Dehydrogenase 337 H 08/02/22 08/01/22 08/01/22 05:40 16:12 05:50 Chloride 95 L 92 L 95 L Carbon Dioxide 32 H BUN 25 H Creatinine 1.5 H 1.5 H 1.6 H Glucose 119 H 136 H Uric Acid 10.3 H 10.0 H Calcium 8.3 L 8.5 L Phosphorus GGT 63 H 70 H Lactate Dehydrogenase 295 H 336 H 07/31/22 16:00 Chloride Carbon Dioxide BUN 29 H Creatinine 1.7 H Glucose 143 H Uric Acid Calcium Phosphorus 4.6 H GGT Lactate Dehydrogenase Meds: Medications Acetaminophen (Acetaminophen 325 Mg Tablet) 650 mg PO Q6HP PRN; Protocol PRN Reason: Per Pain Protocol/Fever > 101 Last Admin: 08/02/22 09:07 Dose: 650 mg Albuterol Sulfate (Albuterol Sulfate 2.5 Mg/3 Ml Nebulizer) 2.5 mg NEB Q2HP PRN PRN Reason: Shortness Of Breath Aspirin (Aspirin 81 Mg Tab.Chew) 81 mg CHEWED DAILY [facility] Last Admin: 08/03/22 08:26 Dose: 81 mg Atorvastatin Calcium (Atorvastatin 40 Mg Tablet) 40 mg PO HS [facility] Last Admin: 08/02/22 21:07 Dose: 40 mg Dextrose (Dextrose 50% 50 Ml Vial) 0 ml IV UD PRN PRN Reason: Per Sliding Scale Diagnostic Test (Pha) (Accu-Chek 1 Each Strip) 1 each FS ACHS [facility] Last Admin: 08/03/22 11:50 Dose: 1 each Docusate Sodium (Docusate Sodium 100 Mg Capsule) 100 mg PO BID [facility] Last Admin: 08/03/22 08:26 Dose: 100 mg Finasteride (Finasteride 5 Mg Tablet) 5 mg PO DAILY [facility] Last Admin: 08/03/22 08:27 Dose: 5 mg Glucose (Dextrose 31 Gm Oral.Susp) 15 gm PO PRN PRN PRN Reason: Hypoglycemia Heparin Sodium (Porcine) (Heparin 5,000 Unit/Ml Vial) 5,000 unit SQ Q12 [facility] Last Admin: 08/03/22 08:27 Dose: 5,000 unit Sodium Chloride (Sodium Chloride 0.9%) 250 mls @ 20 mls/hr IV .[id number] [facility] Last Admin: 08/03/22 15:43 Dose: 10 mls/hr Furosemide 250 mg/ Sodium (Chloride) 250 mls @ 10 mls/hr IV Q24H [facility]; Protocol Last Admin: 08/03/22 15:43 Dose: 10 mg/hr, 10 mls/hr Insulin Human Lispro (Insulin Lispro 1 Unit/0.01 Ml Unit) 0 unit SQ ACHS [facility]; Protocol Last Admin: 08/03/22 11:51 Dose: Not Given Lactulose (Lactulose 20 Gm/30 Ml Oral.Rosy) 10 gm PO DAILYP PRN PRN Reason: Constipation Last Admin: 08/01/22 20:17 Dose: 10 gm Lisinopril (Lisinopril 5 Mg Tablet) 10 mg PO QDAY [facility] Last Admin: 08/03/22 08:27 Dose: 10 mg Metoprolol Succinate (Metoprolol Succinate 50 Mg Tab.Xl.24h) 50 mg PO BID [facility] Last Admin: 08/03/22 08:27 Dose: 50 mg Ondansetron HCl (Ondansetron 4 Mg/2 Ml Vial) 4 mg IV Q4HP PRN; Protocol PRN Reason: Nausea And Vomiting Mometasone- Formoterol [Dulera] 200-5 Mcg Inhaler 2 dose INH BID [facility] Last Admin: 08/03/22 08:11 Dose: Not Given Senna (Sennosides 1 Tablet) 2 tab PO HSP PRN PRN Reason: Constipation Simethicone (Simethicone 80 Mg Tab.Chew) 80 mg CHEWED QIDP PRN PRN Reason: Dyspepsia Sodium Chloride (0.9 % Sodium Chloride 10 Ml Syringe) 10 ml IV Q8 [facility] Last Admin: 08/03/22 15:20 Dose: 10 ml Tamsulosin HCl (Tamsulosin 0.4 Mg Capsule) 0.4 mg PO QDAY [facility] Last Admin: 08/03/22 08:26 Dose: 0.4 mg Tiotropium [place] (Tiotropium [place] 18 Mcg Inhalant) 18 mcg INH QDAY [facility] Last Admin: 08/03/22 08:11 Dose: Not Given Venlafaxine HCl (Venlafaxine 150 Mg Cap.Xl.24h) 150 mg PO QDAY [facility] Last Admin: 08/03/22 08:26 Dose: 150 mg A/P Narrative A/P Narrative: Assessment:61 year old male with a history of hypertension, type 2 diabetes mellitus, chronic kidney disease stage III, heart failure with reduced ejection fraction, diastolic heart failure, reduced right ventricular systolic function, obstructive of sleep apnea on AutoPap, morbid obesity admitted for acute on chronic systolic and diastolic heart failure. Patient says that he did not have Lasix for quite some time prior to admission because he ran out of that medication. #Acute on chronic combined systolic and diastolic heart failure #Anasarca secondary to heart failure #Coronary artery disease, stable #Chronic kidney disease stage III, stable #Essential hypertension #Type 2 diabetes mellitus #Chronic normocytic anemia, stable #Status post cardiac pacemaker/defibrillator #Obstructive sleep apnea #Obesity BMI 63 Plan -Lasix infusion, titrate to effect. -Monitor renal function, electrolytes, daily weights, urine output. -Once dry weight is achieved will resume oral Lasix. -Aspirin 81 mg daily for CAD, the patient was not taking this prior to admission. -Correction Humalog SSIlow. -Continue home Lisinopril, Toprol, finasteride, Flomax, Dulera, rosuvastatin, Spiriva, venlafaxine. -Hold home metformin, Jardiance, spironolactone for now. -Consistent carbohydrate and low-sodium diet. -PT consult. -DVT prophylaxis: Heparin SQ -CODE STATUS: Full -Disposition: Probably home with home health, less likely low intensity rehab. Time Spent With Patient Time: Total time spent is greater than 50% in coordination of care (as documented) at patient's floor/unit and/or counseling patient:
[2022-08-03] MEDS: ACETAMINOPHEN 325 MG TABLET PO PRN (18:39)
[2022-08-03 20:39] LABS: Albumin 3.9 gm/dL (3.2-5.2); Blood Urea Nitrogen 25 mg/dL (8-23); Calcium 8.6 mg/dL (8.6-10.4); Carbon Dioxide 29 mmol/L (22-30); Chloride 94 mmol/L (96-108); Glomerular Filtration Rate 49; Glucose 109 mg/dL (70-105); Phosphorous 3.5 mg/dL (2.5-4.5)
[2022-08-03] MEDS: ATORVASTATIN 40 MG TABLET PO SCH (21:38)
[2022-08-04] MEDS: 0.9 % SODIUM CHLORIDE 10 ML SYRINGE IV SCH ×3 (06:11→20:46)
[2022-08-04] MEDS: 0.9 % SODIUM CHLORIDE 250 ML IV SCH ×2 (06:31→17:25)
[2022-08-04] MEDS: INSULIN LISPRO 1 UNIT/0.01 ML UNIT SQ SCH ×4 (07:34→21:10)
[2022-08-04 07:56] LABS: ALT/SGPT 18 U/L (<40); AST/SGOT 16 U/L (<40); Albumin 3.6 gm/dL (3.2-5.2); Albumin/Globulin Ratio 1.3 (1.0-2.3); Alkaline Phosphatase 70 U/L (39-117); Bilirubin,Direct < 0.2 mg/dL (0-0.3); Bilirubin,Total 0.5 mg/dL (0.1-1.0); Blood Urea Nitrogen 24 mg/dL (8-23); Calcium 8.5 mg/dL (8.6-10.4); Carbon Dioxide 26 mmol/L (22-30); Chloride 93 mmol/L (96-108); Globulin 2.7 gm/dL (2.2-3.7); Glomerular Filtration Rate 49; Glucose 149 mg/dL (70-105); Lactate Dehydrogenase 252 U/L (135-225); Triglycerides 131 mg/dL (<150); Uric Acid 10.6 mg/dL (2.5-8.0)
--- NOTE | 2022-08-04 08:23 | Internal Med Progress Note ---
SUBJECTIVE Subjective Patient information: Note initiated : 08/04/22 at 8:19 am Service Date, if different from initiated Date: [] Patient: Guillaume Broderick 61 y/o M admitted on 07/30/22 for bilat LE edema; acute on chronic systolic. Chief Complaint: [] Interval history: Mr. Broderick is a 61 year old male with a history of hypertension, type 2 di abetes mellitus, chronic kidney disease stage III, heart failure with reduced ejection fraction, diastolic heart failure, reduced right ventricular systolic function, obstructive of sleep apnea on AutoPap, severe obesity with an admission BMI of 63 who presented to the emergency department for shortness of breath which he says has progressively worsened for about 3 weeks. The patient was last hospitalized at [facility] in October 2021 for a heart failure exacerbation. During that admission, the patient was found to have a left ventricular ejection fraction estimated to be 36%. The patient was discharged to a correction facility. He says that he has been several [facility] facilities since that time. The patient says that his Lasix was discontinued months ago due to concern for his renal function. The patient says that he was instead started on spironolactone however says that it did not work as well as Lasix. 2 days ago, the patient was seen in clinic and started on oral Lasix. Patient was unable to get to the bathroom to urinate and was incontinent therefore called EMS and he was brought to the emergency department. In the emergency department, the patient was initially hypoxic however oxygenation improved after he received Lasix. The patient did respond well to a dose of Lasix IV 40 mg once. Chest x-ray is consistent with pulmonary vascular congestion. EKG did not show any acute ischemic changes, troponin level was normal. NT proBNP was elevated at 3744. The patient's clinical presentation is consistent with acute on chronic heart failure likely because he has not been taking loop diuretics for some time. 07/31 Vitals stable overnight, responded well to IV Lasix, transition to a Lasix infusion. Check renal function and electrolytes twice a day while the patient is on a Lasix infusion. 08/01 Vital stable overnight, renal function stable on morning labs, potassium normal. Patient is diuresing well on Lasix infusion which was increased to 10 mg/h yesterday evening. Transthoracic echocardiogram showed an LVEF of 20 to 25%, right ventricular systolic function appeared mildly reduced, Doppler findings consistent with mild pulmonary hypertension. Prior echogram in 2020 showed an LVEF of 36%. 08/02 Vital stable, renal function stable, potassium normal. Continue Lasix 10 mg/h and monitor renal function and electrolytes closely. The patient feels like he is approaching his baseline volume status, may be able to transition to oral Lasix tomorrow depending on laboratory work. 08/03 Renal function and electrolytes stable, continuing Lasix infusion and monitoring renal function and electrolytes closely. Volume status has improved significantly since admission however the patient is still significantly volume overloaded. 08/04 Renal function and electrolytes stable, patient continues to diurese well. Check renal function in the afternoon for close monitoring. Anticipate the patient will be transition to oral Lasix in a day or 2. Physical exam Head: Atraumatic, normal inspection. Eyes: normal appearance, no scleral icterus. Neck: Large neck girth, full ROM Respiratory: On room air, no accessory muscle use or other signs of respiratory distress. Cardiovascular: normal rate and rhythm, S1, S2. GI/Abdominal: Obesely distended, soft, nontender, no guarding. Extremities: Bilateral lower extremity pitting edema and sacral edema, significantly improving since admission Neurological: CN II-XII intact, intact motor, intact sensation. Psychiatric: normal mood. Skin: Bilateral venous stasis dermatitis. Constitutional Vitals: Vital Signs Temp Pulse Resp BP Pulse Ox O2 Del Method O2 Flow Rate 98.8 F 36 L 14 129/102 94 0 08/04/22 00:00 08/04/22 06:08 08/04/22 06:08 08/04/22 06:01 08/04/22 06:08 08/04/22 03:00 08/02/22 00:14 Period Temp Pulse Resp BP Sys/Becerra Pulse Ox O2 Del Method O2 Flow Rate Last 24 Hr 97.8 F-98.8 F 36-100 - 61-175/14-165 85-96 CPAP-Room Air Intake and Output 08/03/22 08/04/22 08/04/22 21:59 05:59 13:59 Intake Total 499 420 Output Total 2600 900 Balance -2101 -480 Weight 182 kg Intake & Output: Intake & Output 08/03/22 08/04/22 08/04/22 21:59 05:59 13:59 Intake Total 499 420 Output Total 2600 900 Balance -2101 -480 Weight 182 kg Intake: IV 379 Sodium Chloride 0.9% 250 ml @ 150 20 mls/hr IV .[id number] [facility] Rx#: [id number] Lasix 250 mg In Sodium Chloride 229 0.9% 225 ml @ 10 MG/HR 10 mls/ hr IV Q24H [facility] Rx#:[id number] Oral 120 420 Output: Void Amount 2600 900 Other: Meal Dinner Percent of Meal Consumed 100% Feeding Ability Independent Urine Appearance Clear Clear Urine Color Yellow Yellow # Voids 2 OBJ DATA Labs CBC & Chem 7: 07/30/22 12:02 08/04/22 05:58 Labs: Abnormal Lab Results 08/04/22 08/03/22 08/03/22 05:58 18:00 12:33 Chloride 93 L 94 L Carbon Dioxide BUN 24 H 25 H Creatinine 1.5 H 1.5 H 1.5 H Glucose 149 H 109 H 111 H Uric Acid 10.6 H Calcium 8.5 L 8.4 L GGT 63 H Lactate Dehydrogenase 252 H 08/03/22 08/02/22 08/02/22 06:00 16:00 05:40 Chloride 95 L 95 L 95 L Carbon Dioxide 31 H BUN Creatinine 1.6 H 1.5 H 1.5 H Glucose 130 H 163 H 119 H Uric Acid 10.2 H 10.3 H Calcium 8.3 L GGT 62 H 63 H Lactate Dehydrogenase 337 H 295 H 08/01/22 16:12 Chloride 92 L Carbon Dioxide 32 H BUN 25 H Creatinine 1.5 H Glucose Uric Acid Calcium GGT Lactate Dehydrogenase Meds: Medications Acetaminophen (Acetaminophen 325 Mg Tablet) 650 mg PO Q6HP PRN; Protocol PRN Reason: Per Pain Protocol/Fever > 101 Last Admin: 08/03/22 18:39 Dose: 650 mg Albuterol Sulfate (Albuterol Sulfate 2.5 Mg/3 Ml Nebulizer) 2.5 mg NEB Q2HP PRN PRN Reason: Shortness Of Breath Aspirin (Aspirin 81 Mg Tab.Chew) 81 mg CHEWED DAILY [facility] Last Admin: 08/03/22 08:26 Dose: 81 mg Atorvastatin Calcium (Atorvastatin 40 Mg Tablet) 40 mg PO HS [facility] Last Admin: 08/03/22 21:38 Dose: 40 mg Dextrose (Dextrose 50% 50 Ml Vial) 0 ml IV UD PRN PRN Reason: Per Sliding Scale Diagnostic Test (Pha) (Accu-Chek 1 Each Strip) 1 each FS ACHS [facility] Last Admin: 08/04/22 07:34 Dose: 1 each Docusate Sodium (Docusate Sodium 100 Mg Capsule) 100 mg PO BID [facility] Last Admin: 08/03/22 21:38 Dose: 100 mg Finasteride (Finasteride 5 Mg Tablet) 5 mg PO DAILY [facility] Last Admin: 08/03/22 08:27 Dose: 5 mg Glucose (Dextrose 31 Gm Oral.Susp) 15 gm PO PRN PRN PRN Reason: Hypoglycemia Heparin Sodium (Porcine) (Heparin 5,000 Unit/Ml Vial) 5,000 unit SQ Q12 [facility] Last Admin: 08/03/22 21:37 Dose: 5,000 unit Sodium Chloride (Sodium Chloride 0.9%) 250 mls @ 20 mls/hr IV .[id number] [facility] Last Admin: 08/04/22 06:31 Dose: Not Given Furosemide 250 mg/ Sodium (Chloride) 250 mls @ 10 mls/hr IV Q24H [facility]; Protocol Last Admin: 08/03/22 15:43 Dose: 10 mg/hr, 10 mls/hr Insulin Human Lispro (Insulin Lispro 1 Unit/0.01 Ml Unit) 0 unit SQ [facility]; Protocol Last Admin: 08/04/22 07:34 Dose: Not Given Lactulose (Lactulose 20 Gm/30 Ml Oral.Rosy) 10 gm PO DAILYP PRN PRN Reason: Constipation Last Admin: 08/01/22 20:17 Dose: 10 gm Lisinopril (Lisinopril 5 Mg Tablet) 10 mg PO QDAY [facility] Last Admin: 08/03/22 08:27 Dose: 10 mg Metoprolol Succinate (Metoprolol Succinate 50 Mg Tab.Xl.24h) 50 mg PO BID [facility] Last Admin: 08/03/22 21:37 Dose: 50 mg Ondansetron HCl (Ondansetron 4 Mg/2 Ml Vial) 4 mg IV Q4HP PRN; Protocol PRN Reason: Nausea And Vomiting Mometasone- Formoterol [Dulera] 200-5 Mcg Inhaler 2 dose INH BID [facility] Last Admin: 08/03/22 21:38 Dose: Not Given Senna (Sennosides 1 Tablet) 2 tab PO HSP PRN PRN Reason: Constipation Simethicone (Simethicone 80 Mg Tab.Chew) 80 mg CHEWED QIDP PRN PRN Reason: Dyspepsia Sodium Chloride (0.9 % Sodium Chloride 10 Ml Syringe) 10 ml IV Q8 [facility] Last Admin: 08/04/22 06:11 Dose: Not Given Tamsulosin HCl (Tamsulosin 0.4 Mg Capsule) 0.4 mg PO QDAY [facility] Last Admin: 08/03/22 08:26 Dose: 0.4 mg Tiotropium Mckinney (Tiotropium Mckinney 18 Mcg Inhalant) 18 mcg INH QDAY [facility] Last Admin: 08/03/22 08:11 Dose: Not Given Venlafaxine HCl (Venlafaxine 150 Mg Cap.Xl.24h) 150 mg PO QDAY [facility] Last Admin: 08/03/22 08:26 Dose: 150 mg A/P Narrative A/P Narrative: Assessment:61 year old male with a history of hypertension, type 2 diabetes mellitus, chronic kidney disease stage III, heart failure with reduced ejection fraction, diastolic heart failure, reduced right ventricular systolic function, obstructive of sleep apnea on AutoPap, morbid obesity admitted for acute on chronic systolic and diastolic heart failure. Patient says that he did not have Lasix for quite some time prior to admission because he ran out of that medication. #Acute on chronic combined systolic and diastolic heart failure #Anasarca secondary to heart failure, significantly improved with diuresis #Coronary artery disease, stable #Chronic kidney disease stage III, stable #Essential hypertension #Type 2 diabetes mellitus #Chronic normocytic anemia, stable #Status post cardiac pacemaker/defibrillator #Obstructive sleep apnea #Obesity BMI 63 Plan -Lasix infusion, titrate to effect. -Monitor renal function, electrolytes, daily weights, urine output. -Once dry weight is achieved will resume oral Lasix, likely at a higher dose. -Aspirin 81 mg daily for CAD, the patient was not taking this prior to admission. -Correction Humalog SSIlow. -Continue home Lisinopril, Toprol, finasteride, Flomax, Dulera, rosuvastatin, Spiriva, venlafaxine. -Hold home metformin, Jardiance, spironolactone for now. -Consistent carbohydrate and low-sodium diet. -PT consult. -DVT prophylaxis: Heparin SQ -CODE STATUS: Full -Disposition: Probably home with home health when the patient has completed diuresis. Time Spent With Patient Time: Total time spent is greater than 50% in coordination of care (as documented) at patient's floor/unit and/or counseling patient:
[2022-08-04] MEDS: HEPARIN 5,000 UNIT/ML VIAL SQ SCH ×2 (09:38→20:44)
[2022-08-04] MEDS: ASPIRIN 81 MG TAB.CHEW CHEWED SCH (09:38)
[2022-08-04] MEDS: VENLAFAXINE 150 MG CAP.XL.24H PO SCH (09:39)
[2022-08-04] MEDS: TAMSULOSIN 0.4 MG CAPSULE PO SCH (09:39)
[2022-08-04] MEDS: METOPROLOL SUCCINATE 50 MG TAB.XL.24H PO SCH ×2 (09:39→20:44)
[2022-08-04] MEDS: FINASTERIDE 5 MG TABLET PO SCH (09:39)
[2022-08-04] MEDS: DOCUSATE SODIUM 100 MG CAPSULE PO SCH ×2 (09:39→20:44)
[2022-08-04] MEDS: TIOTROPIUM BROMIDE 18 MCG INHALANT INH SCH (09:46)
[2022-08-04] MEDS: MOMETASONE FORMOTEROL INH SCH ×2 (09:46→20:45)
[2022-08-04] MEDS: LISINOPRIL 5 MG TABLET PO SCH (11:13)
[2022-08-04] MEDS ORDERED: HYDROCHLOROTHIAZIDE 25 MG TABLET PO ONE (13:02)
--- NOTE | 2022-08-04 13:05 | Internal Med Progress Note ---
SUBJECTIVE Subjective Patient information: Note initiated : 08/04/22 at 12:56 pm Service Date, if different from initiated Date: [] Patient: Guillaume Broderick 61 y/o M admitted on 07/30/22 for bilat LE edema; acute on chronic systolic. Chief Complaint: [] Interval history: nterval history: Mr. Broderick is a 61 year old male with a history of hypertension, type 2 diabetes mellitus, chronic kidney disease stage III, heart failure with reduced ejection fraction, diastolic heart failure, reduced right ventricular systolic function, obstructive of sleep apnea on AutoPap, severe obesity with an admission BMI of 63 who presented to the emergency department for shortness of breath which he says has progressively worsened for about 3 weeks. The patient was last hospitalized at [facility] in October 2021 for a heart failure exacerbation. During that admission, the patient was found to have a left ventricular ejection fraction estimated to be 36%. The patient was discharged to a detention facility. He says that he has been several healthcare facilities since that time. The patient says that his Lasix was discontinued months ago due to concern for his renal function. The patient says that he was instead started on spironolactone however says that it did not work as well as Lasix. 2 days ago, the patient was seen in clinic and started on oral Lasix. Patient was unable to get to the bathroom to urinate and was incontinent therefore called EMS and he was brought to the emergency department. In the emergency department, the patient was initially hypoxic however oxygenation improved after he received Lasix. The patient did respond well to a dose of Lasix IV 40 mg once. Chest x-ray is consistent with pulmonary vascular congestion. EKG did not show any acute ischemic changes, troponin level was normal. NT proBNP was elevated at 3744. The patient's clinical presentation is consistent with acute on chronic heart failure likely because he has not been taking loop diuretics for some time. 07/31 Vitals stable overnight, responded well to IV Lasix, transition to a Lasix infusion. Check renal function and electrolytes twice a day while the patient is on a Lasix infusion. 08/01 Vital stable overnight, renal function stable on morning labs, potassium normal. Patient is diuresing well on Lasix infusion which was increased to 10 mg/h yesterday evening. Transthoracic echocardiogram showed an LVEF of 20 to 25%, right ventricular systolic function appeared mildly reduced, Doppler findings consistent with mild pulmonary hypertension. Prior echogram in 2020 showed an LVEF of 36%. 08/02 Vital stable, renal function stable, potassium normal. Continue Lasix 10 mg/h and monitor renal function and electrolytes closely. The patient feels like he is approaching his baseline volume status, may be able to transition to oral Lasix tomorrow depending on laboratory work. 08/03 Renal function and electrolytes stable, continuing Lasix infusion and monitoring renal function and electrolytes closely. Volume status has improved significantly since admission however the patient is still significantly volume overloaded. 08/04 Renal function and electrolytes stable, patient continues to diurese well. Check renal function in the afternoon for close monitoring. Anticipate the patient will be transition to oral Lasix in a day or 2. 08/05 Constitutional Vitals: Vital Signs Temp Pulse Resp BP Pulse Ox O2 Del Method O2 Flow Rate 97.7 F 36 L 12 134/96 92 0 08/04/22 11:15 08/04/22 06:08 08/04/22 11:15 08/04/22 10:01 08/04/22 08:00 08/04/22 08:00 08/02/22 00:14 Period Temp Pulse Resp BP Sys/Becerra Pulse Ox O2 Del Method O2 Flow Rate Last 24 Hr 97.6 F-98.8 F 36-100 11- 61-175/14-165 85-96 CPAP-Room Air Intake and Output 08/04/22 08/04/22 08/04/22 03:59 11:59 19:59 Intake Total 420 360 Output Total 1700 1000 Balance -1280 -640 Intake & Output: Intake & Output 08/04/22 08/04/22 08/04/22 03:59 11:59 19:59 Intake Total 420 360 Output Total 1700 1000 Balance -1280 -640 Intake: Oral 420 360 Output: Void Amount 1700 1000 Other: Meal Breakfast Percent of Meal Consumed 100% Urine Appearance Clear Clear Urine Color Yellow Yellow Urine Odor Normal # Voids 1 2 Exam: General: Alert, Awake, No acute Distress, obese Eyes/N/T: EOMI, Head/Neck: neck supple, CV: RRR, 2/6 SM, Pulm: b/l, no wheezing Abd: soft, nontender, +BS x4 Ext: no clubbing/cyanosis, 2+ b/l LE edema and UE edema Neuro: Alert, no focal deficits, moves all extremities, Skin: warm/dry OBJ DATA Labs CBC & Chem 7: 07/30/22 12:02 08/04/22 05:58 Labs: Abnormal Lab Results 08/04/22 08/03/22 08/03/22 05:58 18:00 12:33 Chloride 93 L 94 L Carbon Dioxide BUN 24 H 25 H Creatinine 1.5 H 1.5 H 1.5 H Glucose 149 H 109 H 111 H Uric Acid 10.6 H Calcium 8.5 L 8.4 L GGT 63 H Lactate Dehydrogenase 252 H 08/03/22 08/02/22 08/02/22 06:00 16:00 05:40 Chloride 95 L 95 L 95 L Carbon Dioxide 31 H BUN Creatinine 1.6 H 1.5 H 1.5 H Glucose 130 H 163 H 119 H Uric Acid 10.2 H 10.3 H Calcium 8.3 L GGT 62 H 63 H Lactate Dehydrogenase 337 H 295 H 08/01/22 16:12 Chloride 92 L Carbon Dioxide 32 H BUN 25 H Creatinine 1.5 H Glucose Uric Acid Calcium GGT Lactate Dehydrogenase Meds: Medications Acetaminophen (Acetaminophen 325 Mg Tablet) 650 mg PO Q6HP PRN; Protocol PRN Reason: Per Pain Protocol/Fever > 101 Last Admin: 08/03/22 18:39 Dose: 650 mg Albuterol Sulfate (Albuterol Sulfate 2.5 Mg/3 Ml Nebulizer) 2.5 mg NEB Q2HP PRN PRN Reason: Shortness Of Breath Aspirin (Aspirin 81 Mg Tab.Chew) 81 mg CHEWED DAILY [facility] Last Admin: 08/04/22 09:38 Dose: 81 mg Atorvastatin Calcium (Atorvastatin 40 Mg Tablet) 40 mg PO HS [facility] Last Admin: 08/03/22 21:38 Dose: 40 mg Dextrose (Dextrose 50% 50 Ml Vial) 0 ml IV UD PRN PRN Reason: Per Sliding Scale Diagnostic Test (Pha) (Accu-Chek 1 Each Strip) 1 each FS ACHS [facility] Last Admin: 08/04/22 11:12 Dose: 1 each Docusate Sodium (Docusate Sodium 100 Mg Capsule) 100 mg PO BID [facility] Last Admin: 08/04/22 09:39 Dose: 100 mg Finasteride (Finasteride 5 Mg Tablet) 5 mg PO DAILY [facility] Last Admin: 08/04/22 09:39 Dose: 5 mg Glucose (Dextrose 31 Gm Oral.Susp) 15 gm PO PRN PRN PRN Reason: Hypoglycemia Heparin Sodium (Porcine) (Heparin 5,000 Unit/Ml Vial) 5,000 unit SQ Q12 [facility] Last Admin: 08/04/22 09:38 Dose: 5,000 unit Sodium Chloride (Sodium Chloride 0.9%) 250 mls @ 20 mls/hr IV .[id number] [facility] Last Admin: 08/04/22 06:31 Dose: Not Given Furosemide 250 mg/ Sodium (Chloride) 250 mls @ 10 mls/hr IV Q24H [facility]; Protocol Last Admin: 08/03/22 15:43 Dose: 10 mg/hr, 10 mls/hr Insulin Human Lispro (Insulin Lispro 1 Unit/0.01 Ml Unit) 0 unit SQ ACHS [facility]; Protocol Last Admin: 08/04/22 12:19 Dose: 1 units Lactulose (Lactulose 20 Gm/30 Ml Oral.Orsy) 10 gm PO DAILYP PRN PRN Reason: Constipation Last Admin: 08/01/22 20:17 Dose: 10 gm Lisinopril (Lisinopril 5 Mg Tablet) 10 mg PO QDAY [facility] Last Admin: 08/04/22 11:13 Dose: 10 mg Metoprolol Succinate (Metoprolol Succinate 50 Mg Tab.Xl.24h) 50 mg PO BID [facility] Last Admin: 08/04/22 09:39 Dose: 50 mg Ondansetron HCl (Ondansetron 4 Mg/2 Ml Vial) 4 mg IV Q4HP PRN; Protocol PRN Reason: Nausea And Vomiting Mometasone- Formoterol [Dulera] 200-5 Mcg Inhaler 2 dose INH BID [facility] Last Admin: 08/04/22 09:46 Dose: Not Given Senna (Sennosides 1 Tablet) 2 tab PO HSP PRN PRN Reason: Constipation Simethicone (Simethicone 80 Mg Tab.Chew) 80 mg CHEWED QIDP PRN PRN Reason: Dyspepsia Sodium Chloride (0.9 % Sodium Chloride 10 Ml Syringe) 10 ml IV Q8 [facility] Last Admin: 08/04/22 06:11 Dose: Not Given Tamsulosin HCl (Tamsulosin 0.4 Mg Capsule) 0.4 mg PO QDAY [facility] Last Admin: 08/04/22 09:39 Dose: 0.4 mg Tiotropium [place] (Tiotropium [place] 18 Mcg Inhalant) 18 mcg INH QDAY [facility] Last Admin: 08/04/22 09:46 Dose: Not Given Venlafaxine HCl (Venlafaxine 150 Mg Cap.Xl.24h) 150 mg PO QDAY [facility] Last Admin: 08/04/22 09:39 Dose: 150 mg A/P Narrative A/P Narrative: A: *Anasarca w/Pulm edema: slowly improving -continues with good UOP *acute on chronic systolic (20-25%)/diastolic(III) CHF & mild-mod reduced RV systolic fxn: - *acute on chronic hypoxic resp failure (2L O2 NC @home): needs humidified O2 d/t epistaxis - *Severe Pulm HTN: *CKD III: likely cardiorenal *Anemia, chronic: *CAD: follows with Dr. Gore *Venous stasis changes b/l LE: *HTN/HLD: on BB/lasix/ACEI, statin *Depression/anxiety *DM: on insulin/metformin *Morbid obesity: BMI 57 *ADRIENNE: *Generalized weakness/debility: P: -cont lasix gtt -monitor renal fxn -cont BB/ACEI -cont asa/statin -basal and SSI, hold metformin for now -elevate legs and wrap -wound care -home cpap -pt/ot -f/u with cardiology -ppx: heparin Time Spent With Patient Time: Total time spent is greater than 50% in coordination of care (as documented) at patient's floor/unit and/or counseling patient:
[2022-08-04] MEDS ORDERED: POLYETHYLENE GLYCOL 3350 17 GM PACKET PO PRN (13:19)
[2022-08-04 15:10] LABS: Albumin 3.7 gm/dL (3.2-5.2); Blood Urea Nitrogen 25 mg/dL (8-23); Calcium 8.6 mg/dL (8.6-10.4); Carbon Dioxide 30 mmol/L (22-30); Chloride 92 mmol/L (96-108); Glomerular Filtration Rate 45; Glucose 124 mg/dL (70-105); Phosphorous 3.9 mg/dL (2.5-4.5)
[2022-08-04] MEDS ORDERED: FUROSEMIDE 250 MG in 0.9 % SODIUM CHLORIDE 225 ML IV PRN (15:45)
[2022-08-04] MEDS ORDERED: FUROSEMIDE 40 MG/4 ML VIAL IV ONE (16:00)
[2022-08-04] MEDS: FUROSEMIDE 250 MG in 0.9 % SODIUM CHLORIDE 225 ML IV SCH (17:48)
[2022-08-04] MEDS: ACETAMINOPHEN 325 MG TABLET PO PRN (19:42)
[2022-08-04] MEDS: ATORVASTATIN 40 MG TABLET PO SCH (20:44)
[2022-08-05] MEDS: ACETAMINOPHEN 325 MG TABLET PO PRN ×2 (04:54→18:35)
[2022-08-05] MEDS: 0.9 % SODIUM CHLORIDE 10 ML SYRINGE IV SCH ×3 (04:55→22:17)
[2022-08-05 07:44] LABS: ALT/SGPT 20 U/L (<40); AST/SGOT 16 U/L (<40); Albumin 3.7 gm/dL (3.2-5.2); Albumin/Globulin Ratio 1.4 (1.0-2.3); Alkaline Phosphatase 72 U/L (39-117); Bilirubin,Direct < 0.2 mg/dL (0-0.3); Bilirubin,Total 0.4 mg/dL (0.1-1.0); Blood Urea Nitrogen 32 mg/dL (8-23); Calcium 9.3 mg/dL (8.6-10.4); Carbon Dioxide 27 mmol/L (22-30); Chloride 93 mmol/L (96-108); Globulin 2.6 gm/dL (2.2-3.7); Glomerular Filtration Rate 49; Glucose 201 mg/dL (70-105); Lactate Dehydrogenase 229 U/L (135-225); Phosphorous 4.2 mg/dL (2.5-4.5); Triglycerides 123 mg/dL (<150); Uric Acid 10.1 mg/dL (2.5-8.0)
--- NOTE | 2022-08-05 07:46 | Internal Med Progress Note ---
SUBJECTIVE Subjective Patient information: Note initiated : 08/05/22 at 7:42 am Service Date, if different from initiated Date: [] Patient: Guillaume Broderick 61 y/o M admitted on 07/30/22 for bilat LE edema; acute on chronic systolic. Chief Complaint: [] Interval history: nterval history: Mr. Broderick is a 61 year old male with a history of hypertension, type 2 diabetes mellitus, chronic kidney disease stage III, heart failure with reduced ejection fraction, diastolic heart failure, reduced right ventricular systolic function, obstructive of sleep apnea on AutoPap, severe obesity with an admission BMI of 63 who presented to the emergency department for shortness of breath which he says has progressively worsened for about 3 weeks. The patient was last hospitalized at [facility] in October 2021 for a heart failure exacerbation. During that admission, the patient was found to have a left ventricular ejection fraction estimated to be 36%. The patient was discharged to a care home facility. He says that he has been several healthcare facilities since that time. The patient says that his Lasix was discontinued months ago due to concern for his renal function. The patient says that he was instead started on spironolactone however says that it did not work as well as Lasix. 2 days ago, the patient was seen in clinic and started on oral Lasix. Patient was unable to get to the bathroom to urinate and was incontinent therefore called EMS and he was brought to the emergency department. In the emergency department, the patient was initially hypoxic however oxygenation improved after he received Lasix. The patient did respond well to a dose of Lasix IV 40 mg once. Chest x-ray is consistent with pulmonary vascular congestion. EKG did not show any acute ischemic changes, troponin level was normal. NT proBNP was elevated at 3744. The patient's clinical presentation is consistent with acute on chronic heart failure likely because he has not been taking loop diuretics for some time. 07/31 Vitals stable overnight, responded well to IV Lasix, transition to a Lasix infusion. Check renal function and electrolytes twice a day while the patient is on a Lasix infusion. 08/01 Vital stable overnight, renal function stable on morning labs, potassium normal. Patient is diuresing well on Lasix infusion which was increased to 10 mg/h yesterday evening. Transthoracic echocardiogram showed an LVEF of 20 to 25%, right ventricular systolic function appeared mildly reduced, Doppler findings consistent with mild pulmonary hypertension. Prior echogram in 2020 showed an LVEF of 36%. 08/02 Vital stable, renal function stable, potassium normal. Continue Lasix 10 mg/h and monitor renal function and electrolytes closely. The patient feels like he is approaching his baseline volume status, may be able to transition to oral Lasix tomorrow depending on laboratory work. 08/03 Renal function and electrolytes stable, continuing Lasix infusion and monitoring renal function and electrolytes closely. Volume status has improved significantly since admission however the patient is still significantly volume overloaded. 08/04 Renal function and electrolytes stable, patient continues to diurese well. Check renal function in the afternoon for close monitoring. Anticipate the patient will be transition to oral Lasix in a day or 2. 08/05 Patient gradually improving with shortness of breath edema. Denies a cough. Patient used to be on a home oxygen but he says he sent it back as he felt he did not need it. He has recently started nocturnal CPAP which he feels makes a difference. Looking at his weight trends he was 191 kg when he arrived. He is down to 180 kg. Looks like he was down in the 160s earlier in the year for weight and even down to 150's last July. Review of Systems: denies headache/fever/chills/nausea/vomiting/chest or abdominal pain/diarrhea. Otherwise see above. Constitutional Vitals: Vital Signs Temp Pulse Resp BP Pulse Ox O2 Del Method O2 Flow Rate 97.3 F 92 H 12 141/86 92 0 08/05/22 00:04 08/05/22 05:39 08/05/22 07:01 08/05/22 07:01 08/05/22 05:39 08/05/22 03:00 08/02/22 00:14 Period Temp Pulse Resp BP Sys/Becerra Pulse Ox O2 Del Method O2 Flow Rate Last 24 Hr 97.3 F-98.8 F 44-102 - 116-161/70-128 87-94 Room Air-Room Air Intake and Output 08/04/22 08/05/22 08/05/22 19:59 03:59 11:59 Intake Total 958 720 240 Output Total 1700 700 200 Balance -742 20 40 Weight 180.484 kg Intake & Output: Intake & Output 08/04/22 08/05/22 08/05/22 19:59 03:59 11:59 Intake Total 958 720 240 Output Total 1700 700 200 Balance -742 20 40 Weight 180.484 kg Intake: Nourishment/Supplement quantity 240 240 (ml) IV 478 Sodium Chloride 0.9% 250 ml @ 239 20 mls/hr IV .[id number] DENAE Rx#: [id number] Lasix 250 mg In Sodium Chloride 239 0.9% 225 ml @ 10 MG/HR 10 mls/ hr IV Q24H DENAE Rx#:[id number] Oral 240 480 240 Output: Void Amount 1700 700 200 Other: Meal Nourishment/Supplement Percent of Meal Consumed 100% Feeding Ability Independent Independent Nourishment/Supplement name glucerna glucerna Urine Appearance Clear Clear Clear Urine Color Yellow Yellow Yellow Urine Odor Normal Normal # Voids 2 2 Exam: General: Alert, Awake, No acute Distress, obese Eyes/N/T: EOMI, Head/Neck: neck supple, CV: RRR, 2/6 SM, Pulm: decreased BS b/l, no wheezing Abd: soft, nontender, +BS x4 Ext: no clubbing/cyanosis, mild b/l LE edema and UE edema, truncal edema Neuro: Alert, no focal deficits, moves all extremities, Skin: warm/dry OBJ DATA Labs CBC & Chem 7: 07/30/22 12:02 08/05/22 06:20 Labs: Abnormal Lab Results 08/04/22 08/04/22 08/03/22 14:04 05:58 18:00 Chloride 92 L 93 L 94 L Carbon Dioxide BUN 25 H 24 H 25 H Creatinine 1.6 H 1.5 H 1.5 H Glucose 124 H 149 H 109 H Uric Acid 10.6 H Calcium 8.5 L GGT 63 H Lactate Dehydrogenase 252 H 08/03/22 08/03/22 08/02/22 12:33 06:00 16:00 Chloride 95 L 95 L Carbon Dioxide 31 H BUN Creatinine 1.5 H 1.6 H 1.5 H Glucose 111 H 130 H 163 H Uric Acid 10.2 H Calcium 8.4 L GGT 62 H Lactate Dehydrogenase 337 H Meds: Medications Acetaminophen (Acetaminophen 325 Mg Tablet) 650 mg PO Q6HP PRN; Protocol PRN Reason: Per Pain Protocol/Fever > 101 Last Admin: 08/05/22 04:54 Dose: 650 mg Albuterol Sulfate (Albuterol Sulfate 2.5 Mg/3 Ml Nebulizer) 2.5 mg NEB Q2HP PRN PRN Reason: Shortness Of Breath Aspirin (Aspirin 81 Mg Tab.Chew) 81 mg CHEWED DAILY [facility] Last Admin: 08/04/22 09:38 Dose: 81 mg Atorvastatin Calcium (Atorvastatin 40 Mg Tablet) 40 mg PO HS [facility] Last Admin: 08/04/22 20:44 Dose: 40 mg Dextrose (Dextrose 50% 50 Ml Vial) 0 ml IV UD PRN PRN Reason: Per Sliding Scale Diagnostic Test (Pha) (Accu-Chek 1 Each Strip) 1 each FS [facility] Last Admin: 08/05/22 07:28 Dose: 1 each Docusate Sodium (Docusate Sodium 100 Mg Capsule) 100 mg PO BID [facility] Last Admin: 08/04/22 20:44 Dose: 100 mg Finasteride (Finasteride 5 Mg Tablet) 5 mg PO DAILY [facility] Last Admin: 08/04/22 09:39 Dose: 5 mg Glucose (Dextrose 31 Gm Oral.Susp) 15 gm PO PRN PRN PRN Reason: Hypoglycemia Heparin Sodium (Porcine) (Heparin 5,000 Unit/Ml Vial) 5,000 unit SQ Q12 [facility] Last Admin: 08/04/22 20:44 Dose: 5,000 unit Insulin Human Lispro (Insulin Lispro 1 Unit/0.01 Ml Unit) 0 unit SQ [facility]; Protocol Last Admin: 08/04/22 21:10 Dose: 2 units Lactulose (Lactulose 20 Gm/30 Ml Oral.Rosy) 10 gm PO DAILYP PRN PRN Reason: Constipation Last Admin: 08/01/22 20:17 Dose: 10 gm Lisinopril (Lisinopril 5 Mg Tablet) 10 mg PO QDAY [facility] Last Admin: 08/04/22 11:13 Dose: 10 mg Metoprolol Succinate (Metoprolol Succinate 50 Mg Tab.Xl.24h) 50 mg PO BID [facility] Last Admin: 08/04/22 20:44 Dose: 50 mg Ondansetron HCl (Ondansetron 4 Mg/2 Ml Vial) 4 mg IV Q4HP PRN; Protocol PRN Reason: Nausea And Vomiting Mometasone- Formoterol [Dulera] 200-5 Mcg Inhaler 2 dose INH BID [facility] Last Admin: 08/04/22 20:45 Dose: Not Given Polyethylene Glycol (Polyethylene Glycol 3350 17 Gm Packet) 17 gm PO DAILYP PRN PRN Reason: Constipation Senna (Sennosides 1 Tablet) 2 tab PO HSP PRN PRN Reason: Constipation Simethicone (Simethicone 80 Mg Tab.Chew) 80 mg CHEWED QIDP PRN PRN Reason: Dyspepsia Sodium Chloride (0.9 % Sodium Chloride 10 Ml Syringe) 10 ml IV Q8 [facility] Last Admin: 08/05/22 04:55 Dose: 10 ml Tamsulosin HCl (Tamsulosin 0.4 Mg Capsule) 0.4 mg PO QDAY [facility] Last Admin: 08/04/22 09:39 Dose: 0.4 mg Tiotropium Plush (Tiotropium Plush 18 Mcg Inhalant) 18 mcg INH QDAY [facility] Last Admin: 08/04/22 09:46 Dose: Not Given Venlafaxine HCl (Venlafaxine 150 Mg Cap.Xl.24h) 150 mg PO QDAY [facility] Last Admin: 08/04/22 09:39 Dose: 150 mg A/P Narrative A/P Narrative: A: *Anasarca w/Pulm edema: slowly improving -continues with good UOP *acute on chronic systolic (20-25%)/diastolic(III) CHF & mild-mod reduced RV systolic fxn: - improving *acute on chronic hypoxic resp failure (used to be on home O2 but sent back): -resolved *Severe Pulm HTN: *CKD III: likely cardiorenal *Anemia, chronic: *CAD: follows with Dr. Gore *Venous stasis changes b/l LE: *HTN/HLD: on BB/lasix/ACEI, statin *Depression/anxiety *DM: on insulin/metformin *Morbid obesity: BMI 57 *ADRIENNE: on cpap *Generalized weakness/debility: P: -cont lasix gtt -monitor renal fxn -cont BB/ACEI -cont asa/statin -basal and SSI, hold metformin for now -elevate legs and wrap -wound care -home cpap -pt/ot -f/u with cardiology -ppx: heparin Time Spent With Patient Time: Total time spent is greater than 50% in coordination of care (as documented) at patient's floor/unit and/or counseling patient: Total time spent with greater than 50% in coordination of care (as documented) at patient's floor/unit and/or counseling patient:: 25 - 35 minutes
[2022-08-05] MEDS ORDERED: acetaZOLAMIDE SOD 500 MG VIAL IV SCH (08:00)
[2022-08-05] MEDS ORDERED: FUROSEMIDE 40 MG/4 ML VIAL IV SCH (08:00)
[2022-08-05] MEDS: INSULIN LISPRO 1 UNIT/0.01 ML UNIT SQ SCH ×4 (08:28→22:15)
[2022-08-05] MEDS: HEPARIN 5,000 UNIT/ML VIAL SQ SCH ×2 (08:28→22:12)
[2022-08-05] MEDS: LISINOPRIL 5 MG TABLET PO SCH (08:29)
[2022-08-05] MEDS: FINASTERIDE 5 MG TABLET PO SCH (08:29)
[2022-08-05] MEDS: ASPIRIN 81 MG TAB.CHEW CHEWED SCH (08:29)
[2022-08-05] MEDS: TAMSULOSIN 0.4 MG CAPSULE PO SCH (08:29)
[2022-08-05] MEDS: DOCUSATE SODIUM 100 MG CAPSULE PO SCH ×2 (08:29→22:13)
[2022-08-05] MEDS: VENLAFAXINE 150 MG CAP.XL.24H PO SCH (08:29)
[2022-08-05] MEDS: METOPROLOL SUCCINATE 50 MG TAB.XL.24H PO SCH ×2 (08:29→22:15)
[2022-08-05] MEDS: TIOTROPIUM BROMIDE 18 MCG INHALANT INH SCH (08:30)
[2022-08-05] MEDS: MOMETASONE FORMOTEROL INH SCH ×2 (08:30→22:15)
--- NOTE | 2022-08-05 10:37 | XRay Report ---
HISTORY: Follow-up pulmonary edema, bilateral leg edema FINDINGS: Lung volumes are small due to poor inspiration. The heart is moderately enlarged. There is pulmonary vascular congestion and mild edema. The lung volumes are smaller today than they had been on 07/30/22. The congestive heart failure remains stable. No pleural effusion is present. Pacemaker is well-positioned. IMPRESSION: Persistent congestive heart failure with a worse inspiration Interpreted and Authenticated by: Augustine Caballero 08/05/22
--- NOTE | 2022-08-05 12:11 | Discharge Summary ---
Discharge Provider Provider IMPORTANT FOLLOW-UP INFORMATION FOR PCP: Patient information: Note initiated : 08/05/22 at 12:09 pm Service Date, if different from initiated Date: [] Patient: Guillaume Broderick 61 y/o M admitted on 07/30/22 for bilat LE edema; acute on chronic systolic. Chief Complaint: [] Date of admission: 07/30/22 15:51 Discharge date: 08/07/22 Primary care physician: Jane Murphy Consults: 07/30/22 Consult to Physician [CONS] Stat Comment: Consulting Provider: Nikolai Lambert Reason For Exam: Physician to Consult COURSE Hospital Course Hospital course: HPI: Mr. Broderick is a 61 year old male with a history of hypertension, type 2 diabetes mellitus, chronic kidney disease stage III, heart failure with reduced ejection fraction, diastolic heart failure, reduced right ventricular systolic function, obstructive of sleep apnea on AutoPap, severe obesity with an admission BMI of 63 who presented to the emergency department for shortness of breath which he says has progressively worsened for about 3 weeks. The patient was last hospitalized at [facility] in October 2021 for a heart failure exacerbation. During that admission, the patient was found to have a left ventricular ejection fraction estimated to be 36%. The patient was discharged to a long term facility. He says that he has been several healthcare facilities since that time. The patient says that his Lasix was discontinued months ago due to concern for his renal function. The patient says that he was instead started on spironolactone however says that it did not work as well as Lasix. 2 days ago, the patient was seen in clinic and started on oral Lasix. Patient was unable to get to the bathroom to urinate and was incontinent therefore called EMS and he was brought to the emergency department. In the emergency department, the patient was initially hypoxic however oxygenation improved after he received Lasix. The patient did respond well to a dose of Lasix IV 40 mg once. Chest x-ray is consistent with pulmonary vascular congestion. EKG did not show any acute ischemic changes, troponin level was normal. NT proBNP was elevated at 3744. The patient's clinical presentation is consistent with acute on chronic heart failure likely because he has not been taking loop diuretics for some time. 07/31 Vitals stable overnight, responded well to IV Lasix, transition to a Lasix infusion. Check renal function and electrolytes twice a day while the patient is on a Lasix infusion. 08/01 Vital stable overnight, renal function stable on morning labs, potassium normal. Patient is diuresing well on Lasix infusion which was increased to 10 mg/h yesterday evening. Transthoracic echocardiogram showed an LVEF of 20 to 25%, right ventricular systolic function appeared mildly reduced, Doppler findings consistent with mild pulmonary hypertension. Prior echogram in 2020 showed an LVEF of 36%. 08/02 Vital stable, renal function stable, potassium normal. Continue Lasix 10 mg/h and monitor renal function and electrolytes closely. The patient feels like he is approaching his baseline volume status, may be able to transition to oral Lasix tomorrow depending on laboratory work. 08/03 Renal function and electrolytes stable, continuing Lasix infusion and monitoring renal function and electrolytes closely. Volume status has improved significantly since admission however the patient is still significantly volume overloaded. 08/04 Renal function and electrolytes stable, patient continues to diurese well. Check renal function in the afternoon for close monitoring. Anticipate the patient will be transition to oral Lasix in a day or 2. 08/05 Patient gradually improving with shortness of breath edema. Denies a cough. Patient used to be on a home oxygen but he says he sent it back as he felt he did not need it. He has recently started nocturnal CPAP which he feels makes a difference. Looking at his weight trends he was 191 kg when he arrived. He is down to 180 kg. Looks like he was down in the 160s earlier in the year for weight and even down to 150's last July. 08/06 Good urine output. Between the urine output using the CPAP machine patient says his breathing is starting to really improved. Renal function stable at this time while continue to diurese. Patient states home Lasix is 40 mg twice daily which she was just started on the day prior to admission. 08/07 Patient continues to do well feeling better. Edema much improved. Stable for discharge. Patient high risk for readmission given significant comorbidities and multiple hospitalizations. A: *Anasarca w/Pulm edema: slowly improving *acute on chronic systolic (20-25%)/diastolic(III) CHF & mild-mod reduced RV systolic fxn: *acute on chronic hypoxic resp failure (used to be on home O2 but sent back): *Severe Pulm HTN: *CKD III: likely cardiorenal *Anemia, chronic: *CAD: follows with Dr. Gore *Venous stasis changes b/l LE: *HTN/HLD: on BB/lasix/ACEI, statin *Depression/anxiety *DM: on insulin/metformin *Morbid obesity: BMI 57 *ADRIENNE: on cpap *Generalized weakness/debility: P: -f/u with cardiology Discharge diagnosis: Anasarca pulmonary edema acute on chronic systolic and diastolic heart fail Secondary discharge diagnosis: Right heart failure acute on chronic hypoxic respite failure failure severe pulmonary hypertension chronic kidney disease anemia CAD venous stasis changes hypertension depression anxiety diabetes morbid obesity obstructive sleep apnea generalized weakness debility Time Spent with Patient Time attestation: Total time spent providing and/or coordinating discharge services: Time spent: Greater than 30 minutes EXAM Constitutional Vitals: Temp Pulse Resp BP Pulse Ox O2 Del Method O2 Flow Rate 97.3 F 92 H 11 L 115/65 92 0 08/05/22 00:04 08/05/22 05:39 08/05/22 10:02 08/05/22 10:02 08/05/22 05:39 08/05/22 03:00 08/02/22 00:14 Discharge Data Data Completed and Pending Labs on day of discharge: Labs from last 24 hours 08/05/22 08/04/22 06:20 14:04 Sodium 135 134 Potassium 3.9 3.7 Chloride 93 L 92 L Carbon Dioxide 27 30 Anion Gap 15.0 12.0 BUN 32 H 25 H Creatinine 1.5 H 1.6 H GFR Calculation 49 45 Glucose 201 H 124 H Uric Acid 10.1 H Calcium 9.3 8.6 Phosphorus 4.2 3.9 Magnesium 2.3 Total Bilirubin 0.4 Direct Bilirubin < 0.2 GGT 60 AST 16 ALT 20 Alkaline Phosphatase 72 Lactate Dehydrogenase 229 H Total Protein 6.3 Albumin 3.7 3.7 Globulin 2.6 Albumin/Globulin Ratio 1.4 Triglycerides 123 Discharge Plan Patient/Caregiver Discharge Instructions Activity: increase activity as tolerated Diet: Consistent Carbohydrate Prescriptions: Continued metformin 500 mg tablet extended release 24 hr 1,000 mg PO BID rosuvastatin 40 mg tablet 40 mg PO QPM torsemide 20 mg tablet 20 mg PO QAM Rx Instructions: when 2 or more pounds additional weight overnight Jardiance 10 mg Tablet 25 mg PO QDAY tamsulosin 0.4 mg capsule 0.4 mg PO QDAY Rx Instructions: Take on tab BID lisinopril 5 mg tablet 10 mg PO QDAY finasteride 5 mg tablet 5 mg PO DAILY potassium chloride 20 mEq tablet,ER particles/crystals 1 tab PO BID furosemide 20 mg tablet 2 tab PO BID spironolactone 50 mg tablet 1 tab PO QAM hydroxyzine HCl 25 mg tablet 1 - 2 tab PO Q6HP PRN (Reason: anxiety) metoprolol succinate 100 mg tablet extended release 24 hr 1 tab PO BID venlafaxine 150 mg capsule,extended release 24hr 1 cap PO QDAY Spiriva with HandiHaler 18 mcg capsule, w/inhalation device 1 cap INHALATION QDAY Dulera 200-5 mcg/actuation HFA aerosol inhaler 2 puff INHALATION BID Jardiance 25 mg tablet 1 tab PO QAM Follow Up Plan Follow up with: Jane Murphy ARNP [Primary Care Provider] - Patient Disposition: Home, Self-Care Prognosis: Undetermined Overall status at discharge: patient is progressing back to baseline Discharge Orders: Discharge Order (Routine); Ordered 08/07/22 Ordered By: Cash Jerry
[2022-08-05] MEDS ORDERED: HYDROCHLOROTHIAZIDE 12.5 MG CAPSULE PO SCH (13:45)
[2022-08-05] MEDS: FUROSEMIDE 250 MG in 0.9 % SODIUM CHLORIDE 225 ML IV SCH (15:23)
[2022-08-05] MEDS: ATORVASTATIN 40 MG TABLET PO SCH (22:15)
[2022-08-06] MEDS: ACETAMINOPHEN 325 MG TABLET PO PRN ×2 (05:46→20:23)
[2022-08-06] MEDS: 0.9 % SODIUM CHLORIDE 10 ML SYRINGE IV SCH ×3 (05:47→20:30)
[2022-08-06 07:11] LABS: ALT/SGPT 19 U/L (<40); AST/SGOT 15 U/L (<40); Albumin 3.7 gm/dL (3.2-5.2); Albumin/Globulin Ratio 1.2 (1.0-2.3); Alkaline Phosphatase 65 U/L (39-117); Bilirubin,Direct < 0.2 mg/dL (0-0.3); Bilirubin,Total 0.3 mg/dL (0.1-1.0); Blood Urea Nitrogen 29 mg/dL (8-23); Calcium 9.1 mg/dL (8.6-10.4); Carbon Dioxide 27 mmol/L (22-30); Chloride 97 mmol/L (96-108); Glomerular Filtration Rate 49; Glucose 136 mg/dL (70-105); Lactate Dehydrogenase 236 U/L (135-225); Triglycerides 110 mg/dL (<150); Uric Acid 10.3 mg/dL (2.5-8.0)
--- NOTE | 2022-08-06 08:14 | Internal Med Progress Note ---
SUBJECTIVE Subjective Patient information: Note initiated : 08/06/22 at 8:10 am Service Date, if different from initiated Date: [] Patient: Guillaume Broderick 61 y/o M admitted on 07/30/22 for bilat LE edema; acute on chronic systolic. Chief Complaint: [] Interval history: nterval history: Mr. Broderick is a 61 year old male with a history of hypertension, type 2 diabetes mellitus, chronic kidney disease stage III, heart failure with reduced ejection fraction, diastolic heart failure, reduced right ventricular systolic function, obstructive of sleep apnea on AutoPap, severe obesity with an admission BMI of 63 who presented to the emergency department for shortness of breath which he says has progressively worsened for about 3 weeks. The patient was last hospitalized at [facility] in October 2021 for a heart failure exacerbation. During that admission, the patient was found to have a left ventricular ejection fraction estimated to be 36%. [facility]. He says that he has been several healthcare facilities since that time. The patient says that his Lasix was discontinued months ago due to concern for his renal function. The patient says that he was instead started on spironolactone however says that it did not work as well as Lasix. 2 days ago, the patient was seen in clinic and started on oral Lasix. Patient was unable to get to the bathroom to urinate and was incontinent therefore called EMS and he was brought to the emergency department. In the emergency department, the patient was initially hypoxic however oxygenation improved after he received Lasix. The patient did respond well to a dose of Lasix IV 40 mg once. Chest x-ray is consistent with pulmonary vascular congestion. EKG did not show any acute ischemic changes, troponin level was normal. NT proBNP was elevated at 3744. The patient's clinical presentation is consistent with acute on chronic heart failure likely because he has not been taking loop diuretics for some time. 07/31 Vitals stable overnight, responded well to IV Lasix, transition to a Lasix infusion. Check renal function and electrolytes twice a day while the patient is on a Lasix infusion. 08/01 Vital stable overnight, renal function stable on morning labs, potassium normal. Patient is diuresing well on Lasix infusion which was increased to 10 mg/h yesterday evening. Transthoracic echocardiogram showed an LVEF of 20 to 25%, right ventricular systolic function appeared mildly reduced, Doppler findings consistent with mild pulmonary hypertension. Prior echogram in 2020 showed an LVEF of 36%. 08/02 Vital stable, renal function stable, potassium normal. Continue Lasix 10 mg/h and monitor renal function and electrolytes closely. The patient feels like he is approaching his baseline volume status, may be able to transition to oral Lasix tomorrow depending on laboratory work. 08/03 Renal function and electrolytes stable, continuing Lasix infusion and monitoring renal function and electrolytes closely. Volume status has improved significantly since admission however the patient is still significantly volume overloaded. 08/04 Renal function and electrolytes stable, patient continues to diurese well. Check renal function in the afternoon for close monitoring. Anticipate the patient will be transition to oral Lasix in a day or 2. 08/05 Patient gradually improving with shortness of breath edema. Denies a cough. Patient used to be on a home oxygen but he says he sent it back as he felt he did not need it. He has recently started nocturnal CPAP which he feels makes a difference. Looking at his weight trends he was 191 kg when he arrived. He is down to 180 kg. Looks like he was down in the 160s earlier in the year for weight and even down to 150's last July. 08/06 Good urine output. Between the urine output using the CPAP machine patient says his breathing is starting to really improved. Renal function stable at this time while continue to diurese. Patient states home Lasix is 40 mg twice daily which she was just started on the day prior to admission. Review of Systems: denies headache/fever/chills/nausea/vomiting/chest or abdominal pain/diarrhea. Otherwise see above. Constitutional Vitals: Vital Signs Temp Pulse Resp BP Pulse Ox O2 Del Method O2 Flow Rate 97.4 F 70 14 100/56 95 0 08/06/22 08:08 08/06/22 06:01 08/06/22 08:08 08/06/22 08:08 08/06/22 08:08 08/06/22 04:01 08/06/22 00:42 Period Temp Pulse Resp BP Sys/Becerra Pulse Ox O2 Del Method O2 Flow Rate Last 24 Hr 97.4 F-98.6 F 61-96 11-19 100-148/56-115 90-96 Room Air-Room Air 0-0 Intake and Output 11/12/22 11/13/22 11/13/22 19:59 03:59 11:59 Intake Total 180 836 600 Output Total 1850 1250 1300 Balance -3098 -507 -498 Weight 182.48 kg Intake & Output: Intake & Output 08/05/22 08/06/22 08/06/22 19:59 03:59 11:59 Intake Total 180 836 600 Output Total 1850 1250 1300 Balance -6008 -712 -732 Weight 182.48 kg Intake: Nourishment/Supplement quantity 240 (ml) IV 116 Lasix 250 mg In Sodium Chloride 116 0.9% 225 ml @ 10 MG/HR 10 mls/ hr IV Q24H DENAE Rx#:[id number] Oral 180 493 360 Output: Urine Catheter Amount 0 Void Amount 1850 1250 9027 Other: Meal Lunch snack Percent of Meal Consumed 100% 100% 100% Feeding Ability Assist with Tray Set Up Independent Nourishment/Supplement name Egg salad, diet lemon-nome soda GLUCERNA Urine Appearance Clear Clear Clear Urine Color Yellow Bright Yellow Yellow Urine Odor Normal Normal # Bowel Movements 0 Exam: General: Alert, Awake, No acute Distress, obese Eyes/N/T: EOMI, Head/Neck: neck supple, CV: RRR, 2/6 SM, Pulm: decreased BS b/l, no wheezing Abd: soft, nontender, +BS x4 Ext: no clubbing/cyanosis, mild b/l LE edema and UE edema, truncal edema - improving Neuro: Alert, no focal deficits, moves all extremities, Skin: warm/dry OBJ DATA Labs CBC & Chem 7: 07/30/22 12:02 08/06/22 04:56 Labs: Abnormal Lab Results 08/06/22 08/05/22 08/04/22 04:56 06:20 14:04 Chloride 93 L 92 L BUN 29 H 32 H 25 H Creatinine 1.5 H 1.5 H 1.6 H Glucose 136 H 201 H 124 H Uric Acid 10.3 H 10.1 H Calcium GGT Lactate Dehydrogenase 236 H 229 H 08/04/22 08/03/22 08/03/22 05:58 18:00 12:33 Chloride 93 L 94 L BUN 24 H 25 H Creatinine 1.5 H 1.5 H 1.5 H Glucose 149 H 109 H 111 H Uric Acid 10.6 H Calcium 8.5 L 8.4 L GGT 63 H Lactate Dehydrogenase 252 H 08/03/22 06:00 Chloride 95 L BUN Creatinine 1.6 H Glucose 130 H Uric Acid 10.2 H Calcium GGT 62 H Lactate Dehydrogenase 337 H Meds: Medications Acetaminophen (Acetaminophen 325 Mg Tablet) 650 mg PO Q6HP PRN; Protocol PRN Reason: Per Pain Protocol/Fever > 101 Last Admin: 08/06/22 05:46 Dose: 650 mg Albuterol Sulfate (Albuterol Sulfate 2.5 Mg/3 Ml Nebulizer) 2.5 mg NEB Q2HP PRN PRN Reason: Shortness Of Breath Aspirin (Aspirin 81 Mg Tab.Chew) 81 mg CHEWED DAILY DENAE Last Admin: 08/05/22 08:29 Dose: 81 mg Atorvastatin Calcium (Atorvastatin 40 Mg Tablet) 40 mg PO HS [facility] Last Admin: 08/05/22 22:15 Dose: 40 mg Dextrose (Dextrose 50% 50 Ml Vial) 0 ml IV UD PRN PRN Reason: Per Sliding Scale Diagnostic Test (Pha) (Accu-Chek 1 Each Strip) 1 each FS ACHS [facility] Last Admin: 08/06/22 07:32 Dose: 1 each Docusate Sodium (Docusate Sodium 100 Mg Capsule) 100 mg PO BID DENAE Last Admin: 08/05/22 22:13 Dose: 100 mg Finasteride (Finasteride 5 Mg Tablet) 5 mg PO DAILY [facility] Last Admin: 08/05/22 08:29 Dose: 5 mg Glucose (Dextrose 31 Gm Oral.Susp) 15 gm PO PRN PRN PRN Reason: Hypoglycemia Heparin Sodium (Porcine) (Heparin 5,000 Unit/Ml Vial) 5,000 unit SQ Q12 [facility] Last Admin: 08/05/22 22:12 Dose: 5,000 unit Furosemide 250 mg/ Sodium (Chloride) 250 mls @ 10 mls/hr IV Q24H [facility]; Protocol Last Titration: 08/06/22 03:00 Dose: 20 mg/hr, 20 mls/hr Insulin Human Lispro (Insulin Lispro 1 Unit/0.01 Ml Unit) 0 unit SQ ACHS [facility]; Protocol Last Admin: 08/05/22 22:15 Dose: 2 units Lactulose (Lactulose 20 Gm/30 Ml Oral.Rosy) 10 gm PO DAILYP PRN PRN Reason: Constipation Last Admin: 08/01/22 20:17 Dose: 10 gm Lisinopril (Lisinopril 5 Mg Tablet) 10 mg PO QDAY [facility] Last Admin: 08/05/22 08:29 Dose: 10 mg Metoprolol Succinate (Metoprolol Succinate 50 Mg Tab.Xl.24h) 50 mg PO BID [facility] Last Admin: 08/05/22 22:15 Dose: 50 mg Ondansetron HCl (Ondansetron 4 Mg/2 Ml Vial) 4 mg IV Q4HP PRN; Protocol PRN Reason: Nausea And Vomiting Mometasone- Formoterol [Dulera] 200-5 Mcg Inhaler 2 dose INH BID [facility] Last Admin: 08/05/22 22:15 Dose: Not Given Polyethylene Glycol (Polyethylene Glycol 3350 17 Gm Packet) 17 gm PO DAILYP PRN PRN Reason: Constipation Senna (Sennosides 1 Tablet) 2 tab PO HSP PRN PRN Reason: Constipation Simethicone (Simethicone 80 Mg Tab.Chew) 80 mg CHEWED QIDP PRN PRN Reason: Dyspepsia Sodium Chloride (0.9 % Sodium Chloride 10 Ml Syringe) 10 ml IV Q8 [facility] Last Admin: 08/06/22 05:47 Dose: 10 ml Tamsulosin HCl (Tamsulosin 0.4 Mg Capsule) 0.4 mg PO QDAY [facility] Last Admin: 08/05/22 08:29 Dose: 0.4 mg Tiotropium Beulah (Tiotropium Beulah 18 Mcg Inhalant) 18 mcg INH QDAY [facility] Last Admin: 08/05/22 08:30 Dose: Not Given Venlafaxine HCl (Venlafaxine 150 Mg Cap.Xl.24h) 150 mg PO QDAY [facility] Last Admin: 08/05/22 08:29 Dose: 150 mg A/P Narrative A/P Narrative: A: *Anasarca w/Pulm edema: slowly improving -continues with good UOP *acute on chronic systolic (20-25%)/diastolic(III) CHF & mild-mod reduced RV systolic fxn: - improving *acute on chronic hypoxic resp failure (used to be on home O2 but sent back): -resolved *Severe Pulm HTN: *CKD III: likely cardiorenal *Anemia, chronic: *CAD: follows with Dr. Gore *Venous stasis changes b/l LE: *HTN/HLD: on BB/lasix/ACEI, statin *Depression/anxiety *DM: on insulin/metformin *Morbid obesity: BMI 57 *ADRIENNE: on cpap *Generalized weakness/debility: P: -cont lasix gtt in conjunction with -monitor renal fxn -cont BB/ACEI -cont asa/statin -basal and SSI, hold metformin for now -elevate legs and wrap -wound care -home cpap -pt/ot -d/c on home lasix 40mg bid -f/u with cardiology -ppx: heparin Time Spent With Patient Time: Total time spent is greater than 50% in coordination of care (as documented) at patient's floor/unit and/or counseling patient: Total time spent with greater than 50% in coordination of care (as documented) at patient's floor/unit and/or counseling patient:: 25 - 35 minutes
[2022-08-06] MEDS ORDERED: acetaZOLAMIDE SOD 500 MG VIAL IV SCH (08:40)
[2022-08-06] MEDS: VENLAFAXINE 150 MG CAP.XL.24H PO SCH (09:11)
[2022-08-06] MEDS: HEPARIN 5,000 UNIT/ML VIAL SQ SCH ×2 (09:11→20:13)
[2022-08-06] MEDS: FINASTERIDE 5 MG TABLET PO SCH (09:11)
[2022-08-06] MEDS: INSULIN LISPRO 1 UNIT/0.01 ML UNIT SQ SCH ×4 (09:12→20:24)
[2022-08-06] MEDS: TAMSULOSIN 0.4 MG CAPSULE PO SCH (09:12)
[2022-08-06] MEDS: TIOTROPIUM BROMIDE 18 MCG INHALANT INH SCH (09:12)
[2022-08-06] MEDS: DOCUSATE SODIUM 100 MG CAPSULE PO SCH ×2 (09:12→20:13)
[2022-08-06] MEDS: ASPIRIN 81 MG TAB.CHEW CHEWED SCH (09:12)
[2022-08-06] MEDS: MOMETASONE FORMOTEROL INH SCH ×2 (09:12→20:30)
[2022-08-06] MEDS: FUROSEMIDE 250 MG in 0.9 % SODIUM CHLORIDE 225 ML IV SCH ×2 (10:36→13:53)
[2022-08-06] MEDS: METOPROLOL SUCCINATE 50 MG TAB.XL.24H PO SCH ×2 (10:37→20:13)
[2022-08-06] MEDS: LISINOPRIL 5 MG TABLET PO SCH (10:37)
[2022-08-06] MEDS: ATORVASTATIN 40 MG TABLET PO SCH (20:13)
[2022-08-07] MEDS: 0.9 % SODIUM CHLORIDE 10 ML SYRINGE IV SCH (06:05)
[2022-08-07 08:08] LABS: Blood Urea Nitrogen 38 mg/dL (8-23); Calcium 9.2 mg/dL (8.6-10.4); Carbon Dioxide 28 mmol/L (22-30); Chloride 95 mmol/L (96-108); Glomerular Filtration Rate 37; Glucose 166 mg/dL (70-105); Uric Acid 10.7 mg/dL (2.5-8.0)
[2022-08-07] MEDS: LISINOPRIL 5 MG TABLET PO SCH (09:01)
[2022-08-07] MEDS: ASPIRIN 81 MG TAB.CHEW CHEWED SCH (09:01)
[2022-08-07] MEDS: VENLAFAXINE 150 MG CAP.XL.24H PO SCH (09:01)
[2022-08-07] MEDS: METOPROLOL SUCCINATE 50 MG TAB.XL.24H PO SCH (09:01)
[2022-08-07] MEDS: HEPARIN 5,000 UNIT/ML VIAL SQ SCH (09:01)
[2022-08-07] MEDS: FINASTERIDE 5 MG TABLET PO SCH (09:02)
[2022-08-07] MEDS: TAMSULOSIN 0.4 MG CAPSULE PO SCH (09:02)
[2022-08-07] MEDS: INSULIN LISPRO 1 UNIT/0.01 ML UNIT SQ SCH ×2 (09:13→12:20)
[2022-08-07] MEDS: DOCUSATE SODIUM 100 MG CAPSULE PO SCH (09:13)
[2022-08-07] MEDS: MOMETASONE FORMOTEROL INH SCH (09:35)
[2022-08-07] MEDS: TIOTROPIUM BROMIDE 18 MCG INHALANT INH SCH (09:35)
== END 2022-08-07 13:30 | disposition home or self-care (01) | DRG 291 ==
LOC: ED 10:41 → ICU 15:51 → MEDSUR 08-05 04:05 → ICU 08-05 21:28
PROVIDERS: ADMIT Internal Medicine; ATTEND Internal Medicine

== ENCOUNTER 2022-12-29 03:12 | Inpatient (IN) ==
[2022-12-29] MEDS ORDERED: FUROSEMIDE 40 MG/4 ML VIAL IV ONE (03:29)
[2022-12-29 03:56] LABS: POC Calcium, Ionized 1.06 (1.16-1.32); POC Creatinine 1.6 (0.6-1.2); POC Potassium 4.6 (3.3-5.1)
[2022-12-29 04:30] LABS: Basophils # (Auto) 0.06 K/mcL (0.00-0.30); Basophils % (Auto) 0.6 % (0.0-2.0); Eosinophils % (Auto) 1.1 % (0.0-7.0); Hematocrit 43.8 % (40.1-51.0); Hemoglobin 12.7 g/dL (13.7-17.5); Lymphocytes # (Auto) 1.41 K/mcL (1.50-4.80); Mean Cell Volume 77.8 fL (80.0-100.0); Mean Platelet Volume 9.6 fL (8.8-12.5); Monocytes # (Auto) 0.52 K/mcL (0.10-0.90); Monocytes % (Auto) 5.5 % (1.0-12.0); Neutrophils % (Auto) 77.3 % (38.0-78.0); Platelet Count 278 K/mcL (140-440); RBC 5.63 M/mcL (4.63-6.08); Red Cell Distribution Width 23.9 % (11.5-14.5); WBC 9.4 K/mcL (4.5-11.0)
[2022-12-29 04:53] LABS: Albumin 3.9 gm/dL (3.2-5.2); Bilirubin,Direct 0.4 mg/dL (<0.3); Bilirubin,Total 1.1 mg/dL (0.1-1.0)
--- NOTE | 2022-12-29 05:21 | XRay Report ---
INDICATION: sob TECHNIQUE: AP portable semiupright chest x-ray COMPARISON: Previous examinations dated 09/19/2022, 08/05/2022, 07/30/2022 FINDINGS:No change in left-sided cardiac pacemaker with leads in appropriate positions. Lungs:No focal pulmonary parenchymal infiltrate. No evidence for pneumonia. Heart, vascular:There is marked cardiomegaly. This is unchanged. Vascularity is prominent consistent with pulmonary congestion. No definite pulmonary edema Mediastinum, sarahy:No mediastinal widening. No hilar mass Pleura:No pleural fluid. No pleural-based mass or calcification Skeletal:Negative. IMPRESSION: 1. Cardiomegaly and findings consistent with pulmonary congestion 2. No focal parenchymal infiltrate 3. No interval change Interpreted and Authenticated by: Bartolo Upton 12/29/22
--- NOTE | 2022-12-29 06:11 | Emergency Department Note ---
HPI General Chief complaint: Shortness of Breath/Dyspnea Stated complaint: SOB Time Seen by Provider: 12/29/22 03:25 Mode of arrival: EMS History of Present Illness HPI Narrative: Narrative: This is a 62-year-old male with a history of congestive heart failure it looks like last echo showed an EF of 20 to 25% (07/2022) presents with worsening shortness of breath lower extremity edema. He states his symptoms been going on for "several years" but worse in the last 2 weeks. He is prescribed Lasix and reports that he has been compliant with his medications. He does have BiPAP at home for obstructive sleep apnea and states that he sometimes uses it during the day. No cough congestion fevers or chills. The patient states that he knows he has gained weight but his scale is broke at home. Related Data Home Medications Medication Instructions Recorded Confirmed metformin 500 mg tablet,extended 1,000 mg PO BID 07/17/19 12/29/22 release 24 hr rosuvastatin 40 mg tablet 40 mg PO QPM 07/17/19 12/29/22 finasteride 5 mg tablet 5 mg PO DAILY 05/24/21 12/29/22 lisinopril 5 mg tablet 5 mg PO QDAY 05/24/21 12/29/22 tamsulosin 0.4 mg capsule 0.4 mg PO QDAY 05/24/21 12/29/22 empagliflozin 25 mg tablet 1 tab PO QAM 07/30/22 12/29/22 (Jardiance) furosemide 20 mg tablet 40 mg PO BID 07/30/22 12/29/22 hydroxyzine HCl 25 mg tablet 1 - 2 tab PO Q6HP PRN anxiety 07/30/22 12/29/22 metoprolol succinate 100 mg 1 tab PO BID 07/30/22 12/29/22 tablet,extended release 24 hr mometasone-formoterol HFA 200 2 puff inhalation BID 07/30/22 12/29/22 mcg-5 mcg/actuation aerosol inhaler (Dulera) potassium chloride 20 mEq 1 tab PO DAILY 07/30/22 12/29/22 tablet,extended release(part/cryst) spironolactone 50 mg tablet 0.5 tab PO QAM 07/30/22 12/29/22 tiotropium bromide 18 mcg capsule 1 cap inhalation QDAY 07/30/22 12/29/22 with inhalation device (Spiriva with HandiHaler) venlafaxine 150 mg 1 cap PO QDAY depressive disorder 07/30/22 12/29/22 capsule,extended release 24 hr Glucagon (HCl) Emergency Kit 1 mg subcut PRN PRN Hypoglycemia 12/29/22 12/29/22 Humalog KwikPen Insulin See Protocol subcut PRN PRN 12/29/22 12/29/22 Hyperglycemia amiodarone 200 mg tablet (Pacerone) 200 mg PO BID 12/29/22 12/29/22 ascorbic acid (vitamin C) 1,500 mg PO DAILY 12/29/22 12/29/22 aspirin 81 mg chewable tablet 1 tab PO QAM 12/29/22 12/29/22 metolazone 5 mg tablet 5 mg PO QDAY 12/29/22 12/29/22 Allergies Allergy/AdvReac Type Severity Reaction Status Date / Time No Known Drug Allergies Allergy Verified 09/19/22 04:45 Review of Systems ROS ROS Narrative: Narrative: All systems ED: reviewed and negative except as stated. PFSH Narrative Patient History Narrative: Narrative: Medical/Surgical/Family History All Active Problems (Updated 01/02/23 @ 15:29 by Honorio Dash MD) Pneumonia (Acute) Chronic pulmonary congestion (Acute) Acute exacerbation of CHF (congestive heart failure) (Acute) Acute respiratory failure with hypoxemia (Acute) CHF (congestive heart failure) (Acute) Elevated troponin I level (Acute) Constipation (Acute) Hemoptysis (Acute) Rash (Acute) Acute UTI (Acute) Scabies (Acute) Witnessed apneic spells (Chronic) Snoring (Chronic) Hypersomnia (Chronic) Acute exacerbation of congestive heart failure (Acute) Sacral decubitus ulcer, stage II (Acute) Venous stasis (Acute) ADRIENNE (obstructive sleep apnea) (Chronic) Mixed dyslipidemia (Acute) Scratch of right lower leg (Acute) Near syncope (Acute) Dyspnea (Acute) Hypertensive urgency (Acute) Blister (Acute) Visit for wound check (Acute) Paroxysmal supraventricular tachycardia (Acute) CHF (congestive heart failure) (Acute) Elevated troponin (Acute) Rash (Acute) Congestive heart failure (Acute) Hypertension (Acute) Type 2 diabetes mellitus (Acute) Hypertensive urgency (Acute) History of syncope (Acute) Elevated troponin (Acute) Lower urinary tract symptoms (LUTS) (Chronic) Arthritis (Chronic) Pain in left knee (Chronic) Sleeps in sitting position due to orthopnea (Chronic) Pain in right knee (Chronic) Adult body mass index 40 and over (Chronic) History of tobacco use (Chronic) Edema of lower extremity (Chronic) Retinal venous tortuosity (Chronic) Allergic rhinitis (Chronic) Benign hypertension (Chronic) Chronic depression (Chronic) Morbid obesity (Chronic) Diabetes mellitus (Chronic) Urinary incontinence (Chronic) Pediculus capitis (head louse) (Chronic) Pediculus corporis (body louse) (Chronic) Rib pain on left side (Chronic) Medical History Adult body mass index 40 and over Allergic rhinitis Arthritis Bilateral Ankle Benign hypertension Chronic depression Diabetes mellitus Edema of lower extremity History of tobacco use Hypersomnia Lower urinary tract symptoms (LUTS) Morbid obesity Pain in left knee Pain in right knee Pediculus capitis (head louse) Pediculus corporis (body louse) Rash Retinal venous tortuosity Sleeps in sitting position due to orthopnea Snoring Urinary incontinence Witnessed apneic spells Surgical History History of colonoscopy with polypectomy History of hernia repair "Double" Family History Mother Tumor of lung Father Malignant neoplasm of bone Malignant melanoma Social History Smoking Status: Former smoker Alcohol Intake Frequency: does not drink Substance Use: does not use Exam Narrative Narrative: Narrative: Vital signs noted General: Awake. Appears chronically ill HEENT: NCAT PERRL EOMI. No conjunctivitis. Membranes moist. Neck: Supple, trachea midline Cardiovascular: RRR. No murmur. No rubs. No gallops. Respiratory: Diminished breath sounds specifically in the bases Gastrointestinal: Soft. No tenderness, anasarca Musculoskeletal: 2+ pitting edema up to the mid thigh Skin: Warm. Dry. No rash Neurologic: Alert and oriented x3 moves all extremities equally and fully, speech is fluent face is symmetric Course Vital Signs Vital signs: Vital Signs Temperature 98.1 F 12/29/22 03:13 Pulse Rate 92 H 12/29/22 03:13 Respiratory Rate 32 H 12/29/22 03:13 Blood Pressure 143/110 12/29/22 03:13 Pulse Oximetry (%) 88 L 12/29/22 03:13 Oxygen Delivery Method Room Air 12/29/22 03:13 Temperature 97.6 F 01/02/23 12:02 Pulse Rate 72 01/02/23 15:00 Respiratory Rate 28 H 01/02/23 15:00 Blood Pressure 122/73 01/02/23 14:45 Pulse Oximetry (%) 91 01/02/23 15:00 Oxygen Delivery Method Oxymask 01/02/23 14:45 Oxygen Flow Rate (L/min) 5 01/02/23 14:45 MDM MDM Narrative Medical decision making narrative: Narrative: Patient presents to the emergency department with shortness of breath and lower extremity edema he also has associated anasarca. Prior echo last year shows an EF of 20 to 25%. He was admitted last July it looks like his discharge weight was 175 kg. His weight today is 197 kg. He does look overloaded on exam his oxygen saturation is in the high 80s on room air he does not normally use supplemental oxygen. Patient was ordered 60 mg of IV Lasix from chart review appears he takes 40 mg twice daily along with spironolactone. Patient's chest x-ray per my interpretation shows cardiomegaly and pulmonary vascular congestion. Patient's creatinine today is 1.6 this is at his baseline from what I can tell on prior. Patient's proBNP is 7188, increased from prior. Lab Data 12/30/22 05:23 01/02/23 05:34 Labs: Lab Results 12/29/22 12/29/22 12/29/22 Range/Units 03:48 03:50 03:53 WBC (4.5-11.0) K/mcL RBC (4.63-6.08) M/mcL Hgb (13.7-17.5) g/dL Hct (40.1-51.0) % POC Hct 45.0 (41-55) MCV (80.0-100.0) fL MCH (26.0-34.0) pg MCHC (31.0-36.0) g/dL RDW (11.5-14.5) % Plt Count (140-440) K/mcL MPV (8.8-12.5) fL Immature Gran % (Auto) (0.0-0.5) % Neut % (Auto) (38.0-78.0) % Lymph % (Auto) (15.5-49.0) % [place] % (Auto) (1.0-12.0) % Eos % (Auto) (0.0-7.0) % Baso % (Auto) (0.0-2.0) % Lymph # (Auto) (1.50-4.80) K/mcL [place] # (Auto) (0.10-0.90) K/mcL Eos # (Auto) (0.00-0.70) K/mcL Baso # (Auto) (0.00-0.30) K/mcL Immature Gran # (0.00-0.05) K/mcl Absolute Neutrophils (1.80-8.00) K/mcL POC VBG pH (7.32-7.42) POC VBG pCO2 at Temp (41-51) POC VBG pO2 (25-40) POC VBG HCO3 (24-28) POC VBG Total CO2 (25-29) POC Venous O2 Sat (40-70) POC VBG Base Excess (-2-2) VBG Lactic Acid (0.5-2) POC Sodium 138 (133-145) POC Potassium 4.6 (3.3-5.1) POC Chloride 101 (96-108) POC Total CO2 27.0 (22-30) POC BUN 23 H (6-20) POC Creatinine 1.6 H (0.6-1.2) POC Glucose 128 H (70-105) POC WB Ioniz Calcium 1.06 L (1.16-1.32) Total Bilirubin 1.1 H (0.1-1.0) mg/dL Direct Bilirubin 0.4 H (<0.3) mg/dL AST 19 (<40) U/L ALT 20 (<40) U/L Alkaline Phosphatase 94 (39-117) U/L NT-Pro-B Natriuret Pep 7188.0 H (<125.0) pg/mL Total Protein 6.9 (5.9-8.4) gm/dL Albumin 3.9 (3.2-5.2) gm/dL Globulin 3.0 (2.2-3.7) gm/dL POC Troponin I 0.03 (0.00-0.08) 12/29/22 12/29/22 Range/Units 03:53 03:57 WBC 9.4 (4.5-11.0) K/mcL RBC 5.63 (4.63-6.08) M/mcL Hgb 12.7 L (13.7-17.5) g/dL Hct 43.8 (40.1-51.0) % POC Hct (41-55) MCV 77.8 L (80.0-100.0) fL MCH 22.6 L (26.0-34.0) pg MCHC 29.0 L (31.0-36.0) g/dL RDW 23.9 H (11.5-14.5) % Plt Count 278 (140-440) K/mcL MPV 9.6 (8.8-12.5) fL Immature Gran % (Auto) 0.5 (0.0-0.5) % Neut % (Auto) 77.3 (38.0-78.0) % Lymph % (Auto) 15.0 L (15.5-49.0) % [place] % (Auto) 5.5 (1.0-12.0) % Eos % (Auto) 1.1 (0.0-7.0) % Baso % (Auto) 0.6 (0.0-2.0) % Lymph # (Auto) 1.41 L (1.50-4.80) K/mcL [place] # (Auto) 0.52 (0.10-0.90) K/mcL Eos # (Auto) 0.10 (0.00-0.70) K/mcL Baso # (Auto) 0.06 (0.00-0.30) K/mcL Immature Gran # 0.05 (0.00-0.05) K/mcl Absolute Neutrophils 7.24 (1.80-8.00) K/mcL POC VBG pH 7.39 (7.32-7.42) POC VBG pCO2 at Temp 45.4 (41-51) POC VBG pO2 35 (25-40) POC VBG HCO3 27.7 (24-28) POC VBG Total CO2 29.0 (25-29) POC Venous O2 Sat 66.0 (40-70) POC VBG Base Excess 3.0 H (-2-2) VBG Lactic Acid 1.8 (0.5-2) POC Sodium (133-145) POC Potassium (3.3-5.1) POC Chloride (96-108) POC Total CO2 (22-30) POC BUN (6-20) POC Creatinine (0.6-1.2) POC Glucose (70-105) POC WB Ioniz Calcium (1.16-1.32) Total Bilirubin (0.1-1.0) mg/dL Direct Bilirubin (<0.3) mg/dL AST (<40) U/L ALT (<40) U/L Alkaline Phosphatase (39-117) U/L NT-Pro-B Natriuret Pep (<125.0) pg/mL Total Protein (5.9-8.4) gm/dL Albumin (3.2-5.2) gm/dL Globulin (2.2-3.7) gm/dL POC Troponin I (0.00-0.08) EKG Data EKG #1: EKG attestation: Yes I reviewed and interpreted this EKG., Yes There are no EKG findings of acute coronary syndrome and Yes This EKG will be read by assistant research scientist EKG results narrative: EKG per my interpretation shows a sinus rhythm with a rate of 91 low voltage no evidence of acute ischemia QTc is 41 Discharge Plan Patient/Caregiver Discharge Instructions Pt seen by CONTROL TOWER RADIO OPERATOR/PA only: No Clinical Impression: Acute exacerbation of CHF (congestive heart failure), Acute respiratory failure with hypoxemia Patient Disposition: Xfer As Inpt ([facility]) Condition: Fair Discharge Date/Time: 12/29/22 13:20
--- NOTE | 2022-12-29 07:44 | Internal Med History&Physical ---
HPI History of Present Illness Patient information: Note initiated : 12/29/22 at 7:36 am Service Date, if different from initiated Date: [] Patient: Guillaume Broderick a 62 y/o M admitted on for Shortness of breath. Chief Complaint: [] History of present illness: Mr. Broderick is a 62 year old M Presents the ED early in the morning for shortness of breath worsening over the past couple hours is also had some recurrent nosebleeds. He was 88 to 90% on room air. He also complains of lower extremity edema symptoms have dramatically worse with past couple weeks but the edema has dramatically increased over the past couple days. Patient has a BiPAP for sleep apnea and says he has been using it during the day sometimes. He has gained water weight but could not say how much because of his scale breaking. Discharge weight from last hospitalization July was 175 kg and his weight in the ED was 197 kg. Patient says he is not consistent with taking his medications and misses all of them relatively frequently. Patient thinks he needs counseling to help him stay more consistent. Patient states his swelling moves around other than his arms and sometimes scrotum sometimes abdomen and arms. No change in diet but he has noticed this past week that a lot of the food that he eats has a high sodium content. He has a mild dry cough. No chest pain. Patient found to have acute exacerbation of CHF. Patient is given IV Lasix in the ED. chest x-ray with pulmonary edema. Flu COVID-negative EKG sinus rhythm Review of Systems: Pertinent positives as above. Denies headache/fever/chills/nausea/vomiting/chest or abdominal pain/cough/dyspnea /diarrhea. Remaining 10 point review of system reviewed negative PHYSICAL EXAM General: Alert, Awake, No acute Distress, obese Eyes/N/T: EOMI, no scleral icterus, PERRL, Head/Neck: neck supple, full ROM, normocephalic atraumatic CV: RRR, 2/6SM, normal s1/s2 Pulm: Clear b/l, no wheezing/rhonchi/rales, no respiratory distress Abd: soft, nontender, protuberant, +BS x4 Ext: no clubbing/cyanosis, b/l UE/LE edema to abdomen, nontender, venous stasis changes Neuro: Alert, no focal deficits, moves all extremities, CN 2-12 grossly intact, sensations intact b/l upper/lower Psychiatric: Skin: warm/dry, normal color PFSH PFSH All Active Problems (Updated 09/19/22 @ 05:33 by Amanuel Quesada DO) Pneumonia (Acute) Chronic pulmonary congestion (Acute) CHF (congestive heart failure) (Acute) Elevated troponin I level (Acute) Constipation (Acute) Hemoptysis (Acute) Rash (Acute) Acute UTI (Acute) Scabies (Acute) Witnessed apneic spells (Chronic) Snoring (Chronic) Hypersomnia (Chronic) Acute exacerbation of congestive heart failure (Acute) Sacral decubitus ulcer, stage II (Acute) Venous stasis (Acute) ADRIENNE (obstructive sleep apnea) (Chronic) Mixed dyslipidemia (Acute) Scratch of right lower leg (Acute) Near syncope (Acute) Dyspnea (Acute) Hypertensive urgency (Acute) Blister (Acute) Visit for wound check (Acute) Paroxysmal supraventricular tachycardia (Acute) CHF (congestive heart failure) (Acute) Elevated troponin (Acute) Rash (Acute) Congestive heart failure (Acute) Hypertension (Acute) Type 2 diabetes mellitus (Acute) Hypertensive urgency (Acute) History of syncope (Acute) Elevated troponin (Acute) Lower urinary tract symptoms (LUTS) (Chronic) Arthritis (Chronic) Pain in left knee (Chronic) Sleeps in sitting position due to orthopnea (Chronic) Pain in right knee (Chronic) Adult body mass index 40 and over (Chronic) History of tobacco use (Chronic) Edema of lower extremity (Chronic) Retinal venous tortuosity (Chronic) Allergic rhinitis (Chronic) Benign hypertension (Chronic) Chronic depression (Chronic) Morbid obesity (Chronic) Diabetes mellitus (Chronic) Urinary incontinence (Chronic) Pediculus capitis (head louse) (Chronic) Pediculus corporis (body louse) (Chronic) Rib pain on left side (Chronic) Medical History Adult body mass index 40 and over Allergic rhinitis Arthritis Bilateral Ankle Benign hypertension Chronic depression Diabetes mellitus Edema of lower extremity History of tobacco use Hypersomnia Lower urinary tract symptoms (LUTS) Morbid obesity Pain in left knee Pain in right knee Pediculus capitis (head louse) Pediculus corporis (body louse) Rash Retinal venous tortuosity Sleeps in sitting position due to orthopnea Snoring Urinary incontinence Witnessed apneic spells Surgical History History of colonoscopy with polypectomy History of hernia repair "Double" Family History Mother Tumor of lung Father Malignant neoplasm of bone Malignant melanoma Social History household members: other sexually active: No smoking status: Former smoker alcohol intake frequency: does not drink substance use type: does not use seatbelt use: always working smoke detector in home: Yes firearms in home: No MEDS/ALLERGIES Home Medications and Allergies Home Medications Medication Instructions Recorded Confirmed Type metformin 500 mg tablet,extended 1,000 mg PO BID 07/17/19 07/30/22 History release 24 hr rosuvastatin 40 mg tablet 40 mg PO QPM 07/17/19 07/30/22 History empagliflozin 10 mg tablet 25 mg PO QDAY 05/24/21 07/30/22 History (Jardiance) finasteride 5 mg tablet 5 mg PO DAILY 05/24/21 07/30/22 History lisinopril 5 mg tablet 10 mg PO QDAY 05/24/21 07/30/22 History tamsulosin 0.4 mg capsule 0.4 mg PO QDAY 05/24/21 07/30/22 History torsemide 20 mg tablet 20 mg PO QAM 03/01/22 07/30/22 History empagliflozin 25 mg tablet 1 tab PO QAM 07/30/22 07/30/22 History (Jardiance) furosemide 20 mg tablet 2 tab PO BID 07/30/22 07/30/22 History hydroxyzine HCl 25 mg tablet 1 - 2 tab PO Q6HP PRN anxiety 07/30/22 07/30/22 History metoprolol succinate 100 mg 1 tab PO BID 07/30/22 07/30/22 History tablet,extended release 24 hr mometasone-formoterol HFA 200 2 puff inhalation BID 07/30/22 07/30/22 History mcg-5 mcg/actuation aerosol inhaler (Dulera) potassium chloride 20 mEq 1 tab PO BID 07/30/22 07/30/22 History tablet,extended release(part/cryst) spironolactone 50 mg tablet 1 tab PO QAM 07/30/22 07/30/22 History tiotropium bromide 18 mcg capsule 1 cap inhalation QDAY 07/30/22 07/30/22 History with inhalation device (Spiriva with HandiHaler) venlafaxine 150 mg 1 cap PO QDAY depressive disorder 07/30/22 07/30/22 History capsule,extended release 24 hr azithromycin 250 mg tablet See Rx Instructions PO .COMPLEX #6 09/19/22 Rx tabs Allergies Allergy/AdvReac Type Severity Reaction Status Date / Time No Known Drug Allergies Allergy Verified 09/19/22 04:45 EXAM Constitutional Vitals: Temp Pulse Resp BP Pulse Ox O2 Del Method O2 Flow Rate 98.1 F 82 20 176/150 98 Oxymask 5 12/29/22 03:13 12/29/22 06:09 12/29/22 06:09 12/29/22 05:46 12/29/22 06:09 12/29/22 06:09 12/29/22 06:09 DATA Data Completed and Pending Labs: Labs from last 24 hours 12/29/22 12/29/22 12/29/22 03:57 03:53 03:53 WBC 9.4 RBC 5.63 Hgb 12.7 L Hct 43.8 POC Hct MCV 77.8 L MCH 22.6 L MCHC 29.0 L RDW 23.9 H Plt Count 278 MPV 9.6 Immature Gran % (Auto) 0.5 Neut % (Auto) 77.3 Lymph % (Auto) 15.0 L Faulk % (Auto) 5.5 Eos % (Auto) 1.1 Baso % (Auto) 0.6 Lymph # (Auto) 1.41 L Faulk # (Auto) 0.52 Eos # (Auto) 0.10 Baso # (Auto) 0.06 Immature Gran # 0.05 Absolute Neutrophils 7.24 POC VBG pH 7.39 POC VBG pCO2 at Temp 45.4 POC VBG pO2 35 POC VBG HCO3 27.7 POC VBG Total CO2 29.0 POC Venous O2 Sat 66.0 POC VBG Base Excess 3.0 H VBG Lactic Acid 1.8 POC Sodium POC Potassium POC Chloride POC Total CO2 POC BUN POC Creatinine POC Glucose POC WB Ioniz Calcium Total Bilirubin 1.1 H Direct Bilirubin 0.4 H AST 19 ALT 20 Alkaline Phosphatase 94 NT-Pro-B Natriuret Pep 7188.0 H Total Protein 6.9 Albumin 3.9 Globulin 3.0 POC Troponin I 12/29/22 12/29/22 03:50 03:48 WBC RBC Hgb Hct POC Hct 45.0 MCV MCH MCHC RDW Plt Count MPV Immature Gran % (Auto) Neut % (Auto) Lymph % (Auto) Faulk % (Auto) Eos % (Auto) Baso % (Auto) Lymph # (Auto) Faulk # (Auto) Eos # (Auto) Baso # (Auto) Immature Gran # Absolute Neutrophils POC VBG pH POC VBG pCO2 at Temp POC VBG pO2 POC VBG HCO3 POC VBG Total CO2 POC Venous O2 Sat POC VBG Base Excess VBG Lactic Acid POC Sodium 138 POC Potassium 4.6 POC Chloride 101 POC Total CO2 27.0 POC BUN 23 H POC Creatinine 1.6 H POC Glucose 128 H POC WB Ioniz Calcium 1.06 L Total Bilirubin Direct Bilirubin AST ALT Alkaline Phosphatase NT-Pro-B Natriuret Pep Total Protein Albumin Globulin POC Troponin I 0.03 A/P Narrative A/P Narrative: A: *Anasarca w/Pulm edema: 2/2 medication noncompliance - *acute on chronic systolic (20-25%)/diastolic(III) CHF & mild-mod reduced RV systolic fxn: - *acute on chronic hypoxic respiratory failure (used to be on home O2 but sent back): - *Severe Pulm HTN: *CKD III: likely cardiorenal *Anemia, chronic: *CAD: follows with Dr. Gore *Venous stasis changes b/l LE: *HTN/HLD: on BB/lasix/ACEI, statin *Depression/anxiety: *DM2: on insulin/metformin *Morbid obesity: BMI 65 *ADRIENNE: on bipap *Generalized weakness/Deconditioning/Debility: P: -lasix gtt in conjunction with -monitor UOP/fluid balance -monitor renal fxn -repleate electrolytes as needed and trend -cont ACEI/BB -cont asa/statin -SSI, hold metformin for now -elevate legs and wrap -home bipap -PT/OT -Home medication reconciliation -CM for placement needs -f/u with cardiology -ppx: heparin Time Spent With Patient Time: Total time spent is greater than 50% in coordination of care (as documented) at patient's floor/unit and/or counseling patient: Initial: Total time with patient: 75 - 90 minutes
--- NOTE | 2022-12-29 07:49 | EKG ---
[facility] Test Date: 2022-12-29 Pat Name: Guillaume Broderick Department: ED Room: Gender: Male [employer]: JO : 1960 Requested By: Honorio Dash Order Number: [id number] Reading MD: Bartolo Caballero M.D. Measurements Intervals [place] Rate: 91 P: 43 MA: 163 QRS: 10 QRSD: 92 T: 92 QT: 391 QTc: 481 Interpretive Statements Sinus rhythm Low voltage, extremity and precordial leads Borderline prolonged QT interval Electronically Signed On 12-29-2022 7:49:13 PDT by Bartolo Caballero M.D. /store/[email or web address]/[id number]
[2022-12-29] MEDS ORDERED: DEXTROSE 31 GM ORAL.SUSP PO PRN (13:28)
[2022-12-29] MEDS ORDERED: IPRATROPIUM/ALBUTEROL 3 ML AMPUL.NEB NEB PRN (13:28)
[2022-12-29] MEDS ORDERED: HYDROCHLOROTHIAZIDE 25 MG TABLET PO SCH (13:28)
[2022-12-29] MEDS ORDERED: POTASSIUM CHLORIDE 20 MEQ TABLET PO PRN ×2 (13:28)
[2022-12-29] MEDS ORDERED: ACETAMINOPHEN 325 MG TABLET PO PRN (13:28)
[2022-12-29] MEDS ORDERED: POTASSIUM CHLORIDE 40 MEQ in DEXTROSE 5% IN WATER 500 ML IV PRN (13:28)
[2022-12-29] MEDS ORDERED: MAGNESIUM SULFATE 2 GM/50 ML BAG IV PRN (13:28)
[2022-12-29] MEDS ORDERED: SENNOSIDES 1 TABLET PO PRN (13:28)
[2022-12-29] MEDS ORDERED: ONDANSETRON 4 MG/2 ML VIAL IV PRN (13:28)
[2022-12-29] MEDS ORDERED: POLYETHYLENE GLYCOL 3350 17 GM PACKET PO PRN (13:28)
[2022-12-29] MEDS ORDERED: DEXTROSE 50% 50 ML VIAL IV PRN (13:28)
[2022-12-29] MEDS: FUROSEMIDE 250 MG in 0.9 % SODIUM CHLORIDE 225 ML IV SCH (14:10)
[2022-12-29] MEDS: DOCUSATE SODIUM 100 MG CAPSULE PO SCH ×2 (14:10→20:15)
[2022-12-29] MEDS: INSULIN LISPRO 1 UNIT/0.01 ML UNIT SQ SCH ×3 (14:11→21:19)
[2022-12-29] MEDS: HEPARIN 5,000 UNIT/ML VIAL SQ SCH ×2 (14:19→21:19)
[2022-12-29] MEDS: 0.9 % SODIUM CHLORIDE 10 ML SYRINGE IV SCH ×2 (14:22→21:20)
[2022-12-29] MEDS: ROSUVASTATIN 40 MG PO SCH (20:14)
[2022-12-29] MEDS: MOMETASONE FORMOTEROL INH SCH (20:14)
[2022-12-29] MEDS: LISINOPRIL 5 MG TABLET PO SCH (21:17)
[2022-12-29] MEDS: METOPROLOL SUCCINATE 50 MG TAB.XL.24H PO SCH (21:19)
[2022-12-29] MEDS: AMIODARONE HCL 200 MG TABLET PO SCH (21:19)
[2022-12-30] MEDS: 0.9 % SODIUM CHLORIDE 10 ML SYRINGE IV SCH ×3 (05:59→20:43)
[2022-12-30] MEDS: HEPARIN 5,000 UNIT/ML VIAL SQ SCH ×3 (06:00→20:48)
[2022-12-30 06:35] LABS: ALT/SGPT 16 U/L (<40); AST/SGOT 14 U/L (<40); Albumin 3.6 gm/dL (3.2-5.2); Albumin/Globulin Ratio 1.3 (1.0-2.3); Alkaline Phosphatase 89 U/L (39-117); Bilirubin,Direct 0.3 mg/dL (<0.3); Bilirubin,Total 0.8 mg/dL (0.1-1.0); Blood Urea Nitrogen 29 mg/dL (8-23); Calcium 8.5 mg/dL (8.6-10.4); Carbon Dioxide 30 mmol/L (22-30); Chloride 99 mmol/L (96-108); Globulin 2.7 gm/dL (2.2-3.7); Glomerular Filtration Rate 45; Glucose 123 mg/dL (70-105); Lactate Dehydrogenase 244 U/L (135-225); Phosphorous 4.8 mg/dL (2.5-4.5); Triglycerides 78 mg/dL (<150); Uric Acid 9.3 mg/dL (2.5-8.0)
[2022-12-30 07:18] LABS: Basophils # (Auto) 0.09 K/mcL (0.00-0.30); Basophils % (Auto) 1.1 % (0.0-2.0); Eosinophils # (Auto) 0.21 K/mcL (0.00-0.70); Eosinophils % (Auto) 2.7 % (0.0-7.0); Hematocrit 40.1 % (40.1-51.0); Hemoglobin 12.4 g/dL (13.7-17.5); Lymphocytes # (Auto) 0.97 K/mcL (1.50-4.80); Lymphocytes % (Auto) 12.3 % (15.5-49.0); Mean Cell Volume 75.8 fL (80.0-100.0); Mean Corpuscular HGB Conc 30.9 g/dL (31.0-36.0); Mean Platelet Volume 10.2 fL (8.8-12.5); Monocytes # (Auto) 0.49 K/mcL (0.10-0.90); Monocytes % (Auto) 6.2 % (1.0-12.0); Neutrophils % (Auto) 77.2 % (38.0-78.0); Platelet Count 437 K/mcL (140-440); RBC 5.29 M/mcL (4.63-6.08); Red Cell Distribution Width 24.6 % (11.5-14.5); WBC 7.9 K/mcL (4.5-11.0)
[2022-12-30] MEDS: INSULIN LISPRO 1 UNIT/0.01 ML UNIT SQ SCH ×4 (07:30→20:59)
[2022-12-30] MEDS: DOCUSATE SODIUM 100 MG CAPSULE PO SCH ×2 (08:20→20:48)
[2022-12-30] MEDS: TAMSULOSIN 0.4 MG CAPSULE PO SCH (08:20)
[2022-12-30] MEDS: METOPROLOL SUCCINATE 50 MG TAB.XL.24H PO SCH ×2 (08:20→20:48)
[2022-12-30] MEDS: AMIODARONE HCL 200 MG TABLET PO SCH ×2 (08:20→17:17)
[2022-12-30] MEDS: SPIRONOLACTONE 25 MG TABLET PO SCH (08:20)
[2022-12-30] MEDS: ASPIRIN 81 MG TAB.CHEW PO SCH (08:20)
[2022-12-30] MEDS: MOMETASONE FORMOTEROL INH SCH ×2 (08:21→20:42)
[2022-12-30] MEDS: TIOTROPIUM BROMIDE 18 MCG INHALANT INH SCH (08:21)
[2022-12-30] MEDS: LISINOPRIL 5 MG TABLET PO SCH (08:24)
[2022-12-30] MEDS: VENLAFAXINE 150 MG CAP.XL.24H PO SCH (08:24)
[2022-12-30] MEDS: FINASTERIDE 5 MG TABLET PO SCH (08:24)
[2022-12-30] MEDS ORDERED: POTASSIUM CHLORIDE 20 MEQ TABLET PO ONE (10:38)
[2022-12-30 11:28] LABS: Ferritin 98.2 ng/mL (30.0-400.0)
--- NOTE | 2022-12-30 13:10 | Internal Med Progress Note ---
SUBJECTIVE Subjective Patient information: Note initiated : 12/30/22 at 1:03 pm Service Date, if different from initiated Date: [] Patient: Guillaume Broderick a 62 y/o M admitted on 12/29/22 for Shortness of breath. Chief Complaint: [] Interval history: Mr. Broderick is a 62 year old M Presents the ED early in the morning for shortness of breath worsening over the past couple hours is also had some recurrent nosebleeds. He was 88 to 90% on room air. He also complains of lower extremity edema symptoms have dramatically worse with past couple weeks but the edema has dramatically increased over the past couple days. Patient has a BiPAP for sleep apnea and says he has been using it during the day sometimes. He has gained water weight but could not say how much because of his scale breaking. Discharge weight from last hospitalization July was 175 kg and his weight in the ED was 197 kg. Patient says he is not consistent with taking his medications and misses all of them relatively frequently. Patient thinks he needs counseling to help him stay more consistent. Patient states his swelling moves around other than his arms and sometimes scrotum sometimes abdomen and arms. No change in diet but he has noticed this past week that a lot of the food that he eats has a high sodium content. He has a mild dry cough. No chest pain. The patient was diagnosed with an acute on chronic congestive heart failure exacerbation and started on IV Lasix in the ED. chest x-ray consistent with pulmonary edema. Flu and COVID screen were negative. EKG showed normal sinus rhythm. Hospital medicine asked to admit the patient for CHF exacerbation. The patient was started on a Lasix infusion. 12/30 Patient was on 3 L/min oxygen supplementation overnight, diuresing well with the Lasix infusion. Potassium low normal today, supplemented. Renal function stable. Continues on Lasix infusion. Physical exam Head: Atraumatic, normal inspection. Eyes: normal appearance, no scleral icterus. Neck: full ROM Respiratory: Oxygen supplementation, no respiratory distress. Cardiovascular: normal rate and rhythm, S1, S2. GI/Abdominal: soft, nontender, no guarding. Extremities: Bilateral pitting edema up to thighs. Neurological: CN II-XII intact, intact motor, intact sensation. Psychiatric: normal mood. Skin: warm, normal color Constitutional Vitals: Vital Signs Temp Pulse Resp BP Pulse Ox O2 Del Method O2 Flow Rate 97.3 F 85 26 H 145/74 92 Oxymask 3 12/30/22 08:01 12/30/22 10:17 12/30/22 11:00 12/30/22 11:00 12/30/22 11:00 12/30/22 11:00 12/30/22 11:00 Period Temp Pulse Resp BP Sys/Becerra Pulse Ox O2 Del Method O2 Flow Rate Last 24 Hr 97.0 F-97.6 F 55-91 14-32 98-181/65-143 86-99 BiPAP-Oxymask 3-3 Intake and Output 12/30/22 12/30/22 12/30/22 03:59 11:59 19:59 Intake Total 900 316 240 Output Total 4000 2050 1050 Balance -3100 -1734 -810 Weight 189.284 kg 189.284 kg Patient Weight 12/31/22 03:59 Weight 189.284 kg Intake & Output: Intake & Output 12/30/22 12/30/22 12/30/22 03:59 11:59 19:59 Intake Total 900 316 240 Output Total 4000 2050 1050 Balance -3100 -1734 -810 Weight 189.284 kg 189.284 kg Intake: Oral 900 316 240 Output: Urine Catheter Amount 4000 2050 1050 Other: Meal snack-2 containers of fruit Breakfast Lunch Percent of Meal Consumed 100% 100% 100% Feeding Ability Assist with Tray Set Up Independent Urine Appearance Clear Clear Clear Uretheral (Desai) Clear Urine Color Yellow Yellow Yellow Pale Uretheral (Desai) Yellow Pale Urine Odor Normal # Bowel Movements 0 1 OBJ DATA Labs 12/30/22 05:23 12/30/22 05:23 Labs: Abnormal Lab Results 12/30/22 12/30/22 12/30/22 05:23 05:23 05:23 Hgb 12.4 L MCV 75.8 L MCH 23.4 L MCHC 30.9 L RDW 24.6 H Lymph % (Auto) 12.3 L Lymph # (Auto) 0.97 L POC VBG Base Excess POC BUN BUN 29 H Creatinine 1.6 H POC Creatinine Glucose 123 H POC Glucose Uric Acid 9.3 H Calcium 8.5 L POC WB Ioniz Calcium Phosphorus 4.8 H Iron 41 L Transferrin % Sat 12 L Total Bilirubin Direct Bilirubin 0.3 H GGT 63 H Lactate Dehydrogenase 244 H NT-Pro-B Natriuret Pep 12/29/22 12/29/22 12/29/22 03:57 03:53 03:53 Hgb 12.7 L MCV 77.8 L MCH 22.6 L MCHC 29.0 L RDW 23.9 H Lymph % (Auto) 15.0 L Lymph # (Auto) 1.41 L POC VBG Base Excess 3.0 H POC BUN BUN Creatinine POC Creatinine Glucose POC Glucose Uric Acid Calcium POC WB Ioniz Calcium Phosphorus Iron Transferrin % Sat Total Bilirubin 1.1 H Direct Bilirubin 0.4 H GGT Lactate Dehydrogenase NT-Pro-B Natriuret Pep 7188.0 H 12/29/22 03:50 Hgb MCV MCH MCHC RDW Lymph % (Auto) Lymph # (Auto) POC VBG Base Excess POC BUN 23 H BUN Creatinine POC Creatinine 1.6 H Glucose POC Glucose 128 H Uric Acid Calcium POC WB Ioniz Calcium 1.06 L Phosphorus Iron Transferrin % Sat Total Bilirubin Direct Bilirubin GGT Lactate Dehydrogenase NT-Pro-B Natriuret Pep Meds: Medications Acetaminophen (Acetaminophen 325 Mg Tablet) 650 mg PO Q6HP PRN; Protocol PRN Reason: Per Pain Protocol/Fever > 101 Albuterol/Ipratropium (Ipratropium/Albuterol 3 Ml Ampul.Neb) 3 ml NEB Q4HP PRN PRN Reason: Shortness Of Breath Amiodar[facility] ([facility] H[facility] 200 Mg [facility]) [facility] Admin: 12/30/22 08:20 Dose: 200 mg Aspirin (Aspirin 81 Mg Tab.Chew) 81 mg PO DAILY [facility] Last Admin: 12/30/22 08:20 Dose: 81 mg Dextrose (Dextrose 50% 50 Ml Vial) 0 ml IV UD PRN PRN Reason: Per Sliding Scale Diagnostic Test (Pha) (Accu-Chek 1 Each Strip) 1 each FS ACHS [facility] Last Admin: 12/30/22 11:43 Dose: 1 each Docusate Sodium (Docusate Sodium 100 Mg Capsule) 100 mg PO BID [facility] Last Admin: 12/30/22 08:20 Dose: 100 mg Finasteride (Finasteride 5 Mg Tablet) 5 mg PO DAILY [facility] Last Admin: 12/30/22 08:24 Dose: 5 mg Glucose (Dextrose 31 Gm Oral.Susp) 15 gm PO PRN PRN PRN Reason: Hypoglycemia Heparin Sodium (Porcine) (Heparin 5,000 Unit/Ml Vial) 5,000 unit SQ Q8 [facility] Last Admin: 12/30/22 06:00 Dose: 5,000 unit Furosemide 250 mg/ Sodium (Chloride) 250 mls @ 10 mls/hr IV Q24H [facility]; Protocol Last Admin: 12/29/22 14:10 Dose: 10 mg/hr, 10 mls/hr Potassium Chloride 40 meq/ (Dextrose) 520 mls @ 130 mls/hr IV UD PRN PRN Reason: Potassium < 3 Magnesium Sulfate (Magnesium Sulfate) 2 gm in 50 mls @ 50 mls/hr IV UD PRN PRN Reason: Magnesium </= 1.6 Insulin Human Lispro (Insulin Lispro 1 Unit/0.01 Ml Unit) 0 unit SQ ACHS [facility]; Protocol Last Admin: 12/30/22 11:43 Dose: Not Given Lisinopril (Lisinopril 5 Mg Tablet) 5 mg PO QDAY [facility] Last Admin: 12/30/22 08:24 Dose: 5 mg Metoprolol Succinate (Metoprolol Succinate 50 Mg Tab.Xl.24h) 100 mg PO BID [facility] Last Admin: 12/30/22 08:20 Dose: 100 mg Ondansetron HCl (Ondansetron 4 Mg/2 Ml Vial) 4 mg IV Q4HP PRN PRN Reason: Nausea And Vomiting Rosuvastatin 40 Mg (Tablet) 1 dose PO HS [facility] Last Admin: 12/29/22 20:14 Dose: Not Given Mometasone- Formoterol [Dulera] 200-5 Mcg/Actuation Inhaler 2 dose INH BID [facility] Last Admin: 12/30/22 08:21 Dose: Not Given Polyethylene Glycol (Polyethylene Glycol 3350 17 Gm Packet) 17 gm PO DAILYP PRN PRN Reason: Constipation Potassium Chloride (Potassium Chloride 20 Meq Tablet) 40 meq PO UD PRN PRN Reason: Potssium is 3-3.5 Potassium Chloride (Potassium Chloride 20 Meq Tablet) 40 meq PO UD PRN PRN Reason: Potassium < 3 Senna (Sennosides 1 Tablet) 2 tab PO DAILYP PRN PRN Reason: Constipation Sodium Chloride (0.9 % Sodium Chloride 10 Ml Syringe) 10 ml IV Q8 [facility] Last Admin: 12/30/22 05:59 Dose: Not Given Spironolactone (Spironolactone 25 Mg Tablet) 25 mg PO DAILY [facility] Last Admin: 12/30/22 08:20 Dose: 25 mg Tamsulosin HCl (Tamsulosin 0.4 Mg Capsule) 0.4 mg PO QDAY [facility] Last Admin: 12/30/22 08:20 Dose: 0.4 mg Tiotropium [place] (Tiotropium [place] 18 Mcg Inhalant) 18 mcg INH DAILY [facility] Last Admin: 12/30/22 08:21 Dose: Not Given Venlafaxine HCl (Venlafaxine 150 Mg Cap.Xl.24h) 150 mg PO DAILY [facility] Last Admin: 12/30/22 08:24 Dose: 150 mg A/P Narrative A/P Narrative: A: *Anasarca w/Pulm edema: 2/2 medication noncompliance *Acute on chronic systolic (20-25%)/diastolic(III) CHF & mild-mod reduced RV systolic fxn: *Acute on chronic hypoxic respiratory failure (used to be on home O2 but sent back): *Severe Pulm HTN: *CKD III: Stable *Anemia, chronic: *CAD: follows with Dr. Gore *Venous stasis changes b/l LE: *HTN/HLD: on BB/lasix/ACEI, statin *Depression/anxiety: *DM2: on insulin/metformin *Morbid obesity: BMI 65 *ADRIENNE: on bipap *Generalized weakness/Deconditioning/Debility: P: -Continue Lasix infusion, monitor renal function, urine output, volume status. -repleate electrolytes as needed and trend -cont ACEI/BB -cont asa/statin -SSI, hold metformin for now -home bipap -PT/OT -Home medication reconciliation -CM for placement needs -f/u with cardiology -ppx: heparin Time Spent With Patient Time: Total time spent is greater than 50% in coordination of care (as documented) at patient's floor/unit and/or counseling patient:
[2022-12-30] MEDS: FUROSEMIDE 250 MG in 0.9 % SODIUM CHLORIDE 225 ML IV SCH (17:15)
[2022-12-30] MEDS: ROSUVASTATIN 40 MG PO SCH (20:43)
[2022-12-31] MEDS: 0.9 % SODIUM CHLORIDE 10 ML SYRINGE IV SCH ×3 (05:52→20:47)
[2022-12-31] MEDS: HEPARIN 5,000 UNIT/ML VIAL SQ SCH ×3 (05:52→20:47)
[2022-12-31] MEDS: AMIODARONE HCL 200 MG TABLET PO SCH ×2 (07:25→16:56)
[2022-12-31] MEDS: INSULIN LISPRO 1 UNIT/0.01 ML UNIT SQ SCH ×4 (07:26→20:46)
[2022-12-31 09:00] LABS: Albumin 3.5 gm/dL (3.2-5.2); Blood Urea Nitrogen 30 mg/dL (8-23); Calcium 8.2 mg/dL (8.6-10.4); Carbon Dioxide 30 mmol/L (22-30); Chloride 93 mmol/L (96-108); Glomerular Filtration Rate 45; Glucose 109 mg/dL (70-105); Phosphorous 4.1 mg/dL (2.5-4.5)
[2022-12-31] MEDS: FINASTERIDE 5 MG TABLET PO SCH (09:46)
[2022-12-31] MEDS: POTASSIUM CHLORIDE 20 MEQ TABLET PO SCH ×2 (09:46→16:56)
[2022-12-31] MEDS: DOCUSATE SODIUM 100 MG CAPSULE PO SCH ×2 (09:46→20:27)
[2022-12-31] MEDS: VENLAFAXINE 150 MG CAP.XL.24H PO SCH (09:46)
[2022-12-31] MEDS: TAMSULOSIN 0.4 MG CAPSULE PO SCH (09:47)
[2022-12-31] MEDS: ASPIRIN 81 MG TAB.CHEW PO SCH (09:47)
[2022-12-31] MEDS: LISINOPRIL 5 MG TABLET PO SCH (09:47)
[2022-12-31] MEDS: METOPROLOL SUCCINATE 50 MG TAB.XL.24H PO SCH ×2 (09:47→20:47)
[2022-12-31] MEDS: SPIRONOLACTONE 25 MG TABLET PO SCH (09:47)
[2022-12-31] MEDS: TIOTROPIUM BROMIDE 18 MCG INHALANT INH SCH (09:56)
[2022-12-31] MEDS: MOMETASONE FORMOTEROL INH SCH ×2 (09:56→20:46)
--- NOTE | 2022-12-31 12:05 | Internal Med Progress Note ---
SUBJECTIVE Subjective Patient information: Note initiated : 12/31/22 at 12:02 pm Service Date, if different from initiated Date: [] Patient: Guillaume Broderick a 62 y/o M admitted on 12/29/22 for Shortness of breath. Chief Complaint: [] Interval history: Mr. Broderick is a 62 year old M Presents the ED early in the morning for shortness of breath worsening over the past couple hours is also had some recurrent nosebleeds. He was 88 to 90% on room air. He also complains of lower extremity edema symptoms have dramatically worse with past couple weeks but the edema has dramatically increased over the past couple days. Patient has a BiPAP for sleep apnea and says he has been using it during the day sometimes. He has gained water weight but could not say how much because of his scale breaking. Discharge weight from last hospitalization July was 175 kg and his weight in the ED was 197 kg. Patient says he is not consistent with taking his medications and misses all of them relatively frequently. Patient thinks he needs counseling to help him stay more consistent. Patient states his swelling moves around other than his arms and sometimes scrotum sometimes abdomen and arms. No change in diet but he has noticed this past week that a lot of the food that he eats has a high sodium content. He has a mild dry cough. No chest pain. The patient was diagnosed with an acute on chronic congestive heart failure exacerbation and started on IV Lasix in the ED. chest x-ray consistent with pulmonary edema. Flu and COVID screen were negative. EKG showed normal sinus rhythm. Hospital medicine asked to admit the patient for CHF exacerbation. The patient was started on a Lasix infusion. 12/30 Patient was on 3 L/min oxygen supplementation overnight, diuresing well with the Lasix infusion. Potassium low normal today, supplemented. Renal function stable. Continues on Lasix infusion. 12/31 Diuresing well, potassium low normal today, will start potassium replacement daily. Renal function stable. The patient attempted to strike staff with his cane, police district switchboard operator was called to the bedside to discuss the patient's behaviors. I also was present and informed the patient that if he attempted to injure staff or was rude to staff again he would be discharged promptly. Patient verbalized his understanding. Continues on Lasix drip, monitoring electrolytes and renal function closely. Physical exam Head: Atraumatic, normal inspection. Eyes: normal appearance, no scleral icterus. Neck: full ROM Respiratory: Oxygen supplementation, no respiratory distress. Cardiovascular: normal rate and rhythm, S1, S2. GI/Abdominal: soft, nontender, no guarding. Extremities: Bilateral pitting edema up to thighs. Neurological: CN II-XII intact, intact motor, intact sensation. Psychiatric: normal mood. Skin: warm, normal color Constitutional Vitals: Vital Signs Temp Pulse Resp BP Pulse Ox O2 Del Method O2 Flow Rate 96.8 F L 62 21 102/82 87 L CPAP 4 12/31/22 11:22 12/31/22 11:22 12/31/22 11:22 12/31/22 11:22 12/31/22 11:22 12/31/22 11:22 12/31/22 06:02 Period Temp Pulse Resp BP Sys/Becerra Pulse Ox O2 Del Method O2 Flow Rate Last 24 Hr 96.2 F-98 F 29-115 16-31 102-156/74-137 82-100 BiPAP-Room Air 3-5 Intake and Output 12/31/22 12/31/22 12/31/22 03:59 11:59 19:59 Intake Total 720 960 Output Total 1925 1100 Balance -1205 -140 Intake & Output: Intake & Output 12/31/22 12/31/22 12/31/22 03:59 11:59 19:59 Intake Total 720 960 Output Total 1925 1100 Balance -1205 -140 Intake: Oral 720 240 GI Tube Flush 720 Output: Urine Catheter Amount 1924 1100 Other: Meal FRUIT CUP, EGG SALAD Breakfast Percent of Meal Consumed 100% Feeding Ability Independent Urine Appearance Sediment Clear Uretheral (Desai) Clear Urine Color Yellow Yellow Uretheral (Desai) Yellow Urine Odor Normal OBJ DATA Labs 12/30/22 05:23 12/31/22 07:47 Labs: Abnormal Lab Results 12/31/22 12/30/22 12/30/22 07:47 05:23 05:23 Hgb MCV MCH MCHC RDW Lymph % (Auto) Lymph # (Auto) POC VBG Base Excess Chloride 93 L POC BUN BUN 30 H 29 H Creatinine 1.6 H 1.6 H POC Creatinine Glucose 109 H 123 H POC Glucose Uric Acid 9.3 H Calcium 8.2 L 8.5 L POC WB Ioniz Calcium Phosphorus 4.8 H Iron 41 L Transferrin % Sat 12 L Total Bilirubin Direct Bilirubin 0.3 H GGT 63 H Lactate Dehydrogenase 244 H NT-Pro-B Natriuret Pep 12/30/22 12/29/22 12/29/22 05:23 03:57 03:53 Hgb 12.4 L 12.7 L MCV 75.8 L 77.8 L MCH 23.4 L 22.6 L MCHC 30.9 L 29.0 L RDW 24.6 H 23.9 H Lymph % (Auto) 12.3 L 15.0 L Lymph # (Auto) 0.97 L 1.41 L POC VBG Base Excess 3.0 H Chloride POC BUN BUN Creatinine POC Creatinine Glucose POC Glucose Uric Acid Calcium POC WB Ioniz Calcium Phosphorus Iron Transferrin % Sat Total Bilirubin Direct Bilirubin GGT Lactate Dehydrogenase NT-Pro-B Natriuret Pep 12/29/22 12/29/22 03:53 03:50 Hgb MCV MCH MCHC RDW Lymph % (Auto) Lymph # (Auto) POC VBG Base Excess Chloride POC BUN 23 H BUN Creatinine POC Creatinine 1.6 H Glucose POC Glucose 128 H Uric Acid Calcium POC WB Ioniz Calcium 1.06 L Phosphorus Iron Transferrin % Sat Total Bilirubin 1.1 H Direct Bilirubin 0.4 H GGT Lactate Dehydrogenase NT-Pro-B Natriuret Pep 7188.0 H Meds: Medications Acetaminophen (Acetaminophen 325 Mg Tablet) 650 mg PO Q6HP PRN; Protocol PRN Reason: Per Pain Protocol/Fever > 101 Albuterol/Ipratropium (Ipratropium/Albuterol 3 Ml Ampul.Neb) 3 ml NEB Q4HP PRN PRN Reason: Shortness Of Breath Amiodarone HCl (Amiodarone Hcl 200 Mg Tablet) 200 mg PO BIDCC [facility] Last Admin: 12/31/22 07:25 Dose: 200 mg Aspirin (Aspirin 81 Mg Tab.Chew) 81 mg PO DAILY [facility] Last Admin: 12/31/22 09:47 Dose: 81 mg Dextrose (Dextrose 50% 50 Ml Vial) 0 ml IV UD PRN PRN Reason: Per Sliding Scale Diagnostic Test (Pha) (Accu-Chek 1 Each Strip) 1 each FS ACHS [facility] Last Admin: 12/31/22 11:29 Dose: 1 each Docusate Sodium (Docusate Sodium 100 Mg Capsule) 100 mg PO BID [facility] Last Admin: 12/31/22 09:46 Dose: 100 mg Finasteride (Finasteride 5 Mg Tablet) 5 mg PO DAILY [facility] Last Admin: 12/31/22 09:46 Dose: 5 mg Glucose (Dextrose 31 Gm Oral.Susp) 15 gm PO PRN PRN PRN Reason: Hypoglycemia Heparin Sodium (Porcine) (Heparin 5,000 Unit/Ml Vial) 5,000 unit SQ Q8 [facility] Last Admin: 12/31/22 05:52 Dose: 5,000 unit Furosemide 250 mg/ Sodium (Chloride) 250 mls @ 10 mls/hr IV Q24H [facility]; Protocol Last Admin: 12/30/22 17:15 Dose: 8 mg/hr, 8 mls/hr Potassium Chloride 40 meq/ (Dextrose) 520 mls @ 130 mls/hr IV UD PRN PRN Reason: Potassium < 3 Magnesium Sulfate (Magnesium Sulfate) 2 gm in 50 mls @ 50 mls/hr IV UD PRN PRN Reason: Magnesium </= 1.6 Insulin Human Lispro (Insulin Lispro 1 Unit/0.01 Ml Unit) 0 unit SQ ACHS [facility]; Protocol Last Admin: 12/31/22 11:30 Dose: Not Given Lisinopril (Lisinopril 5 Mg Tablet) 5 mg PO QDAY [facility] Last Admin: 12/31/22 09:47 Dose: 5 mg Metoprolol Succinate (Metoprolol Succinate 50 Mg Tab.Xl.24h) 100 mg PO BID [facility] Last Admin: 12/31/22 09:47 Dose: 100 mg Ondansetron HCl (Ondansetron 4 Mg/2 Ml Vial) 4 mg IV Q4HP PRN PRN Reason: Nausea And Vomiting Rosuvastatin 40 Mg (Tablet) 1 dose PO HS [facility] Last Admin: 12/30/22 20:43 Dose: Not Given Mometasone- Formoterol [Dulera] 200-5 Mcg/Actuation Inhaler 2 dose INH BID [facility] Last Admin: 12/31/22 09:56 Dose: Not Given Polyethylene Glycol (Polyethylene Glycol 3350 17 Gm Packet) 17 gm PO DAILYP PRN PRN Reason: Constipation Potassium Chloride (Potassium Chloride 20 Meq Tablet) 40 meq PO UD PRN PRN Reason: Potssium is 3-3.5 Potassium Chloride (Potassium Chloride 20 Meq Tablet) 40 meq PO UD PRN PRN Reason: Potassium < 3 Potassium Chloride (Potassium Chloride 20 Meq Tablet) 40 meq PO BIDCC [facility] Last Admin: 12/31/22 09:46 Dose: 40 meq Senna (Sennosides 1 Tablet) 2 tab PO DAILYP PRN PRN Reason: Constipation Sodium Chloride (0.9 % Sodium Chloride 10 Ml Syringe) 10 ml IV Q8 [facility] Last Admin: 12/31/22 05:52 Dose: Not Given Spironolactone (Spironolactone 25 Mg Tablet) 25 mg PO DAILY [facility] Last Admin: 12/31/22 09:47 Dose: 25 mg Tamsulosin HCl (Tamsulosin 0.4 Mg Capsule) 0.4 mg PO QDAY [facility] Last Admin: 12/31/22 09:47 Dose: 0.4 mg Tiotropium [place] (Tiotropium [place] 18 Mcg Inhalant) 18 mcg INH DAILY [facility] Last Admin: 12/31/22 09:56 Dose: Not Given Venlafaxine HCl (Venlafaxine 150 Mg Cap.Xl.24h) 150 mg PO DAILY [facility] Last Admin: 12/31/22 09:46 Dose: 150 mg A/P Narrative A/P Narrative: A: *Anasarca w/Pulm edema: 2/2 medication noncompliance *Acute on chronic systolic (20-25%)/diastolic(III) CHF & mild-mod reduced RV systolic fxn: *Acute on chronic hypoxic respiratory failure (used to be on home O2 but sent back): *Severe Pulm HTN: *CKD III: Stable *Anemia, chronic: *CAD: follows with Dr. Gore *Venous stasis changes b/l LE: *HTN/HLD: on BB/lasix/ACEI, statin *Depression/anxiety: *DM2: on insulin/metformin *Morbid obesity: BMI 65 *ADRIENNE: on bipap *Generalized weakness/Deconditioning/Debility: P: -Continue Lasix drip, monitor renal function, urine output, volume status. -repleate electrolytes as needed and trend -cont ACEI/BB -cont asa/statin -SSI, hold metformin for now -home bipap -PT/OT -CM for placement needs -f/u with cardiology -telemetry monitor while on Lasix drip. -ppx: heparin -Disposition: Currently inpatient PCU for Lasix drip and close monitoring. Will need to establish with PCP, referral to psychology at discharge for behavioral health issues including anger management. Time Spent With Patient Time: Total time spent is greater than 50% in coordination of care (as documented) at patient's floor/unit and/or counseling patient:
[2022-12-31] MEDS: FUROSEMIDE 250 MG in 0.9 % SODIUM CHLORIDE 225 ML IV SCH ×2 (14:05→14:22)
[2022-12-31 16:44] LABS: Albumin 3.5 gm/dL (3.2-5.2); Blood Urea Nitrogen 30 mg/dL (8-23); Calcium 8.2 mg/dL (8.6-10.4); Carbon Dioxide 28 mmol/L (22-30); Chloride 94 mmol/L (96-108); Glomerular Filtration Rate 49; Glucose 148 mg/dL (70-105); Phosphorous 3.6 mg/dL (2.5-4.5)
[2022-12-31] MEDS: ROSUVASTATIN 40 MG PO SCH (20:46)
[2023-01-01] MEDS: 0.9 % SODIUM CHLORIDE 10 ML SYRINGE IV SCH ×3 (05:09→20:38)
[2023-01-01] MEDS: HEPARIN 5,000 UNIT/ML VIAL SQ SCH ×3 (05:13→20:37)
[2023-01-01 06:25] LABS: Albumin 3.5 gm/dL (3.2-5.2); Calcium 8.4 mg/dL (8.6-10.4); Phosphorous 4.4 mg/dL (2.5-4.5)
[2023-01-01] MEDS ORDERED: METOLAZONE 2.5 MG TABLET PO ONE (07:38)
[2023-01-01] MEDS: INSULIN LISPRO 1 UNIT/0.01 ML UNIT SQ SCH ×4 (07:39→20:42)
[2023-01-01] MEDS: ASPIRIN 81 MG TAB.CHEW PO SCH (08:25)
[2023-01-01] MEDS: METOPROLOL SUCCINATE 50 MG TAB.XL.24H PO SCH ×2 (08:25→20:37)
[2023-01-01] MEDS: AMIODARONE HCL 200 MG TABLET PO SCH ×2 (08:25→17:27)
[2023-01-01] MEDS: TAMSULOSIN 0.4 MG CAPSULE PO SCH (08:25)
[2023-01-01] MEDS: SPIRONOLACTONE 25 MG TABLET PO SCH (08:25)
[2023-01-01] MEDS: POTASSIUM CHLORIDE 20 MEQ TABLET PO SCH (08:25)
[2023-01-01] MEDS: MOMETASONE FORMOTEROL INH SCH ×2 (08:28→20:38)
[2023-01-01] MEDS: DOCUSATE SODIUM 100 MG CAPSULE PO SCH ×3 (08:28→20:51)
[2023-01-01] MEDS: TIOTROPIUM BROMIDE 18 MCG INHALANT INH SCH (08:28)
[2023-01-01] MEDS: VENLAFAXINE 150 MG CAP.XL.24H PO SCH (08:34)
[2023-01-01] MEDS: FINASTERIDE 5 MG TABLET PO SCH (08:34)
[2023-01-01] MEDS: LISINOPRIL 5 MG TABLET PO SCH (08:34)
--- NOTE | 2023-01-01 08:34 | Internal Med Progress Note ---
SUBJECTIVE Subjective Patient information: Note initiated : 01/01/23 at 8:33 am Service Date, if different from initiated Date: [] Patient: Guillaume Broderick a 62 y/o M admitted on 12/29/22 for Shortness of breath. Chief Complaint: [] Interval history: Mr. Broderick is a 62 year old M Presents the ED early in the morning for shortness of breath worsening over the past couple hours is also had some recurrent nosebleeds. He was 88 to 90% on room air. He also complains of lower extremity edema symptoms have dramatically worse with past couple weeks but the edema has dramatically increased over the past couple days. Patient has a BiPAP for sleep apnea and says he has been using it during the day sometimes. He has gained water weight but could not say how much because of his scale breaking. Discharge weight from last hospitalization July was 175 kg and his weight in the ED was 197 kg. Patient says he is not consistent with taking his medications and misses all of them relatively frequently. Patient thinks he needs counseling to help him stay more consistent. Patient states his swelling moves around other than his arms and sometimes scrotum sometimes abdomen and arms. No change in diet but he has noticed this past week that a lot of the food that he eats has a high sodium content. He has a mild dry cough. No chest pain. The patient was diagnosed with an acute on chronic congestive heart failure exacerbation and started on IV Lasix in the ED. chest x-ray consistent with pulmonary edema. Flu and COVID screen were negative. EKG showed normal sinus rhythm. Hospital medicine asked to admit the patient for CHF exacerbation. The patient was started on a Lasix infusion. 12/30 Patient was on 3 L/min oxygen supplementation overnight, diuresing well with the Lasix infusion. Potassium low normal today, supplemented. Renal function stable. Continues on Lasix infusion. 12/31 Diuresing well, potassium low normal today, will start potassium replacement daily. Renal function stable. The patient attempted to strike staff with his cane, crime prevention police officer was called to the bedside to discuss the patient's behaviors. I also was present and informed the patient that if he attempted to injure staff or was rude to staff again he would be discharged promptly. Patient verbalized his understanding. Continues on Lasix drip, monitoring electrolytes and renal function closely. 01/01 Vital stable overnight, metolazone 5 mg today to enhance diuresis. Electrolytes and renal function stable, monitoring twice a day while on Lasix infusion. Ugo wrap over bilateral lower extremity as tolerated. Physical exam Head: Atraumatic, normal inspection. Eyes: normal appearance, no scleral icterus. Neck: full ROM Respiratory: Oxygen supplementation, no respiratory distress. Cardiovascular: normal rate and rhythm, S1, S2. GI/Abdominal: soft, nontender, no guarding. Extremities: Bilateral pitting edema up to thighs. Neurological: CN II-XII intact, intact motor, intact sensation. Psychiatric: normal mood. Skin: warm, normal color Constitutional Vitals: Vital Signs Temp Pulse Resp BP Pulse Ox O2 Del Method O2 Flow Rate 96.8 F L 67 18 116/94 88 L Oxymask 3 01/01/23 00:02 01/01/23 04:01 01/01/23 06:01 01/01/23 06:01 01/01/23 06:01 01/01/23 04:01 01/01/23 04:01 Period Temp Pulse Resp BP Sys/Becerra Pulse Ox O2 Del Method O2 Flow Rate Last 24 Hr 96.8 F-98.2 F 33-110 16-31 102-155/82-123 81-100 CPAP-Room Air 3-5 Intake and Output 12/31/22 01/01/23 01/01/23 19:59 03:59 11:59 Intake Total 649 773 Output Total 900 1350 250 Balance -251 -577 -250 Weight 187.787 kg Intake & Output: Intake & Output 12/31/22 01/01/23 01/01/23 19:59 03:59 11:59 Intake Total 649 773 Output Total 900 1350 250 Balance -251 -577 -250 Weight 187.787 kg Intake: IV 169 108 Lasix 250 mg In Sodium Chloride 169 108 0.9% 225 ml @ 10 MG/HR 10 mls/ hr IV Q24H [facility] Rx#:[id number] Oral 240 665 GI Tube Flush 240 Output: Urine Catheter Amount 900 1350 250 Other: Meal Lunch snack-egg salad/crackers Percent of Meal Consumed 100% 100% Feeding Ability Independent Independent Urine Appearance Clear Clear Uretheral (Desai) Clear Urine Color Yellow Yellow Pale Pale Uretheral (Desai) Yellow Pale Urine Odor Normal Normal Stool Size Copious Stool Color Brown Stool Consistency Normal for Patient Soft Formed # Bowel Movements 1 0 OBJ DATA Labs 12/30/22 05:23 01/01/23 05:10 Labs: Abnormal Lab Results 01/01/23 12/31/22 12/31/22 05:10 16:00 07:47 Hgb MCV MCH MCHC RDW Lymph % (Auto) Lymph # (Auto) Chloride 94 L 93 L BUN 32 H 30 H 30 H Creatinine 1.6 H 1.5 H 1.6 H Glucose 123 H 148 H 109 H Uric Acid Calcium 8.4 L 8.2 L 8.2 L Phosphorus Iron Transferrin % Sat Direct Bilirubin GGT Lactate Dehydrogenase 12/30/22 12/30/22 12/30/22 05:23 05:23 05:23 Hgb 12.4 L MCV 75.8 L MCH 23.4 L MCHC 30.9 L RDW 24.6 H Lymph % (Auto) 12.3 L Lymph # (Auto) 0.97 L Chloride BUN 29 H Creatinine 1.6 H Glucose 123 H Uric Acid 9.3 H Calcium 8.5 L Phosphorus 4.8 H Iron 41 L Transferrin % Sat 12 L Direct Bilirubin 0.3 H GGT 63 H Lactate Dehydrogenase 244 H Meds: Medications Acetaminophen (Acetaminophen 325 Mg Tablet) 650 mg PO Q6HP PRN; Protocol PRN Reason: Per Pain Protocol/Fever > 101 Albuterol/Ipratropium (Ipratropium/Albuterol 3 Ml Ampul.Neb) 3 ml NEB Q4HP PRN PRN Reason: Shortness Of Breath Amiodarone HCl (Amiodarone Hcl 200 Mg Tablet) [facility] Last Admin: 01/01/23 08:25 Dose: 200 mg Aspirin (Aspirin 81 Mg Tab.Chew) 81 mg PO DAILY [facility] Last Admin: 01/01/23 08:25 Dose: 81 mg Dextrose (Dextrose 50% 50 Ml Vial) 0 ml IV UD PRN PRN Reason: Per Sliding Scale Diagnostic Test (Pha) (Accu-Chek 1 Each Strip) 1 each FS ACHS [facility] Last Admin: 01/01/23 07:38 Dose: 1 each Docusate Sodium (Docusate Sodium 100 Mg Capsule) 100 mg PO BID [facility] Last Admin: 01/01/23 08:28 Dose: Not Given Finasteride (Finasteride 5 Mg Tablet) 5 mg PO DAILY [facility] Last Admin: 12/31/22 09:46 Dose: 5 mg Glucose (Dextrose 31 Gm Oral.Susp) 15 gm PO PRN PRN PRN Reason: Hypoglycemia Heparin Sodium (Porcine) (Heparin 5,000 Unit/Ml Vial) 5,000 unit SQ Q8 [facility] Last Admin: 01/01/23 05:13 Dose: 5,000 unit Furosemide 250 mg/ Sodium (Chloride) 250 mls @ 10 mls/hr IV Q24H [facility]; Protocol Last Titration: 01/01/23 03:51 Dose: 10 mg/hr, 10 mls/hr Potassium Chloride 40 meq/ (Dextrose) 520 mls @ 130 mls/hr IV UD PRN PRN Reason: Potassium < 3 Magnesium Sulfate (Magnesium Sulfate) 2 gm in 50 mls @ 50 mls/hr IV UD PRN PRN Reason: Magnesium </= 1.6 Insulin Human Lispro (Insulin Lispro 1 Unit/0.01 Ml Unit) 0 unit SQ ACHS [facility]; Protocol Last Admin: 01/01/23 07:39 Dose: Not Given Lisinopril (Lisinopril 5 Mg Tablet) 5 mg PO QDAY [facility] Last Admin: 12/31/22 09:47 Dose: 5 mg Metoprolol Succinate (Metoprolol Succinate 50 Mg Tab.Xl.24h) 100 mg PO BID [facility] Last Admin: 01/01/23 08:25 Dose: 100 mg Ondansetron HCl (Ondansetron 4 Mg/2 Ml Vial) 4 mg IV Q4HP PRN PRN Reason: Nausea And Vomiting Rosuvastatin 40 Mg (Tablet) 1 dose PO HS [facility] Last Admin: 12/31/22 20:46 Dose: Not Given Mometasone- Formoterol [Dulera] 200-5 Mcg/Actuation Inhaler 2 dose INH BID [facility] Last Admin: 01/01/23 08:28 Dose: Not Given Polyethylene Glycol (Polyethylene Glycol 3350 17 Gm Packet) 17 gm PO DAILYP PRN PRN Reason: Constipation Potassium Chloride (Potassium Chloride 20 Meq Tablet) 40 meq PO UD PRN PRN Reason: Potssium is 3-3.5 Potassium Chloride (Potassium Chloride 20 Meq Tablet) 40 meq PO UD PRN PRN Reason: Potassium < 3 Potassium Chloride (Potassium Chloride 20 Meq Tablet) 40 meq PO BIDCC [facility] Last Admin: 04/10/23 08:25 Dose: 40 meq Senna (Sennosides 1 Tablet) 2 tab PO DAILYP PRN PRN Reason: Constipation Sodium Chloride (0.9 % Sodium Chloride 10 Ml Syringe) 10 ml IV Q8 [facility] Last Admin: 01/01/23 05:09 Dose: 10 ml Spironolactone (Spironolactone 25 Mg Tablet) 25 mg PO DAILY [facility] Last Admin: 01/01/23 08:25 Dose: 25 mg Tamsulosin HCl (Tamsulosin 0.4 Mg Capsule) 0.4 mg PO QDAY [facility] Last Admin: 01/01/23 08:25 Dose: 0.4 mg Tiotropium [place] (Tiotropium [place] 18 Mcg Inhalant) 18 mcg INH DAILY [facility] Last Admin: 01/01/23 08:28 Dose: Not Given Venlafaxine HCl (Venlafaxine 150 Mg Cap.Xl.24h) 150 mg PO DAILY [facility] Last Admin: 12/31/22 09:46 Dose: 150 mg A/P Narrative A/P Narrative: A: *Anasarca w/Pulm edema: 2/2 medication noncompliance *Acute on chronic systolic (20-25%)/diastolic(III) CHF & mild-mod reduced RV systolic fxn: *Acute on chronic hypoxic respiratory failure (used to be on home O2 but sent back): *Severe Pulm HTN: *CKD III: Stable *Anemia, chronic: *CAD: follows with Dr. Gore *Venous stasis changes b/l LE: *HTN/HLD: on BB/lasix/ACEI, statin *Depression/anxiety: *DM2: on insulin/metformin *Morbid obesity: BMI 65 *ADRIENNE: on bipap *Generalized weakness/Deconditioning/Debility: P: -Continue Lasix drip, monitor renal function, urine output, volume status. -Metolazone 5 mg p.o. today. -repleate electrolytes as needed and trend -cont ACEI/BB -cont asa/statin -SSI, hold metformin for now -home bipap -PT/OT -CM for placement needs -f/u with cardiology -property assessment monitor while on Lasix drip. -Ugo wrap bilateral lower extremities as tolerated. -ppx: heparin -Disposition: Currently inpatient PCU for Lasix drip and close monitoring. Will need to establish with PCP, referral to psychology at discharge for behavioral health issues including anger management. Time Spent With Patient Time: Total time spent is greater than 50% in coordination of care (as documented) at patient's floor/unit and/or counseling patient:
[2023-01-01] MEDS: FUROSEMIDE 250 MG in 0.9 % SODIUM CHLORIDE 225 ML IV SCH (13:45)
[2023-01-01 17:02] LABS: Albumin 3.6 gm/dL (3.2-5.2); Blood Urea Nitrogen 34 mg/dL (8-23); Calcium 8.6 mg/dL (8.6-10.4); Carbon Dioxide 29 mmol/L (22-30); Chloride 94 mmol/L (96-108); Glomerular Filtration Rate 42; Glucose 146 mg/dL (70-105); Phosphorous 3.9 mg/dL (2.5-4.5)
[2023-01-01] MEDS ORDERED: POTASSIUM CHLORIDE 20 MEQ TABLET PO SCH (17:30)
[2023-01-01] MEDS: ROSUVASTATIN 40 MG PO SCH (20:37)
[2023-01-02] MEDS: HEPARIN 5,000 UNIT/ML VIAL SQ SCH ×3 (05:14→20:42)
[2023-01-02] MEDS: 0.9 % SODIUM CHLORIDE 10 ML SYRINGE IV SCH ×3 (05:15→20:40)
[2023-01-02 06:54] LABS: Albumin 3.5 gm/dL (3.2-5.2)
[2023-01-02] MEDS: INSULIN LISPRO 1 UNIT/0.01 ML UNIT SQ SCH ×4 (07:25→20:40)
[2023-01-02] MEDS ORDERED: POTASSIUM CHLORIDE 20 MEQ TABLET PO ONE (07:32)
[2023-01-02] MEDS ORDERED: POTASSIUM CHLORIDE 20 MEQ TABLET PO SCH (08:00)
[2023-01-02] MEDS: TAMSULOSIN 0.4 MG CAPSULE PO SCH (08:10)
[2023-01-02] MEDS: DOCUSATE SODIUM 100 MG CAPSULE PO SCH ×2 (08:10→20:32)
[2023-01-02] MEDS: ASPIRIN 81 MG TAB.CHEW PO SCH (08:10)
[2023-01-02] MEDS: SPIRONOLACTONE 25 MG TABLET PO SCH (08:10)
[2023-01-02] MEDS: METOPROLOL SUCCINATE 50 MG TAB.XL.24H PO SCH ×2 (08:10→20:42)
[2023-01-02] MEDS: AMIODARONE HCL 200 MG TABLET PO SCH ×2 (08:10→16:23)
[2023-01-02] MEDS: TIOTROPIUM BROMIDE 18 MCG INHALANT INH SCH (08:11)
[2023-01-02] MEDS: MOMETASONE FORMOTEROL INH SCH ×2 (08:11→20:32)
[2023-01-02] MEDS: FINASTERIDE 5 MG TABLET PO SCH (08:14)
[2023-01-02] MEDS: LISINOPRIL 5 MG TABLET PO SCH (08:14)
[2023-01-02] MEDS: VENLAFAXINE 150 MG CAP.XL.24H PO SCH (08:14)
--- NOTE | 2023-01-02 14:06 | Internal Med Progress Note ---
SUBJECTIVE Subjective Patient information: Note initiated : 01/02/23 at 2:03 pm Service Date, if different from initiated Date: [] Patient: Guillaume Broderick a 62 y/o M admitted on 12/29/22 for Shortness of breath. Chief Complaint: [] Interval history: Mr. Broderick is a 62 year old M Presents the ED early in the morning for shortness of breath worsening over the past couple hours is also had some recurrent nosebleeds. He was 88 to 90% on room air. He also complains of lower extremity edema symptoms have dramatically worse with past couple weeks but the edema has dramatically increased over the past couple days. Patient has a BiPAP for sleep apnea and says he has been using it during the day sometimes. He has gained water weight but could not say how much because of his scale breaking. Discharge weight from last hospitalization July was 175 kg and his weight in the ED was 197 kg. Patient says he is not consistent with taking his medications and misses all of them relatively frequently. Patient thinks he needs counseling to help him stay more consistent. Patient states his swelling moves around other than his arms and sometimes scrotum sometimes abdomen and arms. No change in diet but he has noticed this past week that a lot of the food that he eats has a high sodium content. He has a mild dry cough. No chest pain. The patient was diagnosed with an acute on chronic congestive heart failure exacerbation and started on IV Lasix in the ED. chest x-ray consistent with pulmonary edema. Flu and COVID screen were negative. EKG showed normal sinus rhythm. Hospital medicine asked to admit the patient for CHF exacerbation. The patient was started on a Lasix infusion. 12/30 Patient was on 3 L/min oxygen supplementation overnight, diuresing well with the Lasix infusion. Potassium low normal today, supplemented. Renal function stable. Continues on Lasix infusion. 12/31 Diuresing well, potassium low normal today, will start potassium replacement daily. Renal function stable. The patient attempted to strike staff with his cane, police specialist was called to the bedside to discuss the patient's behaviors. I also was present and informed the patient that if he attempted to injure staff or was rude to staff again he would be discharged promptly. Patient verbalized his understanding. Continues on Lasix drip, monitoring electrolytes and renal function closely. 01/01 Vital stable overnight, metolazone 5 mg today to enhance diuresis. Electrolytes and renal function stable, monitoring twice a day while on Lasix infusion. Ugo wrap over bilateral lower extremity as tolerated. 01/02 Vitals stable overnight, diuresing well. Potassium was low normal this morning so will increase potassium supplementation. Mild increase in bicarbonate, renal function about the same. Continues on Lasix drip, checking labs twice daily. Physical exam Head: Atraumatic, normal inspection. Eyes: normal appearance, no scleral icterus. Neck: full ROM Respiratory: Oxygen supplementation, no respiratory distress. Cardiovascular: normal rate and rhythm, S1, S2. GI/Abdominal: soft, nontender, no guarding. Extremities: Bilateral pitting edema up to thighs. Neurological: CN II-XII intact, intact motor, intact sensation. Psychiatric: normal mood. Skin: warm, normal color Constitutional Vitals: Vital Signs Temp Pulse Resp BP Pulse Ox O2 Del Method O2 Flow Rate 97.6 F 69 15 115/104 99 Oxymask 5 01/02/23 12:02 01/02/23 12:01 01/02/23 12:02 01/02/23 12:01 01/02/23 12:01 01/02/23 10:01 01/02/23 10:01 Period Temp Pulse Resp BP Sys/Becerra Pulse Ox O2 Del Method O2 Flow Rate Last 24 Hr 95.8 F-97.6 F 55-79 13-32 100-150/53-126 67-99 Oxymask-Room Air 5-5 Intake and Output 01/02/23 01/02/23 01/02/23 03:59 11:59 19:59 Intake Total 637 156 308 Output Total 3700 3720 850 Balance -1941 -4927 -542 Intake & Output: Intake & Output 01/02/23 01/02/23 01/02/23 03:59 11:59 19:59 Intake Total 637 156 308 Output Total 3700 3725 850 Balance -0397 -9718 -192 Intake: IV 156 68 Lasix 250 mg In Sodium Chloride 156 68 0.9% 225 ml @ 10 MG/HR 10 mls/ hr IV Q24H [facility] Rx#:[id number] Oral 637 240 Output: Urine Catheter Amount 3700 3720 850 Other: Meal Tuna and crackers Breakfast Lunch Percent of Meal Consumed 100% 100% 100% Feeding Ability Independent Independent Urine Appearance Clear Clear Uretheral (Desai) Clear Urine Color Yellow Yellow Uretheral (Desai) Yellow Urine Odor Strong Strong OBJ DATA Labs 12/30/22 05:23 01/02/23 05:34 Labs: Abnormal Lab Results 01/02/23 01/01/23 01/01/23 05:34 15:50 05:10 Chloride 90 L 94 L Carbon Dioxide 32 H BUN 34 H 34 H 32 H Creatinine 1.7 H 1.7 H 1.6 H Glucose 107 H 146 H 123 H Calcium 8.4 L 12/31/22 12/31/22 16:00 07:47 Chloride 94 L 93 L Carbon Dioxide BUN 30 H 30 H Creatinine 1.5 H 1.6 H Glucose 148 H 109 H Calcium 8.2 L 8.2 L Meds: Medications Acetaminophen (Acetaminophen 325 Mg Tablet) 650 mg PO Q6HP PRN; Protocol PRN Reason: Per Pain Protocol/Fever > 101 Albuterol/Ipratropium (Ipratropium/Albuterol 3 Ml Ampul.Neb) 3 ml NEB Q4HP PRN PRN Reason: Shortness Of Breath Amiodarone HCl (Amiodarone Hcl 200 Mg Tablet) 200 mg PO BIDCC [facility] Last Admin: 01/02/23 08:10 Dose: 200 mg Aspirin (Aspirin 81 Mg Tab.Chew) 81 mg PO DAILY [facility] Last Admin: 01/02/23 08:10 Dose: 81 mg Dextrose (Dextrose 50% 50 Ml Vial) 0 ml IV UD PRN PRN Reason: Per Sliding Scale Diagnostic Test (Pha) (Accu-Chek 1 Each Strip) 1 each FS ACHS [facility] Last Admin: 01/02/23 11:44 Dose: 1 each Docusate Sodium (Docusate Sodium 100 Mg Capsule) 100 mg PO BID [facility] Last Admin: 01/02/23 08:10 Dose: Not Given Finasteride (Finasteride 5 Mg Tablet) 5 mg PO DAILY [facility] Last Admin: 01/02/23 08:14 Dose: 5 mg Glucose (Dextrose 31 Gm Oral.Susp) 15 gm PO PRN PRN PRN Reason: Hypoglycemia Heparin Sodium (Porcine) (Heparin 5,000 Unit/Ml Vial) 5,000 unit SQ Q8 [facility] Last Admin: 01/02/23 05:14 Dose: 5,000 unit Furosemide 250 mg/ Sodium (Chloride) 250 mls @ 10 mls/hr IV Q24H [facility]; Protocol Last Titration: 01/02/23 13:49 Dose: 6 mg/hr, 6 mls/hr Potassium Chloride 40 meq/ (Dextrose) 520 mls @ 130 mls/hr IV UD PRN PRN Reason: Potassium < 3 Magnesium Sulfate (Magnesium Sulfate) 2 gm in 50 mls @ 50 mls/hr IV UD PRN PRN Reason: Magnesium </= 1.6 Insulin Human Lispro (Insulin Lispro 1 Unit/0.01 Ml Unit) 0 unit SQ ACHS [facility]; Protocol Last Admin: 01/02/23 11:44 Dose: Not Given Lisinopril (Lisinopril 5 Mg Tablet) 5 mg PO QDAY [facility] Last Admin: 01/02/23 08:14 Dose: 5 mg Metoprolol Succinate (Metoprolol Succinate 50 Mg Tab.Xl.24h) 100 mg PO BID [facility] Last Admin: 01/02/23 08:10 Dose: 100 mg Ondansetron HCl (Ondansetron 4 Mg/2 Ml Vial) 4 mg IV Q4HP PRN PRN Reason: Nausea And Vomiting Rosuvastatin 40 Mg (Tablet) 1 dose PO HS [facility] Last Admin: 01/01/23 20:37 Dose: Not Given Mometasone- Formoterol [Dulera] 200-5 Mcg/Actuation Inhaler 2 dose INH BID [facility] Last Admin: 01/02/23 08:11 Dose: Not Given Polyethylene Glycol (Polyethylene Glycol 3350 17 Gm Packet) 17 gm PO DAILYP PRN PRN Reason: Constipation Potassium Chloride (Potassium Chloride 20 Meq Tablet) 40 meq PO UD PRN PRN Reason: Potssium is 3-3.5 Potassium Chloride (Potassium Chloride 20 Meq Tablet) 40 meq PO UD PRN PRN Reason: Potassium < 3 Senna (Sennosides 1 Tablet) 2 tab PO DAILYP PRN PRN Reason: Constipation Sodium Chloride (0.9 % Sodium Chloride 10 Ml Syringe) 10 ml IV Q8 [facility] Last Admin: 01/02/23 13:55 Dose: Not Given Spironolactone (Spironolactone 25 Mg Tablet) 25 mg PO DAILY [facility] Last Admin: 01/02/23 08:10 Dose: 25 mg Tamsulosin HCl (Tamsulosin 0.4 Mg Capsule) 0.4 mg PO QDAY [facility] Last Admin: 01/02/23 08:10 Dose: 0.4 mg Tiotropium [place] (Tiotropium [place] 18 Mcg Inhalant) 18 mcg INH DAILY [facility] Last Admin: 01/02/23 08:11 Dose: Not Given Venlafaxine HCl (Venlafaxine 150 Mg Cap.Xl.24h) 150 mg PO DAILY [facility] Last Admin: 01/02/23 08:14 Dose: 150 mg A/P Narrative A/P Narrative: Assessment: 62-year-old male with a history of combined systolic and diastolic heart failure and multiple additional comorbidities per below admitted for acute on chronic heart failure exacerbation. *Acute on chronic systolic (20-25%)/diastolic(III) CHF & mild-mod reduced RV systolic fxn: *Acute on chronic hypoxic respiratory failure (used to be on home O2 but sent back): *Severe Pulm HTN: *CKD III: Stable *Anemia, chronic: *CAD: follows with Dr. Gore *Venous stasis changes b/l LE: *HTN/HLD: on BB/lasix/ACEI, statin *Depression/anxiety: *DM2: on insulin/metformin *Morbid obesity: BMI 65 *ADRIENNE: on bipap *Generalized weakness/Deconditioning/Debility: Plan -Continue Lasix drip, monitor renal function, urine output, volume status. -Replace electrolytes as needed -cont ACEI/BB -cont asa/statin -SSI, hold metformin for now -home bipap -PT/OT -CM for placement needs -f/u with cardiology after discharge -lease analyst while on Lasix drip. -Elevate lower extremities. -ppx: heparin -Disposition: Currently inpatient PCU for Lasix drip and close monitoring. Will need to establish with PCP, referral to psychology at discharge for behavioral health issues including anger management. Time Spent With Patient Time: Total time spent is greater than 50% in coordination of care (as documented) at patient's floor/unit and/or counseling patient:
[2023-01-02] MEDS: FUROSEMIDE 250 MG in 0.9 % SODIUM CHLORIDE 225 ML IV SCH (16:37)
[2023-01-02 17:24] LABS: Albumin 3.8 gm/dL (3.2-5.2); Blood Urea Nitrogen 38 mg/dL (8-23); Calcium 8.7 mg/dL (8.6-10.4); Carbon Dioxide 33 mmol/L (22-30); Chloride 90 mmol/L (96-108); Glomerular Filtration Rate 45; Glucose 150 mg/dL (70-105); Phosphorous 4.6 mg/dL (2.5-4.5)
[2023-01-02] MEDS: ROSUVASTATIN 40 MG PO SCH (20:32)
[2023-01-03] MEDS: 0.9 % SODIUM CHLORIDE 10 ML SYRINGE IV SCH (05:32)
[2023-01-03] MEDS: HEPARIN 5,000 UNIT/ML VIAL SQ SCH (05:32)
[2023-01-03 07:22] LABS: Albumin 3.6 gm/dL (3.2-5.2); Blood Urea Nitrogen 40 mg/dL (8-23); Carbon Dioxide 36 mmol/L (22-30); Chloride 89 mmol/L (96-108); Glomerular Filtration Rate 42; Glucose 87 mg/dL (70-105); Phosphorous 4.7 mg/dL (2.5-4.5)
[2023-01-03] MEDS: INSULIN LISPRO 1 UNIT/0.01 ML UNIT SQ SCH ×2 (07:36→11:22)
[2023-01-03] MEDS: AMIODARONE HCL 200 MG TABLET PO SCH (07:38)
[2023-01-03] MEDS ORDERED: POTASSIUM CHLORIDE 20 MEQ TABLET PO SCH (08:00)
--- NOTE | 2023-01-03 08:05 | Discharge Summary ---
Discharge Provider Provider IMPORTANT FOLLOW-UP INFORMATION FOR PCP: Patient information: Note initiated : 01/03/23 at 8:03 am Service Date, if different from initiated Date: [] Patient: Guillaume Broderick 62 y/o M admitted on 12/29/22 for Shortness of breath. Chief Complaint: [] Date of admission: 12/29/22 13:20 Discharge date: 01/03/23 Primary care physician: Jane Murphy Consults: 12/29/22 Consult to Physician [CONS] Stat Comment: Consulting Provider: Cash Jerry Reason For Exam: Physician to Consult COURSE Hospital Course Hospital course: Mr. Broderick is a 62 year old M Presents the ED early in the morning for shortness of breath worsening over the past couple hours is also had some recurrent nosebleeds. He was 88 to 90% on room air. He also complains of lower extremity edema symptoms have dramatically worse with past couple weeks but the edema has dramatically increased over the past couple days. Patient has a BiPAP for sleep apnea and says he has been using it during the day sometimes. He has gained water weight but could not say how much because of his scale breaking. Discharge weight from last hospitalization July was 175 kg and his weight in the ED was 197 kg. Patient says he is not consistent with taking his medications and misses all of them relatively frequently. Patient thinks he needs counseling to help him stay more consistent. Patient states his swelling moves around other than his arms and sometimes scrotum sometimes abdomen and arms. No change in diet but he has noticed this past week that a lot of the food that he eats has a high sodium content. He has a mild dry cough. No chest pain. The patient was diagnosed with an acute on chronic congestive heart failure exacerbation and started on IV Lasix in the ED. chest x-ray consistent with pulmonary edema. Flu and COVID screen were negative. EKG showed normal sinus rhythm. Hospital medicine asked to admit the patient for CHF exacerbation. The patient was started on a Lasix infusion. 12/30 Patient was on 3 L/min oxygen supplementation overnight, diuresing well with the Lasix infusion. Potassium low normal today, supplemented. Renal function stable. Continues on Lasix infusion. 12/31 Diuresing well, potassium low normal today, will start potassium replacement daily. Renal function stable. The patient attempted to strike staff with his cane, precinct police lieutenant was called to the bedside to discuss the patient's behaviors. I also was present and informed the patient that if he attempted to injure staff or was rude to staff again he would be discharged promptly. Patient verbalized his understanding. Continues on Lasix drip, monitoring electrolytes and renal function closely. 01/01 Vital stable overnight, metolazone 5 mg today to enhance diuresis. Electrolytes and renal function stable, monitoring twice a day while on Lasix infusion. Ugo wrap over bilateral lower extremity as tolerated. 01/02 Vitals stable overnight, diuresing well. Potassium was low normal this morning so will increase potassium supplementation. Mild increase in bicarbonate, renal function about the same. Continues on Lasix drip, checking labs twice daily. 01/03 Vitals stable overnight, serum bicarbonate trending up, BUN trending up. Discontinued Lasix infusion and transitioned back to home Lasix 40 mg twice daily as well as metolazone 5 mg daily. Home oxygen evaluation ordered prior to discharge. Discharge back to home with home health. Follow-up with primary care provider and cardiology. Physical exam Head: Atraumatic, normal inspection. Eyes: normal appearance, no scleral icterus. Neck: full ROM Respiratory: Oxygen supplementation, no respiratory distress. Cardiovascular: normal rate and rhythm, S1, S2. GI/Abdominal: soft, nontender, no guarding. Extremities: Bilateral pitting edema up to thighs. Neurological: CN II-XII intact, intact motor, intact sensation. Psychiatric: normal mood. Skin: warm, normal color Discharge diagnosis: Acute on chronic combined systolic and diastolic heart failure. Time Spent with Patient Time attestation: Total time spent providing and/or coordinating discharge services: Time spent: Greater than 30 minutes EXAM Constitutional Vitals: Temp Pulse Resp BP Pulse Ox O2 Del Method O2 Flow Rate 96.4 F L 63 18 116/84 98 Oxymask 5 01/03/23 00:03 01/03/23 06:55 01/03/23 06:55 01/03/23 06:55 01/03/23 06:55 01/03/23 06:55 01/03/23 06:55 Discharge Data Data Completed and Pending Labs on day of discharge: Labs from last 24 hours 01/03/23 01/02/23 05:26 15:50 Sodium 135 137 Potassium 4.0 3.4 Chloride 89 L 90 L Carbon Dioxide 36 H 33 H Anion Gap 10.0 14.0 BUN 40 H 38 H Creatinine 1.7 H 1.6 H GFR Calculation 42 45 Glucose 87 150 H Calcium 9.0 8.7 Phosphorus 4.7 H 4.6 H Albumin 3.6 3.8 Discharge Plan Patient/Caregiver Discharge Instructions Activity: increase activity as tolerated Diet: Low Sodium (2gm) and Consistent Carbohydrate Prescriptions: New furosemide [Lasix] 40 mg tablet 40 mg PO BID Qty: 120 12RF metolazone 5 mg Tablet 5 mg PO QDAY Qty: 60 12RF Continued metformin 500 mg tablet extended release 24 hr 1,000 mg PO BID rosuvastatin 40 mg tablet 40 mg PO QPM tamsulosin 0.4 mg capsule 0.4 mg PO QDAY Rx Instructions: Take on tab BID lisinopril 5 mg tablet 5 mg PO QDAY finasteride 5 mg tablet 5 mg PO DAILY potassium chloride 20 mEq tablet,ER particles/crystals 1 tab PO DAILY spironolactone 50 mg tablet 0.5 tab PO QAM hydroxyzine HCl 25 mg tablet 1 - 2 tab PO Q6HP PRN (Reason: anxiety) metoprolol succinate 100 mg tablet extended release 24 hr 1 tab PO BID venlafaxine 150 mg capsule,extended release 24hr 1 cap PO QDAY Spiriva with HandiHaler 18 mcg capsule, w/inhalation device 1 cap INHALATION QDAY Dulera 200-5 mcg/actuation HFA aerosol inhaler 2 puff INHALATION BID Jardiance 25 mg tablet 1 tab PO QAM amiodarone [Pacerone] 200 mg tablet 200 mg PO BID aspirin 81 mg tablet,chewable 1 tab PO QAM Glucagon (HCl) Emergency Kit 1 mL auto-injector 1 mg subcut PRN PRN (Reason: Hypoglycemia) ascorbic acid (vitamin C) 1,500 mg capsule 1,500 mg PO DAILY Humalog KwikPen Insulin 100 unit/ml auto-injector See Protocol subcut PRN PRN (Reason: Hyperglycemia) Protocol: Insulin Sliding Scale, High Condition: HUMALOG/NOVALOG SC SLIDING Dose/Route: SCALE Condition: FSBS < 70 Dose/Route: Give 4 Oz juice, or 15gm oral Instruction: Glucose, or 25ml D50W IV if Dose/Route: unable to take PO. Recheck in Instruction: 15 min and repeat if FSBS < 70 Condition: FSBS 71-140 Dose/Route: NO COVERAGE Condition: FSBS 141-170 Dose/Route: 3 UNITS Condition: FSBS 171-200 Dose/Route: 6 UNITS Condition: FSBS 201-250 Dose/Route: 9 UNITS Condition: FSBS 251-300 Dose/Route: 12 UNITS Condition: FSBS 301-350 Dose/Route: 15 UNITS Condition: FSBS 351-400 Dose/Route: 18 UNITS Condition: FSBS > 400 Dose/Route: 20 UNITS; REPEAT Q2H X2 Instruction: CONTINUE FOLLOWING SLIDING Condition: SCALE; IF STILL > 400; CALL Dose/Route: PHYSICIAN Rx Instructions: INJECT PER SLIDING SCALE INSTRUCTION SUBCUT FOUR TIMES DAILY NEEDED FOR DIABETES. Discontinued furosemide 20 mg tablet 40 mg PO BID metolazone 5 mg tablet 5 mg PO QDAY Follow Up Plan Follow up with: Jane Murphy ARNP [Primary Care Provider] - Patient Disposition: Home, Self-Care Prognosis: Fair Overall status at discharge: patient is progressing back to baseline Discharge Orders: Discharge Order (Routine); Ordered 01/03/23 Ordered By: Nikolai Lambert
[2023-01-03] MEDS: TIOTROPIUM BROMIDE 18 MCG INHALANT INH SCH (08:17)
[2023-01-03] MEDS: MOMETASONE FORMOTEROL INH SCH (08:17)
[2023-01-03] MEDS ORDERED: METOLAZONE 2.5 MG TABLET PO SCH (08:30)
[2023-01-03] MEDS: VENLAFAXINE 150 MG CAP.XL.24H PO SCH (08:35)
[2023-01-03] MEDS: TAMSULOSIN 0.4 MG CAPSULE PO SCH (08:35)
[2023-01-03] MEDS: ASPIRIN 81 MG TAB.CHEW PO SCH (08:35)
[2023-01-03] MEDS: SPIRONOLACTONE 25 MG TABLET PO SCH (08:35)
[2023-01-03] MEDS: DOCUSATE SODIUM 100 MG CAPSULE PO SCH (08:35)
[2023-01-03] MEDS: FINASTERIDE 5 MG TABLET PO SCH (08:36)
[2023-01-03] MEDS: METOPROLOL SUCCINATE 50 MG TAB.XL.24H PO SCH (08:36)
[2023-01-03] MEDS: LISINOPRIL 5 MG TABLET PO SCH (08:38)
[2023-01-03] MEDS ORDERED: FUROSEMIDE 20 MG TABLET PO SCH (09:00)
== END 2023-01-03 13:05 | disposition home or self-care (01) | DRG 291 ==
LOC: ED 03:12 → ICU 13:20
PROVIDERS: ADMIT Internal Medicine; ATTEND Internal Medicine